=== PATIENT | female | born 1975 | race Caucasian/White ===

== ENCOUNTER 2023-05-03 21:18 | Outpatient (REF) | payer OTHER, SELFPAY ==
[2023-05-07 14:08] LABS: Age Gdln ACOG Testing Note (.); HPV Aptima Negative (Negative); IGP, Aptima HPV, rfx 16/18,45 Note (.)
== END 2023-05-03 21:19 | disposition home or self-care (01) ==
LOC: LAB 21:18
PROVIDERS: Visit Provider Obstetrics & Gynecology
DX: Z12.4 Encounter for screening for malignant neoplasm of cervix (principal)
CPT/HCPCS: 87624; G0145

== ENCOUNTER 2024-05-16 19:15 | Outpatient (REF) | payer OTHER, SELFPAY ==
--- OUTSIDE RECORDS SUMMARY | 2024-05-16 19:19 | XMS_ITS | CCD ---
Author Organization [facility] Care Team Providers Care Special Needs Bus Driver Name Role Phone VIOLA, DR RENDON Admitting Unavailable VIOLA, DR RENDON Attending Unavailable DEFRANCE, DR LARSEN Primary Care Unavailable WEST, DR SUZIE Peña Consulting Unavailable VIOLA, DR RENDON Consulting Unavailable VIOLA, DR RENDON Admitting Unavailable VIOLA, DR RENDON Attending Unavailable DEFRANCE, DR LARSEN Primary Care Unavailable VIOLA, DR RENDON Consulting Unavailable VIOLA, DR RENDON Admitting Unavailable VIOLA, DR RENDON Attending Unavailable DEFRANCE, DR LARSEN Primary Care Unavailable VIOLA, DR RENDON Consulting Unavailable VIOLA, DR RENDON Admitting Unavailable VIOLA, DR RENDON Attending Unavailable DEFRANCE, DR LARSEN Primary Care Unavailable VIOLA, DR RENDON Admitting Unavailable VIOLA, DR RENDON Attending Unavailable DEFRANCE, DR LARSEN Primary Care Unavailable VIOLA, DR RENDON Consulting Unavailable VIOLA, DR RENDON Admitting Unavailable VIOLA, DR RENDON Attending Unavailable DEFRANCE, DR LARSEN Primary Care Unavailable VIOLA, DR RENDON Consulting Unavailable LONGEDINSON Consulting Unavailable VIOLA, JUSTICE Attending Unavailable TREMRUBY CORRALES Referring Unavailable DEFRANCE, SUZIE Flores Primary Care Unavailable RUBY BARCLAY Referring Unavailable DEFRANCE, SUZIE Flores Primary Care Unavailable Defrance Suzie VASQUEZ Primary Care Provider [phone] Problems Active Problems Problem Classification Problem Date Documented Date Episodic/Chronic Endometriosis (1 source) Endometriosis, unspecified; Translations: [ENDOMETRIOSIS UNSPECIFIED] Onset: 07-29-2021 Chronic Immunizations and screening for infectious disease (5 sources) Encounter for screening for human papillomavirus (HPV); Translations: [Encounter for screening for infections with a predominantly sexual mode of transmission] Onset: 02-16-2022 Episodic Malaise and fatigue (1 source) Weakness; Translations: [Weakness] Onset: 07-08-2023 Episodic Other connective tissue disease (1 source) Lateral epicondylitis, left elbow; Translations: [Lateral epicondylitis, left elbow] Onset: 07-08-2023 Episodic Other female genital disorders (4 sources) Abnormal uterine and vaginal bleeding, unspecified; Translations: [ABNORMAL UTERINE VAGINAL BLEED UNS] Onset: 07-17-2021 Chronic Other female genital disorders (1 source) Other specified noninflammatory disorders of vagina; Translations: [OTH SPEC NONINFLAMMATORY D/O VAGINA] Onset: 02-17-2022 Episodic Other non-traumatic joint disorders (1 source) Pain in left elbow; Translations: [Pain in left elbow] Onset: 07-08-2023 Episodic Other screening for suspected conditions (not mental disorders or infectious disease) (8 sources) Encounter for screening for malignant neoplasm of cervix; Translations: [Encounter for screening mammogram for malignant neoplasm of breast] Onset: 05-08-2021 Episodic Unclassified (1 source) CONTACT W/AND (SUSP) EXPOS COVID-19; Translations: [CONTACT W/AND (SUSP) EXPOS COVID-19] Onset: 07-16-2021 Past or Other Problems Problem Classification Problem Date Documented Da te Episodic/Chronic Abdominal pain (1 source) Pelvic and perineal pain; Translations: [PELVIC AND PERINEAL PAIN] Onset: 07-29-2021 Episodic Benign neoplasm of uterus (1 source) Leiomyoma of uterus, unspecified; Translations: [LEIOMYOMA OF UTERUS UNSPECIFIED] Onset: 07-29-2021 Episodic Results Test Name Value Interpretation Reference Range Facil ity PAP ACOG PANEL 2: 30 to 65on 05-01-2022 . . Normal [facility] Comment on above: Result Comment: Perf ormed at: BA Performed By: #### [id number] #### [facility] [address] [address] [address] Mane Mueller Age Gdln ACOG Testing 30-[address] [facility] Comment on above: Performed By: #### [id number] #### [facility] [address] [address] [address] Mane Mueller DIAGNOSIS: Comment [facility] Comment on above: Result Comment: NEGA TIVE FOR INTRAEPITHELIAL LESION OR MALIGNANCY. Performed at: BA Performed By: #### [id number] #### [facility] [address] [place] [address] Dr. Mane Mueller HPV Aptima Negative Normal Negative [facility] Comment on above: Result Comment: This nucleic acid amplification test detects fourteen high-risk HPV types (16,18,31,33,35,39,45,51,52,56,58,59,66,68) without differentiation. Performed at: =G Performed By: #### [id number] #### [facility] [address] [address] [address] Mane Mueller HPV Genotype Reflex Comment Normal [facility] Comment on above: Result Comment: Crit eria not met, HPV Genotype not performed. Performed at: BA Performed By: #### [id number] #### [facility] [address] [place] [address] Dr. Mane Mueller Methodology: Comment Normal [facility] Comment on above: Result Comment: This liquid based ThinPrep(R) pap test was screened with the use of an image guided system. Performed at: WB Performed By: #### [id number] #### [facility] [address] [place] [address] Dr. Mane Mueller Note: Comment Normal [facility] Comment on above: Result Comment: The Pap smear is a screening test designed to aid in the detection of premalignant and malignant conditions of the uterine cervix. It is not a diagnostic procedure and should not be used as the sole means of detecting cervical cancer. Both false-positive and false-negative reports do occur. . Performed at: WB Performed By: #### [id number] #### [facility] [address] [place] [address] Dr. Mane Mueller Performed by: Comment Normal [facility] Comment on above: Result Comment: Beau Jeffries, Hardware Technician (ASCP) Performed at: BA Performed By: #### [id number] #### [facility] [address] [place] [address] Dr. Mane Mueller Specimen adequacy: Comment Normal [facility] Comment on above: Result Comment: Sati sfactory for evaluation. Endocervical and/or squamous metaplastic cells (endocervical component) are present. Performed at: BA Performed By: #### [id number] #### [facility] [address] [place] [address] Dr. Mane Mueller CHLAMYDIA/GONOCOCCUS MARYELLEN ( AB/URINE/PAPon 02-19-2022 Chlamydia trachomatis, MARYELLEN Negative Normal Negative [facility] Comment on above: Performed By: #### C T/NGNA #### [facility] [address] [place] [address] Dr. Mane Muleler Neisseria gonorrhoeae, MARYELLEN Negative Normal Negative [facility] Comment on above: Performed By: #### C T/NGNA #### [facility] [address] [place] [address] Dr. Mane Mueller VAGINITIS/VAGINOSIS DNA PROB Rigo 02-19-2022 Sanrda species Negative Normal Negative [facility] Comment on above: Performed By: #### V AGINT #### [facility] [address] [place] [address] Dr. Mane Mueller Gardnerella vaginalis Negative Normal Negative [facility] Comment on above: Performed By: #### V AGINT #### [facility] [address] [place] [address] Dr. Mane Mueller Trichomonas vaginalis Positive Abnormal Negative [facility] Comment on above: Performed By: #### V AGINT #### [facility] [address] [place] [address] Dr. Mane Mueller CBC AUTO DIFFon 07-17-2021 BASO # 0.0 103/ul Normal 0.0-0.[address] [facility] Comment on above: Performed By: #### C BC #### [facility] [address] [place] [address] Dr. Mane Mueller Basophils/100 WBC (Bld) 0.3 % Normal 0.2-2.[address] [facility] Comment on above: Performed By: #### C BC #### [facility] [address] [place] [address] Dr. Mane Mueller EO # 0.3 103/ul Normal 0.0-0.[address] [facility] Comment on above: Performed By: #### C BC #### [facility] [address] [place] [address] Dr. Mane Mueller Eosinophils/100 WBC (Bld) 2.9 % Normal 0.9-7.[address] [facility] Comment on above: Performed By: #### C BC #### [facility] [address] [place] [address] Dr. Mane Mueller Erythrocyte distribution width (RBC) [Ratio] 14.2 % Normal 11.0-15.[address] [facility] Comment on above: Performed By: #### C BC #### [facility] [address] [place] [address] Dr. Mane Mueller Hematocrit (Bld) [Volume fraction] 40.3 % Normal 36.0-48.[address] [facility] Comment on above: Performed By: #### C BC #### [facility] [address] [place] [address] Dr. Mane Mueller Hemoglobin (Bld) [Mass/Vol] 13.1 g/dL Normal 12.0-16.[address] [facility] Comment on above: Performed By: #### C BC #### [facility] [address] [place] [address] Dr. Mane Mueller IG # 0.02 10e3/ul Normal 0.00-0.[address] [facility] Comment on above: Performed By: #### C BC #### [facility] [address] [place] [address] Dr. Mane Mueller IG % 0.2 % Normal 0.0-0.5 [facility] Comment on above: Performed By: #### C BC #### [facility] [address] [place] [address] Dr. Mane Mueller LYMPH # 2.9 103/ul Normal 1.2-3.8 [facility] Comment on above: Performed By: #### C BC #### [facility] [address] [place] [address] Dr. Mane Mueller Lymphocytes/100 WBC (Bld) 30.7 % Normal 20.5-60.[address] [facility] Comment on above: Performed By: #### C BC #### [facility] [address] [place] [address] Dr. Mane Mueller MANUAL DIFF REQ NO Normal [facility] Comment on above: Performed By: #### C BC #### [facility] [address] [place] [address] Dr. Mane Mueller MCH (RBC) [Entitic mass] 27.9 pg Normal 26.7-34.[address] [facility] Comment on above: Performed By: #### C BC #### [facility] [address] [place] [address] Dr. Mane Mueller MCHC (RBC) [Mass/Vol] 32.5 g/dL Normal 29.9-35.[address] [facility] Comment on above: Performed By: #### C BC #### [facility] [address] [place] [address] Dr. Mane Mueller MCV (RBC) [Entitic vol] 85.7 fL Normal 81.0-99.[address] [facility] Comment on above: Performed By: #### C BC #### [facility] [address] [place] [address] Dr. Mane Mueller MONO # 0.7 103/ul Normal 0.3-0.[address] [facility] Comment on above: Performed By: #### C BC #### [facility] [address] [place] [address] Dr. Mane Mueller Monocytes/100 WBC (Bld) 7.7 % Normal 1.7-12.[address] [facility] Comment on above: Performed By: #### C BC #### [facility] [address] [place] [address] Dr. Mane Mueller NEUT # 5.5 103/ul Normal 1.4-6.5 [facility] Comment on above: Performed By: #### C BC #### [facility] [address] [place] [address] Dr. Mane Mueller Neutrophils/100 WBC (Bld) 58.2 % Normal 43.0-75.0 [facility] Comment on above: Performed By: #### C BC #### [facility] [address] [place] [address] Dr. Mane Mueller Platelet mean volume (Bld) [Entitic vol] 9.6 fL Normal 9.5-13.[address] [facility] Comment on above: Performed By: #### C BC #### [facility] [address] [place] [address] Dr. Mane Mueller PLT 349 103/ul Normal 150-450 [facility] Comment on above: Performed By: #### C BC #### [facility] [address] [place] [address] Dr. Mane Mueller RBC 4.70 106/ul Normal 4.20-5.[address] [facility] Comment on above: Performed By: #### C BC #### [facility] [address] [place] [address] Dr. Mane Mueller WBC 9.4 103/ul Normal 4.0-11.[address] [facility] Comment on above: Performed By: #### C BC #### [facility] [address] [place] [address] Dr. Mane Mueller PREG QUANT HCGon 07-17-2021 HCG QUANT 1 mIU/mL Normal [facility] Comment on above: Performed By: #### P REGQNT #### [facility] [address] [place] [address] Dr. Mane Mueller HCG RANGE SEE BELOW Normal [facility] Comment on above: Result Comment: 5-50 0-1 WEEK 40-300 1-2 WEEKS 100-1,000 2-3 WEEKS 500-6,000 3-4 WEEKS 5,000-200,000 1-2 MONTHS 10,000-100,000 2-3 MONTHS 3,000-50,000 2ND TRIMESTER 1,000-50,000 3RD TRIMESTER Performed By: #### P REGQNT #### [facility] [address] [place] [address] Dr. Mane Mueller Covid-19 PCR (CVDTB)on 06-21 SARS-CoV-2 (COVID-19) RNA MARYELLEN+probe Ql (Unsp spec) Not detected Normal NOT DETECTED [facility] Comment on above: Result Comment: This test is not yet approved or cleared by the [place] FDA. When there are no FDA-approved or cleared tests available, and other criteria are met, FDA can make tests available under an emergency access mechanism called an Emergency Use Authorization (EUA). The EUA for this test is supported by the [place] of Health and Human Service's (HHS's) declaration that circumstances exist to justify the emergency use of in vitro diagnostics for the detection and/or diagnosis of the virus that causes COVID-19. This EUA will remain in effect (meaning this test can be used) for the duration of the COVID-19 declaration justifying emergency of IVDs, unless it is terminated or revoked by FDA (after which the test may no longer be used). When diagnostic testing is negative, the possibility of a false negative should be considered in the context of a patient's recent exposures and the presence of clinical signs and symptoms consistent with SARS-CoV-2. Performed By: #### C [facility] #### [facility] [address] [place] [address] Dr. Mane Mueller MG MAMM SCREEN 3D YUDI CADon 05-08-2021 MG MAMM SCREEN 3D YUDI CAD Patient: AZALIA CASTRO Exam Date: 05/08/2021 : 1975 Gender:F Ordering : DR JUSTICE ROD . Admission #: [id number] Family : Order #: [id number] CLICK HERE TO VIEW EXAM RADIOLOGY REPORT PROCEDURE: MAMMOGRAM SCREENING 3D BILATERAL CAD COMPARISON: MG MAMM YUDI DIAG W CAD, 05/18/2012. MG MAMM SCREEN YUDI W CAD, 05/23/2013. INDICATIONS: Screening mammography Calculator Name NCI Breast Cancer Risk Assessment Tool 5 Year Breast Cancer Risk Not Reported. Lifetime Breast Cancer Risk Not Reported. Personal Breast Cancer No Personal Ovarian Cancer No Treatments None Family Cancers None LOCATION: [facility] BREAST COMPOSITION: Extremely dense, which lowers the sensitivity of mammography. FINDINGS: DIAGNOSTIC CATEGORY 2--BENIGN FINDING NO CHANGE FROM COMPARISON ASSESSMENT. Scattered benign-appearing calcifications are present. RIGHT BREAST: No significant suspicious finding. LEFT BREAST: No significant suspicious finding. RECOMMENDATIONS: ROUTINE MAMMOGRAM AND CLINICAL EVALUATION IN 12 MONTHS. PLEASE NOTE: A NORMAL MAMMOGRAM DOES NOT EXCLUDE THE POSSIBILITY OF BREAST CANCER. A CLINICALLY SUSPICIOUS PALPABLE LUMP SHOULD BE BIOPSIED. Dictated by: Suzie Marcano MD on 05/08/2021 at 11:52 Approved by: Suzie Marcano MD on 05/08/2021 at 11:[address] [facility] Encounters Encounter Date Encounter Type Care Provider Facility Start: 05-16-2024 End: 05-16-2024 Bamboo flowsheet Justice Singletaryo DO Work Phone: [facility] Start: 05-16-2024 End: 05-16-2024 Bamboo flowsheet Justice Rod DO Work Phone: [facility] Start: 07-21-2023 End: 08-19-2023 ambulatory [facility] Start: 07-08-2023 End: 07-21-2023 ambulatory [facility] Start: 05-03-2023 End: 05-03-2023 ambulatory JUSTICE ROD Not Available Start: 04-26-2022 End: 04-26-[address] JUSTICE ROD Facility:[facility] Start: 02-16-2022 End: 02-16-[address] JUSTICE ROD Facility:[facility] Start: 07-17-2021 End: 07-17-[address] JUSTICE ROD Facility:[facility] Start: 07-16-2021 Encounter for preprocedural laboratory examination DR JUSTICE ROD [facility] Start: 07-15-2021 Encounter for other preprocedural examination DR JUSTICE ROD [facility] Start: 07-14-2021 End: 07-15-[address] JUSTICE ROD Facility:[facility] Start: 07-14-2021 End: 07-15-2021 Encounter for preprocedural laboratory examination DR JUSTICE ROD Facility:[facility] Start: 07-10-2021 End: 07-11-[address] JUSTICE ROD Facility:[facility] Start: 07-10-2021 End: 07-11-2021 Encounter for other preprocedural examination DR JUSTICE ROD Facility:[facility] Start: 05-08-2021 End: 05-09-[address] JUSTICE ROD Facility:[facility] Plan of Treatment Date Care Activity Detail Author Start: 05-16-2024 End: 05-16-2024 Patient encounter procedure 05/16/2024 3:40 PM EST Office Visit [facility] [address] [address] Justice Rod DO [address] [place] [address] Arrived [facility] Comment on above: Arrived Payers Date Payer Category Payer Private Health Insurance [facility] [id number] 2022 Unknown [id number] 1975 Unknown [id number]. 2. 1975 Unknown [id number] [id number]. 2.59 1975 Unknown [id number] [id number]. 2.59 1975 Unknown [id number] [id number]. 2.593 1975 Unknown [id number] [id number]. 2.59 1975 Unknown [id number] [id number]. 2.593 1975 Unknown [id number] [id number]. 2.1259 1975 Unknown [id number] [id number]. 2.1286 1975 Unknown [id number] [id number] 1957 Unknown [id number] Social History Date Type Detail Facility Start: 04-21-2023 Tobacco smoking stat [facility] Never smoked tobacco [facility] Start: 05-03-2023 Alcoholic beverage intake Life time non-drinker (finding) [facility] Start: 05-03-2023 History of Social function [facility] Start: 05-03-2023 Tobacco use panel [facility] Start: 04-21-2023 Alcohol Comment caffeine: none [facility] Start: 1975 Sex assigned at Not on file [facility] Clinical Note 07-17-2021 Note Date & Type Note Facility 07-17-2021 Note [facility] [place], [place] NAME: AZALIA CASTRO DATE OF : MEDICAL REC#: [id number] RETURNED ITEM CLERK: [id number] [facility], TRANSADMIT DATE: 07/17/2021 07:02:00 STERILE TECHNICIAN DATE: 07/17/2021 22:00 DICTATING PHYSICIAN: JUSTICE ROD DICTATION DATE: 07/17/2021 10:00 OPERATIVE NOTE PROCEDURE: Doris endometrial ablation with hysteroscopy, bilateral laparoscopic salpingectomy, removal of right endometrioma. PREOPERATIVE DIAGNOSIS: Abnormal uterine bleeding, uterine fibroids, dysmenorrhea. POSTOPERATIVE DIAGNOSIS: Abnormal uterine bleeding, dysmenorrhea including a right endometrioma, as well as evidence of endometriosis pelvic side wall and multiple large uterine fibroids. SURGEON: Justice Rod D.O. PATROL SUPERVISOR: FRANK Lees URINE OUTPUT: Yellow and clear. BLOOD LOSS: 5 mL. SPECIMEN: Bilateral tubes. PROCEDURE: The patient was taken back to the OR where she was prepped and draped in the normal sterile fashion after being placed in the dorsal lithotomy position, after being placed under general anesthesia without difficulty. The anterior lip was grasped with a single tooth tenaculum. The patient was then gently sounds. The patient was gently sounded using Hegar dilators and the hysteroscope was passed through the cervix into the uterus where both ostia were seen. No gross evidence of polyps, fibroids or malignancy. A weighted speculum was placed in the patient's vagina, the anterior tip of the cervix was identified and grasped with a single tooth tenaculum. The patient was gently sounded to roughly 10 cm. The cervical length was noted to be 5 cm. The Doris ablation apparatus was set to approximately 5 in length. This was placed in through the cervix and into the uterus. After the seal was tested, at that time the total ablation of 120 seconds was performed with the Doris without difficulty. All instruments were removed from the vagina. A wet sponge stick was placed into the patient's vagina. Attention was then turned to the patient's abdomen, where a scalpel was used to make a small infraumbilical incision. The S retractors were then used to dissect the underlying layers until the fascia could be seen. The fascia was then grasped with Carolyn clamps and tented up. A knife was then used to make a small incision to the fascia. The muscle was identified, at that time two sutures of #0 Vicryl on a GI needle was then used and placed through the fascia. The peritoneum was then identified and entered bluntly. The 10-4 Makenzie was then placed into the patient's abdomen. This was confirmed with direct visualization of the bowel, using the laparoscope. The patient's abdomen was then insufflated using approximately 4 liters of CO2 gas. Survey of the patient's abdomen demonstrated rt endometrioma, normal appearing lt ovary, normal appearng tubes, multiple large fundal uterine fibroid were noted. tubes. A second and third left lateral port, which was 7-8 and 5mm in size, was then placed rt and ltlaterally after incision was made in the skin under direct visualization. The patient's tube on the patient's right side was identified. Instead of using Filshie clips the LigaSure apparatus was used to come across the mesosalpingx and this was done on the contralateral side. The tubes were removed in their entirety. Please note that removal of rt endometrioma was performed using LigaSure. The left lateral port was then moved under direct visualization with excellent hemostasis. All instruments were removed from the patient's abdomen. The fascia was closed using the #0 Vicryl on GI needle. The skin was closed using 4-0 Vicryl subcuticularly. All instruments were removed from the patient's vagina as well. The patient was taken out of the dorsal lithotomy position and placed in the supine position and taken to recovery in stable condition. Sponge, lap and needle counts were correct x2. Electronically Authenticated and Edited by: Justice oRd DO on 07/24/2021 05:36 PM [facility] Signed and Approved by: DR JUSTICE ROD . 07/24/2021 17:36:00 [facility] Summary Purpose Family History No Family History Records FoundNo Family History Records FoundNo Family History Records Found Advance Directives No Advanced Directives Records FoundNo Advanced Directives Records FoundNo Advanced Directives Records Found Additional Source Comments INFORMATION SOURCE (unrecogn ized section and content) DATE CREATED AUTHOR 05/01/2022 [facility] DATE CREATED AUTHOR AUTHOR'S ORGANIZ ATION 05/04/2023 [facility] EPIC DATE CREATED AUTHOR AUTHOR'S ORGANIZ ATION 08/21/2023 [facility] Care Teams (unrecognized sec tion and content) Special Needs Bus Driver Relationship Specialty Start Date End Date Suzie Shoemaker MD [address] [address] PCP - General Family Medicine 05/03/23 FOR RECORDS PERTAINING TO PATIENTS WHO ARE OR HAVE BEEN ENROLLED IN A CHEMICAL DEPENDENCY/SUBSTANCEABUSE PROGRAM, SOME INFORMATION MAY BE OMITTED. This clinical summary was aggregated from multiple sources. Caution should be exercised in using it in the provision of clinical care. This summary normalizes information from multiple sources, and as a consequence, information in this document may materially change the coding, format and clinical context of patient data. In addition, data may be omitted in some cases. CLINICAL DECISIONS SHOULD BE BASED ON THE PRIMARY CLINICAL RECORDS. [employer] provides no warranty or guarantee of the accuracy or completeness of information in this document.
== END 2024-05-16 19:16 | disposition home or self-care (01) ==
LOC: LAB 19:15
PROVIDERS: Visit Provider Obstetrics & Gynecology
DX: Z01.419 Encounter for gynecological examination (general) (routine) without abnormal findings (principal)
CPT/HCPCS: 87624; 88175

== ENCOUNTER 2024-08-28 16:19 | Outpatient (OUT) | payer OTHER, SELFPAY ==
--- NOTE | 2024-08-28 16:29 | MM_ITS ---
Patient Name: SHAW CASTRO MR#: [id number] : 1975 Exam Date: 08/28/2024 Ordering Doctor: DR Brannon Rod . RADIOLOGY REPORT PROCEDURE: MM TOMOSYNTHESIS SCREENING BI COMPARISON: MG MAMM SCREEN 3D YUDI CAD, 05/08/2021. MG MAMM SCREEN YUDI W CAD, 05/23/2013. MG MAMM YUDI DIAG W CAD, 05/18/2012. INDICATIONS: Screening for malignant neoplasm Calculator Name NCI Breast Cancer Risk Assessment Tool 5 Year Breast Cancer Risk Not Reported. Lifetime Breast Cancer Risk Not Reported. Personal Breast Cancer No Personal Ovarian Cancer No Treatments None Family Cancers None LOCATION: [facility] BREAST COMPOSITION: The breasts are extremely dense, which lowers the sensitivity of mammography. FINDINGS: DIAGNOSTIC CATEGORY 1--NEGATIVE. RIGHT BREAST: No significant suspicious finding. LEFT BREAST: No significant suspicious finding. RECOMMENDATIONS: ROUTINE MAMMOGRAM AND CLINICAL EVALUATION IN 12 MONTHS. PLEASE NOTE: A NORMAL MAMMOGRAM DOES NOT EXCLUDE THE POSSIBILITY OF BREAST CANCER. A CLINICALLY SUSPICIOUS PALPABLE LUMP SHOULD BE BIOPSIED. Dictated by: Johan Stevens DO on 08/30/2024 at 09:44 Approved by: Johan Stevens DO on 08/30/2024 at 09:45
--- OUTSIDE RECORDS SUMMARY | 2024-08-28 16:40 | XMS_ITS | CCD ---
Author Organization [facility] Care Team Providers Care Education Technician Name Role Phone VIOLA, DR RENDON Admitting Unavailable VIOLA, DR RENDON Attending Unavailable DEFRANCE, DR LARSEN Primary Care Unavailable WEST, DR SUZIE Peña Consulting Unavailable VIOLA, DR RENODN Consulting Unavailable VIOLA, DR RENDON Admitting Unavailable [...] Care Unavailable VIOLA, DR RENDON Consulting Unavailable LONG, EDINSON Consulting Unavailable RUBY BARCLAY Referring Unavailable DEFHAN, SUZIE Flores Primary Care Unavailable RUBY BARCLAY Referring Unavailable DEFRANCE, SUZIE Flores Primary Care Unavailable Defrance Suzie VASQUEZ Primary Care Provider [phone] JUSTICE ROD Attending Unavailable Problems Active Problems Problem Classification Problem Date [...] conditions (not mental disorders or infectious disease) (10 sources) Encounter for screening for malignant neoplasm [...] Name Value Interpretation Reference Range Facil ity IGP,APTIMA HPV,AGE GDLNon AGE GDLN ACOG TESTING Note . [facility] Comment on above: TESTS RESULT FLAG UN ITS REF RANGE LAB Clinician Provided Cytology Information Source.............Cervix;Endocervix No. of containers..01 ThinPrep Vial Age Algo ACOG Keli... 30-65 01 FLAG LEGEND: L-Low Normal,H-High Normal,LL-Alert Low,HH-Alert High <-Panic Low,>-Panic High,A-Abnormal,AA-Critical Abnormal Performed at: 01 =[address] [address] Hattie Mccabe MD, HPV APTIMA Negative Negative [facility] Comment on above: This nucleic acid am plification test detects fourteen high- risk HPV types (16,18,31,33,35,39,45,51,52,56,58,59,66,68) without differentiation. Performed at: =[facility] [employer] [id number] Architect In Training: Hattie Mccabe MD, Phone: [phone] Performed at: [address] [id number] Architect In Training: Hattie Mccabe MD, Phone: [phone] IGP, APTIMA HPV, RFX 16/18,45 Note . [facility] Comment on above: TESTS RESULT FLAG UN ITS REF RANGE LAB DIAGNOSIS: 02 NEGATIVE FOR INTRAEPITHELIAL LESION OR MALIGNANCY. CELLULAR CHANGES ASSOCIATED WITH INFLAMMATION ARE PRESENT. Specimen adequacy: 02 Satisfactory for evaluation. Endocervical and/or squamous metaplastic cells (endocervical component) are present. Performed by: 02 Jose M Montenegro, Polisher Numeral ([facility]) . 02 Note: Note 02 The Pap smear is a screening test designed to aid in the detection of premalignant and malignant conditions of the uterine cervix. It is not a diagnostic procedure and should not be used as the sole means of detecting cervical cancer. Both false-positive and false-negative reports do occur. Test Methodology: Note 02 This liquid based ThinPrep(R) pap test was screened with the use of an image guided system. HPV Genotype Reflex Note 02 Criteria not met, HPV Genotype not performed. FLAG LEGEND: L-Low Normal,H-High Normal,LL-Alert Low,HH-Alert High <-Panic Low,>-Panic High,A-Abnormal,AA-Critical Abnormal Performed at: 02 WB [facility] [address] [address] Hattie Mccabe MD, BRUSH-SPATULA CERVIX ENDOCERVIX [facility] PAP ACOG PANEL 2: 30 to 65on 05-01-2022 . . Normal [facility] Comment on above: Result Comment: Perf ormed at: BA Performed By: #### [id number] #### [facility] [address] [place] [address] Dr. Mane Mueller Age Gdln ACOG Testing 30-[address] [facility] Comment on above: Performed By: #### [id number] #### [facility] [address] [address] [address] Mane Mueller DIAGNOSIS: Comment Normal [facility] Comment on above: Result Comment: NEGA TIVE FOR INTRAEPITHELIAL LESION OR MALIGNANCY. Performed at: BA Performed By: #### 4 [id number] #### [facility] [address] [address] [address] Mane Mueller HPV Aptima Negative Normal Negative [facility] Comment on above: Result Comment: This nucleic acid amplification test detects fourteen high-risk HPV types (16,18,31,33,35,39,45,51,52,56,58,59,66,68) without differentiation. Performed at: =G Performed By: #### 4 [id number] #### [facility] [address] [place] [address] Dr. Mane Mueller HPV Genotype Reflex Comment Normal [facility] Comment on above: Result Comment: Crit eria not met, HPV Genotype not performed. Performed at: BA Performed By: #### 4 [id number] #### [facility] [address] [place] [address] Dr. Mane Mueller Methodology: Comment Normal [facility] Comment on above: Result Comment: This liquid based ThinPrep(R) pap test was screened with the use of an image guided system. Performed at: WB Performed By: #### 4 [id number] #### [facility] [address] [place] [address] Dr. Mane Mueller Note: Comment Normal [facility] Comment on above: Result Comment: The Pap smear is a screening test designed to aid in the detection of premalignant and malignant conditions of the uterine cervix. It is not a diagnostic procedure and should not be used as the sole means of detecting cervical cancer. Both false-positive and false-negative reports do occur. . Performed at: WB Performed By: #### 4 [id number] #### [facility] [address] [place] [address] Dr. Mane Mueller Performed by: Comment Normal [facility] Comment on above: Result Comment: Beau Jeffries, Polisher Numeral (ASCP) Performed at: BA Performed By: #### 4 [id number] #### [facility] [address] [place] [address] Dr. Mane Mueller Specimen adequacy: Comment Normal [facility] Comment on above: Result Comment: Sati sfactory for evaluation. Endocervical and/or squamous metaplastic cells (endocervical component) are present. Performed at: BA Performed By: #### 4 [id number] #### [facility] [address] [place] [address] Dr. Mane Mueller CHLAMYDIA/GONOCOCCUS MARYELLEN ( AB/URINE/PAPon 02-19-2022 Chlamydia trachomatis, MARYELLEN Negative Normal Negative [facility] Comment on above: Performed By: #### C T/NGNA #### [facility] [address] [place] [address] Dr. Mane Mueller Neisseria gonorrhoeae, MARYELLEN Negative Normal Negative [facility] Comment on above: Performed By: #### C T/NGNA #### [facility] [address] [place] [address] Dr. Mane Mueller VAGINITIS/VAGINOSIS DNA PROB Rigo 02-19-2022 Sandra species Negative Normal Negative The [facility] Comment on above: Performed By: #### V AGINT #### [facility] [address] [place] [address] Dr. Mane Mueller Gardnerella vaginalis Negative Normal Negative [facility] Comment on above: Performed By: #### V AGINT #### [facility] [address] [place] [address] Dr. Mane Mueller Trichomonas vaginalis Positive Abnormal Negative [facility] Comment on above: Performed By: #### V AGINT #### [facility] [address] [place] [address] Dr. Mane Mueller CBC AUTO DIFFon 07-17-2021 BASO # 0.0 103/ul Normal 0.0-0.[address] [facility] Comment on above: Performed By: #### C BC #### [facility] [address] [place] [address] Dr. Mane Mueller Basophils/100 WBC (Bld) 0.3 % Normal 0.2-2.0 [facility] Comment on above: Performed By: #### C BC #### [facility] [address] [place] [address] Dr. Mane Mueller EO # 0.3 103/ul Normal 0.0-0.[address] [facility] Comment on above: Performed By: #### C BC #### [facility] [address] [place] [address] Dr. Mane Mueller Eosinophils/100 WBC (Bld) 2.9 % Normal 0.9-7.[address] [facility] Comment on above: Performed By: #### C BC #### [facility] [address] [place] [address] Dr. Mane Mueller Erythrocyte distribution width (RBC) [Ratio] 14.2 % Normal 11.0-15.[address] [facility] Comment on above: Performed By: #### C BC #### [facility] [address] [place] [address] Dr. Mane Mueller Hematocrit (Bld) [Volume fraction] 40.3 % Normal 36.0-48.[address] [facility] Comment on above: Performed By: #### C BC #### [facility] [address] [place] [address] Dr. Mane Mueller Hemoglobin (Bld) [Mass/Vol] 13.1 g/dL Normal 12.0-16.[address] [facility] Comment on above: Performed By: #### C BC #### [facility] [address] [place] [address] Dr. Mane Mueller IG # 0.02 10e3/ul Normal 0.00-0.[address] [facility] Comment on above: Performed By: #### C BC #### [facility] [address] [place] [address] Dr. Mane Mueller IG % 0.2 % Normal 0.0-0.[address] [facility] Comment on above: Performed By: #### C BC #### [facility] [address] [place] [address] Dr. Mane Mueller LYMPH # 2.9 103/ul Normal 1.2-3.8 [facility] Comment on above: Performed By: #### C BC #### [facility] [address] [place] [address] Dr. Mane Mueller Lymphocytes/100 WBC (Bld) 30.7 % Normal 20.5-60.[address] [facility] Comment on above: Performed By: #### C BC #### [facility] [address] [place] [address] Dr. Mane Mueller MANUAL DIFF REQ NO Normal [facility] Comment on above: Performed By: #### C BC #### [facility] [address] [place] [address] Dr. Mane Mueller MCH (RBC) [Entitic mass] 27.9 pg Normal 26.7-34.[address] [facility] Comment on above: Performed By: #### C BC #### [facility] [address] [place] [address] Dr. Mane Mueller MCHC (RBC) [Mass/Vol] 32.5 g/dL Normal 29.9-35.[address] [facility] Comment on above: Performed By: #### C BC #### [facility] [address] [place] [address] Dr. Mane Mueller MCV (RBC) [Entitic vol] 85.7 fL Normal 81.0-99.[address] [facility] Comment on above: Performed By: #### C BC #### [facility] [address] [place] [address] Dr. Mane Mueller MONO # 0.7 103/ul Normal 0.3-0.[address] [facility] Comment on above: Performed By: #### C BC #### [facility] [address] [place] [address] Dr. Mane Mueller Monocytes/100 WBC (Bld) 7.7 % Normal 1.7-12.[address] [facility] Comment on above: Performed By: #### C BC #### [facility] [address] [place] [address] Dr. Mane Mueller NEUT # 5.5 103/ul Normal 1.4-6.5 [facility] Comment on above: Performed By: #### C BC #### [facility] [address] [place] [address] Dr. Mane Mueller Neutrophils/100 WBC (Bld) 58.2 % Normal 43.0-75.[address] [facility] Comment on above: Performed By: #### C BC #### [facility] [address] [place] [address] Dr. Mane Mueller Platelet mean volume (Bld) [Entitic vol] 9.6 fL Normal 9.5-13.[address] [facility] Comment on above: Performed By: #### C BC #### [facility] [address] [place] [address] Dr. Mane Mueller PLT 349 103/ul Normal 150-[address] [facility] Comment on above: Performed By: #### C BC #### [facility] [address] [address] [address] Mane Mueller RBC 4.70 106/ul Normal 4.20-5.[address] [facility] Comment on above: Performed By: #### C BC #### [facility] [address] [address] [address] Mane Mueller WBC 9.4 103/ul Normal 4.0-11.[address] [facility] Comment on above: Performed By: #### C BC #### [facility] [address] [place] [address] Dr. Mane Mueller PREG QUANT HCGon 07-17-2021 HCG QUANT 1 mIU/mL Normal [facility] Comment on above: Performed By: #### P REGQNT #### [facility] [address] [place] [address] Dr. Mane Mueller HCG RANGE SEE BELOW Normal [facility] Comment on above: Result Comment: 5-50 0-1 WEEK 40-300 1-2 WEEKS 100-1,000 2-3 WEEKS 500-6,000 3-4 WEEKS 5,000-200,000 1-2 MONTHS 10,000-100,000 2-3 MONTHS 3,000-50,000 2ND TRIMESTER 1,000-50,000 3RD TRIMESTER Performed By: #### P REGQNT #### [facility] [address] [place] [address] Dr. Mane Mueller Covid-19 PCR ([facility])on 06-21 SARS-CoV-2 (COVID-19) RNA MARYELLEN+probe Ql (Unsp spec) Not detected Normal NOT DETECTED [facility] Comment on above: Result Comment: This test is not yet approved or cleared by the [place] FDA. When there are no FDA-approved or cleared tests available, and other criteria are met, FDA can make tests available under an emergency access mechanism called an Emergency Use Authorization (EUA). The EUA for this test is supported by the [place] of Health and Human Service's (HHS's) declaration [...] consistent with SARS-CoV-2. Performed By: #### C [facility] #### [facility] [address] [place] [address] Dr. Mane Mueller MG MAMM SCREEN 3D YUDI CADon 05-08-2021 MG MAMM SCREEN 3D YUDI CAD Patient: AZALIA CASTRO Exam Date: 05/08/2021 : 1975 Gender:F Ordering : DR JUSTICE ROD . Admission #: [id number] Family : Order #: [id number] CLICK HERE TO VIEW EXAM RADIOLOGY REPORT [...] Treatments None Family Cancers None LOCATION: The [facility] BREAST COMPOSITION: Extremely dense, which lowers the [...] 05/08/2021 at 11:[address] [facility] Vital Signs Date Time Vital Sign Value Performing Clinician Leslie patino 05-16-2024 16:14-0500 Body mass index (BMI) [Ratio] 28.43 kg/m2 Justice Viola DO Work Phone: [facility] 05-16-2024 16:14-0500 Body weight 79.89 kg Justice Viola DO Work Phone: [facility] 05-16-2024 16:14-0500 Diastolic blood pressure 64 mm[Hg] Justice Viola DO Work Phone: [facility] 05-16-2024 16:14-0500 Systolic blood pressure 118 mm[Hg] Justice Viola DO Work Phone: [facility] Encounters Encounter Date Encounter Type Care Provider Facility Start: 05-16-2024 End: 05-16-2024 Patient encounter procedure Justice Viola DO Work Phone: [facility] Work Phone: Start: 05-16-2024 End: 05-16-2024 Periodic preventive med est patient 40-64yrs Justice Viola DO Work Phone: [facility] Comment on above: Well woman exam with routine gynecological exam; Breast cancer screening by mammogram Start: 05-16-2024 End: 05-16-2024 ambulatory JUSTICE VIOLA Not Available Start: 05-16-2024 End: 05-16-2024 Bamboo flowsheet Justice Viola DO Work Phone: [facility] Start: 05-16-2024 End: 05-25-2024 Bamboo flowsheet Justice Viola DO Work Phone: [facility] Start: 05-16-2024 End: 05-25-2024 [facility] Result Encounter Justice Viola DO Work Phone: [facility] External Department Unsolicited Start: 07-21-2023 End: 08-19-2023 ambulatory RUBY BARCLAY [facility] Start: 07-08-2023 End: 07-21-2023 ambulatory RUBY BARCLAY [facility] Start: 04-26-2022 End: 04-26-[address] JUSTICE ROD Facility:[facility] Start: 02-16-2022 End: 02-16-[address] JUSTICE ROD Facility:[facility] Start: 07-17-2021 End: 07-17-[address] JUSTICE ROD Facility:[facility] Start: 07-16-2021 Encounter for preprocedural laboratory examination DR JUSTICE ROD [facility] Start: 07-15-2021 Encounter for other preprocedural examination DR JUSTICE ROD [facility] Start: 07-14-2021 End: 07-15-[address] JUSTICE ROD Facility:[facility] Start: 07-14-2021 End: 07-15-2021 Encounter for preprocedural laboratory examination DR JUSTICE ROD Facility:[facility] Start: 07-10-2021 End: 07-11-[address] JUSTICE ROD Facility:[facility] Start: 07-10-2021 End: 07-11-2021 Encounter for other preprocedural examination DR JUSTICE ROD Facility:[facility] Start: 05-08-2021 End: 05-09-[address] JUSTICE ROD Facility:[facility] Procedures Date Procedure Procedure Detail Performing Clinician Start: 05-16-2024 IGP,APTIMA HPV,AGE GDLN Justice Rod DO Work Phone: Plan of Treatment Date Care Activity Detail Author Start: 05-29-2025 End: 05-29-2025 Patient encounter procedure 05/29/2025 3:00 PM EST Office Visit [facility] [address] [place] [id number] Justice Rod DO [address] [place] [address] [facility] Start: 05-16-2024 End: 05-16-2024 Patient encounter procedure 05/16/2024 3:40 PM EST Office Visit [facility] [address] [place] [id number] Justice Rod, DO [address] [place] [address] [place] [address] Arrived [facility] Comment on above: Arrived Start: 05-16-2024 End: 07-16-2025 MG Breast - bilateral Screening Bilateral screening mammogram Imaging Routine Breast cancer screening by mammogram Expected: 05/16/2024 (Approximate), Expires: 07/16/2025 [facility] Work Phone: Comment on above: Expected: 05/16/2024 (Approximate), Expires: 07/16/2025 THIN PREP TIS PAP AN D HR HPV DNA THIN PREP TIS PAP AND HR HPV DNA Pathology and Cytology Routine Well woman exam with routine gynecological exam Ordered: 05/16/2024 [facility] Comment on above: Ordered: 05/16/2024 Payers Date Payer Category Payer Private Health Insurance [id number] 2022 Private Health Insurance [id number] 1975 Unknown [id number] 2.16.84 [id number] 1975 Unknown [id number] 2.16.84 [id number] 1975 Unknown [id number] 2.16.84 [id number] 1975 Unknown [id number] 2.16.84 [id number] 1975 Unknown [id number] 2.16.84 [id number] 1975 Unknown [id number] 2.16.84 [id number] 1975 Unknown [id number] 2.16.8 [id number] 1975 Unknown [id number] 2.16.8 [id number] 1975 Unknown [id number] 2.16.84 [id number] 1959 Unknown [id number] Social History Date Type Detail Facility Start: 04-21-2023 Tobacco smoking stat [facility] Never smoked tobacco [facility] Start: 05-03-2023 End: 05-16-2024 Alcoholic beverage intake Lifetime non-drinker (finding) [facility] Start: 05-03-2023 End: 05-16-2024 History of Social function [facility] Start: 05-03-2023 End: 05-16-2024 Tobacco use panel [facility] Start: 04-21-2023 Alcohol Comment caffeine: none [facility] Start: 1975 Sex assigned at Not on file [facility] History of Present illness Narrative 05-16-2024 Kathy Jain LPN - 05/16/2024 3:40 PM EST Note Date & Type Note Facility 05-16-2024 History of Presen t illness Narrative Reason for Appointment: Patient ID: Azalia Castro is a 48 y.o. female who presents for Well Women Visit Patient presents today for Annual Exam. MEDICATIONS No current outpatient medications ALLERGIES No Known Allergies PROBLEMS Active Ambulatory Problems Diagnosis Date Noted No Active Ambulatory Problems Resolved Ambulatory Problems Diagnosis Date Noted No Resolved Ambulatory Problems Past Medical History: Diagnosis Date Endometriosis HISTORY PAST MEDICAL HISTORY SOCIAL HISTORY Past Medical History: Diagnosis Date Endometriosis Social History Tobacco Use Smoking status: Never Smokeless tobacco: Not on file Substance Use Topics Alcohol use: Never Comment: caffeine: none Drug use: Not on file FAMILY HISTORY Family History Problem Relation Name Age of Onset Breast cancer Mother Hypertension Mother SURGICAL HISTORY Past Surgical History: Procedure Laterality Date APPENDECTOMY SECTION, LOW TRANSVERSE [place] OTHER SURGICAL HISTORY ablation SALPINGECTOMY Bilateral 07/17/2021 REVIEW OF SYSTEMS Review of Systems: Review of Systems Constitutional: Negative. HENT: Negative. Eyes: Negative. Respiratory: Negative. Cardiovascular: Negative. Gastrointestinal: Negative. Genitourinary: Negative. Musculoskeletal: Negative. Skin: Negative. Neurological: Negative. All other systems reviewed and are negative. Hematological: Negative. Endocrine: Negative. Allergic/Immunologic: Negative. OBJECTIVE Objective: Physical Exam Constitutional: Appearance: Normal appearance. She is well-developed. Genitourinary: Vulva normal. Breasts: Breasts are soft. Right: Normal. Left: Normal. Cardiovascular: Rate and Rhythm: Normal rate and regular rhythm. Pulmonary: Effort: Pulmonary effort is normal. Breath sounds: Normal breath sounds. Abdominal: General: Bowel sounds are normal. There is no distension. Palpations: Abdomen is soft. Tenderness: There is no abdominal tenderness. There is no guarding or rebound. Musculoskeletal: General: No swelling. Normal range of motion. Right lower leg: No edema. Left lower leg: No edema. Neurological: Mental Status: She is alert and oriented to person, place, and time. Skin: General: Skin is warm and dry. Psychiatric: Mood and Affect: Mood normal. Behavior: Behavior normal. Vitals and nursing note reviewed. Exam conducted with a software applications engineer present. Vitals: Estimated body mass index is 28.43 kg/m as calculated from the following: Height as of 23: 5' 6 . Weight as of this encounter: 176 lb 1.9 oz. BP: 118/64 No LMP recorded (within months). ASSESSMENT & PLAN ICD-10-CM 1. Well woman exam with routine gynecological exam Z01.419 THIN PREP TIS PAP AND HR HPV DNA 2. Breast cancer screening by mammogram Z12.31 Bilateral screening mammogram Bilateral screening mammogram Annual: Patient presents today for an annual exam. Patient states she is doing well and has no complaints. Pap was obtained without difficulty and patient given mammogram order to have scheduled/obtained. Orders Placed This Encounter Procedures Bilateral screening mammogram Follow Up: Patient is to return in one year for annual unless needed otherwise. Documented by Kathy Jain LPN on behalf of: Justice Rod DO documented in this encounter [facility] Clinical Note 07-17-2021 Note Date & Type Note Facility 07-17-2021 Note [facility] [place] [place] NAME: AZALIA CASTRO DATE OF : MEDICAL REC#: [id number] DIRECTOR WEIGHTS AND MEASURES: Gerhard DWYER, TRANSADMIT DATE: 07/17/2021 07:02:00 ENGINEERING AND SCIENTIFIC PROGRAMMER DATE: 07/17/2021 22:00 DICTATING PHYSICIAN: JUSTICE ROD DICTATION DATE: 07/17/2021 10:00 OPERATIVE NOTE PROCEDURE: Doris endometrial ablation with hysteroscopy, bilateral laparoscopic salpingectomy, removal of right endometrioma. PREOPERATIVE DIAGNOSIS: Abnormal uterine bleeding, uterine fibroids, dysmenorrhea. POSTOPERATIVE DIAGNOSIS: Abnormal uterine bleeding, dysmenorrhea including a right endometrioma, as well as evidence of endometriosis pelvic side wall and multiple large uterine fibroids. SURGEON: Justice Rod D.O. CENTRIFUGAL SPINNER: FRANK Lees URINE OUTPUT: Yellow and clear. [...] x2. Electronically Authenticated and Edited by: Justice Rod DO on 07/24/2021 05:36 PM [facility] Signed and Approved by: DR JUSTICE ROD . 07/24/2021 17:36:[address] [facility] Evaluation note Note Date & Type Note Facility Evaluation note Diagnosis Well woman exam with routine gynecological exam Routine gynecological examination Breast cancer screening by mammogram documented in this encounter [facility] Summary Purpose Family History No Family History Records FoundNo Family History Records FoundNo Family History Records Found Advance Directives No Advanced Directives Records FoundNo Advanced Directives Records FoundNo Advanced Directives Records Found Additional Source Comments INFORMATION SOURCE (unrecogn ized section and content) DATE CREATED AUTHOR 05/01/2022 [facility] DATE CREATED AUTHOR AUTHOR'S ORGANIZ ATION 08/21/2023 [facility] DATE CREATED AUTHOR AUTHOR'S ORGANIZ ATION 05/19/2024 [facility] EPIC Care Teams (unrecognized sec tion and content) Education Technician Relationship Specialty Start Date End Date Suzie Shoemaker MD [address] [place] [address] PCP - General Family Medicine 05/03/23 Education Technician Relationship Specialty Start Date End Date Suzie Shoemaker MD [address] [place] [address] PCP - General Family Medicine 05/03/23 Reason for Visit (unrecogniz ed section and content) Reason Comments Well Women Visit FOR RECORDS PERTAINING TO PATIENTS WHO ARE [...] BE BASED ON THE PRIMARY CLINICAL RECORDS. [facility] [facility]. provides no warranty or guarantee of the accuracy or completeness of information in this document.
== END 2024-08-28 16:20 | disposition home or self-care (01) ==
PROVIDERS: Visit Provider Obstetrics & Gynecology
DX: Z12.31 Encounter for screening mammogram for malignant neoplasm of breast (principal)
CPT/HCPCS: 77063; 77067

== ENCOUNTER 2024-11-29 13:45 | Outpatient (OUT) | payer OTHER, SELFPAY ==
--- OUTSIDE RECORDS SUMMARY | 2024-11-28 13:00 | XMS_ITS | Encounter Summary ---
Author Organization [facility] tem Address [id number] [address] [place] [address] Care Team Providers Care Bell Spinner Sousaphones Name Role Phone Jan Mireles MD Primary Care Provider Reason for Referral * Cardiology (Routine) - Authorized Specialty Diagnoses / Procedures Referred By Contac t Referred To Contact Diagnoses Chest pain, unspecified type Procedures Echo complete W/O contrast Annelise Mcgovern APRN-CNP [address] [place] [address] Phone: tel: fax: Referral ID Status Reason Start Date Expiration Date V isits Requested Visits Authorized [id number] Authorized 11/28/2024 11/28/2025 1 1 Reason for Visit * Reason Comments Anxiety Encounter Details Date Type Department Care Team ([facility] Contact Info) Description 11/28/2024 1:00 PM EDT [facility] [address] [place] [phone] Annelise Mcgovern APRN-CNP [address] [place] [address] Anxiety (Primary Dx); Chest pain, unspecified type; Hypothyroidism, unspecified type Social History Tobacco Use Types Packs/Day Years Used Date Smoking Tobacco: Never Smokeless Tobacco: Never Alcohol Use Standard Drinks/Week Comments Not Currently 0 (1 standard drink = 0.6 oz pur e alcohol) AUDIT-C Answer Date Recorded Frequency of Alcohol Consumption Never 07/04/2018 Average Number of Drinks Not on file 019 Frequency of Binge Drinking Not on file 06/20 Overall Financial Resource Strain (CARDIA) Answe r Date Recorded How hard is it for you to pa y for the very basics like food, housing, medical care, and heating? Somewhat hard 11/26/2024 PHQ-2 Answer Date Recorded Total Score 0 07/27/2022 PRAPARE - Transportation Answer Date Re corded In the past 12 months, has l ack of transportation kept you from medical appointments or from getting medications? No 02/2025 In the past 12 months, has l ack of transportation kept you from meetings, work, or from getting things needed for daily living? No 11/26/2024 Housing Instability Answer Date Recorde d Are you worried or concerned that in the next two months you may not have stable housing that you own, rent or stay in as a part of a household? No 11/26/2024 Childcare Answer Date Recorded Childcare Unknown 11/29/2018 Employment Answer Date Recorded Employment Unknown 11/29/2018 Hunger Screening Answer Date Recorded Within the past 12 months we worried whether our food would run out before we got money to buy more. Never True 11/28/2024 Within the past 12 months th e food we bought just didn't last and we didn't have money to get more. Never True 11/28/2024 Purpose - Life Answer Date Recorded Purpose and direction in life Unknown Comments No Sex and Gender Information Value Date Recorded Sex Assigned at Not on file Legal Sex Female 12:01 PM EDT Gender Identity Not on file Sexual Orientation Not on file documented as of this encounter Last Filed Vital Signs Vital Sign Reading Time Taken Comments Blood Pressure 128/76 11/28/2024 12:58 PM EDT Pulse 88 11/28/2024 12:58 PM EDT Temperature - - Respiratory Rate 18 11/28/2024 12:58 PM EDT Oxygen Saturation 96% 11/28/2024 12:58 PM EDT Inhaled Oxygen Concentration - - Weight 85.7 kg (189 lb) 11/28/2024 12:58 PM EDT Height - - Body Mass Index 30.51 07/27/2022 2:54 PM EST documented in this encounter Patient Instructions * Attachments The following attachments cannot be sent through Care Everywhere. * Anxiety in adults ??? ED discharge instructions (Spanish) documented in this encounter Progress Notes * Annelise Mcgovern, CAMRYN-POPPY - 11/28/2024 1:00 PM EDT Images from the original note were not included. [address] [place] [address] SUBJECTIVE: Patient ID: Karen Morton is a 49 y.o. female. Patient presents to the office with complaints of anxiety. She had elbow surgery and after the surgery she was at PT and they were undressing her dressing on her arm and she passed out and went to the ER. Work up was negative and diagnosed with vasovagal syncope. She has been off work since then and has been having panic attacks with chest pain. She is worried she is going to and she is a single mother. She did have some panic like symptoms last year. Unsure of mother's health history but believes she has some form of heart disease. Will order echo. Talked about starting medication and optional counseling. Anxiety Symptoms include chest pain and nervous/anxious behavior. Patient reports no dizziness, nausea, palpitations or shortness of breath. The following portions of the patient's history were reviewed and updated as appropriate: allergies, current medications, past family history, past medical history, past social history, past surgicalhistory and problem list. REVIEW OF SYSTEMS: Review of Systems Constitutional: Negative for fatigue, fever and unexpected weight change. HENT: Negative for congestion, ear pain, sinus pressure, sinus pain and sore throat. Eyes: Negative for photophobia, pain, discharge and visual disturbance. Respiratory: Negative for cough and shortness of breath. Cardiovascular: Positive for chest pain. Negative for palpitations and leg swelling. Gastrointestinal: Negative for abdominal pain, diarrhea, nausea and vomiting. Endocrine: Negative for polydipsia, polyphagia and polyuria. Genitourinary: Negative for difficulty urinating, frequency, hematuria and urgency. Musculoskeletal: Negative for arthralgias, gait problem, joint swelling and neck pain. Skin: Negative for pallor and rash. Neurological: Negative for dizziness, weakness, light-headedness and numbness. Psychiatric/Behavioral: Negative for sleep disturbance. The patient is nervous/anxious. PHYSICAL EXAMINATION: Vitals: 11/28/24 1258 BP: 128/76 Pulse: 88 Resp: 18 SpO2: 96% Weight: 85.7 kg (189 lb) Physical Exam Constitutional: Appearance: She is well-developed. HENT: Head: Normocephalic and atraumatic. Right Ear: External ear normal. Left Ear: External ear normal. Eyes: Conjunctiva/sclera: Conjunctivae normal. Pupils: Pupils are equal, round, and reactive to light. Cardiovascular: Rate and Rhythm: Normal rate and regular rhythm. Heart sounds: Normal heart sounds. Pulmonary: Effort: Pulmonary effort is normal. Breath sounds: Normal breath sounds. Musculoskeletal: Cervical back: Normal range of motion. Skin: General: Skin is warm and dry. Neurological: Mental Status: She is alert and oriented to person, place, and time. Psychiatric: Mood and Affect: Mood normal. ASSESSMENT/PLAN: Azalia was seen today for anxiety. Diagnoses and all orders for this visit: Anxiety Chest pain, unspecified type - Echo complete W/O contrast; Future Hypothyroidism, unspecified type - Thyroid profile includes TSH FT4; Future Other orders - FLUoxetine (PROzac) 20 mg capsule; Take 1 capsule (20 mg total) by mouth in the morning. Follow-up: Echo Thyroid- slightly off in ER Will call with results Prozac 20mg daily Follow up in 28 days KATYA Atwood 11/28/24 1330 documented in this encounter Plan of Treatment Upcoming Encounters Date Type Department Care Team (Late st Contact Info) Description 12/10/2024 8:30 AM EDT Appointment [facility] - Cardiovascular [address] [place] [phone] 12/24/2024 3:30 PM EDT Office Visit [facility] [address] [place] [phone] Annelise Mcgovern APRN-CNP [address] [place], [place] [phone] Scheduled Orders Name Type Priority Associated Diagnoses Orde r Schedule Echo complete W/O contrast Echocardiography Routine Chest pain, unspecified type Expected: 11/28/2024, Expires: 11/28/2025 Thyroid profile includes TSH FT4 Lab Routine Hypothyroidism, unspecified type Expected: 11/28/2024, Expires: 11/28/2025 documented as of this encounter Visit Diagnoses Diagnosis Anxiety- Primary Anxiety state, unspecified Chest pain, unspecified type Hypothyroidism, unspecified type documented in this encounter Additional Health Concerns Assessment Noted Time PHQ-9 Depression Total Score: 0 07/27/19 23 7:00 AM EST documented as of this encounter Care Teams Bell Spinner Sousaphones Relationship Specialty Start Date End Date Jan Mireles MD [address] [place] [address] PCP - General Internal Medicine 10/17/24 documented as of this encounter
--- OUTSIDE RECORDS SUMMARY | 2024-11-29 09:00 | XMS_ITS | Encounter Summary ---
Author Organization [facility] Address [address] [place] [address] Care Team Providers Care Nursery Helper Name Role Phone Gavino Shoemaker MD Primary Care Provider Reason for Visit * Reason Comments Menorrhagia Pt present today to discuss heavy cycles twice a week. Encounter Details Date Type Department Care Team (Late Contact Info) Description 11/29/2024 9:00 AM EDT Office Visit [facility] [address] [place] [phone] Brannon Rod, DO [address] [facility] [address] [place] [address] Menorrhagia with irregular cycle; History of endometrial ablation; H/O tubal ligation; Fatigue, unspecified type Social History Tobacco Use Types Packs/Day Years Used Date Smoking Tobacco: Never Alcohol Use Standard Drinks/Week Comments Never 0 (1 standard drink = 0.6 oz pur e alcohol) caffeine: none Comments No Sex and Gender Information Value Date Recorded Sex Assigned at Not on file Legal Sex Female 7:01 PM EDT Gender Identity Not on file Sexual Orientation Not on file documented as of this encounter Last Filed Vital Signs Vital Sign Reading Time Taken Comments Blood Pressure 110/76 11/29/2024 9:15 AM EDT Pulse - - Temperature - - Respiratory Rate - - Oxygen Saturation - - Inhaled Oxygen Concentration - - Weight 84.4 kg (186 lb) 11/29/2024 9:15 AM EDT Height 170.2 cm (5' 7 ) 11/29/2024 9:15 AM EDT Body Mass Index 29.13 11/29/2024 9:15 AM EDT documented in this encounter Plan of Treatment Upcoming Encounters Date Type Department Care Team (Late Contact Info) Description 12/13/2024 8:00 AM EDT Ancillary Procedure [facility] [address] [place] [address] [place] [phone] 01/01/2025 2:40 PM EDT Office Visit [facility] [address] [place] [address] [place] [phone] Brannon Rdo, DO [address] [place] [address] [address] [place] [place], [place] [id number] 05/29/2025 3:00 PM EST Office Visit [facility] [address] [place] [address] [place] [address] Brannon Rod, [address] [place], [place] [phone] Scheduled Orders Name Type Priority Associated Diagnoses Orde r Schedule Ferritin Lab Routine Menorrhagia with irregular cycle History of endometrial ablation H/O tubal ligation Ordered: 11/29/2024 Transferrin Lab Routine Menorrhagia with irregular cycle History of endometrial ablation H/O tubal ligation Expected: 11/29/2024 (Approximate), Expires: 11/29/2025 CBC and differential Lab Routine Menorrhagia with irregular cycle History of endometrial ablation H/O tubal ligation Ordered: 11/29/2024 TSH Lab Routine Menorrhagia with irregular cycle History of endometrial ablation H/O tubal ligation Ordered: 11/29/2024 hCG, quantitative, Lab Routine Menorrhagia with irregular cycle History of endometrial ablation H/O tubal ligation Ordered: 11/29/2024 Protime-INR Lab Routine Menorrhagia with irregular cycle History of endometrial ablation H/O tubal ligation Ordered: 11/29/2024 T4, free Lab Routine Menorrhagia with irregular cycle History of endometrial ablation H/O tubal ligation Ordered: 11/29/2024 APTT Lab Routine Menorrhagia with irregular cycle History of endometrial ablation H/O tubal ligation Expected: 11/29/2024 (Approximate), Expires: 11/29/2025 Hemoglobin A1c Lab Routine Menorrhagia with irregular cycle History of endometrial ablation H/O tubal ligation Ordered: 11/29/2024 US Pelvis w/ TV Imaging Routine Menorrhagia with irregular cycle History of endometrial ablation H/O tubal ligation Expected: 11/29/2024, Expires: 11/29/2025 Vitamin D 1,25 dihydroxy Lab Routine Menorrhagia with irregular cycle History of endometrial ablation H/O tubal ligation Ordered: 11/29/2024 documented as of this encounter Visit Diagnoses Diagnosis Menorrhagia with irregular cycle History of endometrial ablation H/O tubal ligation Fatigue, unspecified type documented in this encounter Care Teams Nursery Helper Relationship Specialty Start Date End Date Gavino Shoemaker MD PCP - General Family Medicine 05/03/23 documented as of this encounter
--- OUTSIDE RECORDS SUMMARY | 2024-11-29 13:52 | XMS_ITS | Clinical Summary ---
Author Organization [facility] Address [address] [place] [address] Care Team Providers Care Termite Control Technician Name Role Phone Gavino Shoemaker MD Primary Care Provider Allergies No known active allergies Medications FLUoxetine (PROzac) 20 MG capsule Take 20 mg by mouth in the morning. 11/28/2024 Active megestrol (Megace) 20 MG tabletIndication s:Menorrhagia with irregular cycle,History of endometrial ablation,H/O tubal ligation Take 1 tablet (20 mg total) by mouth Daily. Take 1 tablet 2 times daily for 3 days then take 1 tablet daily for 1 month (36 tablets total) 36 tablet 11/29/2024 12/30/19 25 Active Active Problems Problem Noted Date Diagnosed Date Fatigue 11/29/2024 History of endometrial ablation 11/29/2024 H/O tubal ligation 11/29/2024 Menorrhagia with irregular cycle 11/29/2024 Encounters Date Type Department Care Team Description 11/29/2024 9:00 AM EDT Office Visit [facility] [address] [place] [address] Brannon Rod DO Menorrhagia with irregular cycle; History of endometrial ablation; H/O tubal ligation; Fatigue, unspecified type 11/29/2024 Bamboo flowsheet [facility] [address] [place] [address] Brannon Rod DO 11/23/2024 Telephone [facility] [address] [place] [address] Petty López MA 08/30/2024 Clinisync Result Encounter [facility] External Department Unsolicited Viola, Brannon, DO from Last 3 Months Family History Medical History Relation Name Comments Breast cancer Mother Hypertension Mother Relation Name Status Comments Mother Alive Social History Tobacco Use Types Packs/Day Years Used Date Smoking Tobacco: Never Tobacco Cessation:Counseling Given: Not Answered Alcohol Use Standard Drinks/Week Comments Never 0 (1 standard drink = 0.6 oz pur e alcohol) caffeine: none Comments No Sex and Gender Information Value Date Recorded Sex Assigned at Not on file Legal Sex Female 7:01 PM EDT Gender Identity Not on file Sexual Orientation Not on file Last Filed Vital Signs Vital Sign Reading Time Taken Comments Blood Pressure 110/76 11/29/2024 9:15 AM EDT Pulse - - Temperature - - Respiratory Rate - - Oxygen Saturation - - Inhaled Oxygen Concentration - - Weight 84.4 kg (186 lb) 11/29/2024 9:15 AM EDT Height 170.2 cm (5' 7 ) 11/29/2024 9:15 AM EDT Body Mass Index 29.13 11/29/2024 9:15 AM EDT Plan of Treatment Upcoming Encounters Date Type Department Care Team (Late st Contact Info) Description 12/13/2024 8:00 AM EDT Ancillary Procedure [facility] [address] [place] [phone] 01/01/2025 2:40 PM EDT Office Visit [facility] [address] [place] [address] Brannon Rod DO [facility] [place] [address] 05/29/2025 3:00 PM EST Office Visit [facility] [address] [place] [address] Brannon Rod DO [address] [place] [address] [place] [address] Procedures Procedure Name Priority Date/Time Associated Diagnosis Comments MM TOMOSYNTHESIS SCREENING BI 08/30/2024 9:46 AM EDT from Last 3 Months Results * MM TOMOSYNTHESIS SCREENING BI (08/30/2024 9:46 AM EDT) Anatomical Region Laterality Modality Other 08/30/2024 9:46 AM EDT Narrative 08/30/2024 9:47 [place] [address] Mammography Report Signed Patient: SHAW CASTRO MR#: [id number] : 1975 Acct:[id number] Age/Sex: 48 / F ADM Date: 08/28/24 Loc: MAMMO Attending Dr: Brannon Rod D.O. Ordering Physician: Brannon Rod D.O. Results: Date of Service: 08/28/24 Follow Up: Procedure(s): MM tomosynthesis screening BI Accession Number(s): [id number] cc: Brannon Rod D.O.; Physician,Non-Staff Briana Patient Name: SHAW CASTRO MR#: [id number] : 1975 Exam Date: 08/28/2024 Ordering Doctor: DR Brannon Rod . RADIOLOGY REPORT PROCEDURE: MM TOMOSYNTHESIS SCREENING BI COMPARISON: MG MAMM SCREEN 3D YUDI CAD, 05/08/2021. MG MAMM SCREEN YUDI W CAD, 05/23/2013. MG MAMM YUDI DIAG W CAD, 05/18/2012. INDICATIONS: Screening for malignant neoplasm Calculator Name NCI Breast Cancer Risk Assessment Tool 5 Year Breast Cancer Risk Not Reported. Lifetime Breast Cancer Risk Not Reported. Personal Breast Cancer No Personal Ovarian Cancer No Treatments None Family Cancers None LOCATION: [facility] BREAST COMPOSITION: The breasts are extremely dense, which lowers the sensitivity of mammography. FINDINGS: DIAGNOSTIC CATEGORY 1--NEGATIVE. RIGHT BREAST: No significant suspicious finding. LEFT BREAST: No significant suspicious finding. RECOMMENDATIONS: ROUTINE MAMMOGRAM AND CLINICAL EVALUATION IN 12 MONTHS. PLEASE NOTE: A NORMAL MAMMOGRAM DOES NOT EXCLUDE THE POSSIBILITY OF BREAST CANCER. A CLINICALLY SUSPICIOUS PALPABLE LUMP SHOULD BE BIOPSIED. Dictated by: Johan Stevens DO on 08/30/2024 at 09:44 Approved by: Johan Stevens DO on 08/30/2024 at 09:45 Dictated By: Johan Stevens M.D. Signed By: 08/30/2447 DD/ TD/TT: Footwear Production Machine Operator: Procedure Note Radiology, Radiologist, MD - 08/30/2024 [place] [address] Mammography Report Signed Patient: SHAW CASTRO MMR#: [id number] : 1975Acct:[id number] Age/Sex: 48 / FADM Date: 08/28/24 Loc: MAMMO Attending Dr: Brannon Rod D.O. Ordering Physician: Brannon Rod D.O.Results: Date of Service: 08/28/24Follow Up: Procedure(s): MM tomosynthesis screening BI Accession Number(s): [id number] cc: Brannon Rod D.O.; Physician,Non-Staff Briana Patient Name: SHAW CASTRO MR#: [id number] : 1975 Exam Date: 08/28/2024 Ordering Doctor: DR Brannon Rod . RADIOLOGY REPORT PROCEDURE: MM TOMOSYNTHESIS SCREENING BI COMPARISON: MG MAMM SCREEN 3D YUDI CAD, 05/08/2021. MG MAMM SCREEN BILW CAD, 05/23/2013. MG MAMM YUDI DIAG W CAD, 05/18/2012. INDICATIONS: Screening for malignant neoplasm Calculator Name NCI Breast Cancer Risk Assessment Tool 5 Year Breast Cancer Risk Not Reported. Lifetime Breast Cancer Risk Not Reported. Personal Breast Cancer No Personal Ovarian Cancer No Treatments None Family Cancers None LOCATION: [facility] BREAST COMPOSITION: The breasts are extremely dense, which lowers the sensitivity of mammography. FINDINGS: DIAGNOSTIC CATEGORY 1--NEGATIVE. RIGHT BREAST: No significant suspicious finding. LEFT BREAST: No significant suspicious finding. RECOMMENDATIONS: ROUTINE MAMMOGRAM AND CLINICAL EVALUATION IN 12 MONTHS. PLEASE NOTE: A NORMAL MAMMOGRAM DOES NOT EXCLUDE THE POSSIBILITY OFBREAST CANCER. A CLINICALLY SUSPICIOUS PALPABLE LUMP SHOULD BE BIOPSIED. Dictated by: Johan Stevens DO on 08/30/2024 at 09:44 Approved by: Johan Stevens DO on 08/30/2024 at 09:45 Dictated By: Johan Stevens M.D. Signed By:08/30/2447 DD/ TD/TT: Footwear Production Machine Operator: us Brannon Viola DO [facility] Final Result from Last 3 Months Insurance [employer] Care Teams Termite Control Technician Relationship Specialty Start Date End Date Gavino Shoemaker MD PCP - General Family Medicine 05/03/23
--- OUTSIDE RECORDS SUMMARY | 2024-11-29 13:52 | XMS_ITS | Clinical Summary ---
Author Organization [employer] tem Address [id number] [address] [place] [address] Care Team Providers Care Infection Control Nurse Name Role Phone Jan Mireles MD Primary Care Provider [phone] Allergies No known active allergies Medications FLUoxetine (PROzac) 20 mg capsule Take 1 capsule (20 mg total) by mouth in the morning. 30 capsule 5 Active naproxen (NAPROSYN) 500 mg tablet Take 1 tablet (500 mg total) by mouth in the morning and 1 tablet (500 mg total) in the evening. Take with meals. 60 tablet 2 3 11/29/19 25 Discontinued HYDROcodone-ac etaminophen (NORCO) 5-325 mg per tablet Take by mouth every 4 (four) hours as needed. 5 11/29/19 25 Discontinued Active Problems No known active problems Encounters Date Type Department Care Team Description 11/28/2024 1:00 PM EDT Office Visit [facility] [address] [place] [phone] Annelise Mcgovern APRN-POPPY Anxiety (Primary Dx); Chest pain, unspecified type; Hypothyroidism, unspecified type 11/26/2024 Travel 11/19/2024 Travel 10/17/2024 10:29 AM EDT - 10/17/2024 1:55 PM EDT Emergency [facility] - Emergency [address] [place] [phone] June Woodward MD Vasovagal syncope (Primary Dx) Discharge Disposition: Home 10/17/2024 Travel 09/21/2024 2:29 PM EDT - 09/21/2024 11:59 PM EDT Hospital Encounter [facility] - Lab [address] [place] [address] Lateral epicondylitis, left elbow (Primary Dx) Discharge Disposition: Home 09/21/2024 2:20 PM EDT - 09/21/2024 2:28 PM EDT Hospital Encounter [facility] - Cardiovascular [address] [place] [address] Lateral epicondylitis, left elbow Discharge Disposition: Home 09/21/2024 Travel 09/12/2024 Travel from Last 3 Months Immunizations No known immunizations Family History Medical History Relation Name Comments No Known Problems Father No Known Problems Mother Relation Name Status Comments Father Alive Mother Alive Social History Tobacco Use Types Packs/Day Years Used Date Smoking Tobacco: Never Smokeless Tobacco: Never Tobacco Cessation:Counseling Given: Not Answered Alcohol Use Standard Drinks/Week Comments Not Currently [...] Pulse 88 11/28/2024 12:58 PM EDT Temperature 36.3 C (97.4 F) 10/17/2024 10:39 AM EDT Respiratory Rate 18 11/28/2024 12:58 PM EDT Oxygen Saturation 96% 11/28/2024 12:58 PM EDT Inhaled Oxygen Concentration - - Weight 85.7 kg (189 lb) 11/28/2024 12:58 PM EDT Height 167.6 cm (5' 6 ) 07/27/2022 2:54 PM EST Body Mass Index 30.51 07/27/2022 2:54 PM EST Plan of Treatment Upcoming Encounters Date Type Department Care Team (Late st Contact Info) Description 12/10/2024 8:30 AM EDT Appointment [facility] - Cardiovascular [address] [place] [address] 12/24/2024 3:30 PM EDT Office Visit [facility] [address] [place] [address] Annelise Mcgovern, NDT INSPECTOR-MAGNETIC TESTING TECHNICIAN [address] [place] [address] Health Maintenance Due Date Last Done Comments DTaP,Tdap and Td Vaccines (1 - Tdap) 1996 Pap Smear 1998 Depression Screening 07/27/2023 07/27/2022 COVID-19 Vaccine ( season) 2024, 09/18/2020 Influenza Vaccine 02/18/2025 Adult BMI Screening 11/28/2025 11/28/2024 Tobacco Screening 11/28/2025 11/28/2024 Medical Devices Not on file Procedures Procedure Name Priority Date/Time Associated Diagnosis Comments ECG 12-LEAD STAT 10/17/2024 12:29 PM EDT TROP I, HIGH SENSITIVITY 1 HOUR STAT 10/17/2024 12:28 PM EDT THYROID PROFILE INCLUDES TSH FT4 STAT 10/17/2024 11:16 AM EDT ETHANOL STAT 10/17/2024 11:16 AM EDT TROPONIN I, HIGH SENSITIVITY 0 HOUR STAT 10/17/2024 11:16 AM EDT MAGNESIUM STAT 10/17/2024 11:16 AM EDT TROPONIN I, HIGH SENSITIVITY 0 HOUR STAT 10/17/2024 11:16 AM EDT COMPREHENSIVE METABOLIC PANEL STAT 10/17/2024 11:16 AM EDT CBC WITH AUTO DIFFERENTIAL STAT 10/17/2024 11:16 AM EDT ECG 12-LEAD STAT 10/17/2024 10:34 AM EDT BASIC METABOLIC PANEL Routine 09/21/2024 2:31 PM EDT Lateral epicondylitis, left elbow CBC WITH AUTO DIFFERENTIAL Routine 09/21/2024 2:31 PM EDT Lateral epicondylitis, left elbow ECG 12-LEAD Routine 09/21/2024 2:26 PM EDT Lateral epicondylitis, left elbow from Last 3 Months Results * Repeat ECG 12 lead (10/17/2024 12:29 PM EDT) Only the most recent of3 resultswithin the time period is included. 10/17/2024 12:2 9 PM EDT Narrative [facility] - 10/20/2024 1:56 PM EDT Liana Ward NDT INSPECTOR-MAGNETIC TESTING TECHNICIAN ECG ORDERABLES Final Result [facility] * Troponin I, High Sensitivity 1 Hour (10/17/2024 12:28 PM EDT) TROPONIN I, HIGH SENSITIVITY 3 <16 ng/L 10/17/2024 1:16 PM EDT [facility] Blood Venous blood / Unknown 10/17/2024 12:28 PM EDT 10/17/2024 12:37 PM EDT Liana Ward NDT INSPECTOR-MAGNETIC TESTING TECHNICIAN LAB BLOOD ORDERABLES Final Result Performing Organization Address [facility] Co de Phone Number [address] [place] [address], [place] * Troponin I, High Sensitivity 0 Hour (10/17/2024 11:16 AM EDT) Pathologist [facility] TROPONIN I, HIGH SENSITIVITY <2 <16 ng/L 10/17/2024 11:49 AM EDT [facility] Blood Venous blood / Unknown 10/17/2024 11:16 AM EDT 10/17/2024 11:20 AM EDT Liana D Salvatoretiffany NDT INSPECTOR-MAGNETIC TESTING TECHNICIAN LAB BLOOD ORDERABLES Final Result Performing Organization Address City/[facility] Co de Phone Number [address] [place] [address], [place] * (ABNORMAL) Thyroid profile includes TSH FT4 (10/17/2024 11:16 AM EDT) FREE T4 1.02 0.61 - 1.60 ng/dL 10/17/2024 12:00 PM EDT [facility] TSH 5.77(H) 0.49 - 4.67 uIU/mL 10/17/2024 12:00 PM EDT [facility] Blood Venous blood / Unknown 10/17/2024 11:16 AM EDT 10/17/2024 11:20 AM EDT us Liana Ward NDT INSPECTOR-MAGNETIC TESTING TECHNICIAN LAB BLOOD ORDERABLES Final Result [facility] [address] [place] [address], * CBC auto differential (10/17/2024 11:16 AM EDT) Only the most recent of2 resultswithin the time period is included. WBC 9.1 4 - 11 x10E9/L 10/17/2024 11:26 AM EDT [facility] RBC Count 4.05 3.8 - 5.2 X10E12/L 10/17/2024 11:26 AM EDT [facility] Hemoglobin 12.7 11.7 - 15.5 g/dL 10/17/2024 11:26 AM EDT [facility] Hematocrit 36.0 35 - 47 % 10/17/2024 11:26 AM EDT [facility] MCV 89 80 - 100 fL 10/17/2024 11:26 AM EDT [facility] MCH 31.3 27 - 34 pg 10/17/2024 11:26 AM EDT [facility] MCHC 35.3 32 - 36 g/dL 10/17/2024 11:26 AM EDT [facility] RDW 13.2 11.5 - 15 % 10/17/2024 11:26 AM EDT [facility] Platelet Count 286 150 - 450 X10E9/L 10/17/2024 11:26 AM EDT [facility] MPV 8.7 7 - 12 fL 10/17/2024 11:26 AM EDT [facility] Neutrophils Relative 53.5 % 10/17/2024 11:26 AM EDT [facility] Lymphocytes Relative 38.1 % 10/17/2024 11:26 AM EDT [facility] Monocytes Relative 6.0 % 10/17/2024 11:26 AM EDT [facility] Eosinophils Relative 1.9 % 10/17/2024 11:26 AM EDT [facility] Basophils Relative 0.5 % 10/17/2024 11:26 AM EDT [facility] Neutrophils Absolute (A) 4.9 10*3/uL 10/17/2024 11:26 AM EDT [facility] Lymphocytes Absolute 3.4 10*3/uL 10/17/2024 11:26 AM EDT [facility] Monocytes Absolute 0.5 10*3/uL 10/17/2024 11:26 AM EDT [facility] Eosinophils Absolute 0.2 10*3/uL 10/17/2024 11:26 AM EDT [facility] Basophils Absolute 0.0 10*3/uL 10/17/2024 11:26 AM EDT [facility] Differential Type AUTOMATED DIFFERENTIAL 10/17/2024 11:26 AM EDT [facility] Blood Venous blood / Unknown 10/17/2024 11:16 AM EDT 10/17/2024 11:20 AM EDT us Liana Ward NDT INSPECTOR-MAGNETIC TESTING TECHNICIAN LAB BLOOD ORDERABLES Final Result [facility] [address] [facility] [place] [address], * Magnesium (10/17/2024 11:16 AM EDT) MAGNESIUM 1.9 1.8 - 2.6 mg/dL 10/17/2024 11:39 AM EDT [facility] Blood Venous blood / Unknown 10/17/2024 11:16 AM EDT 10/17/2024 11:20 AM EDT Liana Ward NDT INSPECTOR-[facility] LAB BLOOD ORDERABLES Final Result Performing Organization Address City/[facility]/ZIP Co de Phone Number [address] [place] [address], [place] * Ethanol (10/17/2024 11:16 AM EDT) ETHANOL <0.010 <=0.080 g/dL 10/17/2024 11:39 AM EDT [facility] Comment: This report is intended for use in clinical monitoring or management of patients. Blood Venous blood / Unknown 10/17/2024 11:16 AM EDT 10/17/2024 11:20 AM EDT Liana Ward NDT INSPECTOR-[facility] LAB BLOOD ORDERABLES Final Result Performing Organization Address [facility]/ZIP Co de Phone Number [address] [place] [address], [place] * (ABNORMAL) Comprehensive metabolic panel (10/17/2024 11:16 AM EDT) SODIUM 137 134 - 146 mmol/L 10/17/2024 11:39 AM EDT [facility] POTASSIUM 3.3(L) 3.5 - 5.0 mmol/L 10/17/2024 11:39 AM EDT [facility] CHLORIDE 107 98 - 109 mmol/L 10/17/2024 11:39 AM EDT [facility] CARBON DIOXIDE 22 22 - 32 mmol/L 10/17/2024 11:39 AM EDT [facility] ANION GAP 8 5 - 15 mmol/L 10/17/2024 11:39 AM EDT [facility] BLOOD UREA NITROGEN 11 5 - 23 mg/dL 10/17/2024 11:39 AM EDT [facility] CREATININE 0.59 0.40 - 1.00 mg/dL 10/17/2024 11:39 AM EDT [facility] Comment:METHOD TRACEABLE TO IDAL STANDARD GLUCOSE 132(H) 65 - 99 mg/dL 10/17/2024 11:39 AM EDT [facility] CALCIUM 7.9(L) 8.5 - 10.5 mg/dL 10/17/2024 11:39 AM EDT [facility] TOTAL PROTEIN 6.0 6.0 - 8.0 g/dL 10/17/2024 11:39 AM EDT [facility] ALBUMIN 3.4 3.2 - 5.3 g/dL 10/17/2024 11:39 AM EDT [facility] ALKALINE PHOSPHATASE 52 39 - 130 U/L 10/17/2024 11:39 AM EDT [facility] AST 24 <=41 U/L 10/17/2024 11:39 AM EDT [facility] ALT 37(H) <=31 U/L 10/17/2024 11:39 AM EDT [facility] BILIRUBIN,TOTAL 0.2(L) 0.3 - 1.2 mg/dL 10/17/2024 11:39 AM EDT [facility] EGFR Non-Race Dependent >90 >=60 ml/min/1.7 3sq.m 10/17/2024 11:39 AM EDT [facility] Comment: eGFR not reported due to non-numeric value for Creatinine. Reported eGFR is based on the CKD-EPI 2020 equation that does not use a race coefficient. Blood Venous blood / Unknown 10/17/2024 11:16 AM EDT 10/17/2024 11:20 AM EDT us Liana Ward NDT INSPECTOR-MAGNETIC TESTING TECHNICIAN LAB BLOOD ORDERABLES Final Result [facility] [address] [place] [address], * (ABNORMAL) Basic Metabolic Panel (09/21/2024 2:31 PM EDT) Sodium 137 134 - 146 mmol/L 09/21/2024 5:30 PM EDT [facility] Potassium, Bld 4.1 3.5 - 5.0 mmol/L 09/21/2024 5:30 PM EDT [facility] Chloride 101 98 - 109 mmol/L 09/21/2024 5:30 PM EDT [facility] CO2 27 22 - 32 mmol/L 09/21/2024 5:30 PM EDT [facility] Anion gap 9 5 - 15 mmol/L 09/21/2024 5:30 PM EDT [facility] BUN 11 5 - 23 mg/dL 09/21/2024 5:30 PM EDT [facility] Creatinine 0.79 0.40 - 1.00 mg/dL 09/21/2024 5:30 PM EDT [facility] Comment:METHOD TRACEABLE TO IDMS STANDARD Glucose 133(H) 65 - 99 mg/dL 09/21/2024 5:30 PM EDT [facility] Calcium 9.8 8.5 - 10.5 mg/dL 09/21/2024 5:30 PM EDT [facility] eGFR (CKD-EPI)non-ra ce dependent >90 >59 ml/min/1.7 3sq.m 09/21/2024 5:30 PM EDT [facility] Comment: Reported eGFR is based on the CKD-EPI 2020 equation that does not use a race coefficient. PLASMA 09/21/2024 2:31 PM EDT 09/21/2024 2:32 PM EDT us Jayden Null MD LAB BLOOD ORDERABLES Final Result [facility] [address] [place] [address] from Last [address] [place] [address] Care Teams Infection Control Nurse Relationship Specialty Start Date End Date Jan Mireles MD [address] [place] [address] PCP - General Internal Medicine 10/17/24
--- OUTSIDE RECORDS SUMMARY | 2024-11-29 13:52 | XMS_ITS | Encounter Summary ---
Author Organization [facility] tem Address [id number] [address] [place] [address] Care Team Providers Care Leather Grader Name Role Phone Jan Mireles MD Primary Care Provider [phone] Encounter Details Date Type Department Care Team (Latest Contact Info) Description 11/19/2024 Travel Social History Tobacco Use Types Packs/Day Years Used Date Smoking Tobacco: Never Smokeless Tobacco: Never Alcohol Use Standard Drinks/Week Comments Yes 0 (1 standard drink = 0.6 oz pur e alcohol) AUDIT-C Answer Date Recorded Frequency of Alcohol Consumption Never 07/04/2018 Average Number of Drinks Not on file 019 Frequency of Binge Drinking Not on file 06/20 PHQ-2 Answer Date Recorded Total Score 0 07/27/2022 Childcare Answer Date Recorded Childcare Unknown 11/29/2018 Employment Answer Date Recorded Employment Unknown 11/29/2018 Hunger Screening Answer Date Recorded Within the past 12 months we worried whether our food would run out before we got money to buy more. Never True 10/17/2024 Within the past 12 months th e food we bought just didn't last and we didn't have money to get more. Never True 10/17/2024 Purpose - Life Answer Date Recorded Purpose and direction in life Unknown Comments No Sex and Gender Information Value Date Recorded Sex Assigned at Not on file Legal Sex Female 12:01 PM EDT Gender Identity Not on file Sexual Orientation Not on file documented as of this encounter Plan of Treatment Upcoming Encounters Date Type Department Care Team (Late st Contact Info) Description 12/10/2024 8:30 AM EDT Appointment [facility] - Cardiovascular [address] [place] [address] 12/24/2024 3:30 PM EDT Office Visit [facility] [address] [place] [address] Annelise Mcgovern, PICTURE PAINTER-EMPLOYEE DEVELOPMENT MANAGER [address] [place] [address] documented as of this encounter Visit Diagnoses Not on filedocumented in this encounter Additional Health Concerns Assessment Noted Time PHQ-9 Depression Total Score: 0 07/27/19 23 7:00 AM EST documented as of this encounter Care Teams Leather Grader Relationship Specialty Start Date End Date Jan Mireles MD [address] [facility] [place] [address] PCP - General Internal Medicine 10/17/24 documented as of this encounter
--- OUTSIDE RECORDS SUMMARY | 2024-11-29 13:52 | XMS_ITS | Encounter Summary ---
Author Organization [employer] tem Address [id number] [address] [place] [address] Care Team Providers Care Explosive Ordnance Disposal Technician Name Role Phone Jan Mireles MD Primary Care Provider [phone] Encounter Details Date Type Department Care Team (Latest Contact Info) Description 11/26/2024 Travel Social History Tobacco Use Types Packs/Day [...] before we got money to buy more. Sometimes True 025 Within the past 12 months th e food we bought just didn't last and we didn't have money to get more. Never True 11/26/2024 Purpose - Life Answer Date Recorded Purpose [...] Info) Description 12/10/2024 8:30 AM EDT Appointment [facility] - Cardiovascular [address] [place] [address] 12/24/2024 3:30 PM EDT Office Visit [facility] [address] [place] [address] Annelise Mcgovern, LIQUOR STORE MANAGER-CABLE REPAIRER [address] [place] [address] documented as of this encounter Visit Diagnoses Not on filedocumented in this encounter Additional Health Concerns Assessment Noted Time PHQ-9 Depression Total Score: 0 07/27/19 23 7:00 AM EST documented as of this encounter Care Teams Explosive Ordnance Disposal Technician Relationship Specialty Start Date End Date Jan Mireles MD [address] [place] [address] PCP - General Internal Medicine 10/17/24 documented as of this encounter
--- OUTSIDE RECORDS SUMMARY | 2024-11-29 13:52 | XMS_ITS | Encounter Summary ---
Author Organization [facility] Address [address] [facility] [place] [address] Care Team Providers Care Ham Clerk Name Role Phone Gavino Shoemaker MD Primary Care Provider Encounter Details Date Type Department Care Team (Late Contact Info) Description 11/29/2024 Bamboo flowsheet [facility] [address] [place] [address] Brannon Rod [place] [address] Social History Tobacco Use Types Packs/Day Years [...] 12/13/2024 8:00 AM EDT Ancillary Procedure [facility] [place] [address] 01/01/2025 2:40 PM EDT [place] [address] Brannon Rod DO [facility] [address] [place], [place] [id number] 05/29/2025 3:00 PM EST Office [place] [address] Brannon Rod, DO [address] [place] [address] [place] [address] documented as of this encounter Visit Diagnoses Not on filedocumented in this encounter Care Teams Ham Clerk Relationship Specialty Start Date End Date Gavino Shoemaker MD PCP - General Family Medicine 05/03/23 documented as of this encounter
--- OUTSIDE RECORDS SUMMARY | 2024-11-29 13:52 | XMS_ITS | Encounter Summary ---
Author Organization [facility] Address [address] [place] [address] Care Team Providers Care Light Industrial Supervisor Name Role Phone Gavino Shoemaker MD Primary Care Provider Encounter Details Date Type Department Care Team (Late Contact Info) Description 06/05/2024 Orders Only [facility] [address] [place] [address] Arcelia Rey [facility] [address] Social History Tobacco Use Types Packs/Day Years Used Date Smoking Tobacco: Never Alcohol Use Standard Drinks/Week Comments Never 0 (1 standard drink = 0.6 oz pur e alcohol) caffeine: none Comments Unknown Sex and Gender Information Value Date Recorded Sex Assigned at Not on file Legal Sex Female 7:01 PM EDT Gender Identity Not on file Sexual Orientation Not on file documented as of this encounter Plan of Treatment Upcoming Encounters Date Type Department Care Team (Late Contact Info) Description 12/13/2024 8:00 AM EDT Ancillary Procedure [facility] OB [facility] [place] [address] 01/01/2025 2:40 PM EDT Office Visit [facility] OB [facility] [place] [address] Brannon Rod DO [facility] [address] [place], [facility] 05/29/2025 3:00 PM EST Office Visit [facility] [place] [address] Brannon Rod DO [facility] [place] [address] documented as of this encounter Procedures Procedure Name Priority Date/Time Associated Diagnosis Comments PAP SMEAR Routine 05/16/2024 12:00 AM EST documented in this encounter Results * Pap Smear (05/16/2024 12:00 AM EST) Swab Cervical swab / Unknown us Brannon Viola DO LAB CYTOLOGY ORDERABLES Final Re sult EXTERNAL LAB documented in this encounter Visit Diagnoses Not on filedocumented in this encounter Care Teams Light Industrial Supervisor Relationship Specialty Start Date End Date Gavino Shoemaker MD PCP - General Family Medicine 05/03/23 documented as of this encounter
--- OUTSIDE RECORDS SUMMARY | 2024-11-29 13:53 | XMS_ITS | Encounter Summary ---
Author Organization [facility] Address [address] [place] [address] Care Team Providers Care Mold Washer Name Role Phone Gavino Shoemaker MD Primary Care Provider Encounter Details Date Type Department Care Team (Late st Contact Info) Description 11/23/2024 Telephone [facility] [address] [facility] [place] [address] Petty López MA Social History Tobacco Use Types Packs/Day Years [...] on file documented as of this encounter Miscellaneous Notes * Telephone Encounter - Petty López MA - 11/23/2024 10:22 AM EDT Hi, my name is Azalia Morton. I was calling because I was concerned. I have had a pretty heavy period now for 2 weeks. I did not know if it was something I should be concerned about or be seen. If you can give me a call back my numbers [phone]. Thank you. Pt call returned pt states approximate LMP 11/17/24. States heavy clots and bleeding that have now slowed down a bit. Advised pt that she can come in to talk with physician if she would like. Pt declines and would like to continue to monitor bleeding and will call back if bleeding persists or gets heavier. Bleeding precautions given. Pt voiced understanding. documented in this encounter Plan of Treatment Upcoming Encounters Date Type Department Care Team (Late st Contact Info) Description 12/13/2024 8:00 AM EDT Ancillary Procedure [facility] OB [address] [place] [address] [place] [phone] 01/01/2025 2:40 PM EDT Office Visit [facility] [address] [facility] [facility] [place] [address] Brannon Rod, [address] [place] [address] 05/29/2025 3:00 PM EST Office Visit [facility] OB [address] [place] [address] [place] [address] Brannon Rod, [address] [place] [address] documented as of this encounter Visit Diagnoses Not on filedocumented in this encounter Care Teams Mold Washer Relationship Specialty Start Date End Date Gavino Shoemaker MD PCP - General Family Medicine 05/03/23 documented as of this encounter
--- OUTSIDE RECORDS SUMMARY | 2024-11-29 13:53 | XMS_ITS | Encounter Summary ---
Author Organization [employer] tem Address [id number] [place] [address] Care Team Providers Care Value Stream Coach Name Role Phone Jan Mireles MD Primary Care Provider Encounter Details Date Type Department Care Team (Late st Contact Info) Description 10/20/2022 Orders Only [facility] [address] [place] [address] Chhaya Calero, PURCHASING EXPEDITOR Left lateral epicondylitis Social History Tobacco Use Types Packs/Day Years [...] got money to buy more. Never True 07/27/2022 Within the past 12 months th e food we bought just didn't last and we didn't have money to get more. Never True 07/27/2022 Purpose - Life Answer Date Recorded Purpose [...] Info) Description 12/10/2024 8:30 AM EDT Appointment [facility] - Cardiovascular [address] [place] [address] 12/24/2024 3:30 PM EDT Office Visit [facility] [address] [place] [phone] Annelise Mcgovern APRN-PRINT LINE FEEDER [address] [place] [address] documented as of this encounter Procedures Procedure Name Priority Date/Time Associated Diagnosis Comments AMB REFERRAL TO ORTHOPEDIC SURGERY Routine 10/20/2022 Left lateral epicondylitis documented in this encounter Results * Ambulatory referral to Orthopedic Surgery (10/20/2022) us Gavino Shoemaker MD OUTPATIENT REFERRAL ORDERABL ES Final Result MANUALLY TRANSCRIBED RESULTS documented in this encounter Visit Diagnoses Diagnosis Left lateral epicondylitis documented in this encounter Additional Health Concerns Assessment Noted Time PHQ-9 Depression Total Score: 0 07/27/19 23 7:00 AM EST documented as of this encounter Care Teams Value Stream Coach Relationship Specialty Start Date End Date Jan Mireles MD [address] [place], [place] [id number] PCP - General Internal Medicine 10/17/24 documented as of this encounter
[2024-11-29 14:13] LABS: Basophils Percent Auto 0.5 % (0.2-2.0); Eosinophils Absolute Auto 0.1 10^3/uL (0.0-0.7); Eosinophils Percent Auto 1.9 % (0.9-7.0); Hematocrit 38.4 % (36.0-48.0); Hemoglobin 13.1 g/dL (12.0-16.0); Immature Granulocytes Abs Auto 0.02 10^3/uL (0.00-0.03); Immature Granulocytes Pct Auto 0.3 % (0.0-0.5); Lymphocytes Absolute Auto 2.3 10^3/uL (1.2-3.8); Lymphocytes Percent Auto 30.5 % (20.5-60.0); Mean Corpuscular HGB Conc 34.1 g/dL (29.9-35.2); Mean Corpuscular Hemoglobin 30.6 pg (26.7-34.0); Mean Corpuscular Volume 89.7 fL (81.0-99.0); Mean Platelet Volume 10.1 fL (9.5-13.5); Monocytes Absolute Auto 0.5 10^3/uL (0.3-0.8); Monocytes Percent Auto 6.5 % (1.7-12.0); Neutrophils Absolute Auto 4.5 10^3/uL (1.4-6.5); Neutrophils Percent Auto 60.3 % (43.0-75.0); Platelet Count 354 10^3/uL (150-450); Red Blood Count 4.28 10^6/uL (4.20-5.40); Red Cell Distribution Width 12.8 % (11.0-15.0); White Blood Count 7.4 10^3/uL (4.0-11.0)
[2024-11-29 14:33] LABS: INR 1.09; Prothrombin Time 11.5 sec (9.0-11.6)
[2024-11-29 14:53] LABS: HCG Quantitative <1 mIU/mL; Thyroid Stimulating Hormone 1.983 uIU/mL (0.358-3.740)
[2024-11-29 15:00] LABS: Free T4 1.06 ng/dL (0.76-1.46)
[2024-11-29 15:29] LABS: Estimated Average Glucose 123 mg/dL; Glycohemoglobin A1C 5.9 % (4.5-6.2)
[2024-11-30 06:08] LABS: Transferrin 337 mg/dL (192-364)
[2024-12-03 12:08] LABS: Calcitriol(1,25 di-OH Vit D) 60.4 pg/mL (24.8-81.5)
== END 2024-11-29 13:46 | disposition home or self-care (01) ==
LOC: LAB 13:48
PROVIDERS: PCP Nurse Practitioner Family; Visit Provider Obstetrics & Gynecology
DX: N92.1 Excessive and frequent menstruation with irregular cycle (principal); Z98.890 Other specified postprocedural states; Z98.51 Tubal ligation status
CPT/HCPCS: 36415; 82652; 82728; 83036; 84439; 84443; 84466; 84702; 85025; 85610; 85730

== ENCOUNTER 2025-01-16 13:28 | Outpatient (OUT) | payer OTHER, SELFPAY ==
--- OUTSIDE RECORDS SUMMARY | 2025-01-07 10:20 | XMS_ITS | Encounter Summary ---
Author Organization [facility] Address [address] [place] [address] Care Team Providers Care Air And Hydronic Balancing Technician Name Role Phone Gavino Shoemaker MD Primary Care Provider [phone] Annelise Mcgovern NP Unavailable Reason for Visit * Reason Comments Pre-op Visit Encounter Details Date Type Department Care Team ([facility] Contact Info) Description 01/07/2025 10:20 AM EDT Consult [facility] [place] [facility] [address] [place] [address] Brannon Rod DO [address] [facility] [address] [place], [facility]11 Pre-op examination; Menorrhagia with irregular cycle; Thickened endometrium Social History Tobacco Use Types Packs/Day Years [...] Sign Reading Time Taken Comments Blood Pressure 122/84 01/07/2025 10:34 AM EDT Pulse - - Temperature - - Respiratory Rate - - Oxygen Saturation - - Inhaled Oxygen Concentration - - Weight 84.1 kg (185 lb 8 oz) 01/07/2025 10:34 AM EDT Height - - Body Mass Index 29.05 11/29/2024 9:15 AM EDT documented in this encounter Progress Notes * Rosmery Blackwood - 01/07/2025 10:20 AM EDT Reason for Appointment: Patient ID: Azalia Morton is a 49 y.o. female who presents for Pre-op Visit Patient presents today for Pre Op appointment. Patient is scheduled to undergo D&C Hysteroscopy, possible Myosure on 01-30-[address] Rod at [facility]. MEDICATIONS Current Outpatient Medications Medication Instructions FLUoxetine (PROZAC) 20 mg, Daily RT megestrol (MEGACE) 20 mg, Oral, Daily, Take 1 tablet 2 times daily for 3 days then take 1 tablet daily for 1 month (36 tablets total) ALLERGIES No Known Allergies PROBLEMS Active Ambulatory Problems Diagnosis Date Noted Fatigue 11/29/2024 History of endometrial ablation 11/29/2024 H/O tubal ligation 11/29/2024 Menorrhagia with irregular cycle 11/29/2024 Thickened endometrium 01/07/2025 Pre-op examination 01/07/2025 Resolved Ambulatory Problems Diagnosis Date Noted No [...] Respiratory: Negative. Cardiovascular: Negative. Gastrointestinal: Negative. Genitourinary: Positive for menstrual problem and vaginal bleeding. Musculoskeletal: Negative. Skin: Negative. Neurological: Negative. All other systems reviewed and are negative. Hematological: Negative. Endocrine: Negative. Allergic/Immunologic: Negative. OBJECTIVE Objective: Physical Exam Constitutional: Appearance: Normal appearance. She is well-developed. Cardiovascular: Rate and Rhythm: Normal rate and [...] nursing note reviewed. Exam conducted with a mobile equipment servicer present. Vitals: Estimated body mass index is 29.05 kg/m?? as calculated from the following: Height as of 11/29/24: 5' 7 . Weight as of this encounter: 185 lb 8 oz. BP: 122/84 Patient's last menstrual period was 12/18/2024 (approximate). ASSESSMENT & PLAN ICD-10-CM 1. Pre-op examination Z01.818 2. Menorrhagia with irregular cycle N92.1 3. Thickened endometrium R93.89 Pre Op: Patient is doing well but has complaints of menorrhagia and thickened endometrium. I have discussedconservative management vs. surgical management with the patient in detail and patient desires surgical management at this time. Patient will undergo D&C Hysteroscopy, possible Myosure on 01/30/25. Surgical consents were signed, mmc was reviewed, and patient is to proceed to [facility] OR. Follow Up: Patient is to follow up between 1-2 weeks post operative to assess proper healing and recovery fromprocedure. Documented by June Herman LPN. on behalf of: Brannon Rod DO documented in this encounter Plan of Treatment Upcoming Encounters Date Type Department Care Team (Late st Contact Info) Description 02/11/2025 8:50 AM EDT Office Visit [facility]IN CARPIO [address] [place] [phone] Brannon Rod DO [address] [place] [address] 05/29/2025 3:00 PM EST Office Visit MARTIN CARPIO [address] [place] [phone] Brannon Rod DO [address] [place] [address] documented as of this encounter Visit Diagnoses Diagnosis Pre-op examination Menorrhagia with irregular cycle Thickened endometrium Nonspecific (abnormal) findings on radiological and other examination of genitourinary organs documented in this encounter Care Teams Air And Hydronic Balancing Technician Relationship Specialty Start Date End Date Gavino Shoemaker MD PCP - General Family Medicine 05/03/23 Annelise Mcgovern NP [address] [place] [address] Referring Physician Family Medicine 12/03/24 documented as of this encounter
--- OUTSIDE RECORDS SUMMARY | 2025-01-16 13:30 | XMS_ITS | Encounter Summary ---
Author Organization [facility] Address [address] [place] [address] Care Team Providers Care Area Development Consultant Name Role Phone Gavino Shoemaker MD Primary Care Provider [phone] Annelise Mcgovern WANIGAN CLERK Unavailable [phone] Encounter Details Date Type Department Care Team (Late Contact Info) Description 12/03/2024 Results Follow-Up MARTIN [facility] [place] [address] Arelis Angeles LPN [address] [place] [id number] Social History Tobacco Use Types Packs/Day Years [...] as of this encounter Miscellaneous Notes * Result Encounter Note - Arelis Angeles LPN - 12/03/2024 1:04 PM EDT Pt notified and results sent to PCP documented in this encounter Plan of Treatment Upcoming Encounters Date Type Department Care Team (Late Contact Info) Description 02/11/2025 8:50 AM EDT Office Visit AMRTIN CARPIO [facility] [place] [address] Brannon Rod DO [address] [place] [address] 05/29/2025 3:00 PM EST Office Visit [facility] CARPIO [address] [facility] [place] [phone] Brannon Rod DO [address] [facility] [place] [address] documented as of this encounter Visit Diagnoses Not on filedocumented in this encounter Care Teams Area Development Consultant Relationship Specialty Start Date End Date Gavino Shoemaker MD PCP - General Family Medicine 05/03/23 Annelise Mcgovern NP [address] [place] [address] Referring Physician Family Medicine 12/03/24 documented as of this encounter
--- OUTSIDE RECORDS SUMMARY | 2025-01-16 13:30 | XMS_ITS | Encounter Summary ---
Author Organization [facility] Address [address] [place] [address] Care Team Providers Care Pile Driver Engineer Name Role Phone Gavino Shoemaker MD Primary Care Provider [phone] Annelise Mcgovern STORE STANDARDS ASSOCIATE Unavailable [phone] Encounter Details Date Type Department Care Team (Late Contact Info) Description 06/05/2024 Orders Only MARTIN CARPIO [address] [place] [address] [place] [address] Arcelia Rey MA [address] [place] [address] [place] [address] Social History Tobacco Use Types Packs/Day Years [...] 8:50 AM EDT Office Visit MARTIN CARPIO [address] [place] [address] [place] [phone] Brannon Rod, DO [address] [place] [address] 05/29/2025 3:00 PM EST Office Visit MARTIN CARPIO [address] [place] [address] [place] [phone] Brannon Rod, DO [address] [place], [place] [id number] documented as of this encounter Procedures Procedure Name Priority Date/Time Associated Diagnosis Comments PAP SMEAR Routine 05/16/2024 12:00 AM EST documented in this encounter Results * Pap Smear (05/16/2024 12:00 AM EST) Swab Cervical swab / Unknown us Brannon Viola DO LAB CYTOLOGY ORDERABLES Final Re sult EXTERNAL LAB documented in this encounter Visit Diagnoses Not on filedocumented in this encounter Care Teams Pile Driver Engineer Relationship Specialty Start Date End Date Gavino Shoemaker MD PCP - General Family Medicine 05/03/23 Annelise Mcgovern NP [address] [place] [address] Referring Physician Family Medicine 12/03/24 documented as of this encounter
--- OUTSIDE RECORDS SUMMARY | 2025-01-16 13:30 | XMS_ITS | Clinical Summary ---
Author Organization H2020 s tem Address [id number] [address] [place] [address] Care Team Providers Care Client Service And Consulting Manager Name Role Phone Annelise Mcgovern Primary Care Provide r Allergies No known active allergies Medications FLUoxetine (PROzac) 20 mg capsule Take 1 capsule (20 mg total) by mouth in the morning. 90 capsule 1 5 Active FLUoxetine (PROzac) 20 mg capsule Take 1 capsule (20 mg total) by mouth in the morning. 30 capsule 5 12/25/19 25 Discontinu ed(Reorder ) Active Problems No known active problems Encounters Date Type Department Care Team Description 12/24/2024 3:30 PM EDT [facility] [address] [place] [phone] Annelise Mcgovern APRN-CNP Anxiety (Primary Dx) 12/24/2024 Travel 12/04/2024 Orders Only [facility] [address] [place], [place] [address] [phone] External, Scanning Provider 11/30/2024 Orders [facility] [address] [place], [place] [address] [address] Juliana Randhawa LPN Hypothyroidism, unspecified type 11/28/2024 1:00 PM EDT Office Visit [facility] [address] [place], [place] [address] [address] Schlachter, Annelise, HAND MOLDER-TOWER TECHNICIAN Anxiety (Primary Dx); Chest pain, unspecified type; Hypothyroidism, unspecified type 11/26/2024 Travel 11/19/2024 Travel 10/17/2024 10:29 AM EDT - 10/17/2024 1:55 PM EDT Emergency [facility] - Emergency [address] [place] [phone] June Woodward MD Vasovagal syncope (Primary Dx) Discharge Disposition: Home 10/17/2024 Travel from Last 3 Months Immunizations No [...] got money to buy more. Never True 12/24/2024 Within the past 12 months th e food we bought just didn't last and we didn't have money to get more. Never True 12/24/2024 Purpose - Life Answer Date Recorded Purpose and direction in life Unknown Comments No Sex and Gender Information Value Date Recorded Sex Assigned at Not on file Legal Sex Female 12:01 PM EDT Gender Identity Not on file Sexual Orientation Not on file Last Filed Vital Signs Vital Sign Reading Time Taken Comments Blood Pressure 128/76 12/24/2024 3:31 PM EDT Pulse 76 12/24/2024 3:31 PM EDT Temperature 36.3 C (97.4 F) 10/17/2024 10:39 AM EDT Respiratory Rate 16 12/24/2024 3:31 PM EDT Oxygen Saturation 99% 12/24/2024 3:31 PM EDT Inhaled Oxygen Concentration - - Weight 85.7 kg (189 lb) 12/24/2024 3:31 PM EDT Height 167.6 cm (5' 6 ) 07/27/2022 2:54 PM EST Body Mass Index 30.51 07/27/2022 2:54 PM EST Plan of Treatment Upcoming Encounters Date Type Department Care Team (Late st Contact Info) Description 06/24/2025 3:45 PM EST Office Visit [facility] [address] [place] [address] Annelise Mcgovern, HAND MOLDER-[facility] [address] [place], [place] [phone] Health Maintenance Due Date Last Done Comments DTaP,Tdap and Td Vaccines (1 - Tdap) 1996 Pap Smear 1998 Depression Screening 07/27/2023 07/27/2022 COVID-19 Vaccine ( season) 2024, 09/18/2020 Influenza Vaccine 02/18/2025 Adult BMI Screening 12/24/2025 12/24/2024 Tobacco Screening 12/24/2025 12/24/2024 Medical Devices Not on file Procedures Procedure Name Priority Date/Time Associated Diagnosis Comments HEMOGLOBIN A1C Routine 11/29/2024 THYROID PROFILE INCLUDES TSH FT4 Routine 11/29/2024 Hypothyroidism, unspecified type ECG 12-LEAD STAT 10/17/2024 12:29 PM EDT [...] ECG 12-LEAD STAT 10/17/2024 10:34 AM EDT from Last 3 Months Results * Thyroid profile includes TSH FT4 (11/29/2024) Only the most recent of2 resultswithin the time period is included. Blood Venous blood / Unknown 11/29/2024 Annelise Mcgovern HAND MOLDER-TOWER TECHNICIAN LAB BLOOD ORDERABLES Final Result MANUALLY TRANSCRIBED RESULTS * Hemoglobin A1c (11/29/2024) External Hemoglobin A1C 5.9 4.0 - 6.0 % MANUALLY TRANSCRIBED RESULTS Blood Venous blood / Unknown 11/29/2024 us Scanning Provider External LAB BLOOD ORDERABLES Final Result MANUALLY TRANSCRIBED RESULTS * Repeat ECG 12 lead (10/17/2024 12:29 PM EDT) Only the most recent of2 resultswithin the time period is included. 10/17/2024 12:2 9 PM EDT Narrative [facility] - 10/20/2024 1:56 PM EDT Liana Ward HAND MOLDER-TOWER TECHNICIAN ECG ORDERABLES Final Result [facility] * Troponin I, High Sensitivity 1 Hour (10/17/2024 12:28 PM EDT) TROPONIN I, HIGH SENSITIVITY 3 <16 ng/L 10/17/2024 1:16 PM EDT [facility] Blood Venous blood / Unknown 10/17/2024 12:28 PM EDT 10/17/2024 12:37 PM EDT Liana Ward HAND MOLDER-TOWER TECHNICIAN LAB BLOOD ORDERABLES Final Result Performing Organization Address [facility] de Phone Number [address] [place] [address], * Troponin I, High Sensitivity 0 Hour (10/17/2024 11:16 AM EDT) TROPONIN I, HIGH SENSITIVITY <2 <16 ng/L 10/17/2024 11:49 AM EDT [facility] Blood Venous blood / Unknown 10/17/2024 11:16 AM EDT 10/17/2024 11:20 AM EDT Liana Ward HAND MOLDER-TOWER TECHNICIAN LAB BLOOD ORDERABLES Final Result Performing Organization Address City/[facility]/ZIP Co de Phone Number [address] [place] [address], [place] * CBC auto differential (10/17/2024 11:16 AM EDT) WBC 9.1 4 - 11 x10E9/L 10/17/2024 11:26 AM EDT [facility] RBC Count 4.05 3.8 - 5.2 X10E12/L 10/17/2024 11:26 AM EDT [facility] Hemoglobin 12.7 11.7 - 15.5 g/dL 10/17/2024 11:26 AM EDT [facility] Hematocrit 36.0 35 - 47 % 10/17/2024 11:26 AM EDT [facility] MCV 89 80 - 100 fL 10/17/2024 11:26 AM EDT [facility] MCH 31.3 27 - 34 pg 10/17/2024 11:26 AM EDT [facility] MCHC 35.3 32 - 36 g/dL 10/17/2024 11:26 AM EDT [facility] RDW 13.2 11.5 - 15 % 10/17/2024 11:26 AM EDT [facility] Platelet Count 286 150 - 450 X10E9/L 10/17/2024 11:26 AM EDT [facility] MPV 8.7 7 - 12 fL 10/17/2024 11:26 AM EDT [facility] Neutrophils % 53.5 % 10/17/2024 11:26 AM EDT [facility] Lymphocytes % 38.1 % 10/17/2024 11:26 AM EDT [facility] Monocytes % 6.0 % 10/17/2024 11:26 AM EDT [facility] Eosinophils % 1.9 % 10/17/2024 11:26 AM EDT [facility] Basophils % 0.5 % 10/17/2024 11:26 AM EDT [facility] Neutrophils Absolute (A) 4.9 10*3/uL 10/17/2024 11:26 AM EDT [facility] Lymphocytes Absolute 3.4 10*3/uL 10/17/2024 11:26 AM EDT [facility] Monocytes Absolute 0.5 10*3/uL 10/17/2024 11:26 AM EDT [facility] Eosinophils Absolute 0.2 10*3/uL 10/17/2024 11:26 AM EDT [facility] Basophils Absolute 0.0 10*3/uL 10/17/2024 11:26 AM EDT [facility] Differential Type AUTOMATED DIFFERENTIAL 10/17/2024 11:26 AM EDT [facility] Blood Venous blood / Unknown 10/17/2024 11:16 AM EDT 10/17/2024 11:20 AM EDT Liana Ward HAND MOLDER-TOWER TECHNICIAN LAB BLOOD ORDERABLES Final Result [address] [place] [address], [place] * Magnesium (10/17/2024 11:16 AM EDT) MAGNESIUM 1.9 1.8 - 2.6 mg/dL 10/17/2024 11:39 AM EDT [facility] Blood Venous blood / Unknown 10/17/2024 11:16 AM EDT 10/17/2024 11:20 AM EDT Liana Ward HAND MOLDER-TOWER TECHNICIAN LAB BLOOD ORDERABLES Final Result [address] [address], [place] * Ethanol (10/17/2024 11:16 AM EDT) ETHANOL <0.010 <=0.080 g/dL 10/17/2024 11:39 AM EDT [facility] Comment: This report is intended for use in clinical monitoring or management of patients. Blood Venous blood / Unknown 10/17/2024 11:16 AM EDT 10/17/2024 11:20 AM EDT us Liana Owen Liliamakila HAND MOLDER-TOWER TECHNICIAN LAB BLOOD ORDERABLES Final Result [facility] [address] [place] [address], * (ABNORMAL) Comprehensive metabolic panel (10/17/2024 11:16 AM EDT) SODIUM 137 134 - 146 mmol/L 10/17/2024 11:39 AM EDT [facility] POTASSIUM 3.3(L) 3.5 - 5.0 mmol/L 10/17/2024 11:39 AM EDT [facility] CHLORIDE 107 98 - 109 mmol/L 10/17/2024 11:39 AM EDT [facility] CARBON DIOXIDE 22 22 - 32 mmol/L 10/17/2024 11:39 AM EDT [facility] ANION GAP 8 5 - 15 mmol/L 10/17/2024 11:39 AM EDT [facility] BLOOD UREA NITROGEN 11 5 - 23 mg/dL 10/17/2024 11:39 AM EDT [facility] CREATININE 0.59 0.40 - 1.00 mg/dL 10/17/2024 11:39 AM EDT [facility] Comment:METHOD TRACEABLE TO IDMS STANDARD GLUCOSE 132(H) 65 - 99 mg/dL 10/17/2024 11:39 AM EDT [facility] CALCIUM 7.9(L) 8.5 - 10.5 mg/dL 10/17/2024 11:39 AM EDT [facility] TOTAL PROTEIN 6.0 6.0 - 8.0 g/dL 10/17/2024 11:39 AM EDT [facility] ALBUMIN 3.4 3.2 - 5.3 g/dL 10/17/2024 11:39 AM EDT [facility] ALKALINE PHOSPHATASE 52 39 - 130 U/L 10/17/2024 11:39 AM EDT [facility] AST 24 <=41 U/L 10/17/2024 11:39 AM EDT [facility] ALT 37(H) <=31 U/L 10/17/2024 11:39 AM EDT [facility] BILIRUBIN,TOTAL 0.2(L) 0.3 - 1.2 mg/dL 10/17/2024 11:39 AM EDT [facility] EGFR Non-Race Dependent >90 >=60 ml/min/1.7 3sq.m 10/17/2024 11:39 AM EDT [facility] Comment: eGFR not reported due to non-numeric value for Creatinine. Reported eGFR is based on the CKD-EPI 2020 equation that does not use a race coefficient. Blood Venous blood / Unknown 10/17/2024 11:16 AM EDT 10/17/2024 11:20 AM EDT us Liana Ward HAND MOLDER-TOWER TECHNICIAN LAB BLOOD ORDERABLES Final Result Performing Organization Address City/State/[facility] Co de Phone Number [facility] [address] [place] [address], from Last [place] [address] Care Teams Client Service And Consulting Manager Relationship Specialty Start Date End Date Annelise Mcgovern APRN-TOWER TECHNICIAN [address] [place] [address] PCP - General Family Medicine 12/24/24
--- OUTSIDE RECORDS SUMMARY | 2025-01-16 13:30 | XMS_ITS | Encounter Summary ---
Author Organization [facility] Address [address] [place] [address] Care Team Providers Care Sales Exhibitor Name Role Phone Gavino Shoemaker MD Primary Care Provider [phone] Annelise Mcgovern APARTMENT MAINTENANCE TECHNICIAN Unavailable [phone] Encounter Details Date Type Department Care Team ([facility] Contact Info) Description 01/02/2025 Telephone NOM[facility]ol CARPIO [address] [employer] [place] [address] Brannon Rod DO [address] [place], [facility] Social History Tobacco Use Types Packs/Day Years [...] Upcoming Encounters Date Type Department Care Team ([facility] Contact Info) Description 02/11/2025 8:50 AM EDT Office Visit MARTIN CARPIO [address] [place] [address] Brannon Rod DO [address] [place] [address] 05/29/2025 3:00 PM EST Office Visit [facility]OM[facility] CARPIO [address] [place] [address] Brannon Rod DO [address] [place] [address] documented as of this encounter Visit Diagnoses Not on filedocumented in this encounter Care Teams Sales Exhibitor Relationship Specialty Start Date End Date Gavino Shoemaker MD PCP - General Family Medicine 05/03/23 Annelise Mcgovern NP [address] [facility] [place] [address] Referring Physician Family Medicine 12/03/24 documented as of this encounter
--- OUTSIDE RECORDS SUMMARY | 2025-01-16 13:30 | XMS_ITS | Encounter Summary ---
Author Organization [id number] [address] [place] [address] Care Team Providers Care Land Surveying Survey Worker Name Role Phone Annelise Mcgovern CAFE ATTENDANT-BUSINESS EDUCATION TEACHER Primary Care Provide r Encounter Details Date Type Department Care Team (Late st Contact Info) Description 10/20/2022 Orders Only [facility] [address] [place] [address] Chhaya Calero, CHOIRMASTER Left lateral epicondylitis Social History Tobacco Use [...] EST Office Visit [facility] [address] [place] [phone] Annelise Mcgovern APRN-CNP [address] [place] [address] documented as of this encounter Procedures Procedure [...] documented as of this encounter Care Teams Land Surveying Survey Worker Relationship Specialty Start Date End Date Annelise Mcgovern, KATYA [address] [place] [address] PCP - General Family Medicine 12/24/24 documented as of this encounter
--- OUTSIDE RECORDS SUMMARY | 2025-01-16 13:30 | XMS_ITS | Clinical Summary ---
Author Organization [facility] Address [address] [place] [address] Care Team Providers Care Ultrasonic Tester Name Role Phone Gavino Shoemaker MD Primary Care Provider [phone] Annelise Mcgovern NP Unavailable [phone] Allergies No known active allergies Medications FLUoxetine (PROzac) 20 MG capsule Take 20 mg by mouth in the morning. 5 Active megestrol (Megace) 20 MG tabletIndication s:Menorrhagia with irregular cycle Take 1 tablet (20 mg total) by mouth Daily. Take 1 tablet 2 times daily for 3 days then take 1 tablet daily for 1 month (36 tablets total) 36 tablet 5 02/01/20 25 Active megestrol (Megace) 20 MG tabletIndication s:Menorrhagia with irregular cycle Take 1 tablet (20 mg total) by mouth 2 (two) times a day. 60 tablet 5 02/07/20 25 Active megestrol (Megace) 20 MG tabletIndication s:Menorrhagia with irregular cycle,History of endometrial ablation,H/O tubal ligation Take 1 tablet (20 mg total) by mouth Daily. Take 1 tablet 2 times daily for 3 days then take 1 tablet daily for 1 month (36 tablets total) 36 tablet 5 12/30/19 25 Active Problems Problem Noted Date Diagnosed Date Thickened endometrium 01/07/2025 Pre-op examination 01/07/2025 Fatigue 11/29/2024 History of endometrial ablation 11/29/2024 H/O tubal ligation 11/29/2024 Menorrhagia with irregular cycle 11/29/2024 Encounters Date Type Department Care Team Description 01/07/2025 10:20 AM EDT Consult MARTIN CARPIO [address] [place] [place] [address] Brannon Rod, Pre-op examination; Menorrhagia with irregular cycle; Thickened endometrium 01/02/2025 [facility]phone [facility] [place] [address] Brannon Rod, 01/01/2025 2:40 PM EDT Office Visit [facility] [place] [address] Brannon Rod, Encounter to discuss test results; Menorrhagia with irregular cycle; Thickened endometrium 01/01/2025 Bamboo flowsheet [facility] [place] [address] Brannon Rod, 01/01/2025 Travel 12/13/2024 8:00 AM EDT Ancillary Procedure [facility] [place] [address] Menorrhagia with irregular cycle; History of endometrial ablation; H/O tubal ligation 12/12/2024 Travel 12/03/2024 Results Follow-Up [facility] [place] [address] Arelis Angeles LPN 11/29/2024 9:00 AM EDT Office [facility] [place] [address] Brannon Rod, Menorrhagia with irregular cycle; History of endometrial ablation; H/O tubal ligation; Fatigue, unspecified type 11/29/2024 Clinisync Result Encounter [facility] External Department Unsolicited Brannon Rod, 11/29/2024 Bamboo flowsheet [facility] [place] [address] Brannon Rod, 11/23/2024 Telephone [facility] CARPIO [address] [place] [phone] Petty López MA from Last 3 Months Family History Medical [...] 8 oz) 01/07/2025 10:34 AM EDT Height 170.2 cm (5' 7 ) 11/29/2024 9:15 AM EDT Body Mass Index 29.05 11/29/2024 9:15 AM EDT Plan of Treatment Upcoming Encounters Date Type Department Care Team (Late st Contact Info) Description 02/11/2025 8:50 AM EDT Office Visit MARTIN CARPIO [facility] [place] [phone] Brannon Rod, [facility] [place] [address] 05/29/2025 3:00 PM EST Office Visit [facility] CARP[facility] [address] [place] [phone] Brannon Rod DO [address] [place] [address] Procedures Procedure Name Priority Date/Time Associated Diagnosis Comments US PELVIC COMPLETE W/ TV Routine 12/13/2024 8:50 AM EDT Menorrhagia with irregular cycle History of endometrial ablation H/O tubal ligation CALCITRIOL(1,25 DI-OH VIT D) Routine 11/29/2024 2:06 PM EDT TRANSFERRIN Routine 11/29/2024 2:06 PM EDT MLR HEMOGLOBIN A1C Routine 11/29/2024 2: 06 PM EDT [facility] FERRITIN Routine 11/29/2024 2:06 PM EDT ALL THYROXINE (T4) FREE Routine 11/29/2024 2:06 PM EDT ALL THYROID STIM HORMONE Routine 11/29/2024 2:06 PM EDT TBH PREG QUANT HCG Routine 11/29/2024 2: 06 PM EDT [facility] APTT Routine 11/29/2024 2:06 PM EDT [facility] PROTHROMBIN TIME INR W/O COUM Routine 11/29/2024 2:06 PM EDT ALL CBC WITH AUTO DIFF Routine 11/29/2024 2:06 PM EDT from Last 3 Months Results * US Pelvis w/ TV (12/13/2024 8:50 AM EDT) Anatomical Region Laterality Modality Pelvis Ultrasound 12/16/2024 10:0 4 PM EDT Narrative 12/16/2024 10:04 PM EDT EXAM: US PELVIC COMPLETE W/ TV HISTORY: Menorrhagia, 3 weeks of heavy bleeding with clots and pain. COMPARISON: None available. TECHNIQUE: Two-dimensional transabdominal grayscale ultrasound imaging of the pelvis was performed. Color flow Doppler imaging of the ovaries were also performed. Transvaginal was performed. FINDINGS: UTERUS 9.4 x 5.4 x 7.3 cm The uterus is anteverted in position and demonstrates a normal, homogeneous echotexture. There are two fibroids visualized, measuring 4.4 cm within the left aspect of the uterus and 4.1 cm within the uterine body. Multiple nabothian cysts are visualized within the cervix. ENDOMETRIUM 1.6 cm The endometrium demonstrates a normal, homogeneous echotexture. RIGHT OVARY 2.0 x 1.0 x 1.8 cm The right ovary demonstrates a normal echotexture. There is normal color Doppler flow. LEFT OVARY 3.6 x 2.2 x 2.6 cm The left ovary demonstrates a normal echotexture. There is normal color Doppler flow. There is a 2.2 cm dominant follicle. Trace fluid is present within the cul-de-sac. IMPRESSION: 1. Uterine fibroids. 2. Thickened endometrium. This is most likely related to patient's menstrual cycle. 3. Normal color Doppler flow within the bilateral ovaries. Interpreted by: Electronically signed by FAUSTO AVINA II, MD, PHD at 16-Dec-2024 10:02:58 PM [facility] Procedure Note Fausto Avina MD - 12/16/2024 EXAM: US PELVIC COMPLETE W/ TV HISTORY: Menorrhagia, 3 weeks of heavy bleeding with clots and pain. COMPARISON: None available. TECHNIQUE: Two-dimensional transabdominal grayscale ultrasound imaging ofthe pelvis was performed. Color flow Doppler imaging of the ovaries werealso performed. Transvaginal was performed. FINDINGS: UTERUS 9.4 x 5.4 x 7.3 cm The uterus is anteverted in position and demonstrates a normal,homogeneous echotexture. There are two fibroids visualized, measuring 4.4cm within the left aspect of the uterus and 4.1 cm within the uterinebody. Multiple nabothian cysts are visualized within the cervix. ENDOMETRIUM 1.6 cm The endometrium demonstrates a normal, homogeneous echotexture. RIGHT OVARY 2.0 x 1.0 x 1.8 cm The right ovary demonstrates a normal echotexture. There is normal colorDoppler flow. LEFT OVARY 3.6 x 2.2 x 2.6 cm The left ovary demonstrates a normal echotexture. There is normal colorDoppler flow. There is a 2.2 cm dominant follicle. Trace fluid is present within the cul-de-sac. IMPRESSION: 1. Uterine fibroids. 2. Thickened endometrium. This is most likely related to patient'smenstrual cycle. 3. Normal color Doppler flow within the bilateral ovaries. Interpreted by: Electronically signed by FAUSTO AVINA II, MD, PHD 10:02:58 PM [facility] Brannon Viola DO [facility] US PROCEDURES Final Result * TRANSFERRIN (11/29/2024 2:06 PM EDT) [facility] TRANSFERRIN 337 192 - 364 mg/dL TBH Comment: Performed at: [address] [id number] Big Data Developer: Yared Avila PhD, Phone: [phone] 11/29/2024 2:06 PM EDT 11/29/2024 2:10 PM EDT Narrative CLINISYNC - 12/03/2024 12:08 PM EDT Brannon Viola DO LAB BLOOD ORDERABLES Final Resul t Performing Organization Address [facility] Co de Phone Number * TBH PREG QUANT HCG (11/29/2024 2:06 PM EDT) [facility] HCG QUANTITATIVE <1 mIU/mL TB Comment: 5-50 0.2-1 WEEK 50-500 1-2 WEEKS 100-5,000 2-3 WEEKS 500-10,000 3-4 WEEKS 1,000-50,000 4-5 WEEKS 10,000-100,000 5-6 WEEKS 15,000-200,000 6-8 WEEKS 10,000-100,000 2-3 MONTHS 11/29/2024 2:06 PM EDT 11/29/2024 2:10 PM EDT Narrative CLINISYNC - 11/29/2024 2:53 PM EDT Brannon Viola DO CLINISYNC Final Result Performing Organization Address City/[facility] Co de Phone Number * CALCITRIOL(1,25 DI-OH VIT D) (11/29/2024 2:06 PM EDT) [facility] CALCITRIOL(1,25 DI-OH VIT D) 60.4 24.8 - 81.5 pg/mL TB Comment: Performed at: [facility] [id number] Big Data Developer: Janey Funk MD, Phone: [phone] 11/29/2024 2:06 PM EDT 11/29/2024 2:10 PM EDT Narrative CLINISYNC - 12/03/2024 12:08 PM EDT Brannon Viola DO LAB BLOOD ORDERABLES Final Resul t * [facility]/O COUM (11/29/2024 2:06 PM EDT) PROTHROMBIN TIME 11.5 9.0 - 11.6 sec TB TB INR 1.09 TB Comment: DESIRED INR: 2.0-3.0 CONDITIONS NOT LISTED BELOW 2.5-3.5 FOR PROSTHETIC HEART VALVE REPLACEMENT 2.5-3.5 RECURRENT THROMBOSIS 11/29/2024 2:06 PM EDT 11/29/2024 2:10 PM EDT Narrative CLINISYNC - 11/29/2024 2:34 PM EDT Brannon Viola DO CLINISYNC Final Result * MLR HEMOGLOBIN A1C (11/29/2024 2:06 PM EDT) GLYCOHEMOGLOBIN A1C 5.9 4.5 - 6.2 % TB Comment: ADA RECOMMENDED LIMIT 4.0 - 6.0 ADA THERAPEUTIC TARGET < 7.0 ACTION SUGGESTED > 7.0 ESTIMATED AVERAGE GLUCOSE 123 mg/dL TB 11/29/2024 2:06 PM EDT 11/29/2024 2:10 PM EDT Narrative CLINISYNC - 11/29/2024 3:33 PM EDT Brannon Viola DO CLINISYNC Final Result CLINCRNC TB * [facility] FERRITIN (11/29/2024 2:06 PM EDT) FERRITIN 25.0 8.0 - 252.0 ng/mL TBH 11/29/2024 2:06 PM EDT 11/29/2024 2:10 PM EDT Narrative CLINISYNC - 11/29/2024 3:14 PM EDT us Brannon Viola DO CLINISYNC Final Result Performing Organization Address [facility] Co de Phone Number CLINCRNC TB * [facility] APTT (11/29/2024 2:06 PM EDT) PARTIAL THROMBOPLASTIN TIME 28.0 22.3 - 36.2 sec TBH 11/29/2024 2:06 PM EDT 11/29/2024 2:10 PM EDT Narrative CLINISYNC - 11/29/2024 2:34 PM EDT Brannon Singletaryo DO CLINISYNC Final Result Performing Organization Address [facility] Co de Phone Number TOÑO TB * ALL THYROXINE (T4) FREE (11/29/2024 2:06 PM EDT) FREE T4 1.06 0.76 - 1.46 ng/dL TBH 11/29/2024 2:06 PM EDT 11/29/2024 2:10 PM EDT Narrative CLINISYNC - 11/29/2024 3:14 PM EDT Brannon Singletaryo DO CLINISYNC Final Result Performing Organization Address [facility] Co de Phone Number CLINVIJAY TB * ALL THYROID STIM HORMONE (11/29/2024 2:06 PM EDT) THYROID STIMULATING HORMONE 1.983 0.358 - 3.740 uIU/mL TBH 11/29/2024 2:06 PM EDT 11/29/2024 2:10 PM EDT Narrative CLINISYNC - 11/29/2024 2:59 PM EDT Brannon Singletaryo DO CLINISYNC Final Result [facility] * ALL CBC WITH AUTO DIFF (11/29/2024 2:06 PM EDT) Pathologist [facility] TB WBC 7.4 4.0 - 11.0 10 3/uL TBH TBH RBC 4.28 4.20 - 5.40 10 6/uL TBH TBH HGB 13.1 12.0 - 16.0 g/dL TBH TBH HCT 38.4 36.0 - 48.0 % TBH TBH MCV 89.7 81.0 - 99.0 fL TBH TBH MCH 30.6 26.7 - 34.0 pg TBH TBH MCHC 34.1 29.9 - 35.2 g/dL TBH TBH RDW 12.8 11.0 - 15.0 % TBH TBH PLT 354 150 - 450 10 3/uL TBH TBH MPV 10.1 9.5 - 13.5 fL TBH NEUTROPHILS PERCENT AUTO 60.3 43.0 - 75.0 % TBH LYMPHOCYTES PERCENT AUTO 30.5 20.5 - 60.0 % TBH MONOCYTES PERCENT AUTO 6.5 1.7 - 12.0 % TBH TBH EO % 1.9 0.9 - 7.0 % TBH BASOPHILS PERCENT AUTO 0.5 0.2 - 2.0 % TBH IMMATURE GRANULOCYTES PCT AUTO 0.3 0.0 - 0.5 % TBH NEUTROPHILS ABSOLUTE AUTO 4.5 1.4 - 6.5 10 3/uL TBH LYMPHOCYTES ABSOLUTE AUTO 2.3 1.2 - 3.8 10 3/uL TBH MONOCYTES ABSOLUTE AUTO 0.5 0.3 - 0.8 10 3/uL TBH TBH EO # 0.1 0.0 - 0.7 10 3/uL TBH BASOPHILS ABSOLUTE AUTO 0.0 0.0 - 0.1 10 3/uL TBH IMMATURE GRANULOCYTES ABS AUTO 0.02 0.00 - 0.03 10 3/uL TBH 11/29/2024 2:06 PM EDT 11/29/2024 2:10 PM EDT Narrative CLINISYNC - 11/29/2024 2:16 PM EDT us Brannon Viola DO CLINISYNC Final Result [facility] TB from Last 3 Months [place] [address] Care Teams Ultrasonic Tester Relationship Specialty Start Date End Date Gavino Shoemaker MD PCP - General Family Medicine 05/03/23 Annelise Mcgovern NP [address] [place] [address] Referring Physician Family Medicine 12/03/24
--- OUTSIDE RECORDS SUMMARY | 2025-01-16 13:30 | XMS_ITS | Encounter Summary ---
Author Organization [facility] Address [id number] [address] [place] [address] Care Team Providers Care Intake Nurse Name Role Phone Annelise Mcgovern APRN-SHOPFITTER Primary Care Provide r Encounter Details Date Type Department Care Team (Late st Contact Info) Description 12/04/2024 Orders Only [facility] [address] [place] [address] External, Scanning Provider Social History Tobacco Use Types Packs/Day Years [...] EST Office Visit [facility] [address] [place] [phone] Annelise [place] [address] documented as of this encounter Procedures Procedure Name Priority Date/Time Associated Diagnosis Comments HEMOGLOBIN A1C Routine 11/29/2024 documented in this encounter Results * Hemoglobin A1c (11/29/2024) External Hemoglobin A1C 5.9 4.0 - 6.0 % MANUALLY TRANSCRIBED RESULTS Blood Venous blood / Unknown 11/29/2024 us Scanning Provider External LAB BLOOD ORDERABLES Final Result MANUALLY TRANSCRIBED RESULTS documented in this encounter Visit Diagnoses Not on filedocumented in this encounter Additional Health Concerns Assessment Noted Time PHQ-9 Depression Total Score: 0 07/27/19 23 7:00 AM EST documented as of this encounter Care Teams Intake Nurse Relationship Specialty Start Date End Date Annelise Mcgovern APRN-CNP [address] [place] [address] PCP - General Family Medicine 12/24/24 documented as of this encounter
--- NOTE | 2025-01-16 13:44 | ECG_ITS ---
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 Measurements Intervals Winston Rate: 65 P: 11 NE: 140 QRS: 65 QRSD: 85 T: 51 QT: 371 QTc: 388 Interpretive Statements SINUS RHYTHM Normal ECG No previous ECG available for comparison Electronically Signed On 01-16-2025 19:49:55 EDT by STEPHANIE BERNABE M.D.
--- NOTE | 2025-01-16 14:22 | XR_ITS ---
[address] [address] Patient Name: SHAW CASTRO MRN: [id number] date: 1975 Sex: F Assigned Patient Location: [facility] Current Patient Location: [facility] Accession/Order Number: [id number] Exam Date: 01/16/2025 14:35 Report Date: 01/16/2025 14:39 At the request of: JUSTICE PRUETT DO Procedure: XR chest 2V Chest 2 views CLINICAL HISTORY: Preop exam COMPARISON: None FINDINGS: Heart normal in size. Lungs are clear. No free air. XR/XR chest 2V IMPRESSION: NO ACUTE CARDIOPULMONARY ABNORMALITY. Impression dictated by: Kiki Singh Jr.OShobha 01/16/2025 2:39 PM Dictation Location: [place] [address] Electronically authenticated by: [id number] Y Date: 01/16/2025 14:39
== END 2025-01-16 13:29 | disposition home or self-care (01) ==
LOC: PST 13:28
PROVIDERS: PCP Nurse Practitioner Family; Visit Provider Obstetrics & Gynecology
DX: Z01.810 Encounter for preprocedural cardiovascular examination (principal); Z01.812 Encounter for preprocedural laboratory examination; N92.1 Excessive and frequent menstruation with irregular cycle; R93.89 Abnormal findings on diagnostic imaging of other specified body structures
CPT/HCPCS: 71046; 93005

== ENCOUNTER 2025-01-17 13:40 | Outpatient (OUT) | payer OTHER, SELFPAY ==
--- NOTE | 2025-01-17 13:45 | CA_ITS ---
Patient Name: SHAW CASTRO MR#: [id number] : 1975 Exam Date: 01/17/2025 Ordering Doctor: NON-STAFF PHYSICIAN ECHOCARDIOGRAM REPORT PROCEDURE: CA ECHO DOPPLER COMPLETE INDICATIONS: Chest pain COMPARISON: None. DESCRIPTION: COMPLETE ECHOCARDIOGRAM Real-time transthoracic echocardiography with 2D, M-mode, spectral and color flow Doppler performed. QUALITY: Technical quality was good. LEFT VENTRICLE: Normal chamber size. Normal left ventricular wall thickness. Global left ventricular systolic function is normal. LV EF: Estimated left ventricular ejection fraction is 65%. DIASTOLIC: Normal diastolic function. ATRIAL SEPTUM: LEFT ATRIUM: Normal chamber size. RIGHT ATRIUM: Normal chamber size. RIGHT VENTRICLE: Normal chamber size. Normal right ventricular systolic function. TRICUSPID VALVE: Normal mobility and thickness. No stenosis with trivial regurgitation. No evidence of pulmonary hypertension. RVSP 19 mmHg. MITRAL VALVE: Normal mobility and thickness. No evidence of mitral valve stenosis. There is no mitral annular calcification. Trivial mitral regurgitation. AORTIC VALVE: Normal trileaflet appearance. No visible sclerosis. Normal leaflet mobility. No evidence of aortic valve stenosis. No aortic regurgitation. AORTIC ROOT: Normal diameter and appearance, measuring 2.8 cm. The ascending aorta is normal in size measuring 2.5 cm.. PULMONIC VALVE: Normal thickness and mobility. No stenosis. Trivial regurgitation. PERICARDIUM: No evidence of pericardial effusion. IVC: Collapses with inspiration. Normal size. PLEURA: CONCLUSION: 1. Normal ventricular size and systolic function. Estimated LVEF is 65%. 2. Normal diastolic function. 3. No significant valvular dysfunction. 4. Normal right-sided pressures. Adult Echocardiography Procedure Report Left Ventricle LVEDD (3.7 - 5.6 cm): 4.83 cm LVESD (2.2 - 4.0 cm): 3.00 cm LVIVS thickness (0.6 - 1.2 cm): 0.80 cm LVPW thickness (0.5 - 1.0 cm): 0.91 cm e': 0.11 m/s E - e': 5.36 LVOT Max Gradient: 5.31 mm[Hg] LVOT Area (cm2): 1.15 m/s Peak Velocity (LVOT): 1.15 m/s Mean Velocity (LVOT): 0.65 m/s LVOT Diameter 1.78 cm Left Ventricular Ejection Fraction: 65 % Left Atrium LA Volume Index (2D A2C): 15.41 ml/m2 Left Atrium Systolic Dimension: 3.63 cm Mitral Valve MV E to A Ratio: 0.83 Mitral Valve A-Wave Peak Velocity: 0.70 m/s Mitral Valve E-Wave Peak Velocity: 0.58 m/s Right Ventricle RV Internal Diastolic Dimension: 2.65 cm Aorta AO Root Diam: 2.83 cm Ascending Ao Diam: 2.46 cm Aortic Valve AoV Area (Peak Sriram): 2.15 cm2, 2.15 cm2 AoV Area (VTI): 1.92 cm2, 1.92 cm2 Peak Velocity(Antegrade Flow): 1.33 m/s Peak Gradient(Antegrade Flow): 7.04 mm[Hg] Mean Velocity(Antegrade Flow): 0.88 m/s Mean Gradient(Antegrade Flow): 3.63 mm[Hg] Velocity Time Integral: 24.85 cm Tricuspid Valve Peak Velocity (Regurgitant Flow): 2.02 m/s Pulmonic Valve Mean Gradient: 2.16 mm[Hg], 1.45 mm[Hg] Mean Velocity: 0.68 m/s, 0.58 m/s Peak Velocity: 0.91 m/s Peak Gradient: 4.38 mm[Hg], 2.42 mm[Hg] Right Atrium Right Atrium Systolic Pressure: 33.32 ml, 33.32 ml Dictated by: Familia Aranda M.D. on 01/17/2025 at 20:46 Approved by: Familia Aranda M.D. on 01/17/2025 at 20:48
== END 2025-01-17 13:41 | disposition home or self-care (01) ==
PROVIDERS: PCP Nurse Practitioner Family; Visit Provider Nurse Practitioner Family
DX: R07.9 Chest pain, unspecified (principal)
CPT/HCPCS: 93306

== ENCOUNTER 2025-01-30 06:08 | Day surgery (SDC) | payer OTHER, SELFPAY ==
[2025-01-16 14:35] VITALS: BP 125/83; PULSE 72; TEMP 36.3; O2SAT 98; BMI 28.8
[2025-01-30] VITALS (7 sets, daily range): BP systolic 106–146; BP diastolic 73–95; PULSE 58–79; TEMP 36.1–36.6; O2SAT 95–100; BMI 28.8
--- OUTSIDE RECORDS SUMMARY | 2025-01-30 06:11 | XMS_ITS | CCD ---
Author Organization [facility] Care Team Providers Care Inlayer Name Role Phone VIOLA, DR RENDON Admitting Unavailable VIOLA, DR RENDON Attending Unavailable DEFRANCE, DR LARSEN Primary Care Unavailable DES MOINES, DR SUZIE Peña Consulting Unavailable VIOLA, DR [...] DR RENDON Consulting Unavailable LONGEDINSON Consulting Unavailable Defrance Suzie VASQUEZ Primary Care Provider Suzie Shoemaker MD Primary Care Provider Becca Gonzales MD Primary Care Provider RUBY BARCLAY Referring Unavailable BECCA GONZALES Primary Care Unavailable RUBY BARCLAY Referring Unavailable DEFRANCESUZIE Primary Care Unavailable RUBY BARCLAY Referring Unavailable DEFSUZIE SHORT Primary Care Unavailable BECCA GONZALES Primary Care Unavailable JUNE NAIR Attending Unavailable RUBY BARCLAY Referring Unavailable BECCA GONZALES Primary Care Unavailable TREMRUBY CORRALES Referring Unavailable BECCA GONZALES Primary Care Unavailable Froilan ALDANA, Paul Primary Care Provide r PAUL MCGOVERN Attending Unavailable BECCA GONZALES Referring Unavailable BECCA GONZALES Primary Care Unavailable PAUL MCGOVERN Attending Unavailable BECCA GONZALES Referring Unavailable PAUL MCGOVERN Primary Care Unavailable Paul Mcgovern NP Unavailable JUSTICE ROD Attending Unavailable VIOLA, JUSTICE Referring Unavailable VIOLA, JUSTICE Attending Unavailable VIOLA, JUSTICE Attending Unavailable VIOLA, JUSTICE Attending Unavailable Medications Current Medications Medication Drug Class(es) Dates Sig (Normalized) Sig (Original) FLUoxetine 20 mg oral capsule (13 sources) Serotonin Reuptake Inhibitor Start: 11-28-2024 End: 12-24-2024 take 1 capsule by mouth in the morning FLUoxetine (PROzac) 20 mg capsule Take 1 capsule (20 mg total) by mouth in the morning. 90 capsule 1 12/24/2024 Active megestrol acetate 20 mg oral tablet (11 sources) Progestin Start: 01-07-2025 End: 02-06-2025 take 1 tablet by mouth twice daily megestrol (Megace) 20 MG tablet Indications: Menorrhagia with irregular cycle Take 1 tablet (20 mg total) by mouth 2 (two) times a day. 60 tablet 01/07/2025 02/06/2025 Active Start: 01-01-2025 End: 01-31-2025 take 1 tablet by mouth once daily, then take 1 tablet by mouth twice daily, then take 1 tablet by mouth once daily megestrol (Megace) 20 MG tablet Indications: Menorrhagia with irregular cycle Take 1 tablet (20 mg total) by mouth Daily. Take 1 tablet 2 times daily for 3 days then take 1 tablet daily for 1 month (36 tablets total) 36 tablet 01/01/2025 01/31/2025 Active Start: 11-29-2024 End: 12-29-2024 take 1 tablet by mouth once daily, then take 1 tablet by mouth twice daily, then take 1 tablet by mouth once daily megestrol (Megace) 20 MG tablet Indications: Menorrhagia with irregular cycle , History of endometrial ablation , H/O tubal ligation Take 1 tablet (20 mg total) by mouth Daily. Take 1 tablet 2 times daily for 3 days then take 1 tablet daily for 1 month (36 tablets total) 36 tablet 11/29/2024 12/29/2024 Active omeprazole 20 mg delayed release oral capsule (1 source) Proton Pump Inhibitor Start: 01-22-2025 take 1 capsule by mouth in the morning omeprazole (PriLOSEC) 20 mg capsule Take 1 capsule (20 mg total) by mouth in the morning. 30 capsule 1 01/22/2025 Active Completed/Discontinued Medications Medication Drug Class(es) Dates Sig (Normalized) Sig (Original) acetaminophen 325 mg / HYDROcodone bitartrate 5 mg oral tablet (1 source) Opioid Agonist Start: 10-14-2024 End: 11-28-2024 HYDROcodone-acetam inophen (NORCO) 5-325 mg per tablet Take by mouth every 4 (four) hours as needed. 10/14/2024 11/28/2024 Discontinued naproxen 500 mg oral tablet (1 source) Nonsteroidal Anti-inflammatory Drug Start: 07-27-2022 End: 11-28-2024 take 1 tablet by mouth in the morning, then take 1 tablet by mouth at mealtime naproxen (NAPROSYN) 500 mg tablet Take 1 tablet (500 mg total) by mouth in the morning and 1 tablet (500 mg total) in the evening. Take with meals. 60 tablet 2 07/27/2022 11/28/2024 Discontinued Problems Active Problems Problem Classification Problem Date Documented Da te Episodic/Chronic Administrative/social admission (2 sources) Patient encounter status; Translations: [Person consulting for explanation of examination or test findings] 01-01-2025 Episodic Anxiety disorders (5 sources) Anxiety; Translations: [Anxiety disorder, unspecified] Onset: 5 11-28-2024 Chronic Endometriosis (1 source) Endometriosis, unspecified; Translations: [ENDOMETRIOSIS UNSPECIFIED] Onset: 2 Chronic Esophageal disorders (1 source) Gastroesophageal reflux disease; Translations: [Gastro-esophageal reflux disease without esophagitis] 01-22-2025 Chronic Immunizations and screening for infectious disease (5 sources) Encounter for screening for human papillomavirus (HPV); Translations: [Encounter for screening for infections with a predominantly sexual mode of transmission] Onset: 2 Episodic Malaise and fatigue (11 sources) Fatigue; Translations: [Other fatigue] Onset: 5 11-29-2024 Episodic Menstrual disorders (14 sources) Menometrorrhagia; Translations: [Excessive and frequent menstruation with irregular cycle] Onset: 5 11-29-2024 Chronic Nonspecific chest pain (3 sources) Chest pain; Translations: [Chest pain, unspecified] Onset: 5 11-28-2024 Episodic Other connective tissue disease (1 source) Lateral epicondylitis, left elbow; Translations: [Lateral epicondylitis, left elbow] Onset: 5 Episodic Other female genital disorders (4 sources) Abnormal uterine and vaginal bleeding, unspecified; Translations: [ABNORMAL UTERINE VAGINAL BLEED UNS] Onset: 2 Chronic Other female genital disorders (1 source) Other specified noninflammatory disorders of vagina; Translations: [OTH SPEC NONINFLAMMATORY D/O VAGINA] Onset: 2 Episodic Other gastrointestinal disorders (1 source) Heartburn; Translations: [Heartburn] Onset: 5 Episodic Other screening for suspected conditions (not mental disorders or infectious disease) (6 sources) Endometrium thickened; Translations: [Abnormal findings on diagnostic imaging of other specified body structures] Onset: 5 01-01-2025 Chronic Other screening for suspected conditions (not mental disorders or infectious disease) (10 sources) Encounter for screening for malignant neoplasm of cervix; Translations: [Encounter for screening mammogram for malignant neoplasm of breast] Onset: 1 Episodic Residual codes; unclassified (11 sources) History of endometrial ablation; Translations: [Other specified postprocedural states] Onset: 5 11-29-2024 Episodic Syncope (2 sources) Syncope and collapse; Translations: [Syncope] Onset: 5 Episodic Thyroid disorders (2 sources) Hypothyroidism; Translations: [Hypothyroidism, unspecified] Onset: 5 11-28-2024 Chronic Unclassified (1 source) CONTACT W/AND (SUSP) EXPOS COVID-19; Translations: [CONTACT W/AND (SUSP) EXPOS COVID-19] Onset: 2 Unclassified (1 source) EMS Onset: 5 Past or Other Problems Problem Classification Problem Date Documented Da te Episodic/Chronic Abdominal pain (1 source) Pelvic and perineal pain; Translations: [PELVIC AND PERINEAL PAIN] Onset: 07-29-2021 Episodic Benign neoplasm of uterus (1 source) Leiomyoma of uterus, unspecified; Translations: [LEIOMYOMA OF UTERUS UNSPECIFIED] Onset: 07-29-2021 Episodic Mood disorders (3 sources) Mood disorders Onset: 07-27-2022 Resolved: 01-22-2025 07-27-2022 Unclassified (2 sources) Onset: 12-25-2024 12-25-2024 Results Test Name Value Interpretation Reference Range Facility POCT urinalysis dipstick onl yon 01-22-2025 External Poct Urine Bilirubin Negative [facility] External Poct Urine Blood Negative [facility] External Poct Urine Glucose Negative [facility] External Poct Urine Ketones Negative [facility] External Poct Urine Leukocyte Esterase Negative [facility] External Poct Urine Nitrite Negative [facility] External Poct Urine Ph 7.5 [facility] External Poct Urine Protein Trace [facility] External Poct Urine Specific [place] 1.01 [facility] External Poct Urine Urobilinogen 0.2 [facility] Interpretation and review of laboratory results Normal [facility] ECG 12-LEADon 01-16-2025 [place] [address] Electrocardiograph Report Signed Patient: AZALIA CASTRO MR#: [id number] : 1975 Acct:[id number] Age/Sex: 49 / F ADM Date: 01/16/25 Loc: [facility] Attending Dr: Justice Rod D.O. Ordering Physician: Justice Rod D.O. 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 Measurements Intervals [place] Rate: 65 P: 11 OR: 140 QRS: 65 QRSD: 85 T: 51 QT: 371 QTc: 388 Interpretive Statements SINUS RHYTHM Normal ECG No previous ECG available for comparison Electronically Signed On 01-16-2025 19:49:55 EDT by STEPHANIE BERNABE M.D. Dictated By: STEPHANIE BERNABE Signed By: 01/16/251949 DD/ 15 TD/TT: Sheet Folder: [facility] Radiology, Radiologist, MD - 01/16/2025 [place] [address] Electrocardiograph Report Signed Patient: AZALIA CASTRO MR#: [id number] : 1975 Acct:[id number] Age/Sex: 49 / F ADM Date: 01/16/25 Loc: [facility] Attending Dr: Justice Rod D.O. Ordering Physician: Justice Rod D.O. 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 Measurements Intervals [place] Rate: 65 P: 11 OR: 140 QRS: 65 QRSD: 85 T: 51 QT: 371 QTc: 388 Interpretive Statements SINUS RHYTHM Normal ECG No previous ECG available for comparison Electronically Signed On 01-16-2025 19:49:55 EDT by STEPHANIE BERNABE M.D. Dictated By: STEPHANIE BERNABE Signed By: 01/16/251949 DD/ 15 TD/TT: Sheet [facility] Rad[facility] Study observation (narrative) [facility] ECG 12-LEADOrdered By: Radio logist Radiology on 01-16-2025 [facility] Work Phone: XR CHEST 2Von 01-16-2025 [place] [address] XRay Report Signed Patient: AZALIA CASTRO MR#: [id number] : 1975 Acct:[id number] Age/Sex: 49 / F ADM Date: 01/16/25 Loc: PST Attending Dr: Justice Rod D.O. Ordering Physician: Justice Rod D.O. Date of Service: 01/16/25 Procedure(s): XR chest 2V Accession Number(s): [id number] cc: Justice Rod D.O.; Paul Mcgovern NP [facility] [place] [address] Patient Name: AZALIA CASTRO MRN: [facility]:[id number] date: 1975 Sex: F Assigned Patient Location: [facility] Current Patient Location: [facility] Accession/Order Number: [id number] Exam Date: 01/16/2025 14:35 Report Date: 01/16/2025 14:39 At the request of: JUSTICE ROD DO Procedure: XR chest 2V Chest 2 views CLINICAL HISTORY: Preop exam COMPARISON: None FINDINGS: Heart normal in size. Lungs are clear. No free air. XR/XR chest 2V IMPRESSION: NO ACUTE CARDIOPULMONARY ABNORMALITY. Impression dictated by: Johan Stevens Jr., D.O. 01/16/2025 2:39 PM Dictation Location: [place] [address] Electronically authenticated by: [id number] Y Date: 01/16/2025 14:39 Dictated By: Johan Stevens M.D. Signed By: 01/16/25 1441 DD/ 1439 TD/TT: Sheet Folder: [facility] Radiology, Radiologist, MD - 01/16/2025 [facility] [place] [id number] XRay Report Signed Patient: AZALIA CASTRO MR#: [id number] : 1975 Acct:[id number] Age/Sex: 49 / F ADM Date: 01/16/25 Loc: PST Attending Dr: Justice Rod D.O. Ordering Physician: Justice Rod D.O. Date of Service: 01/16/25 Procedure(s): XR chest 2V Accession Number(s): [id number] cc: Justice Rod D.O.; Paul Mcgovern NP [place] [id number] Patient Name: AZALIA CASTRO MRN: [id number] date: 1975 Sex: F Assigned Patient Location: [facility] Accession/Order Number: [id number] Exam Date: 01/16/2025 14:35 Report Date: 01/16/2025 14:39 At the request of: JUSTICE ROD DO Procedure: XR chest 2V Chest 2 views CLINICAL HISTORY: Preop exam COMPARISON: None FINDINGS: Heart normal in size. Lungs are clear. No free air. XR/XR chest 2V IMPRESSION: NO ACUTE CARDIOPULMONARY ABNORMALITY. Impression dictated by: Johan Stevens Jr., D.O. 01/16/2025 2:39 PM Dictation Location: [place] [address] Electronically authenticated by: [id number] Y Date: 01/16/2025 14:39 Dictated By: Johan Stevens M.D. Signed By: 01/16/25 1441 DD/ 1439 TD/TT: Sheet Folder: [facility] Radiology Study observation (narrative) [facility] XR CHEST [facility]Or[facility]: [facility]-16-2025 [facility] [employer] Work Phone: US PELVIC COMPLETE W/ TVon 0 12-13-2024 US PELVIC COMPLETE W/ TV EXAM: US PELVIC COMPLETE W/ TV HISTORY: [...] II, MD, PHD at 16-Dec-2024 10:02:58 PM [facility] Normal Not Available Comment on above: Order Comment: US PE LVIS-TRANSVAG IF INDICATED Patient's last menstrual period was 11/11/2024. ALL CBC WITH AUTO DIFFon BASOPHILS ABSOLUTE AUTO 0 [facility] Basophils/100 WBC (Bld) 0.5 % 0.2 - 2.0 % [facility] Eosinophils/100 WBC (Bld) 1.9 % 0.9 - 7.0 % [facility] Erythrocyte distribution width (RBC) [Ratio] 12.8 % 11.0 - 15.0 % [facility] Hematocrit (Bld) [Volume fraction] 38.4 % 36.0 - 48.0 % [facility] Hem[facility] (Bld) [Mass/Vol] 13.1 g/dL 12.0 - 16.0 g/dL [facility] IMMATURE GRANULOCYTES ABS AUTO 0.02 [facility] Immature granulocytes/100 WBC (Bld) 0.3 % 0.0 - 0.5 % [facility] LYMPHOCYTES ABSOLUTE AUTO 2.3 [facility] Lymphocytes/100 WBC (Bld) 30.5 % 20.5 - 60.0 % [facility] MCH (RBC) [Entitic mass] 30.6 pg 26.7 - 34.0 pg [facility] MCHC (RBC) [Mass/Vol] 34.1 g/dL 29.9 - 35.2 g/dL [facility] MCV (RBC) [Entitic vol] 89.7 fL 81.0 - 99.0 fL [facility] MONOCYTES ABSOLUTE AUTO 0.5 [facility] Monocytes/100 WBC (Bld) 6.5 % 1.7 - 12.0 % [facility] NEUTROPHILS ABSOLUTE AUTO 4.5 [facility] Neutrophils/100 WBC (Bld) 60.3 % 43.0 - 75.0 % [facility] Platelet mean volume (Bld) [Entitic vol] 10.1 fL 9.5 - 13.[address] [facility] Healthc are [facility] EO # 0.1 [facility] PLT [address] [facility]H RBC 4.28 [facility] WBC 7.4 [facility] WITH AUTO DIFFERENTIALon 10-17-2024 BASOPHILS ABSOLUTE COUNT (10*3/UL) BY AUTOMATED COUNT 0.0 10*3/uL Normal [facility] Comment on above: Performed By: #### C BCA #### [facility] ([address] [address] VIR BASOPHILS RELATIVE PERCENT BY AUTOMATED COUNT 0.5 % Normal [facility] Comment on above: Performed By: #### C BCA #### [address] [address] VIR CELLAVISION DIFFERENTIAL TYPE AUTOMATED DIFFERENTIAL Normal [facility] Comment on above: Performed By: #### C BCA #### [facility] ([address] [address] VIR Eosinophils (Bld) [#/Vol] 0.2 10*3/uL Normal [facility] Comment on above: Performed By: #### C BCA #### [facility] ([address] [address] VIR EOSINOPHILS RELATIVE PERCENT BY AUTOMATED COUNT 1.9 % Normal [facility] Comment on above: Performed By: #### C BCA #### [facility] ([address] [place] [address] VIR Erythrocyte distribution width (RBC) [Ratio] 13.2 % Normal 11.5-15 [facility] Comment on above: Performed By: #### C BCA #### [facility] ([address] [address] VIR Hematocrit (Bld) [Volume fraction] 36.0 % Normal 35-47 [facility] Comment on above: Performed By: #### C BCA #### [facility] ([address] [address] VIR Hemoglobin (Bld) [Mass/Vol] 12.7 g/dL Normal 11.7-15.5 [facility] Comment on above: Performed By: #### C BCA #### [facility] ([address] [address] VIR LYMPHOCYTES ABSOLUTE COUNT (10*3/UL) BY AUTOMATED COUNT 3.4 10*3/uL Normal [facility] Comment on above: Performed By: #### C BCA #### [facility] ([address] [address] VIR LYMPHOCYTES RELATIVE PERCENT BY AUTOMATED COUNT 38.1 % Normal [facility] Comment on above: Performed By: #### C BCA #### [facility] ([address] [address] VIR MCH (RBC) [Entitic mass] 31.3 pg Normal 27-34 [facility] Comment on above: Performed By: #### C BCA #### [facility] ([address] [address] VIR MCHC (RBC) [Mass/Vol] 35.3 g/dL Normal 32-36 [facility] Comment on above: Performed By: #### C BCA #### [facility] ([address] [address] VIR MCV (RBC) [Entitic vol] 89 fL Normal 80-100 [facility] Comment on above: Performed By: #### C BCA #### [facility] ([address] [address] VIR MONOCYTES ABSOLUTE COUNT (10*3/UL) BY AUTOMATED COUNT 0.5 10*3/uL Normal [facility] Comment on above: Performed By: #### C BCA #### [facility] ([address] [address] VIR MONOCYTES RELATIVE PERCENT BY AUTOMATED COUNT 6.0 % Normal [facility] Comment on above: Performed By: #### C BCA #### [facility] ([address] [address] VIR NEUTROPHILS ABSOLUTE COUNT BY AUTOMATED COUNT 4.9 10*3/uL Normal [facility] Comment on above: Performed By: #### C BCA #### [facility] ([address] [address] VIR NEUTROPHILS RELATIVE PERCENT BY AUTOMATED COUNT 53.5 % Normal [facility] Comment on above: Performed By: #### C BCA #### [facility] ([address] [address] VIR Platelet mean volume (Bld) [Entitic vol] 8.7 fL Normal 7-12 [facility] Comment on above: Performed By: #### C BCA #### [facility] ([address] [address] VIR Platelets (Bld) [#/Vol] 286 10*3/uL Normal 150-450 [facility] Comment on above: Performed By: #### C BCA #### [facility] ([address] [address] VIR RBC COUNT 4.05 X10E12/L Normal 3.8-5.2 [facility] Comment on above: Performed By: #### C BCA #### [facility] ([facility]) [address] [place] [address] VIR WBC (Bld) [#/Vol] 9.1 10*3/uL Normal 4-11 [facility] Comment on above: Performed By: #### C BCA #### [facility] ([address] [place] [address] VIR COMPREHENSIVE METABOLIC PANE Edu 10-17-2024 Albumin [Mass/Vol] 3.4 g/dL Normal 3.2-5.3 [facility] Comment on above: Performed By: #### C MP #### [facility] ([address] [place] [address] VIR ALP [Catalytic activity/Vol] 52 U/L Normal 39-130 [facility] Comment on above: Performed By: #### C MP #### [facility] ([address] [place] [address] VIR ALT [Catalytic activity/Vol] 37 U/L High <=31 [facility] Comment on above: Performed By: #### C MP #### [facility] ([address] [place] [address] VIR Anion gap [Moles/Vol] 8 mmol/L Normal 5-15 [facility] Comment on above: Performed By: #### C MP #### [facility] ([address] [place] [address] VIR AST [Catalytic activity/Vol] 24 U/L Normal <=41 [facility] Comment on above: Performed By: #### C MP #### [facility] ([address] [place] [address] VIR Bilirubin [Mass/Vol] 0.2 mg/dL Low 0.3-1.2 [facility] Comment on above: Performed By: #### C MP #### [facility] ([facility]) [address] [address] VIR Calcium [Mass/Vol] 7.9 mg/dL Low 8.5-10.5 [facility] Comment on above: Performed By: #### C MP #### [facility] ([address] [place] [address] VIR Chloride [Moles/Vol] 107 mmol/L Normal 98-109 [facility] Comment on above: Performed By: #### C MP #### [facility] ([address] [place] [address] VIR CO2 [Moles/Vol] 22 mmol/L Normal 22-32 [facility] Comment on above: Performed By: #### C MP #### [facility] ([address] [place] [address] VIR Creatinine [Mass/Vol] 0.59 mg/dL Normal 0.40-1.00 [facility] Comment on above: Result Comment: METH OD TRACEABLE TO IDMS STANDARD Performed By: #### C MP #### [facility] ([address] [place] [address] VIR EGFR (CKD-EPI) NON-RACE DEPENDENT >^90 Normal >=60 [facility] Comment on above: Result Comment: eGFR not reported due to non-numeric value for Creatinine. Reported eGFR is based on the CKD-EPI 2021 equation that does not use a race coefficient. Performed By: #### C MP #### [facility] ([address] [place] [address] VIR Glucose [Mass/Vol] 132 mg/dL High 65-99 [facility] Comment on above: Performed By: #### C MP #### [facility] ([address] [place] [address] VIR Potassium [Moles/Vol] 3.3 mmol/L Low 3.5-5.0 [facility] Comment on above: Performed By: #### C MP #### [facility] ([address] [place] [address] VIR Protein [Mass/Vol] 6.0 g/dL Normal 6.0-8.0 [facility] Comment on above: Performed By: #### C MP #### [facility] ([address] [place] [address] VIR Sodium [Moles/Vol] 137 mmol/L Normal 134-146 [facility] Comment on above: Performed By: #### C MP #### [facility] ([address] [place] [address] VIR Urea nitrogen [Mass/Vol] 11 mg/dL Normal 5-23 [facility] Comment on above: Performed By: #### C MP #### [facility] ([address] [address] VIR ETHANOLon 10-17-2024 Ethanol [Mass/Vol] mg/dL Normal <=0.080 [facility] Comment on above: Result Comment: This report is intended for use in clinical monitoring or management of patients. Performed By: #### A LCO #### [facility] ([address] [place] [address] VIR MAGNESIUMon 10-17-2024 Magnesium [Mass/Vol] 1.9 mg/dL Normal 1.8-2.6 [facility] Comment on above: Performed By: #### M G #### [facility] ([address] [place] [address] VIR THYROID PROFILE INCLUDES TSH FT4on 10-17-2024 Free T4 [Mass/Vol] 1.02 ng/dL Normal 0.61-1.60 [facility] Comment on above: Performed By: #### T HYR #### [facility] ([address] [place] [address] VIR TSH 5.77 uIU/mL High 0.49-4.67 [facility] Comment on above: Performed By: #### T HYR #### [facility] ([facility]) [address] [place] [address] [place] [address] VIR TROP I, HIGH SENSITIVITY 1 H OURon 10-17-2024 TROPONIN I, HIGH SENSITIVITY 3 ng/L Normal <16 [facility] Comment on above: Performed By: #### T NIHS1 #### [facility] ([facility]) [address] [place] [address] [place] [address] VIR TROPONIN I, HIGH SENSITIVITY 0 HOURon 10-17-2024 TROPONIN I, HIGH SENSITIVITY <^2 Normal <16 [facility] Comment on above: Performed By: #### T NIHS0 #### [facility] ([address] [place] [address] VIR BASIC METABOLIC PANLon 09-21 Anion gap [Moles/Vol] 9 mmol/L Normal 5-15 [facility] Comment on above: Performed By: #### C BCA, BMP #### [facility] ([id number]) [address], [address] [place] [address] Calcium [Mass/Vol] 9.8 mg/dL Normal 8.5-10.5 [facility] [place] Comment on above: Performed By: #### C BCA, BMP #### [facility] ([id number]) [address] [place] [address] Chloride [Moles/Vol] 101 mmol/L Normal 98-109 [facility] Comment on above: Performed By: #### C BCA, BMP #### [facility] ([id number]) [address] [place] [address] CO2 [Moles/Vol] 27 mmol/L Normal 22-32 [facility] Comment on above: Performed By: #### C BCA, BMP #### [facility] ([id number]) [address], [address] [place] [address] Creatinine [Mass/Vol] 0.79 mg/dL Normal 0.40-1.00 [facility] Comment on above: Result Comment: METH OD TRACEABLE TO IDMS STANDARD Performed By: #### C BCA, BMP #### [facility] ([id number]) [address], [address] [place] [address] eGFR (CKD-EPI) NON-RACE DEPENDENT >90 Normal >59 [facility] Comment on above: Result Comment: Reported eGFR is based on the CKD-EPI 2020 equation that does not use a race coefficient. Performed By: #### C BCA, BMP #### [facility] ([id number]) [address] [place] [address] Glucose [Mass/Vol] 133 mg/dL High 65-99 [facility] [place] Comment on above: Performed By: #### C BCA, BMP #### [facility] ([id number]) [address] [address] [place] [address] Potassium [Moles/Vol] 4.1 mmol/L Normal 3.5-5.0 [facility] Comment on above: Performed By: #### C BCA, BMP #### [facility] ([id number]) [address] [place] [address] Sodium [Moles/Vol] 137 mmol/L Normal 134-146 [facility] [place] Comment on above: Performed By: #### C BCA, BMP #### [facility] ([id number]) [address] [address] [place] [address] Urea nitrogen [Mass/Vol] 11 mg/dL Normal 5-23 [facility] Comment on above: Performed By: #### C BCA, BMP #### [facility] ([id number]) [address] [address] [place] [address] CBC AND AUTO DIFFon 09-22-19 25 ABSOLUTE BASOPHIL 0.0 X10E9/L Normal 0.0-0.2 [facility] [place] Comment on above: Performed By: #### Doron MATUTE, BMP #### [facility] ([id number]) [address] [place] [address] ABSOLUTE NEUTROPHIL 5.5 X10E9/L Normal 1.5-6.6 [facility] Comment on above: Performed By: #### C JUJU, BMP #### [facility] ([id number]) [address] [place] [address] Basophils/100 WBC (Bld) 0.4 % Normal [facility] Comment on above: Performed By: #### Doron MATUTE, BMP #### [facility] ([id number]) [address], [address] [place] [address] Eosinophils (Bld) [#/Vol] 0.2 10*3/uL Normal 0.0-0.4 [facility] Comment on above: Performed By: #### Doron MATUTE, BMP #### [facility] ([id number]) [address] [place] [address] Eosinophils/100 WBC (Bld) 2.2 % Normal [facility] Comment on above: Performed By: #### Doron MATUTE, BMP #### [facility] ([id number]) [address] [place] [address] Erythrocyte distribution width (RBC) [Ratio] 13.2 % Normal 11.5-15.0 [facility] Comment on above: Performed By: #### C JUJU, BMP #### [facility] ([id number]) [address] [place] [address] Hematocrit (Bld) [Volume fraction] 40.8 % Normal 35-47 [facility] Comment on above: Performed By: #### C BCA, BMP #### [facility] ([id number]) [address] [place] [address] Hemoglobin (Bld) [Mass/Vol] 13.8 g/dL Normal 11.7-15.5 [facility] Comment on above: Performed By: #### C BCA, BMP #### [facility] ([id number]) [address], [address] [place] [address] Lymphocytes (Bld) [#/Vol] 1.7 10*3/uL Normal 1.0-3.5 [facility] Comment on above: Performed By: #### C JUJU, BMP #### [facility] ([id number]) [address] [place] [address] Lymphocytes/100 WBC (Bld) 21.6 % Normal [facility] Comment on above: Performed By: #### C JUJU, BMP #### [facility] ([id number]) [address], [address] [place] [address] MCH (RBC) [Entitic mass] 30.3 pg Normal 27-34 [facility] Comment on above: Performed By: #### C BCA, BMP #### [facility] ([id number]) [address], [address] [place] [address] MCHC (RBC) [Mass/Vol] 33.8 g/dL Normal 32-36 [facility] Comment on above: Performed By: #### C BCA, BMP #### [facility] ([id number]) [address], [address] [place] [address] MCV (RBC) [Entitic vol] 90 fL Normal 80-100 [facility] Comment on above: Performed By: #### C BCA, BMP #### [facility] ([id number]) [address] [place] [address] Monocytes (Bld) [#/Vol] 0.5 10*3/uL Normal 0-0.9 [facility] Comment on above: Performed By: #### C JUJU, BMP #### [facility] ([id number]) [address] [place] [address] Monocytes/100 WBC (Bld) 6.6 % Normal [facility] Comment on above: Performed By: #### C JUJU, BMP #### [facility] ([id number]) [address] [place] [address] Neutrophils/100 WBC (Bld) 69.2 % Normal [facility] Comment on above: Performed By: #### C JUJU, BMP #### [facility] ([id number]) [address] [place] [address] Platelet mean volume (Bld) [Entitic vol] 9.5 fL Normal 7-12 [facility] Comment on above: Performed By: #### C JUJU, BMP #### [facility] ([id number]) [address] [place] [address] Platelets (Bld) [#/Vol] 248 10*3/uL Normal 150-450 [facility] Comment on above: Performed By: #### Doron MATUTE, BMP #### [facility] ([id number]) [address], [address] [place] [address] RBC COUNT 4.54 X10E12/L Normal 3.80-5.20 [facility] Comment on above: Performed By: #### C JUJU, BMP #### [facility] ([id number]) [address] [place] [address] WBC (Bld) [#/Vol] 7.9 10*3/uL Normal 4.0-11.0 [facility] [place] Comment on above: Performed By: #### C JUJU, BMP #### [facility] ([id number]) [address] [facility] [place] [address] MM TOMOSYNTHESIS SCREENING B Ion 08-30-2024 [facility] [address] [place] [address] Mammography Report Signed Patient: AZALIA CASTRO MR#: [id number] : 1975 Acct:[id number] Age/Sex: 48 / F ADM Date: 08/28/24 Loc: MAMMO Attending Dr: Justice Rod D.O. Ordering Physician: Justice Rod D.O. Results: Date of Service: 08/28/24 Follow Up: Procedure(s): MM tomosynthesis screening BI Accession Number(s): [id number] cc: Justice Rod D.O.; Physician,Non-Staff Briana Patient Name: AZALIA CASTRO MR#: [id number] : 1975 Exam Date: 08/28/2024 Ordering Doctor: DR Justice Rod . RADIOLOGY REPORT PROCEDURE: MM TOMOSYNTHESIS [...] Treatments None Family Cancers None LOCATION: [facility] BREAST COMPOSITION: The breasts are extremely dense, [...] Dictated By: Johan Stevens M.D. Signed By: 08/30/24 0947 DD/ TD/TT: Sheet Folder: [facility] Radiology, Radiologist, MD - 08/30/2024 [place] [address] Mammography Report Signed Patient: AZALIA CASTRO MR#: [id number] : 1975 Acct:[id number] Age/Sex: 48 / F ADM Date: 08/28/24 Loc: MAMMO Attending Dr: Justice Rod D.O. Ordering Physician: Justice Rod D.O. Results: Date of Service: 08/28/24 Follow Up: Procedure(s): MM tomosynthesis screening BI Accession Number(s): [id number] cc: Justice Rod D.O.; Physician,Non-Staff Briana Patient Name: AZALIA CASTRO MR#: [id number] : 1975 Exam Date: 08/28/2024 Ordering Doctor: DR Justice Rod . RADIOLOGY REPORT PROCEDURE: MM TOMOSYNTHESIS [...] Treatments None Family Cancers None LOCATION: [facility] BREAST COMPOSITION: The breasts are extremely dense, [...] Johan Stevens M.D. Signed By: 08/30/2447 DD/ 0946 TD/TT: Sheet Folder: [facility] [employer] Radiology Study observation (narrative) [facility] MM TOMOSYNTHESIS SCREENING B IOrdered By: Radiologist Radiology on 08-30-2024 [facility] Work Phone: IGP,APTIMA HPV,AGE GDLNon AGE GDLN ACOG TESTING Note . [facility] [employer] Comment on above: TESTS RESULT FLAG UN ITS REF RANGE LAB Clinician Provided Cytology Information Source.............Cervix;Endocervix No. of containers..01 ThinPrep Vial Age Algo ACOG Keli... 30-65 01 FLAG LEGEND: L-Low Normal,H-High Normal,LL-Alert Low,HH-Alert High <-Panic Low,>-Panic High,A-Abnormal,AA-Critical Abnormal Performed at: 01 =G [facility] [address] Hattie Mccabe MD, HPV APTIMA Negative Negative [facility] Comment on above: This nucleic acid am plification test detects fourteen high- risk HPV types (16,18,31,33,35,39,45,51,52,56,58,59,66,68) without differentiation. Performed at: =G - [facility] [id number] Photographic Specialist: Hattie Mccabe MD, Phone: [phone] Performed at: - [facility] [address], [place] [id number] Photographic Specialist: Hattie Mccabe MD, Phone: [phone] IGP, APTIMA HPV, RFX 16/18,45 Note . [facility] Comment on above: TESTS RESULT FLAG UN ITS REF RANGE LAB DIAGNOSIS: 02 NEGATIVE FOR INTRAEPITHELIAL LESION OR MALIGNANCY. CELLULAR CHANGES ASSOCIATED WITH INFLAMMATION ARE PRESENT. Specimen adequacy: 02 Satisfactory for evaluation. Endocervical and/or squamous metaplastic cells (endocervical component) are present. Performed by: Grzegorz Montenegro, Digital Media Planner ([facility]) . 02 Note: Note 02 The Pap [...] High <-Panic Low,>-Panic High,A-Abnormal,AA-Critical Abnormal Performed at: [facility] [address], [place] [address] Hattie Mccabe MD, BRUSH-SPATULA CERVIX ENDOCERVIX [facility] PAP ACOG PANEL 2: 30 to 65on 05-01-2022 . . Normal [facility] Comment on above: Result Comment: Perf ormed at: BA Performed By: #### [id number] #### [facility] [address] [address] [address] Mane Mueller Age Gdln ACOG Testing 30-65 Normal [facility] Comment on above: Performed By: #### 4 [id number] #### [facility] [address] [address] [address] Mane Mueller DIAGNOSIS: Comment Normal [facility] Comment on above: Result Comment: NEGA TIVE FOR INTRAEPITHELIAL LESION OR MALIGNANCY. Performed at: BA Performed By: #### 4 [id number] #### [facility] [address] [place] [address] Dr. Mane Mueller HPV Aptima Negative Normal Negative [facility] Comment on above: Result Comment: This nucleic acid amplification test detects fourteen high-risk HPV types (16,18,31,33,35,39,45,51,52,56,58,59,66,68) without differentiation. Performed at: =G Performed By: #### 4 [id number] #### [facility] [address] [address] [address] Mane Mueller HPV Genotype Reflex Comment Normal [facility] Comment on above: Result Comment: Crit eria not met, HPV Genotype not performed. Performed at: BA Performed By: #### 4 [id number] #### [facility] [address] [place] [address] Dr. Mane Mueller Methodology: Comment [facility] Comment on above: Result Comment: This liquid based ThinPrep(R) pap test was screened with the use of an image guided system. Performed at: WB Performed By: #### 4 [id number] #### [facility] [address] [place] [address] Dr. Mane Mueller Note: Comment Normal [facility] Comment on above: Result Comment: The Pap smear is a screening test designed to aid in the detection of premalignant and malignant conditions of the uterine cervix. It is not a diagnostic procedure and should not be used as the sole means of detecting cervical cancer. Both false-positive and false-negative reports do occur. . Performed at: WB Performed By: #### 4 [id number] #### [facility] [address] [place] [address] Dr. Mane Mueller Performed by: Comment Normal [facility] Comment on above: Result Comment: Beau Jeffries, Digital Media Planner (AS[employer]) Performed at: BA Performed By: #### 4 [id number] #### [facility] [address] [place] [address] Dr. Mane Mueller Specimen adequacy: Comment Normal [facility] Comment on above: Result Comment: Sati sfactory for evaluation. Endocervical and/or squamous metaplastic cells (endocervical component) are present. Performed at: BA Performed By: #### 4 [id number] #### [facility] [address] [place] [address] Dr. Mane Mueller CHLAMYDIA/GONOCOCCUS MARYELLEN ( AB/URINE/PAPon 02-19-2022 Chlamydia trachomatis, MARYELLEN Negative Normal Negative [facility] Comment on above: Performed By: #### C T/NGNA #### [facility] [address] [place] [address] Dr. Mane Mueller Neisseria gonorrhoeae, MARYELLEN Negative Normal Negative [facility] Comment on above: Performed By: #### C T/NGNA #### [facility] [address] [place] [address] Dr. Mane Mueller VAGINITIS/VAGINOSIS DNA PROB Rigo 02-19-2022 Sandra species Negative Normal Negative [facility] Comment on above: Performed By: #### V AGINT #### [facility] [address] [place] [address] Dr. Mane Mueller Gardnerella vaginalis Negative Normal Negative [facility] Comment on above: Performed By: #### V AGINT #### [facility] [address] [place] [address] Dr. Mane Mueller Trichomonas vaginalis Positive Abnormal Negative [facility] Comment on above: Performed By: #### V AGINT #### [facility] [address] [address] [address] Mane Mueller CBC AUTO DIFFon 07-17-2021 BASO # 0.0 103/ul Normal 0.0-0.1 [facility] Comment on above: Performed By: #### C BC #### [facility] [address] [place] [address] Dr. Mane Mueller Basophils/100 WBC (Bld) 0.3 % Normal 0.2-2.0 [facility] Comment on above: Performed By: #### C BC #### [facility] [address] [place] [address] Dr. Mane Mueller EO # 0.3 103/ul Normal 0.0-0.7 [facility] Comment on above: Performed By: #### C BC #### [facility] [address] [place] [address] Dr. Mane Mueller Eosinophils/100 WBC (Bld) 2.9 % Normal 0.9-7.0 [facility] Comment on above: Performed By: #### C BC #### [facility] [address] [place] [address] Dr. Mane Mueller Erythrocyte distribution width (RBC) [Ratio] 14.2 % Normal 11.0-15.0 [facility] Comment on above: Performed By: #### C BC #### [facility] [address] [place] [address] Dr. Mane Mueller Hematocrit (Bld) [Volume fraction] 40.3 % Normal 36.0-48.0 [facility] Comment on above: Performed By: #### C BC #### [facility] [address] [place] [address] Dr. Mane Mueller Hemoglobin (Bld) [Mass/Vol] 13.1 g/dL Normal 12.0-16.0 [facility] Comment on above: Performed By: #### C BC #### [facility] [address] [place] [address] Dr. Mane Mueller IG # 0.02 10e3/ul Normal 0.00-0.03 [facility] Comment on above: Performed By: #### C BC #### [facility] [address] [place] [address] Dr. Mane Mueller IG % 0.2 % Normal 0.0-0.5 [facility] Comment on above: Performed By: #### C BC #### [facility] [address] [place] [address] Dr. Mane Mueller LYMPH # 2.9 103/ul Normal 1.2-3.8 [facility] Comment on above: Performed By: #### C BC #### [facility] [address] [place] [address] Dr. Mane Mueller Lymphocytes/100 WBC (Bld) 30.7 % Normal 20.5-60.0 [facility] Comment on above: Performed By: #### C BC #### [facility] [address] [place] [address] Dr. Mane Mueller MANUAL DIFF REQ NO Normal [facility] Comment on above: Performed By: #### C BC #### [facility] [address] [place] [address] Dr. Mane Mueller MCH (RBC) [Entitic mass] 27.9 pg Normal 26.7-34.0 [facility] Comment on above: Performed By: #### C BC #### [facility] [address] [place] [address] Dr. Mane Mueller MCHC (RBC) [Mass/Vol] 32.5 g/dL Normal 29.9-35.2 [facility] Comment on above: Performed By: #### C BC #### [facility] [address] [place] [address] Dr. Mane Mueller MCV (RBC) [Entitic vol] 85.7 fL Normal 81.0-99.0 [facility] Comment on above: Performed By: #### C BC #### [facility] [address] [place] [address] Dr. Mane Mueller MONO # 0.7 103/ul Normal 0.3-0.8 [facility] Comment on above: Performed By: #### C BC #### [facility] [address] [place] [address] Dr. Mane Mueller Monocytes/100 WBC (Bld) 7.7 % Normal 1.7-12.0 [facility] Comment on above: Performed By: #### C BC #### [facility] [address] [place] [address] Dr. Maen Mueller NEUT # 5.5 103/ul Normal 1.4-6.5 [facility] Comment on above: Performed By: #### C BC #### [facility] [address] [place] [address] Dr. Mane Mueller Neutrophils/100 WBC (Bld) 58.2 % Normal 43.0-75.0 [facility] Comment on above: Performed By: #### C BC #### [facility] [address] [place] [address] Dr. Mane Mueller Platelet mean volume (Bld) [Entitic vol] 9.6 fL Normal 9.5-13.5 [facility] Comment on above: Performed By: #### C BC #### [facility] [address] [place] [address] Dr. Mane Mueller PLT 349 103/ul Normal 150-450 [facility] Comment on above: Performed By: #### C BC #### [facility] [address] [place] [address] Dr. Mane Mueller RBC 4.70 106/ul Normal 4.20-5.40 [facility] Comment on above: Performed By: #### C BC #### [facility] [address] [place] [address] Dr. Mane Mueller WBC 9.4 103/ul Normal 4.0-11.0 [facility] Comment on above: Performed By: #### C BC #### [facility] [address] [place] [address] Dr. Mane Mueller PREG QUANT HCGon 07-17-2021 HCG QUANT 1 mIU/mL Normal [facility] Comment on above: Performed By: #### P REGQNT #### [facility] [address] [place] [address] Dr. Mane Mueller HCG RANGE SEE BELOW Normal [facility] Comment on above: Result Comment: 5-50 0-1 WEEK 40-300 1-2 WEEKS 100-1,000 2-3 WEEKS 500-6,000 3-4 WEEKS 5,000-200,000 1-2 MONTHS 10,000-100,000 2-3 MONTHS 3,000-50,000 2ND TRIMESTER 1,000-50,000 3RD TRIMESTER Performed By: #### P REGQNT #### [facility] [address] [address] [address] Mane Mueller Covid-19 PCR (CVDTB)on 06-21 SARS-CoV-2 (COVID-19) RNA MARYELLEN+probe Ql (Unsp spec) Not detected Normal NOT DETECTED [facility] Comment on above: Result Comment: This test is not yet approved or cleared by the [place] FDA. When there are no FDA-approved or cleared tests available, and other criteria are met, FDA can make tests available under an emergency access mechanism called an Emergency Use Authorization (EUA). The EUA for this test is supported by the Cra of Health and Human Service's (HHS's) declaration [...] consistent with SARS-CoV-2. Performed By: #### C VDTBH #### [facility] [address] [address] [address] Mane Mueller MG MAMM SCREEN 3D YUDI CADon 05-08-2021 MG MAMM SCREEN 3D YUDI CAD Patient: AZALIA CASTRO Exam Date: 05/08/2021 : 1975 Gender:F Ordering : DR JUSTICE ROD . Admission #: [id number] Family : Order #: [id number] CLICK HERE TO VIEW EXAM RADIOLOGY REPORT [...] No Treatments None Family Cancers None LOCATION: [facility] BREAST COMPOSITION: Extremely dense, which lowers [...] on 05/08/2021 at 11:56 Normal [facility] Vital Signs Date Time Vital Sign Value Performing Clinician Facility 01-22-2025 14:56-0400 Body mass index (BMI) [Ratio] 29.7 kg/m2 Paul Mcgovern [employer] Work Phone: [facility] 01-22-2025 14:56-0400 Body weight 83.46 kg Paul Mcgovern [employer] Work Phone: [facility] 01-22-2025 14:56-0400 Diastolic blood pressure 72 mm[Hg] Paul Mcgovern [employer] [facility] 01-22-2025 14:56-0400 Heart rate 79 /min Paul Mcgovern [employer] [facility] 01-22-2025 14:56-0400 Respiratory rate 16 /min Paul Mcgovern [employer] [facility] 01-22-2025 14:56-0400 SaO2% (BldA) [Mass fraction] 98 % Paul Schlachter MEAT TEAM MEMBER[employer]ROLL OUT MANAGER Work Phone: [facility] 01-22-2025 14:56-0400 Systolic blood pressure 124 mm[Hg] Paul Froilan MEAT TEAM MEMBER-ROLL OUT MANAGER Work Phone: [facility] 01-07-2025 10:34-0400 Body mass index (BMI) [Ratio] 29.05 kg/m2 Justice Viola DO Work Phone: [facility] 01-07-2025 10:34-0400 Body weight 84.14 kg Justice Viola DO Work Phone: [facility] 01-07-2025 10:34-0400 Diastolic blood pressure 84 mm[Hg] Justice Viola DO Work Phone: [facility] 01-07-2025 10:34-0400 Systolic blood pressure 122 mm[Hg] Justice Viola DO Work Phone: [facility] 01-01-2025 14:53-0400 Body mass index (BMI) [Ratio] 28.51 kg/m2 Justice Viola DO Work Phone: [facility] 01-01-2025 14:53-0400 Body weight 82.56 kg Justice Viola DO Work Phone: [facility] 01-01-2025 14:53-0400 Diastolic blood pressure 76 mm[Hg] Justice Viola DO Work Phone: [facility] 01-01-2025 14:53-0400 Systolic blood pressure 124 mm[Hg] Justice Viola DO Work Phone: [facility] 12-24-2024 15:31-0400 Body mass index (BMI) [Ratio] 30.51 kg/m2 Paul Froilan MEAT TEAM MEMBER-ROLL OUT MANAGER Work Phone: [facility] 12-24-2024 15:31-0400 Body weight 85.73 kg Paul Froilan MEAT TEAM MEMBER-ROLL OUT MANAGER Work Phone: [facility] 12-24-2024 15:31-0400 Diastolic blood pressure 76 mm[Hg] Paul Mcgovern MEAT TEAM MEMBER-ROLL OUT MANAGER Work Phone: [facility] 12-24-2024 15:31-0400 Heart rate 76 /min Paul Leacher MEAT TEAM MEMBER-ROLL OUT MANAGER Work Phone: [facility] [facility] 12-24-2024 15:31-0400 Respiratory rate 16 /min Paul Leacher MEAT TEAM MEMBER-ROLL OUT MANAGER Work Phone: [facility] 12-24-2024 15:31-0400 SaO2% (BldA) [Mass fraction] 99 % Paul Leacher MEAT TEAM MEMBER-ROLL OUT MANAGER Work Phone: [facility] 12-24-2024 15:31-0400 Systolic blood pressure 128 mm[Hg] Paul Leacher MEAT TEAM MEMBER-ROLL OUT MANAGER Work Phone: [facility] 11-29-2024 09:15-0400 Body height 170.2 cm Justice Viola DO Work Phone: [facility] 11-29-2024 09:15-0400 Body mass index (BMI) [Ratio] 29.13 kg/m2 Justice Viola DO Work Phone: [facility] 11-29-2024 09:15-0400 Body weight 84.37 kg Justice Viola DO Work Phone: [facility] 11-29-2024 09:15-0400 Diastolic blood pressure 76 mm[Hg] Justice Viola DO Work Phone: [facility] 11-29-2024 09:15-0400 Systolic blood pressure 110 mm[Hg] Justice Viola DO Work Phone: [facility] 11-28-2024 12:58-0400 Body mass index (BMI) [Ratio] 30.51 kg/m2 Paul Mcgovern MEAT TEAM MEMBER-ROLL OUT MANAGER Work Phone: [facility] 11-28-2024 12:58-0400 Body weight 85.73 kg Paul Mcgovern APRN-ROLL OUT MANAGER Work Phone: [facility] 11-28-2024 12:58-0400 Diastolic blood pressure 76 mm[Hg] Paul Mcgovern APRN-ROLL OUT MANAGER Work Phone: [facility] 11-28-2024 12:58-0400 Heart rate 88 /min Paul Mcgovern MEAT TEAM MEMBER-ROLL OUT MANAGER Work Phone: [facility] 11-28-2024 12:58-0400 Respiratory rate 18 /min Paul Mcgovern MEAT TEAM MEMBER-ROLL OUT MANAGER Work Phone: [facility] 11-28-2024 12:58-0400 SaO2% (BldA) [Mass fraction] 96 % Paul Mcgovern APRN-ROLL OUT MANAGER Work Phone: [facility] 11-28-2024 12:58-0400 Systolic blood pressure 128 mm[Hg] Paul Mcgovern APRN-ROLL OUT MANAGER Work Phone: [facility] 05-16-2024 16:14-0500 Body mass index (BMI) [Ratio] 28.43 kg/m2 Justice Viola DO Work Phone: [facility] 05-16-2024 16:14-0500 Body weight 79.89 kg Justice Viola DO Work Phone: [facility] 05-16-2024 16:14-0500 Diastolic blood pressure 64 mm[Hg] Justice Viola DO Work Phone: [facility] 05-16-2024 16:14-0500 Systolic blood pressure 118 mm[Hg] Justice Viola DO Work Phone: [facility] Healthcare Encounters Encounter Date Encounter Type Care Provider Facility Start: 01-22-2025 End: 01-22-2025 Office outpatient visit 25 minutes Paul Mcgovern APRN-ROLL OUT MANAGER Work Phone: [facility] Comment on above: Pre-operative cleara nce (Primary Dx); Anxiety; Gastroesophageal reflux disease, unspecified whether esophagitis present Start: 01-22-2025 End: 01-22-2025 Preoperative state Paul Froilan MEAT TEAM MEMBER-ROLL OUT MANAGER Work Phone: [facility] Work Phone: Start: 01-16-2025 End: 01-16-2025 Clinisync Result Encounter Justice Viola DO Work Phone: [facility] External Department Unsolicited Start: 01-16-2025 End: 01-16-2025 Clinisync Result Encounter Justice Viola DO Work Phone: [facility] External Department Unsolicited Start: 01-07-2025 End: 01-07-2025 Office outpatient visit 15 minutes Justice Viola DO Work Phone: [facility] Comment on above: Pre-op examination; Menorrhagia with irregular cycle; Thickened endometrium Start: 01-07-2025 End: 01-07-2025 Preprocedural examination done Justice Viola DO Work Phone: [facility] Start: 01-07-2025 End: 01-07-2025 ambulatory JUSTICE VIOLA Not Available Start: 01-01-2025 End: 01-01-2025 Office outpatient visit 15 minutes Justice Viola DO Work Phone: [facility] Comment on above: Encounter to discuss test results; Menorrhagia with irregular cycle; Thickened endometrium Start: 01-01-2025 End: 01-01-2025 ambulatory JUSTICE VIOLA Not Available Start: 01-01-2025 End: 01-01-2025 Bamboo flowsheet Justice Viola DO Work Phone: [facility] Start: 01-01-2025 End: 01-01-2025 Bamboo flowsheet Justice Viola DO Work Phone: [facility] Start: 12-24-2024 End: 12-24-2024 Office outpatient visit 15 minutes Paul Mcgovern MEAT TEAM MEMBER-ROLL OUT MANAGER Work Phone: [facility] Comment on above: Anxiety (Primary Dx) Start: 12-24-2024 End: 12-24-[address] [facility] Start: 12-13-2024 End: 12-13-2024 ambulatory JUSTICE VIOLA Not Available Start: 11-29-2024 End: 11-29-2024 Bamboo flowsheet Justice Viola DO Work Phone: [facility] Start: 11-29-2024 End: 11-29-2024 Bamboo flowsheet Justice Viola DO Work Phone: [facility] Start: 11-29-2024 End: 11-29-2024 Clinisync Result Encounter Justice Viola DO Work Phone: [facility] Department Unsolicited Start: 11-29-2024 End: 11-29-2024 Office outpatient visit 15 minutes Justice Viola DO Work Phone: [facility] Comment on above: Menorrhagia with irr egular cycle; History of endometrial ablation; H/O tubal ligation; Fatigue, unspecified type Start: 11-29-2024 End: 11-29-2024 ambulatory JUSTICE VIOLA Not Available Start: 11-28-2024 End: 11-28-2024 [facility] MEAT TEAM MEMBER-ROLL OUT MANAGER Work Phone: [facility] Comment on above: Anxiety (Primary Dx) ; Chest pain, unspecified type; Hypothyroidism, unspecified type Start: 11-28-2024 End: 11-28-[address] [facility] Start: 11-20-2024 ambulatory RUBY R NING [facility] Start: 11-19-2024 ambulatory RUBY R TREMAINS [facility] Start: 10-17-2024 End: 10-17-2024 Emergency department patient visit BECCA GONZALES [facility] Start: 09-21-2024 End: 09-21-[address] [facility] Start: 09-12-2024 ambulatory RUBY R TREMAINS [facility] Start: 08-30-2024 End: 08-30-2024 Clinisync Result Encounter Justice Viola DO Work Phone: [facility] External Department Unsolicited Start: 08-30-2024 End: 08-30-2024 Clinisync Result Encounter Justice Viola DO Work Phone: [facility] Unsolicited Start: 05-16-2024 End: 05-16-2024 Patient encounter procedure Justice Viola DO Work Phone: [facility] Work Phone: Start: 05-16-2024 End: 05-16-2024 Periodic preventive med est patient 40-64yrs Justice Viola DO Work Phone: [facility] Comment on above: Well woman exam with routine gynecological exam; Breast cancer screening by mammogram Start: 05-16-2024 End: 05-16-2024 ambulatory JUSTICE ROD Not Available Start: 05-16-2024 End: 05-16-2024 Bamboo flowsheet Justice Viola DO Work Phone: [facility] Start: 05-16-2024 End: 05-25-2024 Bamboo flowsheet Justice Viola DO Work Phone: [facility] Start: 05-16-2024 End: 05-25-2024 Clinisync Result Encounter Justice Viola DO Work Phone: [facility] External Department Unsolicited Start: 04-26-2022 End: 04-26-[address] JUSTICE ROD Facility:[facility] Start: 02-16-2022 End: 02-16-[address] JUSTICE ROD Facility:[facility] Start: 07-17-2021 End: 07-17-[address] JUSTICE ROD Facility:[facility] Start: 07-16-2021 Encounter for preprocedural laboratory examination DR JUSTICE ROD [facility] Start: 07-15-2021 Encounter for other preprocedural examination DR JUSTICE ROD [facility] Start: 07-14-2021 End: 07-15-[address] JUSTICE ROD Facility:[facility] Start: 07-14-2021 End: 07-15-2021 Encounter for preprocedural laboratory examination DR JUSTICE ROD Facility:[facility] Start: 07-10-2021 End: 07-11-[address] JUSTICE ROD Facility:[facility] Start: 07-10-2021 End: 07-11-2021 Encounter for other preprocedural examination DR JUSTICE ROD Facility:[facility] Start: 05-08-2021 End: 05-09-[address] JUSTICE ROD Facility:[facility] Procedures Date Procedure Procedure Detail Performing Clinician Start: 01-22-2025 Urnls dip stick/tabl et rgnt non-auto w/o micrscp Paul Mcgovern MEAT TEAM MEMBER-ROLL OUT MANAGER Work Phone: Start: 01-22-2025 Adult depression scr eening assessment Paul Mcgovern MEAT TEAM MEMBER-ROLL OUT MANAGER Work Phone: Start: 01-16-2025 XR CHEST 2V Justice Fazi o DO Work Phone: Start: 01-16-2025 ECG 12-LEAD Justice Fazi o DO Work Phone: Start: 12-24-2024 Follow-up visit Follow-up PAUL MCGOVERN Start: 11-29-2024 ALL CBC WITH AUTO DIFF Justice Viola DO Work Phone: Start: 11-29-2024 H/O: tubal ligation H/O tubal ligati on Justice Viola DO Work Phone: Start: 08-30-2024 MM TOMOSYNTHESIS SCR EENING BI Justice Viola DO Work Phone: Start: 05-16-2024 IGP,APTIMA HPV,AGE GDLN Justice Viola DO Work Phone: Start: 07-27-2022 Adult depression scr eening assessment Paul Mcgovern MEAT TEAM MEMBER-ROLL OUT MANAGER Work Phone: Plan of Treatment Date Care Activity Detail Author Start: 01-22-2026 Adult BMI Screening Adult BMI Screening [facility] Start: 01-22-2026 Depression Screening Depression Screening [facility] Start: 01-22-2026 Tobacco Screening [facility] Start: 12-24-2025 Adult BMI Screening [facility] Start: 12-24-2025 Tobacco Screening Tobacco Screening [facility] Start: 11-28-2025 Adult BMI Screening Adult BMI Screening [facility] Start: 11-28-2025 Tobacco Screening [facility] Start: 06-24-2025 End: 06-24-2025 Patient encounter procedure 06/24/2025 3:45 PM EST Office Visit [facility] [address] [place] [id number] Paul Mcgovern, MEAT TEAM MEMBER-ROLL OUT MANAGER [address] [place] [address] [facility] Start: 05-29-2025 End: 05-29-2025 Patient encounter procedure [facility] Start: 02-18-2025 Influenza vaccination Influenza Vaccine [facility] Start: 02-11-2025 End: 02-11-2025 Patient encounter procedure [facility] Start: 01-01-2025 End: 01-01-2025 Patient encounter procedure [facility] Comment on above: Arrived Start: 12-24-2024 End: 12-24-2024 Patient encounter procedure 12/24/2024 3:30 PM EDT Office Visit [facility] [address] [place] [address] Paul Mcgovern, MEAT TEAM MEMBER-ROLL OUT MANAGER [address] [place] [address] [facility] Start: 12-13-2024 End: 12-13-2024 Professional / ancillary services management 12/13/2024 8:00 AM EDT Ancillary Procedure [facility] [address] [place] [id number] [facility] Start: 12-10-2024 End: 12-10-2024 Patient encounter procedure 12/10/2024 8:30 AM EDT Appointment [facility] [address] [place] [address] [facility] Start: 11-29-2024 End: 11-29-2025 aPTT in Blood by Coagulation assay APTT Lab Routine Menorrhagia with irregular cycle History of endometrial ablation H/O tubal ligation Expected: 11/29/2024 (Approximate), Expires: 11/29/2025 [facility] Comment on above: Expected: 11/29/2024 (Approximate), Expi res: 11/29/2025 Start: 11-29-2024 End: 11-29-2025 Transferrin [Mass/volume] in Serum or Plasma Transferrin Lab Routine Menorrhagia with irregular cycle History of endometrial ablation H/O tubal ligation Expected: 11/29/2024 (Approximate), Expires: 11/29/2025 [facility] Comment on above: Expected: 11/29/2024 (Approximate), Expi res: 11/29/2025 Start: 11-29-2024 End: 11-29-2025 US Pelvis US Pelvis w/ TV Imaging Routine Menorrhagia with irregular cycle History of endometrial ablation H/O tubal ligation Expected: 11/29/2024, Expires: 11/29/2025 [facility] Comment on above: Expected: 11/29/2024, Expires: Start: 11-29-2024 End: 11-29-2024 Patient encounter procedure 11/29/2024 9:00 AM EDT Office Visit [facility] [address] [place] [address] Justice Rod DO [address] [place] [address] Arrived [facility] Comment on above: Arrived Start: 11-28-2024 End: 11-28-2025 Echo complete W/O contrast Echo complete W/O contrast Echocardiography Routine Chest pain, unspecified type Expected: 11/28/2024, Expires: 11/28/2025 [facility] Work Phone: Comment on above: Expected: 11/28/2024, Expires: Start: 11-28-2024 End: 11-28-2025 Thyroid profile includes TSH FT4 Thyroid profile includes TSH FT4 Lab Routine Hypothyroidism, unspecified type Expected: 11/28/2024, Expires: 11/28/2025 [facility] Comment on above: Expected: 11/28/2024, Expires: Start: 05-16-2024 End: 05-16-2024 Patient encounter procedure 05/16/2024 3:40 PM EST Office Visit [facility] [address] [place] [id number] Justice Rod DO [address] [place], [place] [id number] Arrived [facility] Comment on above: Arrived Start: 05-16-2024 End: 07-16-2025 MG Breast - bilateral Screening Bilateral screening mammogram Imaging Routine Breast cancer screening by mammogram Expected: 05/16/2024 (Approximate), Expires: 07/16/2025 [facility] Work Phone: Comment on above: Expected: 05/16/2024 (Approximate), Expi res: 07/16/2025 Start: 02-19-2024 COVID-19 Vaccine ( season) COVID-19 Vaccine ( season) [facility] Start: 07-27-2023 Depression Screening [facility] Start: 1998 Screening for malignant neoplasm of cervix Pap Smear [facility] Start: 1996 DTaP,Tdap and Td Vaccines (1 - Tdap) DTaP,Tdap and Td Vaccines (1 - Tdap) [facility] CBC W Auto Differential panel - Blood CBC and differential Lab Routine Menorrhagia with irregular cycle History of endometrial ablation H/O tubal ligation Ordered: 11/29/2024 [facility] Comment on above: Ordered: 11/29/2024 Ferritin [Mass/volume] in Serum or Plasma Ferritin Lab Routine Menorrhagia with irregular cycle History of endometrial ablation H/O tubal ligation Ordered: 11/29/2024 [facility] Work Phone: Comment on above: Ordered: 11/29/2024 hCG, quantitative, hCG, quantitative, Lab Routine Menorrhagia with irregular cycle History of endometrial ablation H/O tubal ligation Ordered: 11/29/2024 [facility] Comment on above: Ordered: 11/29/2024 Hemoglobin A1c/Hemoglobin.total in Blood Hemoglobin A1c Lab Routine Menorrhagia with irregular cycle History of endometrial ablation H/O tubal ligation Ordered: 11/29/2024 [facility] Comment on above: Ordered: 11/29/2024 Prothrombin time (PT ) in Blood by Coagulation assay Protime-INR Lab Routine Menorrhagia with irregular cycle History of endometrial ablation H/O tubal ligation Ordered: 11/29/2024 [facility] Comment on above: Ordered: 11/29/2024 THIN PREP TIS PAP AN D HR HPV DNA THIN PREP TIS PAP AND HR HPV DNA Pathology and Cytology Routine Well woman exam with routine gynecological exam Ordered: 05/16/2024 [facility] Comment on above: Ordered: 05/16/2024 Thyrotropin [Units/volume] in Serum or Plasma TSH Lab Routine Menorrhagia with irregular cycle History of endometrial ablation H/O tubal ligation Ordered: 11/29/2024 [facility] Comment on above: Ordered: 11/29/2024 Thyroxine (T4) free [Mass/volume] in Serum or Plasma T4, free Lab Routine Menorrhagia with irregular cycle History of endometrial ablation H/O tubal ligation Ordered: 11/29/2024 [facility] Comment on above: Ordered: 11/29/2024 Vitamin D 1,25 dihydroxy Vitamin D 1,25 dihydroxy Lab Routine Menorrhagia with irregular cycle History of endometrial ablation H/O tubal ligation Ordered: 11/29/2024 [facility] Comment on above: Ordered: 11/29/2024 Payers Date Payer Category Payer Managed Care Other (unspecified) [facility] [id number] 2022 Private Health Insurance [id number] 2022 Private Health Insurance [id number] 1977 Unknown [id number] 2.16.840.1.715656.3.579. 2.593 1977 Unknown [id number] 2.16.840.1.785824.3.579. 2.593 1977 Unknown [id number] 2.16.840.1.115898.3.579. 2.593 1977 Unknown [id number] 2.16.840.1.757042.3.579. 2.593 1977 Unknown [id number] 2.16.840.1.650131.3.579. 2.593 1977 Unknown [id number] 2.16.840.1.604820.3.579. 2.593 1977 Unknown [id number] 2.16.840.1.435261.3.579. 2.128 1977 Unknown [id number] 2.16.840.1.527021.3.579. 2.1285 1977 Unknown [id number] 2.16.840.1.942034.3.579. 2.1285 1977 Unknown [id number] 2.16.840.1.117943.3.579. 2.128 1977 Unknown [id number] 2.16.840.1.026186.3.579. 2.6 1977 Unknown [id number] 2.16.840.1.718880.3.579. 2.1285 1977 Unknown [id number] 2.16.840.1.592508.3.579. 2.1285 1977 Unknown [id number] 2.16.840.1.718218.3.579. 2.1285 1977 Unknown [id number] 2.16.840.1.088024.3.579. 2.9 1977 Unknown [id number] 2.16.840.1.571009.3.579. 2.1258 1977 Unknown [id number] 2.16.840.1.243863.3.579. 2.9 1977 Unknown [id number] 2.16.840.1.222788.3.579. 2.1258 1977 Unknown [id number] 2.16.840.1.681247.3.579. 2.1259 1959 Unknown [id number] Social History Date Type Detail Facility Start: 07-27-2022 End: 04-21-2023 Tobacco smoking status NHIS Never smoked tobacco [facility] Start: 05-03-2023 End: 11-29-2024 Alcoholic beverage intake Lifetime non-drinker (finding) [facility] Start: 07-31-2020 End: 05-03-2023 History of Social function [facility] Start: 07-31-2020 End: 05-03-2023 Tobacco use panel [facility] Start: 04-21-2023 Alcohol Comment caffeine: none [facility] Start: 1975 Sex assigned at Not on file [facility] Start: 07-27-2022 Tobacco use and exposure Smoke less tobacco non-user [facility] Start: 11-28-2024 End: 01-22-2025 Alcoholic beverage intake Ex-drinker (finding) [facility] Frequency of Alcohol Consumption Never [facility] How hard is it for y ou to pay for the very basics like food, housing, medical care, and heating Somewhat hard [facility] Start: 01-23-2015 Sex Female (finding) [facility] Clinical Notes 07-17-2021 to 01-22-2025 Paul Mcgovern, CAMRYN-ROLL OUT MANAGER - 01/22/2025 3:00 PM [facility] [place] - 01/07/2025 10:20 AM Guera Jain LPN - 01/01/2025 2:40 PM Lorena Mcgovern APRN-POPPY - 12/24/2024 3:30 PM EDT Note Date & Type Note Facility 01-22-2025 History of Presen t illness Narrative Images from the original note were not included. [address] [place] [address] SUBJECTIVE: Patient ID: Karen Castro is a 49 y.o. female. Patient presents to the office for pre operative clearance for d&c hysteroscopy with possible myosure. Patient was having palpitations and had syncopal event at PT when they were unwrapping her elbow that she had surgery on. ER work up was negative and called it vasogal syncope. EKG, chest x-ray and echo were WNL. We did start patient on prozac which helped with palpitations, does have anxiety. Did have surgery on elbow and had anesthesia and did well. Pre-op Exam Pertinent negatives include no abdominal pain, arthralgias, chest pain, congestion, coughing, fatigue, fever, joint swelling, nausea, neck pain, numbness, rash, sore throat, vomiting or weakness. The following portions of the patient's history were reviewed and updated as appropriate: allergies, current medications, past family history, past medical history, past social history, past surgical history and problem list. REVIEW OF SYSTEMS: Review of Systems Constitutional: Negative for fatigue, fever and unexpected weight change. HENT: Negative for congestion, ear pain, sinus pressure, sinus pain and sore throat. Eyes: Negative for photophobia, pain, discharge and visual disturbance. Respiratory: Negative for cough and shortness of breath. Cardiovascular: Negative for chest pain, palpitations and leg swelling. Gastrointestinal: Negative for abdominal pain, diarrhea, nausea and vomiting. Endocrine: Negative for polydipsia, polyphagia and polyuria. Genitourinary: Negative for difficulty urinating, frequency, hematuria and urgency. Musculoskeletal: Negative for arthralgias, gait problem, joint swelling and neck pain. Skin: Negative for pallor and rash. Neurological: Negative for dizziness, weakness, light-headedness and numbness. Psychiatric/Behavioral: Negative for sleep disturbance. The patient is not nervous/anxious. PHYSICAL EXAMINATION: Vitals: 01/22/25 1456 BP: 124/72 Pulse: 79 Resp: 16 SpO2: 98% Weight: 83.5 kg (184 lb) Physical Exam Constitutional: Appearance: She is [...] sounds. Abdominal: General: Bowel sounds are normal. Palpations: Abdomen is soft. Musculoskeletal: General: Normal range of motion. Cervical back: Normal range of motion. Skin: General: Skin is warm and dry. Neurological: Mental Status: She is alert and oriented to person, place, and time. ASSESSMENT/PLAN: Azalia was seen today for pre-op exam. Diagnoses and all orders for this visit: Pre-operative clearance Anxiety Follow-up: Patient is cleared for surgery Follow up as scheduled KATYA Atwood 01/22/25 1522 documented in this encounter [email or web address] 01-07-2025 History of Presen t illness Narrative Reason for Appointment: Patient ID: Azalia Castro is a 49 y.o. female who presents for Pre-op Visit Patient presents today for Pre Op appointment. Patient is scheduled to undergo D&C Hysteroscopy, possible Myosure on 01-30-[address] Rod at [facility]. MEDICATIONS Current Outpatient Medications Medication Instructions FLUoxetine [...] nursing note reviewed. Exam conducted with a beater room helper present. Vitals: Estimated body mass index is 29.05 kg/m as calculated from the following: Height [...] of menorrhagia and thickened endometrium. I have discussed conservative management vs. surgical management with the patient in detail and patient desires surgical management at this time. Patient will undergo D&C Hysteroscopy, possible Myosure on 01/30/25. Surgical consents were signed, mmc was reviewed, and patient is to proceed to [facility] OR. Follow Up: Patient is to follow up between 1-2 weeks post operative to assess proper healing and recovery from procedure. Documented by June Herman LPN. on behalf of: Justice Rod DO documented in this encounter [facility] 01-01-2025 History of Presen t illness Narrative Reason for Appointment: Patient ID: Azalia Castro is a 49 y.o. female who presents for Follow-up (Pt present today for a f/up visit to review lab results. Pt was seen on 11/29/2024 for menorrhagia w/irregular cycles.) Patient presents today for Follow up appointment to discuss results. MEDICATIONS Current Outpatient Medications Medication Instructions FLUoxetine (PROZAC) 20 mg, Daily RT ALLERGIES No Known Allergies PROBLEMS Active Ambulatory Problems Diagnosis Date Noted Fatigue 11/29/2024 History of endometrial ablation 11/29/2024 H/O tubal ligation 11/29/2024 Menorrhagia with irregular cycle 11/29/2024 Resolved Ambulatory Problems Diagnosis Date Noted No [...] Negative. Gastrointestinal: Negative. Genitourinary: Positive for menstrual problem. Musculoskeletal: Negative. Skin: Negative. Neurological: Negative. All [...] nursing note reviewed. Exam conducted with a beater room helper present. Vitals: Estimated body mass index is 28.51 kg/m as calculated from the following: Height as of 25: 5' 7 . Weight as of this encounter: 182 lb. BP: 124/76 No LMP recorded. ASSESSMENT & PLAN ICD-10-CM 1. Encounter to discuss test results Z71.2 2. Menorrhagia with irregular cycle N92.1 3. Thickened endometrium R93.89 Pt presents to discuss labs that were drawn in November, pt still bleeding heavy even after megace and endometrial ablation. Reviewed labs and ultrasound with pt in detail. Discussed management at this point, Pt desires hysterectomy will be scheduled and return for preop exam/embx. Pt started megace in November and started bleeding December 18. Discussed switching from prozac to effexor. Documented by Kathy Jain LPN on behalf of: florin mcclain documented in this encounter [facility] 12-24-2024 History of Presen t illness Narrative Images from the original note were not included. [address] [place] [address] SUBJECTIVE: Patient ID: Karen Castro is a 49 y.o. female. Patient presents to the office for follow up for anxiety and is doing well on prozac. She does feel it is helping. She is getting ready to go back to work and feels that will help as well to get back into a routine. She does have an appointment with [employer] to go over her blood work and testing. Follow-up Pertinent negatives include no abdominal pain, arthralgias, chest pain, congestion, coughing, fatigue, fever, joint swelling, nausea, neck pain, numbness, rash, sore throat, vomiting or weakness. The following portions of the patient's history were reviewed and updated as appropriate: allergies, current medications, past family history, past medical history, past social history, past surgical history and problem list. REVIEW OF SYSTEMS: Review of Systems Constitutional: Negative for fatigue, fever and unexpected weight change. HENT: Negative for congestion, ear pain, sinus pressure, sinus pain and sore throat. Eyes: Negative for photophobia, pain, discharge and visual disturbance. Respiratory: Negative for cough and shortness of breath. Cardiovascular: Negative for chest pain, palpitations and leg swelling. Gastrointestinal: Negative for abdominal pain, diarrhea, nausea and vomiting. Endocrine: Negative for polydipsia, polyphagia and polyuria. Genitourinary: Negative for difficulty urinating, frequency, hematuria and urgency. Musculoskeletal: Negative for arthralgias, gait problem, joint swelling and neck pain. Skin: Negative for pallor and rash. Neurological: Negative for dizziness, weakness, light-headedness and numbness. Psychiatric/Behavioral: Negative for sleep disturbance. The patient is not nervous/anxious. PHYSICAL EXAMINATION: Vitals: 12/24/24 1531 BP: 128/76 Pulse: 76 Resp: 16 SpO2: 99% Weight: 85.7 kg (189 lb) Physical Exam [...] normal. ASSESSMENT/PLAN: Azalia was seen today for follow-up. Diagnoses and all orders for this visit: Anxiety Other orders - FLUoxetine (PROzac) 20 mg capsule; Take 1 capsule (20 mg total) by mouth in the morning. Follow-up: Prozac 20mg daily Follow up in six months or as needed Patient noted to have elevated BMI and the following intervention(s) were applied: encouragement to exercise. KATYA Atwood 12/25/24 0728 documented in this encounter [facility] 11-29-2024 History of Presen t illness Narrative Reason for Appointment: Patient ID: Azalia Castro is a 49 y.o. female who presents for Menorrhagia (Pt present today to discuss heavy cycles twice a week.) Patient presents today for Consult appointment. MEDICATIONS Current Outpatient Medications Medication Instructions FLUoxetine [...] ligation 11/29/2024 Menorrhagia with irregular cycle 11/29/2024 Resolved Ambulatory Problems Diagnosis Date Noted No [...] Cardiovascular: Negative. Gastrointestinal: Negative. Genitourinary: Positive for vaginal bleeding. Musculoskeletal: Negative. Skin: Negative. Neurological: [...] nursing note reviewed. Exam conducted with a beater room helper present. Vitals: Estimated body mass index is 29.13 kg/m as calculated from the following: Height as of this encounter: 5' 7 . Weight as of this encounter: 186 lb. BP: 110/76 Patient's last menstrual period was 11/11/2024. ASSESSMENT & PLAN ICD-10-CM 1. Menorrhagia with irregular cycle N92.1 Ferritin Transferrin CBC and differential TSH hCG, quantitative, Protime-INR T4, free APTT Hemoglobin A1c US Pelvis w/ TV megestrol (Megace) 20 MG tablet Transferrin APTT Vitamin D 1,25 dihydroxy 2. History of endometrial ablation Z98.890 Ferritin Transferrin CBC and differential TSH hCG, quantitative, Protime-INR T4, free APTT Hemoglobin A1c US Pelvis w/ TV megestrol (Megace) 20 MG tablet Transferrin APTT Vitamin D 1,25 dihydroxy 3. H/O tubal ligation Z98.51 Ferritin Transferrin CBC and differential TSH hCG, quantitative, Protime-INR T4, free APTT Hemoglobin A1c US Pelvis w/ TV megestrol (Megace) 20 MG tablet Transferrin APTT Vitamin D 1,25 dihydroxy 4. Fatigue, unspecified type R53.83 Patient present to office today to discuss irregular/heavy cycles. Patient has been off work for the past 6 weeks due to having elbow surgery. Informed patient that this could have been induced by the anesthesia, since these symptoms did not happen prior to surgery. Patients other provider is going to start her on Prozac & discussed with patient that Effexor would work well also. Patient given orders for labs to be drawn and US to have obtained. Discussed conservative verses surgical management and if patient desires to have hysterectomy she will reach out to office in February if she decides to have procedure done towards the end of the year. Patient stated that she is having clots and increased fatigue. Patient to setup TeleHealth or in office visit in 4 weeks to follow up that patients moods have improved and bleeding is controlled. Also, discussed HRT possibly in the future. Documented by June Herman LPN on behalf of: Justice Rod DO documented in this encounter [facility] 11-28-2024 History of Presen t illness Narrative Images from the original note were not included. [address] [place] [address] SUBJECTIVE: Patient ID: Karen Castro is a 49 y.o. female. Patient presents [...] past medical history, past social history, past surgical history and problem list. REVIEW OF SYSTEMS: Review [...] up in 28 days KATYA Atwood 11/28/24 1335 documented in this encounter [email or web address] 05-16-2024 History of Presen t illness Narrative [...] nursing note reviewed. Exam conducted with a beater room helper present. Vitals: Estimated body mass index is 28.43 kg/m as calculated from the following: Height as of 05/03/23: 5' 6 . Weight as of this [...] Justice Rod DO documented in this encounter [facility] 07-17-2021 Note [facility] [place], [place] NAME: AZALIA CASTRO DATE OF : MEDICAL REC#: [id number] INSTRUCTOR PROGRAMMABLE CONTROLLERS: [address] [facility], TRANSADMIT DATE: 07/17/2021 07:02:00 PARLIAMENTARY COUNSEL DATE: 07/17/2021 22:00 DICTATING PHYSICIAN: JUSTICE ROD DICTATION DATE: 07/17/2021 10:00 OPERATIVE NOTE PROCEDURE: Doris endometrial ablation with hysteroscopy, bilateral laparoscopic salpingectomy, removal of right endometrioma. PREOPERATIVE DIAGNOSIS: Abnormal uterine bleeding, uterine fibroids, dysmenorrhea. POSTOPERATIVE DIAGNOSIS: Abnormal uterine bleeding, dysmenorrhea including a right endometrioma, as well as evidence of endometriosis pelvic side wall and multiple large uterine fibroids. SURGEON: Justice Rod D.O. SOCIAL SERVICES TECHNICIAN: FRANK Lees URINE OUTPUT: Yellow and clear. [...] Justice Rod DO on 07/24/2021 05:36 PM [facility] Signed and Approved by: DR JUSTICE ROD . 07/24/2021 17:36:00 [facility] Evaluation note Diagnosis Well woman exam with routine gynecological exam Routine gynecological examination Breast cancer screening by mammogram [facility] Diagnosis Anxiety- Primary Anxiety state, unspecified Chest pain, unspecified type Hypothyroidism, unspecified type [facility] Diagnosis Menorrhagia with irregular cycle History of endometrial ablation H/O tubal ligation Fatigue, unspecified type documented in this encounter [facility]* Diagnosis Anxiety- Primary Anxiety state, unspecified [facility] Diagnosis Encounter to discuss test results Other specified counseling Menorrhagia with irregular cycle Thickened endometrium Nonspecific (abnormal) findings on radiological and other examination of genitourinary organs documented in this encounter [facility]* Diagnosis Pre-op examination Menorrhagia with irregular cycle Thickened endometrium Nonspecific (abnormal) findings on radiological and other examination of genitourinary organs documented in this encounter [facility]* Diagnosis Pre-operative clearance- Primary Unspecified pre-operative examination Anxiety Anxiety state, unspecified Gastroesophageal reflux disease, unspecified whether esophagitis present [facility] Attachments The following attachments cannot be sent through Care Everywhere. * Anxiety in adults ED discharge instructions (Fijian) [facility] Attachments The following attachments cannot be sent through Care Everywhere. * Anxiety? Adult ED (Fijian[facility] Attachments The following attachments cannot be sent through Care Everywhere. * Acid reflux and GERD in adults (Fijian) [facility] Purpose Family History No Family History Records FoundNo Family History Records FoundNo Family History Records FoundNo Family History Records Found Advance Directives No Advanced Directives Records FoundNo Advanced Directives Records FoundNo Advanced Directives Records FoundNo Advanced Directives Records Found Additional Source Comments INFORMATION SOURCE (unrecogn ized section and content) DATE CREATED AUTHOR 05/01/2022 [facility] DATE CREATED AUTHOR AUTHOR'S ORGANIZ ATION 12/06/2024 [facility] DATE CREATED AUTHOR AUTHOR'S ORGANIZ ATION 12/28/2024 [facility] DATE CREATED AUTHOR AUTHOR'S ORGANIZ ATION 01/08/2025 [facility] Care Teams (unrecognized sec tion and content) Inlayer Relationship Specialty Start Date End Date Suzie Shoemaker MD [address] [place] [address] PCP - General Family Medicine 05/03/23 Inlayer Relationship Specialty [place] [address] [place] [address] PCP - General Family Medicine 05/03/23 Inlayer Relationship Specialty Start Date End Date Suzie Shoemaker MD PCP - General Family Medicine 05/03/23 Inlayer Relationship Specialty Start Date End Date Becca Gonzales MD [address] [place] [address] PCP - General Internal Medicine 10/17/24 Inlayer Relationship Specialty Start Date End Date Suzie Shoemaker MD PCP - General Family Medicine 05/03/23 Inlayer Relationship Specialty Start Date End Date Suzie Shoemaker MD PCP - General Family Medicine 05/03/23 Inlayer Relationship Specialty Start Date End Date Suzie Shoemaker MD PCP - General Family Medicine 05/03/23 Inlayer Relationship Specialty Start Date End Date Paul Mcgovern MEAT TEAM [employer]BER[employer] OUT MANAGER [address] [place] [address] PCP - General Family Medicine 12/24/24 Inlayer Relationship Specialty Start Date End Date Suzie Shoemaker MD PCP - General Family Medicine 05/03/23 Paul Mcgovern NP [address] [place] [address] Referring Physician Family Medicine 12/03/24 Inlayer Relationship Specialty Start Date End Date Suzie Shoemaker MD PCP - General Family Medicine 05/03/23 Paul Mcgovern NP [address] [place] [address] Referring Physician Family Medicine 12/03/24 Inlayer Relationship Specialty Start Date End Date Suzie Shoemaker MD PCP - General Family Medicine 05/03/23 Paul Mcgovern NP [address] [place] [address] Referring Physician Family Medicine 12/03/24 Inlayer Relationship Specialty Start Date End Date Suzie Shoemaker MD PCP - General Family Medicine 05/03/23 Paul Mcgovern NP [address] [place] [address] Referring Physician Family Medicine 12/03/24 Inlayer Relationship Specialty Start Date End Date Froilan CAMRYN Castelan-POPPY [address] [place] [address] PCP - General Family Medicine 12/24/24 Reason for Visit (unrecogniz ed section and content) Reason Comments Well Women Visit Reason Comments Anxiety Reason Comments Menorrhagia Pt present today to discuss heavy cycles twice a week. Reason Comments Follow-up Reason Comments Follow-up Pt present today for a f/up visit to review lab results. Pt was seen on 11/29/2024 for menorrhagia w/irregular cycles. Reason Comments Pre-op Visit Reason Comments Pre-op Exam FOR RECORDS PERTAINING TO PATIENTS WHO ARE [...] BE BASED ON THE PRIMARY CLINICAL RECORDS. [employer] provides no warranty or guarantee of the accuracy or completeness of information in this document.
[2025-01-30 06:17] LABS: Hematocrit 39.0 % (36.0-48.0); Hemoglobin 13.3 g/dL (12.0-16.0); Immature Granulocytes Abs Auto 0.02 10^3/uL (0.00-0.03); Immature Granulocytes Pct Auto 0.2 % (0.0-0.5); Lymphocytes Absolute Auto 2.4 10^3/uL (1.2-3.8); Mean Corpuscular HGB Conc 34.1 g/dL (29.9-35.2); Mean Corpuscular Hemoglobin 29.0 pg (26.7-34.0); Mean Corpuscular Volume 85.2 fL (81.0-99.0); Platelet Count 289 10^3/uL (150-450); Red Blood Count 4.58 10^6/uL (4.20-5.40); White Blood Count 8.0 10^3/uL (4.0-11.0)
--- NOTE | 2025-01-30 08:46 | PM.ONB ---
Brief Operative Note Date of procedure: 01/30/25 Pre-op diagnosis general: thickend endometrium, menorrhagia Post-op diagnosis: same as pre-op Procedure: NAME OF PROCEDURE: [ D&c hysteroscopy with myosure] PROCEDURE: The patient was taken back to the Operating Room where she was prepped and draped in normal sterile fashion after being placed under general anesthesia without difficulty. She was also placed in the dorsal lithotomy position. A weighted speculum was placed in the patient?s vagina. The anterior lip of the cervix was identified and grasped with a single tooth tenaculum. The patient?s uterus was then sounded roughly to [? 8] cm. The patient was then gently dilated using Hegar dilators. The hysteroscope was passed through the patient?s cervix into the uterus. Both ostia were identified. fluffy appearing endometrium. No gross evidence of malignancy, no gross evidence of polyps or fibroids. The myosure apparatus was placed through the scope, The myosure was engaged and endometrial curretting were removed along with endometrial polyp, The hysteroscope was then removed from the uterus. The endometrial curettings were sent out to pathology. The single tooth tenaculum was then removed from the patient's anterior lip of the cervix where excellent hemostasis was noted. All instruments were removed from the patient?s vagina. The patient tolerated the procedure well. Sponge, lap and needle counts were correct times two. The patient was taken to the Recovery Room in stable condition.Room in stable condition. Anesthesia: MAC Surgeon: Brannon Rod Estimated blood loss (mL): 5 Pathology: other (endometrial currettings) Condition: stable Disposition: PACU Urinary Catheter Management Urinary Catheter Management Urethral: Cath placed during this visit: no
== END 2025-01-30 10:10 | disposition home or self-care (01) ==
PROVIDERS: PCP Nurse Practitioner Family; Visit Provider Obstetrics & Gynecology
PROC: (CPT 952; principal; 2025-01-30 07:30)
DX: N92.1 Excessive and frequent menstruation with irregular cycle (principal); R93.89 Abnormal findings on diagnostic imaging of other specified body structures; N84.0 Polyp of corpus uteri; N80.03 Adenomyosis of the uterus; Z98.51 Tubal ligation status; F17.290 Nicotine dependence, other tobacco product, uncomplicated; K21.9 Gastro-esophageal reflux disease without esophagitis; F41.9 Anxiety disorder, unspecified
CPT/HCPCS: 58558; 36415; 84702; 85025; 88305; J1100; J1885; J2250; J2704; J3010

== ENCOUNTER 2025-02-26 09:03 | Outpatient (OUT) | payer OTHER, SELFPAY ==
--- OUTSIDE RECORDS SUMMARY | 2025-02-26 09:13 | XMS_ITS | CCD ---
Author Organization [facility] Care Team Providers Care Manager Convention Name Role Phone VIOLA, DR RENDON Admitting Unavailable VIOLA, DR RENDON Attending Unavailable DEFRANCE, DR LARSEN Primary Care Unavailable CREST HILL, DR SUZIE Peña Consulting Unavailable VIOLA, DR [...] Care Unavailable VIOLA, DR RENDON Consulting Unavailable EDINSON FOX Consulting Unavailable Defrance Suzie VASQUEZ Primary Care Provider Suzie Shoemaker MD Primary Care Provider Jan Gonzales MD Primary Care Provider RUBY BARCLAY Referring Unavailable JAN GONZALES Primary Care Unavailable TREMRUBY CORRALES Referring Unavailable DEFRANCESUZIE Primary Care Unavailable RUBY BARCLAY Referring Unavailable DEFSUZIE SHORT Primary Care Unavailable JAN GONZALES Primary Care Unavailable JUNE NAIR Attending Unavailable RUBY BARCLAY Referring Unavailable CHRISTIAN, JAN Primary Care Unavailable TREMRUBY CORRALES Referring Unavailable JAN GONZALES Primary Care Unavailable Froilan KELLYN-Paul MCWILLIAMS Primary Care Provide r PAUL MCGOVERN Attending Unavailable JAN GONZALES Referring Unavailable JAN GONZALES Primary Care Unavailable PAUL MCGOVERN Attending Unavailable JAN GONZALES Referring Unavailable PAUL MCGOVERN Primary Care Unavailable Froilan GONZALEZZahidara Unavailable [phone] VIOLA, JUSTICE Attending Unavailable VIOLA, JUSTICE Referring Unavailable VIOLA, JUSTICE Attending Unavailable VIOLA, JUSTICE Attending Unavailable VIOLA, JUSTICE Attending Unavailable VIOLA, JUSTICE Attending Unavailable Medications Current Medications Medication Drug Class(es) Dates Sig (Normalized) Sig (Original) FLUoxetine 20 mg oral capsule (16 sources) Serotonin Reuptake Inhibitor Start: 11-28-2024 End: 12-24-2024 take 1 capsule by mouth in the morning FLUoxetine (PROzac) 20 MG capsule Take 20 mg by mouth in the morning. 11/28/2024 Active megestrol acetate 20 mg oral tablet (13 sources) Progestin Start: 01-07-2025 End: 02-06-2025 take [...] Date Documented Da te Episodic/Chronic Abdominal pain (3 sources) Pelvic and perineal pain; Translations: [Pain in pelvis] Onset: 2 02-11-2025 Episodic Administrative/social admission (2 sources) Patient encounter status; [...] transmission] Onset: 2 Episodic Malaise and fatigue (14 sources) Fatigue; Translations: [Other fatigue] Onset: 5 11-29-2024 Episodic Menstrual disorders (20 sources) Menometrorrhagia; Translations: [Excessive and frequent menstruation [...] Onset: 2 Chronic Other female genital disorders (2 sources) Pain in female genitalia on intercourse; Translations: [Unspecified dyspareunia] 02-11-2025 Chronic Other female genital disorders (1 source) Other specified noninflammatory disorders of vagina; Translations: [OTH SPEC NONINFLAMMATORY D/O VAGINA] Onset: 2 Episodic Other gastrointestinal disorders (1 source) Heartburn; Translations: [Heartburn] Onset: 5 Episodic Other screening for suspected conditions (not mental disorders or infectious disease) (9 sources) Endometrium thickened; Translations: [Abnormal findings on diagnostic imaging of other specified body structures] Onset: 5 01-01-2025 Chronic Other screening for suspected conditions (not mental disorders or infectious disease) (10 sources) Encounter for screening for malignant neoplasm of cervix; Translations: [Encounter for screening mammogram for malignant neoplasm of breast] Onset: 1 Episodic Residual codes; unclassified (14 sources) History of endometrial ablation; Translations: [Other [...] Classification Problem Date Documented Da te Episodic/Chronic Benign neoplasm of uterus (1 source) Leiomyoma of uterus, unspecified; Translations: [LEIOMYOMA OF UTERUS UNSPECIFIED] Onset: 07-29-2021 Episodic Mood disorders (3 sources) Mood disorders Onset: 07-27-2022 Resolved: 01-22-2025 07-27-2022 Unclassified (2 sources) Onset: 12-25-2024 12-25-2024 Results Test Name Value Interpretation Reference Range Facility ALL CBC WITH AUTO DIFFon BASOPHILS ABSOLUTE AUTO 0 [facility] Basophils/100 WBC (Bld) 0.5 % 0.2 - 2.0 % [facility] Eosinophils/100 WBC (Bld) 3 % 0.9 - 7.0 % [facility] Erythrocyte distribution width (RBC) [Ratio] 13 % 11.0 - 15.0 % [facility] Hematocrit (Bld) [Volume fraction] 39 % 36.0 - 48.0 % [facility] ([facility]ld[facility] [Mass/Vol] 13.3 g/dL 12.0 - 16.0 g/dL [facility] IMMATURE GRANULOCYTES ABS AUTO 0.02 [facility] Immature granulocytes/100 WBC (Bld) 0.2 % 0.0 - 0.5 % [facility] LYMPHOCYTES ABSOLUTE AUTO 2.4 [facility] Lymphocytes/100 WBC (Bld) 30.3 % 20.5 - 60.0 % [facility] MCH (RBC) [Entitic mass] 29 pg 26.7 - 34.0 pg [facility] MCHC (RBC) [Mass/Vol] 34.1 g/dL 29.9 - 35.2 g/dL [facility] MCV (RBC) [Entitic vol] 85.2 fL 81.0 - 99.0 fL [facility] MONOCYTES ABSOLUTE AUTO 0.6 [facility] Monocytes/100 WBC (Bld) 7.5 % 1.7 - 12.0 % [facility] NEUTROPHILS ABSOLUTE AUTO 4.7 [facility] Neutrophils/100 WBC (Bld) 58.5 % 43.0 - 75.0 % [facility] Platelet mean volume (Bld) [Entitic vol] 10.7 fL 9.5 - 13.5 fL [facility] E[facility] # [facility] PLT 289 [facility] RBC 4.58 [facility] WBC 8 [facility] POCT urinalysis dipstick onl yon 01-22-2025 External Poct Urine Bilirubin Negative [facility] External Poct Urine Blood Negative [facility] External Poct Urine Glucose Negative [facility] External Poct Urine Ketones Negative [facility] External Poct Urine Leukocyte Esterase Negative [facility] External Poct Urine Nitrite Negative [facility] External Poct Urine Ph 7.5 [facility] External Poct Urine Protein Trace [facility] External Poct Urine Specific Nelson 1.01 [facility] External Poct Urine Urobilinogen 0.2 [facility] Interpretation and review of laboratory results Normal [facility] ECG 12-LEADon 01-16-2025 [place] [address] Electrocardiograph Report Signed Patient: AZALIA CASTRO MR#: [id number] : 1975 Acct:[id number] Age/Sex: 49 / F ADM Date: 01/16/25 Loc: [facility] Attending Dr: Justice Rod D.O. Ordering Physician: Justice Rod D.O. Date of Service: 01/16/25 Procedure(s): ECG 12 lead Accession Number(s): [id number] cc: 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 Measurements Intervals [place] Rate: 65 P: 11 OR: 140 QRS: 65 QRSD: 85 T: 51 QT: 371 QTc: 388 Interpretive Statements SINUS RHYTHM Normal ECG No previous ECG available for comparison Electronically Signed On 01-16-2025 19:49:55 EDT by STEPHANIE BERNABE M.D. Dictated By: STEPHANIE BERNABE Signed By: 01/16/251949 DD/ 15 TD/TT: Entry Level Marketing Assistant: [facility] Radiology, Radiologist, - 01/16/2025 [place] [address] Electrocardiograph Report Signed Patient: AZALIA CASTRO MR#: [id number] : 1975 Acct:[id number] Age/Sex: 49 / F ADM Date: 01/16/25 Loc: [facility] Attending Dr: Justice Rod D.O. Ordering Physician: Justice Rod D.O. Date of Service: 01/16/25 Procedure(s): ECG 12 lead Accession Number(s): [id number] cc: [facility] Test Date: 2025-01-16 Pat Name: AZALIA CASTRO Department: Room: - Gender: Female Presales Engineer: : 1975 Requested By: JUSTICE ROD Order Number: [id number] Reading MD: STEPHANIE BERNABE M.D. Measurements Intervals [place] Rate: 65 P: 11 OR: 140 QRS: 65 QRSD: 85 T: 51 QT: 371 QTc: 388 Interpretive Statements SINUS RHYTHM Normal ECG No previous ECG available for comparison Electronically Signed On 01-16-2025 19:49:55 EDT by STEPHANIE BERNABE M.D. Dictated By: STEPHANIE BERNABE Signed By: 01/16/251949 DD/ 15 TD/TT: Entry Level Marketing Assistant: [facility] Rad[facility] Study observation (narrative) [facility] ECG 12-LEADOrdered By: Radio logist Radiology on 01-16-2025 [facility] Work Phone: XR CHEST 2Von 01-16-[address] [address] XRay Report Signed Patient: AZALIA CASTRO MR#: [id number] : 1975 Acct:[id number] Age/Sex: 49 / F ADM Date: 01/16/25 Loc: PST Attending Dr: Justice Rod D.O. Ordering Physician: Justice Rod D.O. Date of Service: 01/16/25 Procedure(s): XR chest 2V Accession Number(s): [id number] cc: Justice Rod D.O.; Paul Mcgovern NP The [place] [id number] Patient Name: AZALIA CASTRO MRN: [facility]:[id number] date: 1975 Sex: F Assigned Patient Location: [facility] Current Patient Location: [facility] Accession/Order Number: [id number] Exam Date: 01/16/2025 14:35 Report Date: 01/16/2025 14:39 At the request of: JUSTICE ROD DO Procedure: XR chest 2V Chest 2 views CLINICAL HISTORY: Preop exam COMPARISON: None FINDINGS: Heart normal in size. Lungs are clear. No free air. XR/XR chest 2V IMPRESSION: NO ACUTE CARDIOPULMONARY ABNORMALITY. Impression dictated by: Johan Stevens Jr., D.O. 01/16/2025 2:39 PM Dictation Location: [place] [address] Electronically authenticated by: [id number] Y Date: 01/16/2025 14:39 Dictated By: Johan Stevens M.D. Signed By: 01/16/25 1441 DD/ 1439 TD/TT: Entry Level Marketing Assistant: [facility] Radiology, Radiologist, MD - 01/16/[address] [address] XRay Report Signed Patient: AZALIA CASTRO MR#: [id number] : 1975 Acct:[id number] Age/Sex: 49 / F ADM Date: 01/16/25 Loc: PST Attending Dr: Justice Rod D.O. Ordering Physician: Justice Rod D.O. Date of Service: 01/16/25 Procedure(s): XR chest 2V Accession Number(s): [id number] cc: Justice Rod D.O.; Paul Mcgovern NP [place] [id number] Patient Name: AZALIA CASTRO MRN: [facility]:[id number] date: 1975 Sex: F Assigned Patient Location: [facility] Current Patient Location: [facility] Accession/Order Number: [id number] Exam Date: 01/16/2025 14:35 Report Date: 01/16/2025 14:39 At the request of: JUSTICE ROD DO Procedure: XR chest 2V Chest 2 views CLINICAL HISTORY: Preop exam COMPARISON: None FINDINGS: Heart normal in size. Lungs are clear. No free air. XR/XR chest 2V IMPRESSION: NO ACUTE CARDIOPULMONARY ABNORMALITY. Impression dictated by: Johan Stevens Jr., D.O. 01/16/2025 2:39 PM Dictation Location: [place] [address] Electronically authenticated by: [id number] Y Date: 01/16/2025 14:39 Dictated By: Johan Stevens M.D. Signed By: 01/16/25 1441 DD/ 1439 TD/TT: Entry Level Marketing Assistant: [facility] Rad[facility] Study observation (narrative) [facility] XR CHEST 2VOrdered By: [employer] Radiology on 01-16-2025 [facility] [employer] Work Phone: US PELVIC COMPLETE W/ [...] II, MD, PHD at 16-Dec-2024 10:02:58 PM [facility] Normal Not Available Comment on above: Order Comment: US PE LVIS-TRANSVAG IF INDICATED Patient's last menstrual period was 11/11/2024. ALL CBC WITH AUTO DIFFon BASOPHILS ABSOLUTE AUTO 0 [facility] Basophils/100 WBC (Bld) 0.5 % 0.2 - 2.0 % [facility] Eosinophils/100 WBC (Bld) 1.9 % 0.9 - 7.0 % [facility] Erythrocyte distribution width (RBC) [Ratio] 12.8 % 11.0 - 15.0 % [facility] Hematocrit (Bld) [Volume fraction] 38.4 % 36.0 - 48.0 % [facility] Hem[facility] (Bld) [Mass/Vol] 13.1 g/dL 12.0 - 16.0 g/dL [facility] IMMATURE GRANULOCYTES ABS AUTO 0.02 [facility] Immature granulocytes/100 WBC (Bld) 0.3 % 0.0 - 0.5 % [facility] LYMPHOCYTES ABSOLUTE AUTO 2.3 [facility] Lymphocytes/100 WBC (Bld) 30.5 % 20.5 - 60.0 % [facility] MCH (RBC) [Entitic mass] 30.6 pg 26.7 - 34.0 pg [facility] MCHC (RBC) [Mass/Vol] 34.1 g/dL 29.9 - 35.2 g/dL [facility] MCV (RBC) [Entitic vol] 89.7 fL 81.0 - 99.0 fL [facility] MONOCYTES ABSOLUTE AUTO 0.5 [facility] Monocytes/100 WBC (Bld) 6.5 % 1.7 - 12.0 % [facility] NEUTROPHILS ABSOLUTE AUTO 4.5 [facility] Neutrophils/100 WBC (Bld) 60.3 % 43.0 - 75.0 % [facility] Platelet mean volume (Bld) [Entitic vol] 10.1 fL 9.5 - 13.5 fL [facility] EO # 0.1 [facility] PLT 354 [facility] RBC 4.28 [facility] WBC 7.4 [facility] CBC WITH AUTO DIFFERENTIALon 10-17-2024 BASOPHILS ABSOLUTE COUNT (10*3/UL) BY AUTOMATED COUNT 0.0 10*3/uL Normal [facility] Comment on above: Performed By: #### C BCA #### [facility] ([address] [place] [address] VIR BASOPHILS RELATIVE PERCENT BY AUTOMATED COUNT 0.5 % Normal [facility] Comment on above: Performed By: #### C BCA #### [facility] ([address] [address] VIR CELLAVISION DIFFERENTIAL TYPE AUTOMATED DIFFERENTIAL Normal [facility] Comment on above: Performed By: #### C BCA #### [facility] ([address] [place] [address] VIR Eosinophils (Bld) [#/Vol] 0.2 10*3/uL Normal [facility] Comment on above: Performed By: #### C BCA #### [facility] ([address] [address] VIR EOSINOPHILS RELATIVE PERCENT BY AUTOMATED COUNT 1.9 % Normal [facility] Comment on above: Performed By: #### C BCA #### [facility] ([address] [place] [address] VIR Erythrocyte distribution width (RBC) [Ratio] 13.2 % Normal 11.5-15 [facility] Comment on above: Performed By: #### C BCA #### [facility] ([address] [address] VIR Hematocrit (Bld) [Volume fraction] 36.0 % Normal 35-47 [facility] Comment on above: Performed By: #### C BCA #### [facility] ([address] [address] VIR Hemoglobin (Bld) [Mass/Vol] 12.7 g/dL Normal 11.7-15.5 [facility] Comment on above: Performed By: #### C BCA #### [facility] ([address] [address] VIR LYMPHOCYTES ABSOLUTE COUNT (10*3/UL) BY AUTOMATED COUNT 3.4 10*3/uL Normal [facility] Comment on above: Performed By: #### C BCA #### [facility] ([address] [address] VIR LYMPHOCYTES RELATIVE PERCENT BY AUTOMATED COUNT 38.1 % Normal [facility] Comment on above: Performed By: #### C BCA #### [facility] ([address] [address] VIR MCH (RBC) [Entitic mass] 31.3 pg Normal 27-34 [facility] Comment on above: Performed By: #### C BCA #### [facility] ([address] [address] VIR MCHC (RBC) [Mass/Vol] 35.3 g/dL Normal 32-36 [facility] Comment on above: Performed By: #### C BCA #### [facility] ([address] [address] VIR MCV (RBC) [Entitic vol] 89 fL Normal 80-100 [facility] Comment on above: Performed By: #### C BCA #### [facility] ([address] [place] [address] VIR MONOCYTES ABSOLUTE COUNT (10*3/UL) BY AUTOMATED COUNT 0.5 10*3/uL Normal [facility] Comment on above: Performed By: #### C BCA #### [facility] ([address] [place] [address] VIR MONOCYTES RELATIVE PERCENT BY AUTOMATED COUNT 6.0 % Normal [facility] Comment on above: Performed By: #### C BCA #### [facility] ([address] [place] [address] VIR NEUTROPHILS ABSOLUTE COUNT BY AUTOMATED COUNT 4.9 10*3/uL Normal [facility] Comment on above: Performed By: #### C BCA #### [facility] ([address] [address] VIR NEUTROPHILS RELATIVE PERCENT BY AUTOMATED COUNT 53.5 % Normal [facility] Comment on above: Performed By: #### C BCA #### [facility] ([address] [address] VIR Platelet mean volume (Bld) [Entitic vol] 8.7 fL Normal 7-12 [facility] Comment on above: Performed By: #### C BCA #### [facility] ([address] [place] [address] VIR Platelets (Bld) [#/Vol] 286 10*3/uL Normal 150-450 [facility] Comment on above: Performed By: #### C BCA #### [facility] ([address] [address] VIR RBC COUNT 4.05 X10E12/L Normal 3.8-5.2 [facility] Comment on above: Performed By: #### C BCA #### [facility] ([address] [place] [address] VIR WBC (Bld) [#/Vol] 9.1 10*3/uL Normal 4-11 [facility] Comment on above: Performed By: #### C BCA #### [facility] ([place] [address] [place] [address] VIR COMPREHENSIVE METABOLIC PANE Edu 10-17-2024 Albumin [Mass/Vol] 3.4 g/dL Normal 3.2-5.3 [facility] Comment on above: Performed By: #### C MP #### [facility] ([address] [place] [address] VIR ALP [Catalytic activity/Vol] 52 U/L Normal 39-130 [facility] Comment on above: Performed By: #### C MP #### [facility] ([address] [place] [address] VIR ALT [Catalytic activity/Vol] 37 U/L High <=31 [facility] Comment on above: Performed By: #### C MP #### [facility] ([place] [address] [place] [address] VIR Anion gap [Moles/Vol] 8 mmol/L Normal 5-15 [facility] Comment on above: Performed By: #### C MP #### [facility] ([address] [place] [address] VIR AST [Catalytic activity/Vol] 24 U/L Normal <=41 [facility] Comment on above: Performed By: #### C MP #### [facility] ([place] [address] [place] [address] VIR Bilirubin [Mass/Vol] 0.2 mg/dL Low 0.3-1.2 [facility] Comment on above: Performed By: #### C MP #### [facility] ([place] [address] [place] [address] VIR Calcium [Mass/Vol] 7.9 mg/dL Low 8.5-10.5 [facility] Comment on above: Performed By: #### C MP #### [facility] ([address] [place] [address] VIR Chloride [Moles/Vol] 107 mmol/L Normal 98-109 [facility] Comment on above: Performed By: #### C MP #### [facility] ([address] [place] [address] VIR CO2 [Moles/Vol] 22 mmol/L Normal 22-32 [facility] Comment on above: Performed By: #### C MP #### [facility] ([address] [address] VIR Creatinine [Mass/Vol] 0.59 mg/dL Normal 0.40-1.00 [facility] Comment on above: Result Comment: METH OD TRACEABLE TO IDMS STANDARD Performed By: #### C MP #### [facility] ([address] [place] [address] VIR EGFR (CKD-EPI) NON-RACE DEPENDENT >^90 Normal >=60 [facility] Comment on above: Result Comment: eGFR not reported due to non-numeric value for Creatinine. Reported eGFR is based on the CKD-EPI 2021 equation that does not use a race coefficient. Performed By: #### C MP #### [facility] ([address] [place] [address] VIR Glucose [Mass/Vol] 132 mg/dL High 65-99 [facility] Comment on above: Performed By: #### C MP #### [facility] ([address] [place] [address] VIR Potassium [Moles/Vol] 3.3 mmol/L Low 3.5-5.0 [facility] Comment on above: Performed By: #### C MP #### [facility] ([place] [address] [place] [address] VIR Protein [Mass/Vol] 6.0 g/dL Normal 6.0-8.0 [facility] Comment on above: Performed By: #### C MP #### [facility] ([address] [place] [address] VIR Sodium [Moles/Vol] 137 mmol/L Normal 134-146 [facility] Comment on above: Performed By: #### C MP #### [facility] ([address] [place] [address] VIR Urea nitrogen [Mass/Vol] 11 mg/dL Normal 5-23 [facility] Comment on above: Performed By: #### C MP #### [facility] ([address] [place] [address] VIR ETHANOLon 10-17-2024 Ethanol [Mass/Vol] mg/dL Normal <=0.080 [facility] Comment on above: Result Comment: This report is intended for use in clinical monitoring or management of patients. Performed By: #### A LCO #### [facility] ([address] [place] [address] VIR MAGNESIUMon 10-17-2024 Magnesium [Mass/Vol] 1.9 mg/dL Normal 1.8-2.6 [facility] Comment on above: Performed By: #### M G #### [facility] ([address] [place] [address] VIR THYROID PROFILE INCLUDES TSH FT4on 10-17-2024 Free T4 [Mass/Vol] 1.02 ng/dL Normal 0.61-1.60 [facility] Comment on above: Performed By: #### T HYR #### [facility] ([address] [place] [address] VIR TSH 5.77 uIU/mL High 0.49-4.67 [facility] Comment on above: Performed By: #### T HYR #### [facility] ([facility] [place]) [address] [place] [address]. [place] [address] VIR TROP I, HIGH SENSITIVITY 1 H OURon 10-17-2024 TROPONIN I, HIGH SENSITIVITY 3 ng/L Normal <16 [facility] Comment on above: Performed By: #### T NIHS1 #### [facility] ([facility] [place]) [address] [place] [address]. [place] [address] VIR TROPONIN I, HIGH SENSITIVITY 0 HOURon 10-17-2024 TROPONIN I, HIGH SENSITIVITY <^2 Normal <16 [facility] Comment on above: Performed By: #### T NIHS0 #### [facility] ([address] [place] [address] VIR BASIC METABOLIC PANLon 09-21 Anion gap [Moles/Vol] 9 mmol/L Normal 5-15 [facility] Comment on above: Performed By: #### C BCA, BMP #### [facility] ([id number]) [address], [address] [place] [address] Calcium [Mass/Vol] 9.8 mg/dL Normal 8.5-10.5 [facility] Comment on above: Performed By: #### C BCA, BMP #### [facility] ([id number]) [address], [address] [place] [address] Chloride [Moles/Vol] 101 mmol/L Normal 98-109 [facility] Comment on above: Performed By: #### C BCA, BMP #### [facility] ([id number]) [address], [address] [place] [address] CO2 [Moles/Vol] 27 mmol/L Normal 22-32 [facility] Comment on above: Performed By: #### C BCA, BMP #### [facility] ([id number]) [address] [place] [address] Creatinine [Mass/Vol] 0.79 mg/dL Normal 0.40-1.00 [facility] Comment on above: Result Comment: METH OD TRACEABLE TO IDMS STANDARD Performed By: #### C JUJU, BMP #### [facility] ([id number]) [address] [address] [place] [address] eGFR (CKD-EPI) NON-RACE DEPENDENT >90 Normal >59 [facility] Comment on above: Result Comment: Reported eGFR is based on the CKD-EPI 2020 equation that does not use a race coefficient. Performed By: #### C JUJU, BMP #### [facility] ([id number]) [address] [place] [address] Glucose [Mass/Vol] 133 mg/dL High 65-99 [facility] Comment on above: Performed By: #### Doron MATUTE, BMP #### [facility] ([id number]) [address] [place] [address] Potassium [Moles/Vol] 4.1 mmol/L Normal 3.5-5.0 [facility] Comment on above: Performed By: #### C JUJU, BMP #### [facility] ([id number]) [address] [facility] [address] [place] [address] Sodium [Moles/Vol] 137 mmol/L Normal 134-146 [facility] Comment on above: Performed By: #### C JUJU, BMP #### [facility] ([id number]) [address] [place] [address] Urea nitrogen [Mass/Vol] 11 mg/dL Normal 5-23 [facility] Comment on above: Performed By: #### Doron MATUTE, BMP #### [facility] ([id number]) [address] [facility] [place] [address] CBC AND AUTO DIFFon 09-22-19 25 ABSOLUTE BASOPHIL 0.0 X10E9/L Normal 0.0-0.2 [facility] Comment on above: Performed By: #### C JUJU, BMP #### [facility] ([id number]) [address] [place] [address] ABSOLUTE NEUTROPHIL 5.5 X10E9/L Normal 1.5-6.6 [facility] Comment on above: Performed By: #### C JUJU, BMP #### [facility] ([id number]) [address] [place] [address] Basophils/100 WBC (Bld) 0.4 % Normal [facility] Comment on above: Performed By: #### C JUJU, BMP #### [facility] ([id number]) [address] [place] [address] Eosinophils (Bld) [#/Vol] 0.2 10*3/uL Normal 0.0-0.4 [facility] Comment on above: Performed By: #### C JUJU, BMP #### [facility] ([id number]) [address] [facility] [address] [place] [address] Eosinophils/100 WBC (Bld) 2.2 % Normal [facility] Comment on above: Performed By: #### C JUJU, BMP #### [facility] ([id number]) [address] [place] [address] Erythrocyte distribution width (RBC) [Ratio] 13.2 % Normal 11.5-15.0 [facility] Comment on above: Performed By: #### C BCA, BMP #### [facility] ([id number]) [address] [place] [address] Hematocrit (Bld) [Volume fraction] 40.8 % Normal 35-47 [facility] Comment on above: Performed By: #### C BCA, BMP #### [facility] ([id number]) [address] [place] [address] Hemoglobin (Bld) [Mass/Vol] 13.8 g/dL Normal 11.7-15.5 [facility] Comment on above: Performed By: #### C JUJU, BMP #### [facility] ([id number]) [address] [place] [address] Lymphocytes (Bld) [#/Vol] 1.7 10*3/uL Normal 1.0-3.5 [facility] Comment on above: Performed By: #### C JUJU, BMP #### [facility] ([id number]) [address] [place] [address] Lymphocytes/100 WBC (Bld) 21.6 % Normal [facility] Comment on above: Performed By: #### C JUJU, BMP #### [facility] ([id number]) [address], [address] [place] [address] MCH (RBC) [Entitic mass] 30.3 pg Normal 27-34 [facility] Comment on above: Performed By: #### C JUJU, BMP #### [facility] ([id number]) [address] [place] [address] MCHC (RBC) [Mass/Vol] 33.8 g/dL Normal 32-36 [facility] Comment on above: Performed By: #### C JUJU, BMP #### [facility] ([id number]) [address] [place] [address] MCV (RBC) [Entitic vol] 90 fL Normal 80-100 [facility] Comment on above: Performed By: #### C JUJU, BMP #### [facility] ([id number]) [address] [place] [address] Monocytes (Bld) [#/Vol] 0.5 10*3/uL Normal 0-0.9 [facility] Comment on above: Performed By: #### C JUJU, BMP #### [facility] ([id number]) [address] [place] [address] Monocytes/100 WBC (Bld) 6.6 % Normal [facility] Comment on above: Performed By: #### C JUJU, BMP #### [facility] ([id number]) [address] [place] [address] Neutrophils/100 WBC (Bld) 69.2 % Normal [facility] Comment on above: Performed By: #### C JUJU, BMP #### [facility] ([id number]) [address] [place] [address] Platelet mean volume (Bld) [Entitic vol] 9.5 fL Normal 7-12 [facility] Comment on above: Performed By: #### C JUJU, BMP #### [facility] ([id number]) [address] [place] [address] Platelets (Bld) [#/Vol] 248 10*3/uL Normal 150-450 [facility] Comment on above: Performed By: #### C UJJU, BMP #### [facility] ([id number]) [address] [place] [address] RBC COUNT 4.54 X10E12/L Normal 3.80-5.20 [facility] Comment on above: Performed By: #### C JUJU, BMP #### [facility] ([id number]) [address] [place] [address] WBC (Bld) [#/Vol] 7.9 10*3/uL Normal 4.0-11.0 [facility] Comment on above: Performed By: #### C JUJU, BMP #### [facility] ([id number]) [address] [place] [address] MM TOMOSYNTHESIS SCREENING B Ion 08-30-2024 [place] [id number] Mammography Report Signed Patient: AZALIA CASTRO MR#: [id number] : 1975 Acct:[id number] Age/Sex: 48 / F ADM Date: 08/28/24 Loc: MAMMO Attending Dr: Justice Rod D.O. Ordering Physician: Justice Rod D.O. Results: Date of Service: 08/28/24 Follow Up: Procedure(s): MM tomosynthesis screening BI Accession Number(s): [id number] cc: Justice Rod D.O.; Physician,Non-Staff Briana Patient Name: AZALIA CASTRO MR#: [id number] : 1975 Exam Date: 08/28/2024 Ordering Doctor: [...] Treatments None Family Cancers None LOCATION: [facility] BREAST COMPOSITION: The breasts are extremely dense, [...] M.D. Signed By: 08/30/24 0947 DD/ TD/TT: Entry Level Marketing Assistant: [facility] Radiology, Radiologist, MD - 08/30/2024 [place] [address] Mammography Report Signed Patient: AZALIA CASTRO MR#: [id number] : 1975 Acct:[id number] Age/Sex: 48 / F ADM Date: 08/28/24 Loc: MAMMO Attending Dr: Justice Rod D.O. Ordering Physician: Justice Rod D.O. Results: Date of Service: 08/28/24 Follow Up: Procedure(s): MM tomosynthesis screening BI Accession Number(s): [id number] cc: Justice Rod D.O.; Physician,Non-Staff Briana Patient Name: AZALIA CASTRO MR#: [id number] : 1975 Exam Date: 08/28/2024 Ordering Doctor: [...] Treatments None Family Cancers None LOCATION: [facility] BREAST COMPOSITION: The breasts are extremely dense, [...] M.D. Signed By: 08/30/24 0947 DD/ TD/TT: Entry Level Marketing Assistant: [facility] Radiology Study observation (narrative) [facility] MM TOMOSYNTHESIS SCREENING B IOrdered By: Radiologist Radiology on 08-30-2024 [facility] Work Phone: IGP,APTIMA HPV,AGE GDLNon AGE GDLN ACOG TESTING Note . [facility] Trelligence Comment on above: TESTS RESULT FLAG UN ITS REF RANGE LAB Clinician Provided Cytology Information Source.............Cervix;Endocervix No. of containers..01 ThinPrep Vial Age Algo ACOG Keli... FLAG LEGEND: L-Low Normal,H-High Normal,LL-Alert Low,HH-Alert High <-Panic Low,>-Panic High,A-Abnormal,AA-Critical Abnormal Performed at: 01 =[address] [address] Hattie Mccabe MD, HPV APTIMA Negative Negative [facility] Comment on above: This nucleic acid am plification test detects fourteen high- risk HPV types (16,18,31,33,35,39,45,51,52,56,58,59,66,68) without differentiation. Performed at: =[address] [id number] [employer] Application Engineer: Hattie Mccabe MD, Phone: [phone] Performed at: [address] [id number] [employer] Application Engineer: Hattie Mccabe MD, Phone: [phone] IGP, APTIMA HPV, RFX 16/18,45 Note . [facility] Comment on above: TESTS RESULT FLAG UN ITS REF RANGE LAB DIAGNOSIS: 02 NEGATIVE FOR INTRAEPITHELIAL LESION OR MALIGNANCY. CELLULAR CHANGES ASSOCIATED WITH INFLAMMATION ARE PRESENT. Specimen adequacy: 02 Satisfactory for evaluation. Endocervical and/or squamous metaplastic cells (endocervical component) are present. Performed by: 02 Fausto Montenegro, Fagot Maker ([facility]) . 02 Note: Note 02 The [...] High,A-Abnormal,AA-Critical Abnormal Performed at: 02 WB [facility] [address] [address] Hattie Mccabe MD, BRUSH-SPATULA CERVIX ENDOCERVIX [facility] PAP ACOG PANEL 2: 30 to 65on 05-01-[address] [facility] Comment on above: Result Comment: Perf ormed at: BA Performed By: #### 4 [id number] #### [facility] [address] [place] [address] Dr. Mane Mueller Age Gdln ACOG Testing 30-65 [facility] Comment on above: Performed By: #### 4 [id number] #### [facility] [address] [place] [address] Dr. Mane Mueller DIAGNOSIS: Comment Normal [facility] Comment on above: Result Comment: NEGA TIVE FOR INTRAEPITHELIAL LESION OR MALIGNANCY. Performed at: BA Performed By: #### 4 [id number] #### [facility] [address] [place] [address] Dr. Mane Mueller HPV Aptima Negative Normal Negative [facility] Comment on above: Result Comment: This nucleic acid amplification test detects fourteen high-risk HPV types (16,18,31,33,35,39,45,51,52,56,58,59,66,68) without differentiation. Performed at: =G Performed By: #### 4 [id number] #### [facility] [address] [place] [address] Dr. Mane Mueller HPV Genotype Reflex Comment Normal [facility] Comment on above: Result Comment: Crit eria not met, HPV Genotype not performed. Performed at: BA Performed By: #### 4 [id number] #### [facility] [address] [place] [address] Dr. Mane Mueller Methodology: Comment Normal [facility] Comment on above: Result Comment: This liquid based ThinPrep(R) pap test was screened with the use of an image guided system. Performed at: WB Performed By: #### 4 [id number] #### [facility] [address] [place] [address] Dr. Mane Mueller Note: Comment Normal [facility] Comment on above: Result Comment: The Pap smear is a screening test designed to aid in the detection of premalignant and malignant conditions of the uterine cervix. It is not a diagnostic procedure and should not be used as the sole means of detecting cervical cancer. Both false-positive and false-negative reports do occur. . Performed at: WB Performed By: #### 4 [id number] #### [facility] [address] [place] [address] Dr. Mane Mueller Performed by: Comment Normal [facility] Comment on above: Result Comment: Beau Jeffries, Fagot Maker ([facility]) Performed at: BA Performed By: #### 4 [id number] #### [facility] [address] [place] [address] Dr. Mane Mueller Specimen adequacy: Comment Normal [facility] Comment on above: Result Comment: Sati sfactory for evaluation. Endocervical and/or squamous metaplastic cells (endocervical component) are present. Performed at: BA Performed By: #### 4 [id number] #### [facility] [address] [place] [address] Dr. Mane Mueller CHLAMYDIA/GONOCOCCUS MARYELLEN (SW AB/URINE/PAPon 02-19-2022 Chlamydia trachomatis, MARYELLEN Negative Normal Negative [facility] Comment on above: Performed By: #### C T/NGNA #### [facility] [address] [place] [address] Dr. Mane Mueller Neisseria gonorrhoeae, MARYELLEN Negative Normal Negative [facility] Comment on above: Performed By: #### C T/NGNA #### [facility] [address] [place] [address] Dr. Mane Mueller VAGINITIS/VAGINOSIS DNA PROB Rigo 02-19-2022 Sandra species Negative Normal Negative [facility] Comment on above: Performed By: #### V AGINT #### [facility] [address] [place] [address] Dr. Mane Mueller Gardnerella vaginalis Negative Normal Negative [facility] Comment on above: Performed By: #### V AGINT #### [facility] [address] [place] [address] Dr. Mane Mueller Trichomonas vaginalis Positive Abnormal Negative [facility] Comment on above: Performed By: #### V AGINT #### [facility] [address] [place] [address] Dr. Mane Mueller CBC AUTO DIFFon 07-17-2021 BASO # 0.0 103/ul Normal 0.0-0.1 [facility] Comment on above: Performed By: #### C BC #### [facility] [address] [place] [address] Dr. Mane Mueller Basophils/100 WBC (Bld) 0.3 % Normal 0.2-2.0 [facility] Comment on above: Performed By: #### C BC #### [facility] [address] [place] [address] Dr. Mane Mueller EO # 0.3 103/ul Normal 0.0-0.7 [facility] Comment on above: Performed By: #### C BC #### [facility] [address] [place] [address] Dr. Mane Mueller Eosinophils/100 WBC (Bld) 2.9 % Normal 0.9-7.0 [facility] Comment on above: Performed By: #### C BC #### [facility] [address] [place] [address] Dr. Mane Mueller Erythrocyte distribution width (RBC) [Ratio] 14.2 % Normal 11.0-15.0 [facility] Comment on above: Performed By: #### C BC #### [facility] [address] [place] [address] Dr. Mane Mueller Hematocrit (Bld) [Volume fraction] 40.3 % Normal 36.0-48.0 [facility] Comment on above: Performed By: #### C BC #### [facility] [address] [place] [address] Dr. Mane Mueller Hemoglobin (Bld) [Mass/Vol] 13.1 g/dL Normal 12.0-16.[address] [facility] Comment on above: Performed By: #### C BC #### [facility] [address] [place] [address] Dr. Mane Mueller IG # 0.02 10e3/ul Normal 0.00-0.03 [facility] Comment on above: Performed By: #### C BC #### [facility] [address] [place] [address] Dr. Mane Mueller IG % 0.2 % Normal 0.0-0.5 [facility] Comment on above: Performed By: #### C BC #### [facility] [address] [place] [address] Dr. Mane Mueller LYMPH # 2.9 103/ul Normal 1.2-3.8 [facility] Comment on above: Performed By: #### C BC #### [facility] [address] [place] [address] Dr. Mane Mueller Lymphocytes/100 WBC (Bld) 30.7 % Normal 20.5-60.0 [facility] Comment on above: Performed By: #### C BC #### [facility] [address] [place] [address] Dr. Mane Mueller MANUAL DIFF REQ NO Normal [facility] Comment on above: Performed By: #### C BC #### [facility] [address] [place] [address] Dr. Mane Mueller MCH (RBC) [Entitic mass] 27.9 pg Normal 26.7-34.0 [facility] Comment on above: Performed By: #### C BC #### [facility] [address] [place] [address] Dr. Mane Mueller MCHC (RBC) [Mass/Vol] 32.5 g/dL Normal 29.9-35.[address] [facility] Comment on above: Performed By: #### C BC #### [facility] [address] [place] [address] Dr. Mane Mueller MCV (RBC) [Entitic vol] 85.7 fL Normal 81.0-99.0 [facility] Comment on above: Performed By: #### C BC #### [facility] [address] [place] [address] Dr. Mane Mueller MONO # 0.7 103/ul Normal 0.3-0.8 [facility] Comment on above: Performed By: #### C BC #### [facility] [address] [place] [address] Dr. Mane Mueller Monocytes/100 WBC (Bld) 7.7 % Normal 1.7-12.0 [facility] Comment on above: Performed By: #### C BC #### [facility] [address] [place] [address] Dr. Mane Mueller NEUT # 5.5 103/ul Normal 1.4-6.5 [facility] Comment on above: Performed By: #### C BC #### [facility] [address] [place] [address] Dr. Mane Mueller Neutrophils/100 WBC (Bld) 58.2 % Normal 43.0-75.0 [facility] Comment on above: Performed By: #### C BC #### [facility] [address] [place] [address] Dr. Mane Mueller Platelet mean volume (Bld) [Entitic vol] 9.6 fL Normal 9.5-13.5 [facility] Comment on above: Performed By: #### C BC #### [facility] [address] [place] [address] Dr. Mane Mueller PLT 349 103/ul Normal 150-450 [facility] Comment on above: Performed By: #### C BC #### [facility] [address] [place] [address] Dr. Mane Mueller RBC 4.70 106/ul Normal 4.20-5.40 [facility] Comment on above: Performed By: #### C BC #### [facility] [address] [place] [address] Dr. Mane Mueller WBC 9.4 103/ul Normal 4.0-11.[address] [facility] Comment on above: Performed By: #### C BC #### [facility] [address] [place] [address] Dr. Mane Mueller PREG QUANT HCGon 07-17-2021 HCG QUANT 1 mIU/mL Normal [facility] Comment on above: Performed By: #### P REGQNT #### [facility] [address] [place] [address] Dr. Mane Mueller HCG RANGE SEE BELOW Normal [facility] Comment on above: Result Comment: 5-50 0-1 WEEK 40-300 1-2 WEEKS 100-1,000 2-3 WEEKS 500-6,000 3-4 WEEKS 5,000-200,000 1-2 MONTHS 10,000-100,000 2-3 MONTHS 3,000-50,000 2ND TRIMESTER 1,000-50,000 3RD TRIMESTER Performed By: #### P REGQNT #### [facility] [address] [address] [address] Mane Mueller Covid-19 PCR ([facility])on 06-21 SARS-CoV-2 (COVID-19) RNA MARYELLEN+probe Ql (Unsp spec) Not detected Normal NOT DETECTED [facility] Comment on above: Result Comment: This test is not yet approved or cleared by the [place] FDA. When there are no FDA-approved or cleared tests available, and other criteria are met, FDA can make tests available under an emergency access mechanism called an Emergency Use Authorization (EUA). The EUA for this test is supported by the [place] of Health and Human Service's (HHS's) declaration [...] consistent with SARS-CoV-2. Performed By: #### C VDTB #### [facility] [address] [place], [place] [address] Dr. Mane Mueller MG MAMM SCREEN 3D YUDI CADon 05-08-2021 MG MAMM SCREEN 3D YUDI CAD Patient: AZALIA CASTRO Exam Date: 05/08/2021 : 1975 Gender:F Ordering : DR JUSTICE ROD . Admission #: [id number] Family : Order #: [id number] CLICK HERE TO VIEW EXAM RADIOLOGY REPORT [...] No Treatments None Family Cancers None LOCATION: [facility] BREAST COMPOSITION: Extremely dense, which lowers [...] Marcano MD on 05/08/2021 at 11:[address] [facility] Vital Signs Date Time Vital Sign Value Performing Clinician Facility 02-11-2025 08:47-0400 Body mass index (BMI) [Ratio] 29.62 kg/m2 [employer] DO Work Phone: [facility] 02-11-2025 08:47-0400 Body weight 85.78 kg [employer] Work Phone: [facility] 02-11-2025 08:47-0400 Diastolic blood pressure 76 mm[Hg] [facility] Work Phone: [facility] 02-11-2025 08:47-0400 Systolic blood pressure 120 mm[Hg] [employer] Work Phone: [facility] 01-22-2025 14:56-0400 Body mass index (BMI) [Ratio] 29.7 kg/m2 Paul Mcgovern HEAVY CLEANER-TUFT MACHINE OPERATOR Work Phone: [facility] 01-22-2025 14:56-0400 Body weight 83.46 kg Paul Mcgovern HEAVY CLEANER-TUFT MACHINE OPERATOR Work Phone: [facility] 01-22-2025 14:56-0400 Diastolic blood pressure 72 mm[Hg] Paul Mcgovern HEAVY CLEANER-TUFT MACHINE OPERATOR Work Phone: [facility] [employer] [facility] 01-22-2025 14:56-0400 Heart rate 79 /min Paul Mcgovern APRN-TUFT MACHINE OPERATOR Work Phone: [facility] 01-22-2025 14:56-0400 Respiratory rate 16 /min Paul Mcgovern APRN-TUFT MACHINE OPERATOR Work Phone: [facility] 01-22-2025 14:56-0400 SaO2% (BldA) [Mass fraction] 98 % Paul Mcgovern APRN-TUFT MACHINE OPERATOR Work Phone: [facility] 01-22-2025 14:56-0400 Systolic blood pressure 124 mm[Hg] Paul Mcgovern APRN-TUFT MACHINE OPERATOR Work Phone: [facility] 01-07-2025 10:34-0400 Body mass index (BMI) [Ratio] 29.05 kg/m2 Justice Viola DO Work Phone: [facility] 01-07-2025 10:34-0400 Body weight 84.14 kg Justice Viola DO Work Phone: [facility] 01-07-2025 10:34-0400 Diastolic blood pressure 84 mm[Hg] Justice Viola DO Work Phone: [facility] 01-07-2025 10:34-0400 Systolic blood pressure 122 mm[Hg] Justice Viola DO Work Phone: [facility] 01-01-2025 14:53-0400 Body mass index (BMI) [Ratio] 28.51 kg/m2 Justice Viola DO Work Phone: [facility] 01-01-2025 14:53-0400 Body weight 82.56 kg Justice Viola DO Work Phone: [facility] 01-01-2025 14:53-0400 Diastolic blood pressure 76 mm[Hg] Justice Viola DO Work Phone: [facility] 01-01-2025 14:53-0400 Systolic blood pressure 124 mm[Hg] Justice Viola DO Work Phone: [facility] 12-24-2024 15:31-0400 Body mass index (BMI) [Ratio] 30.51 kg/m2 Paul Leacher HEAVY CLEANER-TUFT MACHINE OPERATOR Work Phone: [facility] 12-24-2024 15:31-0400 Body weight 85.73 kg Paul Ruizchter HEAVY CLEANER-TUFT MACHINE OPERATOR Work Phone: [facility] 12-24-2024 15:31-0400 Diastolic blood pressure 76 mm[Hg] Paul Ruizchter HEAVY CLEANER-TUFT MACHINE OPERATOR Work Phone: [facility] 12-24-2024 15:31-0400 Heart rate 76 /min Paul Josephchter HEAVY CLEANER-TUFT MACHINE OPERATOR Work Phone: [facility] 12-24-2024 15:31-0400 Respiratory rate 16 /min Paul Hayleeer HEAVY CLEANER-TUFT MACHINE OPERATOR Work Phone: [facility] 12-24-2024 15:31-0400 SaO2% (BldA) [Mass fraction] 99 % Paul Ruizchter HEAVY CLEANER-TUFT MACHINE OPERATOR Work Phone: [facility] 12-24-2024 15:31-0400 Systolic blood pressure 128 mm[Hg] Paul Mcgovern HEAVY CLEANER-TUFT MACHINE OPERATOR Work Phone: [facility] 11-29-2024 09:15-0400 Body height 170.2 cm Justice Viola DO Work Phone: [facility] 11-29-2024 09:15-0400 Body mass index (BMI) [Ratio] 29.13 kg/m2 Justice Viola DO Work Phone: [facility] 11-29-2024 09:15-0400 Body weight 84.37 kg Justice Viola DO Work Phone: [facility] 11-29-2024 09:15-0400 Diastolic blood pressure 76 mm[Hg] Justice Viola DO Work Phone: [facility] [facility] 11-29-2024 09:15-0400 Systolic blood pressure 110 mm[Hg] Justice Viola DO Work Phone: [facility] 11-28-2024 12:58-0400 Body mass index (BMI) [Ratio] 30.51 kg/m2 Paul Ruizchter HEAVY CLEANER-TUFT MACHINE OPERATOR Work Phone: [facility] 11-28-2024 12:58-0400 Body weight 85.73 kg Paul Ruizchter HEAVY CLEANER-TUFT MACHINE OPERATOR Work Phone: [facility] 11-28-2024 12:58-0400 Diastolic blood pressure 76 mm[Hg] Paul Josephchter HEAVY CLEANER-TUFT MACHINE OPERATOR Work Phone: [facility] 11-28-2024 12:58-0400 Heart rate 88 /min Paul Josephchter HEAVY CLEANER-TUFT MACHINE OPERATOR Work Phone: [facility] 11-28-2024 12:58-0400 Respiratory rate 18 /min Paul Mariannelachter HEAVY CLEANER-TUFT MACHINE OPERATOR Work Phone: [facility] 11-28-2024 12:58-0400 SaO2% (BldA) [Mass fraction] 96 % Paul Ruizchter HEAVY CLEANER-TUFT MACHINE OPERATOR Work Phone: [facility] 11-28-2024 12:58-0400 Systolic blood pressure 128 mm[Hg] Paul Ruizchter HEAVY CLEANER-TUFT MACHINE OPERATOR Work Phone: [facility] 05-16-2024 16:14-0500 Body mass index (BMI) [Ratio] 28.43 kg/m2 Justice Viola DO Work Phone: [facility] 05-16-2024 16:14-0500 Body weight 79.89 kg Justice Viola DO Work Phone: [facility] 05-16-2024 16:14-0500 Diastolic blood pressure 64 mm[Hg] Justice Viola DO Work Phone: [facility] 05-16-2024 16:14-0500 Systolic blood pressure 118 mm[Hg] Justice Viola DO Work Phone: [facility] Encounters Encounter Date Encounter Type Care Provider Facility Start: 02-11-2025 End: 02-11-2025 Office outpatient visit 15 minutes Justice Viola DO Work Phone: [facility] Carol CARPIO Comment on above: Pre-op examination; Menorrhagia with regular cycle; Dyspareunia in female; Pelvic pain; Dysmenorrhea Start: 02-11-2025 End: 02-11-2025 Preprocedural examination done Justice Viola DO Work Phone: [facility] Start: 02-11-2025 End: 02-11-2025 ambulatory JUSTICE VIOLA Not Available Start: 01-30-2025 End: 01-30-2025 Clinisync Result Encounter Justice Viola DO Work Phone: [facility] External Department Unsolicited Start: 01-30-2025 End: 01-30-2025 Clinisync Result Encounter Justice Viola DO Work Phone: [facility] External Department Unsolicited Start: 01-22-2025 End: 01-22-2025 Office outpatient visit 25 minutes Paul Mcgovern HEAVY CLEANER-TUFT MACHINE OPERATOR Work Phone: [facility] Comment on above: Pre-operative cleara nce (Primary Dx); Anxiety; Gastroesophageal reflux disease, unspecified whether esophagitis present Start: 01-22-2025 End: 01-22-2025 Preoperative state Paul [employer] HEAVY CLEANER-TUFT MACHINE OPERATOR Work Phone: [facility] Work Phone: Start: 01-16-2025 End: 01-16-2025 Clinisync Result Encounter Justice Viola DO Work Phone: [facility] External Department Unsolicited Start: 01-16-2025 End: 01-16-2025 Clinisync Result Encounter Justice Viola DO Work Phone: [facility] External Department Unsolicited Start: 01-07-2025 End: 01-07-2025 Office outpatient visit 15 minutes Justice Viola DO Work Phone: [facility] Comment on above: Pre-op examination; Menorrhagia with irregular cycle; Thickened endometrium Start: 01-07-2025 End: 01-07-2025 Preprocedural examination done Justice Viola DO Work Phone: [facility] Healthcare Start: 01-07-2025 End: 01-07-2025 ambulatory JUSTICE VIOLA Not Available Start: 01-01-2025 End: 01-01-2025 Office outpatient visit 15 minutes Justice Viola DO Work Phone: [facility] Comment on above: Encounter to discuss test results; Menorrhagia with irregular cycle; Thickened endometrium Start: 01-01-2025 End: 01-01-2025 ambulatory JUSTICE VIOLA Not Available Start: 01-01-2025 End: 01-01-2025 Bamboo flowsheet Justice Viola DO Work Phone: [facility] Start: 01-01-2025 End: 01-01-2025 Bamboo flowsheet Justice Viola DO Work Phone: [facility] Start: 12-24-2024 End: 12-24-2024 [facility] Work Phone: [facility] Comment on above: Anxiety (Primary Dx) Start: 12-24-2024 End: 12-24-2024 ambulatory [facility] Start: 12-13-2024 End: 12-13-2024 ambulatory JUSTICE VIOLA Not Available Start: 11-29-2024 End: 11-29-2024 Bamboo flowsheet Justice Viola DO Work Phone: [facility] Start: 11-29-2024 End: 11-29-2024 Bamboo flowsheet Justice Viola DO Work Phone: [facility] Start: 11-29-2024 End: 11-29-2024 Clinisync Result Encounter Justice Viola DO Work Phone: [facility] External Department Unsolicited Start: 11-29-2024 End: 11-29-2024 Office outpatient visit 15 minutes Justice Viola DO Work Phone: [facility] Comment on above: Menorrhagia with irr egular cycle; History of endometrial ablation; H/O tubal ligation; Fatigue, unspecified type Start: 11-29-2024 End: 11-29-2024 ambulatory JUSTICE VIOLA Not Available Start: 11-28-2024 End: 11-28-2024 Office outpatient visit 25 minutes [facility] Work Phone: [facility] Comment on above: Anxiety (Primary Dx) ; Chest pain, unspecified type; Hypothyroidism, unspecified type Start: 11-28-2024 End: 11-28-2024 ambulatory [facility] Start: 11-20-2024 ambulatory [facility] Start: 11-19-2024 ambulatory [facility] Start: 10-17-2024 End: 10-17-2024 Emergency department patient visit [facility] Start: 09-21-2024 End: 09-21-[address] [facility] Start: 09-12-2024 ambulatory [place] [facility] Start: 08-30-2024 End: 08-30-2024 Clinisync Result [...] for preprocedural laboratory examination DR JUSTICE ROD [facility] Start: 07-15-2021 Encounter for other preprocedural examination DR JUSTICE ROD [facility] Start: 07-14-2021 End: 07-15-[address] JUSTICE ROD Facility:[facility]1 Start: 07-14-2021 End: 07-15-2021 Encounter for preprocedural laboratory examination DR JUSTICE ROD Facility:[facility] Start: 07-10-2021 End: 07-11-[address] JUSTICE ROD Facility:[facility] Start: 07-10-2021 End: 07-11-2021 Encounter for other preprocedural examination DR JUSTICE ROD Facility:[facility] Start: 05-08-2021 End: 05-09-[address] JUSTICE ROD Facility:[facility] Procedures Date Procedure Procedure Detail Performing Clinician Start: 01-30-2025 ALL CBC WITH AUTO DIFF Justice Viola DO Work Phone: Start: 01-22-2025 Urnls dip stick/tabl et rgnt non-auto w/o micrscp Paul Mcgovern HEAVY CLEANER-[facility] Work Phone: Start: 01-22-2025 Adult depression scr eening assessment Paul Mcgovern HEAVY CLEANER-[facility] Work Phone: Start: 01-16-2025 XR CHEST 2V [...] Work Phone: Start: 05-16-2024 IGP,APTIMA HPV,AGE GDLN Jsutice Viola DO Work Phone: Start: 07-27-2022 Adult depression scr eening assessment Paul Mcgovern [facility]AVY [facility] Work Phone: Plan of Treatment Date Care Activity Detail Author Start: 01-22-2026 Adult BMI Screening Adult BMI Screening [facility] Start: 01-22-2026 Depression Screening [facility] Start: 01-22-2026 Tobacco Screening Tobacco Screening [facility] Start: 12-24-2025 Adult BMI Screening Adult BMI Screening [facility] Start: 12-24-2025 Tobacco Screening Tobacco Screening [facility] Start: 11-28-2025 Adult BMI Screening Adult BMI Screening [facility] Start: 11-28-2025 Tobacco Screening Tobacco Screening [facility] Start: 06-24-2025 End: 06-24-2025 Patient encounter procedure 06/24/2025 3:45 PM EST Office Visit [facility] [address] [place] [id number] Paul Mcgovern, HEAVY CLEANER-TUFT MACHINE OPERATOR [address] [place], [place] [id number] [facility] Start: 05-29-2025 End: 05-29-2025 Patient encounter procedure [facility] Start: 04-18-2025 End: 04-18-2025 Patient encounter procedure 04/18/2025 10:30 AM EDT [facility] [address] [place] [address] Loli Henriquez, PA [address] [place] [address] [facility] Start: 03-14-2025 End: 03-14-2025 Patient encounter procedure 03/14/2025 10:00 AM EDT Office Visit [facility] [address] [place] [address] Beryl Matson, LISA [address] [place] [address] [facility] Start: 02-18-2025 Influenza vaccination Influenza Vaccine [facility] Start: 02-11-2025 End: 02-11-2025 Patient encounter procedure [facility] Start: 01-01-2025 End: 01-01-2025 Patient encounter procedure [facility] Comment on above: Arrived Start: 12-24-2024 End: 12-24-2024 Patient encounter procedure 12/24/2024 3:30 PM EDT Office Visit [facility] [address] [facility] [address] Paul Mcgovern, HEAVY CLEANER-TUFT MACHINE OPERATOR [address] [place] [address] [facility] Start: 12-13-2024 End: 12-13-2024 Professional / ancillary services management 12/13/2024 8:00 AM EDT Ancillary Procedure [facility] [address] [place] [address] [facility] Start: 12-10-2024 End: 12-10-2024 Patient encounter procedure 12/10/2024 8:30 AM EDT Appointment [facility] [address] [place] [id number] [facility] Start: 11-29-2024 End: 11-29-2025 aPTT in Blood by Coagulation assay APTT Lab Routine Menorrhagia with irregular cycle History of endometrial ablation H/O tubal ligation Expected: 11/29/2024 (Approximate), Expires: 11/29/2025 [facility] Comment on above: Expected: 11/29/2024 (Approximate), Expi res: 11/29/2025 Start: 11-29-2024 End: 11-29-2025 Transferrin [Mass/volume] in Serum or Plasma Transferrin Lab Routine Menorrhagia with irregular cycle History of endometrial ablation H/O tubal ligation Expected: 11/29/2024 (Approximate), Expires: 11/29/2025 [facility] Comment on above: Expected: 11/29/2024 (Approximate), Expi res: 11/29/2025 Start: 11-29-2024 End: 11-29-2025 US Pelvis US Pelvis w/ TV Imaging Routine Menorrhagia with irregular cycle History of endometrial ablation H/O tubal ligation Expected: 11/29/2024, Expires: 11/29/2025 [facility] Comment on above: Expected: 11/29/2024, Expires: Start: 11-29-2024 End: 11-29-2024 Patient encounter procedure 11/29/2024 9:00 AM EDT Office Visit [facility] [address] [place] [address] Justice Rod, [address] [place] [address] Arrived [facility] Comment on above: Arrived Start: 11-28-2024 End: 11-28-2025 Echo complete W/O contrast Echo complete W/O contrast Echocardiography Routine Chest pain, unspecified type Expected: 11/28/2024, Expires: 11/28/2025 [facility] Work Phone: Comment on above: Expected: 11/28/2024, Expires: Start: 11-28-2024 End: 11-28-2025 Thyroid profile includes TSH FT4 Thyroid profile includes TSH FT4 Lab Routine Hypothyroidism, unspecified type Expected: 11/28/2024, Expires: 11/28/2025 [facility] Comment on above: Expected: 11/28/2024, Expires: Start: 05-16-2024 End: 05-16-2024 Patient encounter procedure 05/16/2024 3:40 PM EST Office Visit [facility] [address] [place] [address] Justice Rod, [address] [place] [address] Arrived [facility] Comment on above: Arrived Start: 05-16-2024 End: 07-16-2025 MG Breast - bilateral Screening Bilateral screening mammogram Imaging Routine Breast cancer screening by mammogram Expected: 05/16/2024 (Approximate), Expires: 07/16/2025 [facility] Work Phone: Comment on above: Expected: 05/16/2024 (Approximate), Expi res: 07/16/2025 Start: 02-19-2024 COVID-19 Vaccine () COVID-19 Vaccine () [facility] Start: 07-27-2023 Depression Screening Depression Screening [facility] Start: 1998 Screening for malignant neoplasm of cervix Pap Smear [facility] Start: 1996 DTaP,Tdap and Td Vaccines (1 - Tdap) DTaP,Tdap and Td Vaccines (1 - Tdap) [facility] CBC W Auto Differential panel - Blood CBC and differential Lab Routine Menorrhagia with irregular cycle History of endometrial ablation H/O tubal ligation Ordered: 11/29/2024 [facility] Comment on above: Ordered: 11/29/2024 Ferritin [Mass/volume] in Serum or Plasma Ferritin Lab Routine Menorrhagia with irregular cycle History of endometrial ablation H/O tubal ligation Ordered: 11/29/2024 [facility] Work Phone: Comment on above: Ordered: 11/29/2024 hCG, quantitative, hCG, quantitative, Lab Routine Menorrhagia with irregular cycle History of endometrial ablation H/O tubal ligation Ordered: 11/29/2024 [facility] Comment on above: Ordered: 11/29/2024 Hemoglobin A1c/Hemoglobin.total in Blood Hemoglobin A1c Lab Routine Menorrhagia with irregular cycle History of endometrial ablation H/O tubal ligation Ordered: 11/29/2024 [facility] Comment on above: Ordered: 11/29/2024 Prothrombin time (PT ) in Blood by Coagulation assay Protime-INR Lab Routine Menorrhagia with irregular cycle History of endometrial ablation H/O tubal ligation Ordered: 11/29/2024 [facility] Comment on above: Ordered: 11/29/2024 THIN PREP TIS PAP AN D HR HPV DNA THIN PREP TIS PAP AND HR HPV DNA Pathology and Cytology Routine Well woman exam with routine gynecological exam Ordered: 05/16/2024 [facility] Comment on above: Ordered: 05/16/2024 Thyrotropin [Units/volume] in Serum or Plasma TSH Lab Routine Menorrhagia with irregular cycle History of endometrial ablation H/O tubal ligation Ordered: 11/29/2024 [facility] Comment on above: Ordered: 11/29/2024 Thyroxine (T4) free [Mass/volume] in Serum or Plasma T4, free Lab Routine Menorrhagia with irregular cycle History of endometrial ablation H/O tubal ligation Ordered: 11/29/2024 [facility] Comment on above: Ordered: 11/29/2024 Vitamin D 1,25 dihydroxy Vitamin D 1,25 dihydroxy Lab Routine Menorrhagia with irregular cycle History of endometrial ablation H/O tubal ligation Ordered: 11/29/2024 [facility] Comment on above: Ordered: 11/29/2024 Payers Date Payer Category Payer Managed Care Other (unspecified) [facility] [id number] 2022 Private Health Insurance [id number] 2022 Private Health Insurance [id number] 1977 Unknown [id number] 2.16.840.1.916734.3.579. 2.593 1977 Unknown [id number] 2.16.840.1.592912.3.579. 2.59 1977 Unknown [id number] 2.16.840.1.118309.3.579. 2.59 1977 Unknown [id number] 2.16.840.1.243147.3.579. 2.59 1977 Unknown [id number] 2.16.840.1.642157.3.579. 2.59 1977 Unknown [id number] 2.16.840.1.989491.3.579. 2.593 1977 Unknown [id number] 2.16.840.1.342016.3.579. 2.1285 1977 Unknown [id number] 2.16.840.1.489660.3.579. 2.1285 1977 Unknown [id number] 2.16.840.1.141256.3.579. 2.1285 1977 Unknown [id number] 2.16.840.1.490036.3.579. 2.1285 1977 Unknown [id number] 2.16.840.1.244061.3.579. 2.1285 1977 Unknown [id number] 2.16.840.1.226842.3.579. 2.1285 1977 Unknown [id number] 2.16.840.1.759844.3.579. 2.1285 1977 Unknown [id number] 2.16840.1.570755.3.579. 2.1285 1977 Unknown [id number] 2.16840.1.223316.3.579. 2.1258 1977 Unknown [id number] 2.16.840.1.199396.3.579. 2.1258 1977 Unknown [id number] 2.16840.1.591295.3.579. 2.1258 1977 Unknown [id number] 2.16840.1.597626.3.579. 2.1258 1977 Unknown [id number] 2.16840.1.544721.3.579. 2.1258 1977 Unknown [id number] 2.16840.1.369427.3.579. 2.1258 1959 Unknown [id number] Social History Date Type Detail Facility Start: 07-27-2022 End: 04-21-2023 Tobacco smoking status RIIS Never smoked tobacco [facility] Start: 05-03-2023 End: 11-29-2024 Alcoholic beverage intake Lifetime non-drinker (finding) [facility] Start: 05-03-2023 End: 05-16-2024 History of Social function [facility] Start: 05-03-2023 End: 05-16-2024 Tobacco use panel [facility] Start: 04-21-2023 Alcohol Comment caffeine: none [facility] Start: 1975 Sex assigned at Not on file [facility] Start: 07-27-2022 Tobacco use and exposure Smoke less tobacco non-user [facility] Start: 11-28-2024 End: 01-22-2025 Alcoholic beverage intake Ex-drinker (finding) [facility] Frequency of Alcohol Consumption Never [facility] How hard is it for y ou to pay for the very basics like food, housing, medical care, and heating Somewhat hard [facility] Start: 01-23-2015 Sex Female (finding) [facility] Clinical Notes 07-17-2021 to 02-11-2025 Rosmery Merced - 02/11/2025 8:50 AM KATYA Hamilton - 01/22/2025 3:00 PM Nitish Blackwood - 01/07/2025 10:20 AM Guera Jain LPN - 01/01/2025 2:40 PM EDT Note Date & Type Note Facility 02-11-2025 History of Presen t illness Narrative Reason for Appointment: Patient ID: Azalia Castro is a 49 y.o. female who presents for Pre-op Visit and Post-op Visit Patient presents today for 2 Week Post Op Follow Up appointment. and Pre Op appointment. Patient is scheduled to undergo Da Manju assisted Laparoscopic Hysterectomy, possible exploratory laparotomy, possible BSO, possible cystoscopy on 03-07-[address] Rod at [facility]. MEDICATIONS Current Outpatient Medications Medication Instructions [...] Negative. Endocrine: Negative. Allergic/Immunologic: Negative. OBJECTIVE Objective: OBGyn Exam Vitals: Estimated body mass index is 29.05 kg/m as calculated from the following: Height as of 11/29/24: 5' 7 . Weight as of 01/07/25: 185 lb 8 oz. BP: No LMP recorded. ASSESSMENT & PLAN ICD-10-CM 1. Pre-op examination Z01.818 2. Menorrhagia with regular cycle N92.0 3. Dyspareunia in female N94.10 4. Pelvic pain R10.2 5. Dysmenorrhea N94.6 Post Op Follow Up: Patient presents today for a postop follow up after having a D&C Hysteroscopy performed at [facility] with Dr. Rod. Pathology results was reviewed with the patient in great detail and all restrictions have been lifted. Pre Op: Patient is doing well but has complaints of menorrhagia, dyspareunia, dysmenorrhea and pelvic pain. I have discussed conservative management vs. surgical management with the patient in detail and patient desires surgical management at this time. Patient will undergo Da Manju assisted Laparoscopic Hysterectomy, possible exploratory laparotomy, possible BSO, possible cystoscopy on 03-07-25. Surgical consents were signed, mmc was reviewed, and patient is to proceed to [facility] OR. Follow Up: Patient is to follow up at 1 & 6 weeks post operative to assess proper healing and recovery from procedure. Documented by June Herman LPN on behalf of: Justice Rod DO documented in this encounter [facility] 01-22-2025 History of Presen t illness Narrative Images from the original note were not included. [address] [place] [address] SUBJECTIVE: Patient ID: Karen Castro is a [...] [place] 01/22/25 1522 documented in this encounter [employer] 01-07-2025 History of Presen t illness Narrative Reason for Appointment: Patient ID: Azalia Castro is a 49 y.o. female who presents for Pre-op Visit Patient presents today for Pre Op appointment. Patient is scheduled to undergo D&C Hysteroscopy, possible Myosure on 01-30-[address] Rod at [facility]. MEDICATIONS Current Outpatient Medications Medication Instructions [...] nursing note reviewed. Exam conducted with a pulper tender present. Vitals: Estimated body mass index is [...] reviewed, and patient is to proceed to [facility] OR. Follow Up: Patient is to follow up between 1-2 weeks post operative to assess proper healing and recovery from procedure. Documented by June Herman LPN. on behalf of: Justice Rod DO documented in this encounter [facility] 01-01-2025 History of Presen t illness Narrative [...] nursing note reviewed. Exam conducted with a pulper tender present. Vitals: Estimated body mass index is [...] of: florin mcclain documented in this encounter [facility] 12-24-2024 History of Presen t illness Narrative Images from the original note were not included. [address] [facility] [address] SUBJECTIVE: Patient ID: Karen Castro is a 49 y.o. female. Patient presents to the office for follow up for anxiety and is doing well on prozac. She does feel it is helping. She is getting ready to go back to work and feels that will help as well to get back into a routine. She does have an appointment with [facility] to go over her blood work and [...] [place] 12/25/24 0728 documented in this encounter [facility] 11-29-2024 History of Presen t illness Narrative [...] nursing note reviewed. Exam conducted with a pulper tender present. Vitals: Estimated body mass index is [...] Justice Rod DO documented in this encounter [facility] 11-28-2024 History of Presen t illness Narrative Images from the original note were not included. [address] [place] [address] SUBJECTIVE: Patient ID: Karen Castro is a [...] up in 28 days KATYA [place] 11/28/24 5572 documented in this encounter [employer] 05-16-2024 History of Presen t illness Narrative Reason for Appointment: Patient ID: Azalia Castro is a 48 y.o. female who presents for [facility] Visit Patient presents today for Annual [...] nursing note reviewed. Exam conducted with a pulper tender present. Vitals: Estimated body mass index is [...] Justice Rod DO documented in this encounter [facility] 07-17-2021 Note [facility] [place], [place] NAME: AZALIA CASTRO DATE OF : MEDICAL REC#: [id number] PREPARATION SUPERVISOR: [address] [facility], TRANSADMIT DATE: 07/17/2021 07:02:00 [employer] DATE: 07/17/2021 22:00 DICTATING PHYSICIAN: JUSTICE ROD DICTATION DATE: 07/17/2021 10:00 OPERATIVE NOTE PROCEDURE: Doris endometrial ablation with hysteroscopy, bilateral laparoscopic salpingectomy, removal of right endometrioma. PREOPERATIVE DIAGNOSIS: Abnormal uterine bleeding, uterine fibroids, dysmenorrhea. POSTOPERATIVE DIAGNOSIS: Abnormal uterine bleeding, dysmenorrhea including a right endometrioma, as well as evidence of endometriosis pelvic side wall and multiple large uterine fibroids. SURGEON: Justice Rod D.O. OPAL POLISHER: FRANK Lees URINE OUTPUT: Yellow and clear. [...] Justice Rod DO on 07/24/2021 05:36 PM [facility] Signed and Approved by: DR JUSTICE ROD . 07/24/2021 17:36:00 [facility] Evaluation note Diagnosis Well woman exam with routine gynecological exam Routine gynecological examination Breast cancer screening by mammogram documented in this encounter [facility]* Diagnosis Anxiety- Primary Anxiety state, unspecified Chest pain, unspecified type Hypothyroidism, unspecified type [facility] Menorrhagia with irregular cycle History of endometrial ablation H/O tubal ligation Fatigue, unspecified type documented in this encounter [facility]* Diagnosis Anxiety- Primary Anxiety state, unspecified documented in this encounter [facility]* Diagnosis Encounter to discuss test results Other specified counseling Menorrhagia with irregular cycle Thickened endometrium Nonspecific (abnormal) findings on radiological and other examination of genitourinary organs documented in this encounter [facility] HealthcareEvaluation note* Diagnosis Pre-op examination Menorrhagia with irregular cycle Thickened endometrium Nonspecific (abnormal) findings on radiological and other examination of genitourinary organs documented in this encounter [facility] HealthcareEvaluation note* Diagnosis Pre-operative clearance- Primary Unspecified pre-operative examination Anxiety Anxiety state, unspecified Gastroesophageal reflux disease, unspecified whether esophagitis present documented in this encounter [facility] SystemEvaluation note* Diagnosis Pre-op examination Menorrhagia with regular cycle Dyspareunia in female Pelvic pain Dysmenorrhea documented in this encounter [facility] HealthcareInstructions* Attachments The following attachments cannot be sent through Care Everywhere. * Anxiety in adults ED discharge instructions (Mauritanian) [facility] Attachments The following attachments cannot be sent through Care Everywhere. * Anxiety? Adult ED (Mauritanian) [facility] Attachments The following attachments cannot be sent through Care Everywhere. * Acid reflux and GERD in adults (Mauritanian) [facility] Family History No Family History Records FoundNo Family History Records FoundNo Family History Records FoundNo Family History Records Found Advance Directives No Advanced Directives Records FoundNo Advanced Directives Records FoundNo Advanced Directives Records FoundNo Advanced Directives Records Found Additional Source Comments INFORMATION SOURCE (unrecogn ized section and content) DATE CREATED AUTHOR 05/01/2022 [facility] DATE CREATED AUTHOR AUTHOR'S ORGANIZ ATION 12/06/2024 [facility] DATE CREATED AUTHOR AUTHOR'S ORGANIZ ATION 12/28/2024 [facility] DATE CREATED AUTHOR AUTHOR'S ORGANIZ ATION 02/12/2025 [facility] Care Teams (unrecognized sec tion and content) Manager Convention Relationship Specialty Start Date End Date Suzie Shoemaker MD [address] [place] [address] PCP - General Family Medicine 05/03/23 Manager Convention Relationship Specialty Start Date End Date Suzie Shoemaker MD [address] [place] [address] PCP - General Family Medicine 05/03/23 Manager Convention Relationship Specialty Start Date End Date Suzie Shoemaker MD PCP - General Family Medicine 05/03/23 Manager Convention Relationship Specialty Start Date End Date Jan Gonzales MD [address] [place] [address] PCP - General Internal Medicine 10/17/24 Manager Convention Relationship Specialty Start Date End Date Suzie Shoemaker MD PCP - General Family Medicine 05/03/23 Manager Convention Relationship Specialty Start Date End Date Suzie Shoemaker MD PCP - General Family Medicine 05/03/23 Manager Convention Relationship Specialty Start Date End Date Suzie Shoemaker MD PCP - General Family Medicine 05/03/23 Manager Convention Relationship Specialty Start Date End Date Paul Mcgovern, CAMRYN-TUFT MACHINE OPERATOR [address] [place] [address] PCP - General Family Medicine 12/24/24 Manager Convention Relationship Specialty Start Date End Date Suzie Shoemaker MD PCP - General Family Medicine 05/03/23 Paul Mcgovern NP [address] [place] [address] Referring Physician Family Medicine 12/03/24 Manager Convention Relationship Specialty Start Date End Date Suzie Shoemaker MD PCP - General Family Medicine 05/03/23 Paul Mcgovern NP [address] [place] [address] Referring Physician Family Medicine 12/03/24 Manager Convention Relationship Specialty Start Date End Date Suzie Shoemaker MD PCP - General Family Medicine 05/03/23 Paul Mcgovern NP [address] [place] [address] Referring Physician Family Medicine 12/03/24 Manager Convention Relationship Specialty Start Date End Date Suzie Shoemaker MD PCP - General Family Medicine 05/03/23 Paul Mcgovern NP [address] [place] [address] Referring Physician Family Medicine 12/03/24 Manager Convention Relationship Specialty Start Date End Date Paul Mcgovern, HEAVY CLEANER-TUFT MACHINE OPERATOR [address] [place] [address] PCP - General Family Medicine 12/24/24 Reason [...] Comments Pre-op Visit Reason Comments Pre-op Exam Reason Comments Pre-op Visit Post-op Visit FOR RECORDS PERTAINING TO PATIENTS WHO [...] BE BASED ON THE PRIMARY CLINICAL RECORDS. [employer] provides no warranty or guarantee of the accuracy or completeness of information in this document.
--- NOTE | 2025-02-26 09:45 | PM.PRESUREVA ---
History of Present Illness History of Present Illness Chief complaint: Menorrhagia, Dyspareunia, Dysmenorrhea, Pelvic Star Narrative: Patient presents for presurgical testing. Please see HPI from Dr. Rod dated February 11, 2025. Review of Systems ROS Narrative REVIEW OF SYSTEMS: Negative except as stated in HPI, ten or more systems reviewed. Constitutional: No fever, chills, weakness ENT: No sore throat or epistaxis Cardiovascular: No edema; admits to intermittent chest pain and dyspnea on exertion Respiratory: No cough or wheezing Musculoskeletal: No joint pain or swelling Gastrointestinal: No abdominal pain, constipation, diarrhea, or vomiting Genitourinary: No dysuria or hematuria Neurological: No numbness, tingling, weakness, or headache Psychiatric: No mood changes PFSH PFS Medical History (Updated 02/26/25 @ 09:27 by Roshni Dave NP) Pelvic pain ?R10.2 - Pelvic and perineal pain (ICD-10) Dysmenorrhea ?N94.6 - Dysmenorrhea, unspecified (ICD-10) Dyspareunia GERD (gastroesophageal reflux disease) ?K21.9 - Gastro-esophageal reflux disease without esophagitis (ICD-10) Anxiety ?F41.9 - Anxiety disorder, unspecified (ICD-10) Menorrhagia ?N92.0 - Excessive and frequent menstruation with regular cycle (ICD-10) Heartburn ?R12 - Heartburn (ICD-10) Chest pain on exertion ?R07.9 - Chest pain, unspecified (ICD-10) Palpitations ?R00.2 - Palpitations (ICD-10) Syncope ?R55 - Syncope and collapse (ICD-10) Prediabetes ?R73.03 - Prediabetes (ICD-10) Thickened endometrium ?R93.89 - Abnormal findings on diagnostic imaging of other specified body structures (ICD-10) Surgical History (Updated 02/21/25 @ 10:55 by Roshni Dave NP) H/O dilation and curettage (01/30/25) ?Z98.890 - Other specified postprocedural states (ICD-10) History of wisdom tooth extraction ?K08.409 - Partial loss of teeth, unspecified cause, unspecified class (ICD-10) History of tonsillectomy ?Z90.89 - Acquired absence of other organs (ICD-10) History of bilateral salpingectomy ?Z90.79 - Acquired absence of other genital organ(s) (ICD-10) History of endometrial ablation ?Z98.890 - Other specified postprocedural states (ICD-10) History of section ?Z98.891 - History of uterine scar from previous surgery (ICD-10) History of appendectomy ?Z90.49 - Acquired absence of other specified parts of digestive tract (ICD-10) H/O elbow surgery (~10/17/24) ?Z98.890 - Other specified postprocedural states (ICD-10) Family History (Updated 01/16/25 @ 14:05 by Roshni Dave NP) Other Family history of cancer Family history of hypertension Family history of myocardial infarction Social History (Updated 01/16/25 @ 13:57 by Roshni Dave NP) Within the past year, how often did you have a drink containing alcohol: monthly or less Smoking status: Former smoker Do you use any of these nicotine containing products: vaping products Non-prescribed substance use: denies use Previous occupational history: [employer] Highest level of school completed/degree received: high school graduate Meds Home Medications and Allergies Home Medications ?Medication ?Instructions ?Recorded ?Confirmed ?Type fluoxetine 20 mg capsule 20 mg PO DAILY 01/16/25 02/26/25 History omeprazole 20 mg capsule,delayed 20 mg PO DAILY 02/26/25 02/26/25 History release Allergies Allergy/AdvReac Type Severity Reaction Status Date / Time No Known Drug Allergies Allergy Verified 02/26/25 09:23 Exam Narrative Exam Narrative: Constitutional: Awake, alert, comfortable, well-appearing, nontoxic, interactive, vital signs as charted Head: Normocephalic, atraumatic Neck: Supple, normal appearance, normal range of motion, no meningeal signs, no lymphadenopathy Respiratory: No respiratory distress, breath sounds clear Cardiovascular: Regular rate and rhythm, strong and regular heart tones Abdomen: Nontender, normal bowel sounds, soft, no CVA tenderness Musculoskeletal: Normal gait, no swelling or edema Skin: No rashes or induration, no lesions, only visible skin inspected Neuro: No neurological deficits, normal sensation Psychiatric: Oriented ?3, flat affect Assessment and Plan Assessment and Plan (1) Menorrhagia: (2) Dyspareunia: (3) Dysmenorrhea: (4) Pelvic pain: Plan Robot-assisted laparoscopic hysterectomy, possible BSO, possible cystoscopy, possible exploratory laparotomy scheduled with Dr. Rod March 07, 2025.
[2025-02-26 09:48] LABS: Hematocrit 36.9 % (36.0-48.0); Hemoglobin 12.0 g/dL (12.0-16.0); Immature Granulocytes Abs Auto 0.02 10^3/uL (0.00-0.03); Immature Granulocytes Pct Auto 0.3 % (0.0-0.5); Lymphocytes Absolute Auto 2.2 10^3/uL (1.2-3.8); Mean Corpuscular HGB Conc 32.5 g/dL (29.9-35.2); Mean Corpuscular Hemoglobin 27.3 pg (26.7-34.0); Mean Corpuscular Volume 83.9 fL (81.0-99.0); Platelet Count 321 10^3/uL (150-450); Red Blood Count 4.40 10^6/uL (4.20-5.40); White Blood Count 7.6 10^3/uL (4.0-11.0)
[2025-02-26 10:07] LABS: INR 1.08; Partial Thromboplastin Time 28.3 sec (22.3-36.2); Prothrombin Time 11.4 sec (9.0-11.6)
--- NOTE | 2025-02-26 10:54 | ECG_ITS ---
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
[2025-02-26 11:15] LABS: Alanine Aminotransferase 32 U/L (14-59); Albumin Globulin Ratio 0.9; Albumin Level 3.5 g/dL (3.4-5.0); Alkaline Phosphatase 75 U/L (46-116); Anion Gap 13.5; Aspartate Amino Transferase 15 U/L (15-37); Blood Urea Nitrogen 17.0 mg/dL (7.0-18.0); Calcium 8.6 mg/dL (8.5-10.1); Carbon Dioxide 26.5 mmol/L (21.0-32.0); Chloride 102 mmol/L (98-107); Estimated GFR (African America >60 (>=60 mL/min/1.73m^2); Estimated GFR (Non-African Ame >60 (>=60 mL/min/1.73m^2); Globulin 4.0 g/dL; Glucose 264 mg/dL (74-106); Potassium 4.0 mmol/L (3.5-5.1); Sodium 138 mmol/L (136-145); Total Protein 7.5 g/dL (6.4-8.2)
== END 2025-02-26 09:04 | disposition home or self-care (01) ==
LOC: PST 09:04
PROVIDERS: PCP Nurse Practitioner Family; Visit Provider Obstetrics & Gynecology
DX: Z01.810 Encounter for preprocedural cardiovascular examination (principal); Z01.812 Encounter for preprocedural laboratory examination; Z01.818 Encounter for other preprocedural examination; N92.0 Excessive and frequent menstruation with regular cycle; N94.10 Unspecified dyspareunia; N94.6 Dysmenorrhea, unspecified; R10.2 Pelvic and perineal pain; R73.9 Hyperglycemia, unspecified
CPT/HCPCS: 80048; 80076; 83036; 85025; 85610; 85730; 86850; 86900; 86901; 93005; G0463

== ENCOUNTER 2025-03-07 11:02 | Day surgery (SDC) | payer OTHER, SELFPAY ==
--- OUTSIDE RECORDS SUMMARY | 2021-05-28 05:15 | XMS_ITS | Continuity of Care Document ---
Author Organization [facility] Dep[facility] Address [address] [place] [address] Phone Care Team Providers Care Well Cleaner Name Role Phone Alex VASQUEZ, Jaylin Unavailable Unavailable Allergies, Adverse Reactions, Alerts Substance Reaction Status Criticality No Known Allergies Active No Inform ation Medications Medication Instructions Dosage Effective Dates (start - stop) Status Comments gabapentin 300 mg capsule take 1 capsule by oral route 3 times every day 300 MG - Active Flexeril 5 mg tablet take 1 tablet by or al route 3 times every day - Active Problems Condition Type Effective Dates (start - stop) Clini stacey Status Comments No Known Problems Procedures Procedure Date PFIZER SARSCOV2 VACCINE .3ML [employer] COVID-19 Booster Dose De FLU VAC NO PRSV 4 WILLIAN 3 YRS+ Private May ADMIN INFLUENZA VIRUS VAC OFFICE/OUTPATIENT VISIT, NEW ROUTINE VENIPUNCTURE HIV-1 CT BY DNA AMP GC BY DNA AMP GRAM STAIN FOR GC ANAIS PREP WET PREP URINE TEST Vaginal PH WHIFF Test RPR Advance Directives Directive Yes / No Effective Date File Name No Information Encounters Encounter Description Practice Location Reason(s) For Visit Diagnoses Date Provider Providers Copied on Encounter [facility] t, [address] [place], [place], [id number] , [place] tel:[phone] [facility] Dept Immunization No Information 1 Alex Mosqueda. [address], [id number] , [place]. tel: [phone] [facility], [address], [id number] , tel: [phone] [facility] Dept Immunization No Information 1 Alex Mosqueda. [address], [id number] , [place]. tel: [phone] [facility], [address], [id number] , [place] tel: [phone] [facility] Dept Immunization No Information 1 Alex Mosqueda. [address], [id number] , [place]. tel: [phone] OFFICE/OUTPA TIENT VISIT, [facility], [address], [id number] , [place] tel: [phone] [facility] Dept [facility] vaginal discharge (chief complaint) treatment (chief complaint) NO VACCINATION-PT REFUSEDIETARY SURVEIL/COUNSELSc reening exam for sexually transmitted diseaseTrichomona l vaginitisBV (bacterial vaginosis) 5 Sara Arguelles. [address], [id number] , . tel: [phone] Referring Provider: Blane Ruiz, [address] [place], [address] . tel:[phone] Family History Family Member Type Diagnosis Age At Onset No Information Immunizations Vaccine Date Status Comments Fluzomoises Ruff administered Source: New Imm unization Record C$ cMoney administered Note: TPV40 ; Source: New Immunization Record COVID-19, mRNA, LNP-S, PF, 3 0 mcg/0.3 mL dose administered Source: Other Regist ry COVID-19, mRNA, LNP-S, PF, 3 0 mcg/0.3 mL dose administered Source: Other Regist ry influenza, injectable, quadrivalent, preservative free administered Source: Other Regist ry Tdap administered Source: Other R egistry Influenza, injectable, quadrivalent, preservative free, 3 yrs or older refused Source: New Immuniz ation Record Payers Payer name Insurance type Covered green party ID Authoriza tion(s) Medicare [id number] [employer] Advantage [id number] Medicaid [id number] Social History Type Description Quantity Date Captured Comments Sex Female Smoking Status No Information Sexual Orientation Straight or heterosexual Gender Identity Female Chief Complaint And Reason For Visit No Information Reason For Referral Reason For Referral No Information Plan Of Treatment Date Type Action Status Future Order: Lab Order Trich Cu lture (TRICH), Appointment on: Ordered Future Order: Lab Order BV Gram Stain (SPGRAM), Appointment on: Ordered Future Order: Lab Order ANAIS (ANAIS), Appoin tment on: Ordered Future Order: Lab Order Wet Prep (WETPREP), Appointment on: Ordered Future Order: Lab Order Urine Pr egnancy (URPREG), Appointment on: Ordered Future Order: Lab Order RPR W/re flex FTA (RPRREFLEX), Appointment on: Ordered Future Order: Lab Order Rapid HI V-1 (HIV1), Appointment on: Ordered Future Order: Lab Order Gonorrhe a NAAT (Amp) (GONRHEA), Appointment on: Ordered Future Order: Lab Order Chlamydi a NAAT (CHLAMP), Appointment on: Ordered Future Order: Lab Order Vaginal Ph (VAGPH), Appointment on: Ordered Future Order: Lab Order Whiff Te st (WHIFF), Appointment on: Ordered Future Order: Lab Order Venipunc ture (MISTY), Appointment on: Ordered History Of Present Illness Encounter Date Complaint History Of Prese nt Illness vaginal discharge Her symptoms b rochelle 4 Days ago. She states the problem has remained unchanged. The symptoms are reported as being mild. Presently the patient is experiencing vaginal discharge. Color is white. Character is creamy. Presently the patient is not experiencing vaginal itching, vaginal irritation and vaginal odor. The patient is premenopausal. Last menstrual period was 07/13/2014. patient denies condom use, douching, new partner, recent antibiotics or tampon use. The patient has a history of trichomoniasis. Her symptoms are not aggravated by anything. Her symptoms are not relieved by anything. She denies dyspareunia, vaginal burning, dysuria, genital lesions, genital rash or pelvic pain. Additional information: SP #[id number] present. treatment Pt was tested po sitive for Trich couple weeks ago at [facility]. Pt did not received treatment. Functional Status Date Functional Assessmen t No Information Instructions Date Instruction Additional Infor hawa No sex for 7 days, c all back in 7 days for results and promoted condom use. Related to Screening exam for sexually transmitted disease HIV neg result & pos t test counseling given. Advised HIV retest in 3m Related to Screening exam for sexually transmitted disease Pt informed of all a vailable results. Pt states understanding. Related to Screening exam for sexually transmitted disease Informed patient of no mail disclaimer on pink call back paper. Related to Screening exam for sexually transmitted disease Medication allergy r eviewed w/pt by RN/MA. Related to Screening exam for sexually transmitted disease Patient given med(s) w/verbal & written instruct on med(s) & dx/diagnoses. Related to Screening exam for sexually transmitted disease Patient instruc to n otify all SP of of last 90d of exposure to get tested/t Related to Screening exam for sexually transmitted disease Pt advised to retest for GC/CHL/TRICH in 3 months. Related to Screening exam for sexually transmitted disease Giving encouragement to exercise Related to Dietary surveillance and counseling Weight loss from baseline weight Related to Dietary surveillance and counseling Assessments Type Assessment Date No Information Patient Care Teams Name Effective Dates (start - stop) Status Members No Information
[2025-02-26 09:37] VITALS: BP 133/89; PULSE 95; TEMP 36.3; O2SAT 95; BMI 30.4
[2025-03-07] VITALS (26 sets, daily range): BP systolic 136–177; BP diastolic 77–98; PULSE 65–99; TEMP 36.1–36.8; O2SAT 91–98; BMI 30.4
--- OUTSIDE RECORDS SUMMARY | 2025-03-07 11:04 | XMS_ITS | Encounter Summary ---
Author Organization [facility] Address [address] [place] [facility] [place] [address] Care Team Providers Care Violin Mechanic Name Role Phone Gavino Shoemaker MD Primary Care Provider [phone] Annelise Mcgovern CHOIR DIRECTOR Unavailable [phone] Encounter Details Date Type Department Care Team ([facility] Contact Info) Description 02/01/2025 Abstract MARTIN CARPIO [address] [place] [address] Brannon Rod DO [address] [place], [facility] Social History Tobacco Use Types Packs/Day Years [...] Upcoming Encounters Date Type Department Care Team ([facility] Contact Info) Description 03/19/2025 11:30 AM EDT Office Visit MARTIN CARPIO [address] [place] [address] Beryl Matson NP [address] [place] [address] 04/18/2025 10:30 AM EDT Office Visit MARTIN CARPIO [address] [place] [address] Loli Henriquez PA [address] [place] [address] 05/29/2025 3:00 PM EST Office Visit [facility] CARPIO [address] [facility] [place] [address] Brannon Rod DO [address] [place] [address] documented as of this encounter Visit Diagnoses Not on filedocumented in this encounter Care Teams Violin Mechanic Relationship Specialty Start Date End Date Gavino Shoemaker MD PCP - General Family Medicine 05/03/23 Annelise Mcgovern NP [address] [place] [address] Referring Physician Family Medicine 12/03/24 documented as of this encounter
--- OUTSIDE RECORDS SUMMARY | 2025-03-07 11:04 | XMS_ITS | Encounter Summary ---
Author Organization [facility] Address [address] [place] [address] Care Team Providers Care Hotel Associate Name Role Phone Gavino Shoemaker MD Primary Care Provider [phone] Annelise Mcgovern NP Unavailable [phone] Encounter Details Date Type Department Care Team (Late Contact Info) Description 02/26/2025 Clinisync Result Encounter [facility] External Department Unsolicited Brannon Rod DO [address] [place] [address] Social History Tobacco Use Types Packs/Day [...] Department Care Team (Late Contact Info) Description 03/19/2025 11:30 AM EDT Office Visit MARTIN CARPIO [address] [place] [address] Beryl Matson NP [address] [place] [address] 04/18/2025 10:30 AM EDT Office Visit MARTIN CARPIO [address] [facility] [facility] [place] [address] Loli Henriquez PA [address] [place] [address] 05/29/2025 3:00 PM EST Office Visit [facility] Carol [facility]BGYN [address] [place] [address] Brannon Rod DO [address] [place] [address] documented as of this encounter Procedures Procedure Name Priority Date/Time Associated Diagnosis Comments SRMCOH PROTHROMBIN TIME INR W/O COUM Routine 02/26/2025 9:40 AM EDT MLR HEMOGLOBIN A1C Routine 02/26/2025 9: 40 AM EDT HMHP LIVER PANEL Routine 02/26/2025 9:40 AM EDT CCF APTT Routine 02/26/2025 9:40 AM EDT ALL TYPE AND SCREEN Routine 02/26/2025 9 :40 AM EDT ALL CBC WITH AUTO DIFF Routine 02/26/2025 9:40 AM EDT ALL BASIC METABOLIC PANEL Routine 02/26/2025 9:40 AM EDT documented in this encounter Results * (ABNORMAL) MLR HEMOGLOBIN A1C (02/26/2025 9:40 AM EDT) GLYCOHEMOGLOBIN A1C 6.5(H) 4.5 - 6.2 % TB Comment: ADA RECOMMENDED LIMIT 4.0 - 6.0 ADA THERAPEUTIC TARGET < 7.0 ACTION SUGGESTED > 7.0 ESTIMATED AVERAGE GLUCOSE 140 mg/dL TB 02/26/2025 9:40 AM EDT 02/26/2025 1:24 PM EDT Narrative CLINISYNC - 02/26/2025 2:23 PM EDT Brannon Rod DO CLINIS[facility]NC Final Result [facility] TBH * (ABNORMAL) ALL BASIC METABOLIC PANEL (02/26/2025 9:40 AM EDT) SODIUM 138 136 - 145 mmol/L TBH POTASSIUM 4.0 3.5 - 5.1 mmol/L TBH CHLORIDE 102 98 - 107 mmol/L TBH CARBON DIOXIDE 26.5 21.0 - 32.0 mmol/L TBH ANION GAP 13.5 TBH GLUCOSE 264(H) 74 - 106 mg/dL TBH BLOOD UREA NITROGEN 17.0 7.0 - 18.0 mg/dL TBH CREATININE 0.71 0.55 - 1.02 mg/dL TBH TBH EGFR-AF BENINESE >60 >=60 mL/min/1.7 3m 2 TBH TBH EGFR-NON AF BENINESE >60 >=60 mL/min/1.7 3m 2 TBH BUN CREATININE RATIO 23.9 TBH CALCIUM 8.6 8.5 - 10.1 mg/dL TBH 02/26/2025 9:40 AM EDT 02/26/2025 9:42 AM EDT Narrative CLINISYNC - 02/26/2025 11:15 AM EDT Brannon Viola DO CLINISYNC Final Result Performing Organization Address [facility] de Phone Number CLINISYNC TB * HMHP LIVER PANEL (02/26/2025 9:40 AM EDT) BILIRUBIN TOTAL 0.2 0.2 - 1.0 mg/dL TBH BILIRUBIN DIRECT <0.1 0.0 - 0.2 mg/dL TBH ASPARTATE AMINO TRANSFERASE 15 15 - 37 U/L TBH ALANINE AMINOTRANSFERASE 32 14 - 59 U/L TBH ALKALINE PHOSPHATASE 75 46 - 116 U/L TBH TOTAL PROTEIN 7.5 6.4 - 8.2 g/dL TBH ALBUMIN LEVEL 3.5 3.4 - 5.0 g/dL TBH GLOBULIN 4.0 g/dL TBH ALBUMIN GLOBULIN RATIO 0.9 TBH 02/26/2025 9:40 AM EDT 02/26/2025 9:42 AM EDT Narrative CLINISYNC - 02/26/2025 11:15 AM EDT us Brannon Viola DO CLINISYNC Final Result [facility] * ALL TYPE AND SCREEN (02/26/2025 9:40 AM EDT) BLOOD TYPE A Positive TBH ANTIBODY SCREEN NEGATIVE TBH 02/26/2025 9:40 AM EDT 02/26/2025 9:42 AM EDT Narrative CLINISYNC - 02/26/2025 10:56 AM EDT Spec expiration changed by [id number] on 02/26/25 Reason: surgical extenstion [facility] , [place] Brannon Viola DO CLINISYNC Final Result Performing Organization Address [facility]/ZIP Co de Phone Number [facility] * [facility] APTT (02/26/2025 9:40 AM EDT) PARTIAL THROMBOPLASTIN TIME 28.3 22.3 - 36.2 sec TB 02/26/2025 9:40 AM EDT 02/26/2025 9:42 AM EDT Narrative CLINISYNC - 02/26/2025 10:10 AM EDT Brannon Viola DO CLINISYNC Final Result Performing Organization Address City/[facility]/ZIP Co de Phone Number [facility] * [facility] PROTHROMBIN TIME INR W/O COUM (02/26/2025 9:40 AM EDT) PROTHROMBIN TIME 11.4 9.0 - 11.6 sec TB TB INR 1.08 TBH Comment: DESIRED INR: 2.0-3.0 CONDITIONS NOT LISTED BELOW 2.5-3.5 FOR PROSTHETIC HEART VALVE REPLACEMENT 2.5-3.5 RECURRENT THROMBOSIS 02/26/2025 9:40 AM EDT 02/26/2025 9:42 AM EDT Narrative CLINISYNC - 02/26/2025 10:10 AM EDT us Brannon Viola DO CLINISYNC Final Result [facility] * ALL CBC WITH AUTO DIFF (02/26/2025 9:40 AM EDT) Pathologist [facility] TB WBC 7.6 4.0 - 11.0 10 3/uL TBH TBH RBC 4.40 4.20 - 5.40 10 6/uL TBH TBH HGB 12.0 12.0 - 16.0 g/dL TBH TBH HCT 36.9 36.0 - 48.0 % TBH TBH MCV 83.9 81.0 - 99.0 fL TBH TBH MCH 27.3 26.7 - 34.0 pg TBH TBH MCHC 32.5 29.9 - 35.2 g/dL TBH TBH RDW 12.6 11.0 - 15.0 % TBH TBH PLT 321 150 - 450 10 3/uL TBH TBH MPV 10.2 9.5 - 13.5 fL TBH NEUTROPHILS PERCENT AUTO 58.9 43.0 - 75.0 % TBH LYMPHOCYTES PERCENT AUTO 29.3 20.5 - 60.0 % TBH MONOCYTES PERCENT AUTO 8.0 1.7 - 12.0 % TBH TBH EO % 2.8 0.9 - 7.0 % TBH BASOPHILS PERCENT AUTO 0.7 0.2 - 2.0 % TBH IMMATURE GRANULOCYTES PCT AUTO 0.3 0.0 - 0.5 % TBH NEUTROPHILS ABSOLUTE AUTO 4.5 1.4 - 6.5 10 3/uL TBH LYMPHOCYTES ABSOLUTE AUTO 2.2 1.2 - 3.8 10 3/uL TBH MONOCYTES ABSOLUTE AUTO 0.6 0.3 - 0.8 10 3/uL TBH TBH EO # 0.2 0.0 - 0.7 10 3/uL TBH BASOPHILS ABSOLUTE AUTO 0.1 0.0 - 0.1 10 3/uL TBH IMMATURE GRANULOCYTES ABS AUTO 0.02 0.00 - 0.03 10 3/uL TBH 02/26/2025 9:40 AM EDT 02/26/2025 9:42 AM EDT Narrative CLINISYNC - 02/26/2025 9:49 AM EDT us Brannon Rod DO CLINISYNC Final Result [facility] documented in this encounter Visit Diagnoses Not on filedocumented in this encounter Care Teams Hotel Associate Relationship Specialty Start Date End Date Gavino Shoemaker MD PCP - General Family Medicine 05/03/23 Annelise Mcgovern NP [address] [place] [address] Referring Physician Family Medicine 12/03/24 documented as of this encounter
--- OUTSIDE RECORDS SUMMARY | 2025-03-07 11:04 | XMS_ITS | Encounter Summary ---
Author Organization [facility] Address [id number] [address] [place] [address] Care Team Providers Care Child Care Director Name Role Phone Annelise Mcgovern APRN-TRIMMING CUTTER MACHINE Primary Care Provide r Encounter Details Date Type Department Care Team (Late st Contact Info) Description 03/01/2025 Orders Only [facility] [address] [place] [address] External, Scanning Provider Social History [...] PHQ-2 Answer Date Recorded Total Score 0 01/22/2025 PRAPARE - Transportation Answer Date Re corded [...] got money to buy more. Never True 01/22/2025 Within the past 12 months th e food we bought just didn't last and we didn't have money to get more. Never True 01/22/2025 Purpose - Life Answer Date Recorded Purpose [...] EST Office Visit [facility] [address] [place] [id number] Annelise Mcgovern APRN-CNP [address] [place] [address] documented as of this encounter Procedures Procedure Name Priority Date/Time Associated Diagnosis Comments MULTIPLE LABS Routine 02/26/2025 9:20 AM EDT documented in this encounter Results * Multiple labs (02/26/2025 9:20 AM EDT) us Scanning Provider External [facility] Final Result MANUALLY TRANSCRIBED RESULTS documented in this encounter Visit Diagnoses Not on filedocumented in this encounter Additional Health Concerns Assessment Noted Time PHQ-9 Depression Total Score: 0 01/23/20 2:52 PM EDT A Body Mass Index follow-up plan has been documented for the patient 12/25/2024 7:28 AM EDT documented as of this encounter Care Teams Child Care Director Relationship Specialty Start Date End Date Annelise Mcgovern APRN-CNP [address] [place] [address] PCP - General Family Medicine 12/24/24 documented as of this encounter
--- OUTSIDE RECORDS SUMMARY | 2025-03-07 11:04 | XMS_ITS | Encounter Summary ---
Author Organization [facility] Address [id number] [address] [place] [address] Care Team Providers Care Child Adolescent Care Name Role Phone Annelise Mcgovern APRN-NURSE AIDE Primary Care Provide r Encounter Details Date Type Department Care Team (Late st Contact Info) Description 12/04/2024 Orders Only [facility] [address] [place] [address] External, Scanning Provider Social History [...] EST Office Visit [facility] [address] [place] [phone] Annelise Mcgovern APRN-CNP [address] [place] [address] documented as of this encounter Procedures Procedure [...] as of this encounter Care Teams Child Adolescent Care Relationship Specialty Start Date End Date Annelise Mcgovern APRN-CNP [address] [place] [address] PCP - General Family Medicine 12/24/24 documented as of this encounter
--- OUTSIDE RECORDS SUMMARY | 2025-03-07 11:04 | XMS_ITS | Encounter Summary ---
Author Organization [facility] Address [address] [facility] [place] [address] Care Team Providers Care Director Of Primary Name Role Phone Gavino Shoemaker MD Primary Care Provider [phone] Annelise Mcgovern DIRECTOR OF STRATEGIC MARKETING Unavailable [phone] Encounter Details Date Type Department Care Team ([facility] Contact Info) Description 02/27/2025 Abstract MARTIN CARPIO [address] [place] [address] Brannon Rod DO [address] [facility] [address] [place], [facility]11 Social History Tobacco Use Types Packs/Day Years [...] Date Type Department Care Team ([facility] Contact Info) Description 03/19/2025 11:30 AM EDT Office Visit MARTIN CARPIO [address] [place] [address] Beryl Matson NP [address] [facility] [place] [address] 04/18/2025 10:30 AM EDT Office Visit MARTIN CARPIO [address] [place] [address] Loli Henriquez PA [address] [facility] [place] [address] 05/29/2025 3:00 PM EST Office Visit [facility] CARPIO [address] [facility] [place] [address] Brannon Rod DO [address] [facility] [place] [address] documented as of this encounter Visit Diagnoses Not on filedocumented in this encounter Care Teams Director Of Primary Relationship Specialty Start Date End Date Gavino Shoemaker MD PCP - General Family Medicine 05/03/23 Annelise Mcgovern NP [address] [place] [address] Referring Physician Family Medicine 12/03/24 documented as of this encounter
--- OUTSIDE RECORDS SUMMARY | 2025-03-07 11:04 | XMS_ITS | Encounter Summary ---
Author Organization [facility] Address [address] [facility] [place] [address] Care Team Providers Care Director Compensation Name Role Phone Gavino Shoemaker MD Primary Care Provider [phone] Annelise Mcgovern TRAWL NET MAKER Unavailable [phone] Encounter Details Date Type Department Care Team ([facility] Contact Info) Description 01/30/2025 Abstract MARTIN CARPIO [address] [place] [address] Brannon Rod DO [address] [place], [facility] Social History Tobacco Use Types Packs/Day Years [...] Upcoming Encounters Date Type Department Care Team ([facility] Contact Info) Description 03/19/2025 11:30 AM EDT Office Visit MARTIN CARPIO [address] [place] [address] Beryl Matson NP [address] [place] [address] 04/18/2025 10:30 AM EDT Office Visit MARTIN CARPIO [address] [facility] [place] [address] Loli Henriquez PA [address] [place] [address] 05/29/2025 3:00 PM EST Office Visit NOMS Carol CARPIO [address] [place] [address] Brannon Rod DO [address] [place] [address] documented as of this encounter Visit Diagnoses Not on filedocumented in this encounter Care Teams Director Compensation Relationship Specialty Start Date End Date Gavino Shoemaker MD PCP - General Family Medicine 05/03/23 Annelise Mcgovern NP [address] [place] [address] Referring Physician Family Medicine 12/03/24 documented as of this encounter
--- OUTSIDE RECORDS SUMMARY | 2025-03-07 11:04 | XMS_ITS | Encounter Summary ---
Author Organization [facility] Address [address] [facility] [place] [address] Care Team Providers Care Surgical Instrument Repair Specialist Name Role Phone Gavino Shoemaker MD Primary Care Provider [phone] Annelise Mcgovern NP Unavailable [phone] Encounter Details Date Type Department Care Team (Late Contact Info) Description 02/28/2025 Results Follow-Up MARTIN CARPIO [facility] [place] [address] [place] [address] Arelis Angeles LPN [address] [employer] [address] ALL CBC WITH AUTO DIFF, SRMCOH PROTHROMBIN TIME INR W/O COUM, [facility] APTT, Additional followed-up results: 4 Social History Tobacco Use Types Packs/Day Years [...] Encounter Note - Arelis Angeles LPN - 02/28/2025 9:27 AM EDT Results faxed to PCP documented in this encounter Plan of Treatment Upcoming Encounters Date Type Department Care Team ([facility] Contact Info) Description 03/19/2025 11:30 AM EDT Office Visit NOMAmol CARPIO [facility] [place] [address] [place] [phone] Beryl Matson NP [address] [place] [address] 04/18/2025 10:30 AM EDT Office Visit NOMAmol CARPIO [address] [facility] [place] [address] Loli Henriquez PA [address] [place] [address] 05/29/2025 3:00 PM EST Office Visit NOMAmol CARPIO [address] [facility] [place] [address] Brannon Rod DO [address] [place], [place] [id number] documented as of this encounter Visit Diagnoses Not on filedocumented in this encounter Care Teams Surgical Instrument Repair Specialist Relationship Specialty Start Date End Date Gavino Shoemaker MD PCP - General Family Medicine 05/03/23 Annelise Mcgovern NP [address] [place] [address] Referring Physician Family Medicine 12/03/24 documented as of this encounter
--- OUTSIDE RECORDS SUMMARY | 2025-03-07 11:04 | XMS_ITS | Clinical Summary ---
Author Organization [facility] Healthcare Address [address] [place] [address] Care Team Providers Care Soft Crab Shedder Name Role Phone Gavino Shoemaker MD Primary Care Provider [phone] Annelise Mcgovern NP Unavailable [phone] Allergies No known active allergies Medications FLUoxetine (PROzac) 20 MG capsule Take 20 mg by mouth in the morning. 11/28/2024 Active megestrol (Megace) 20 MG tabletIndicatio ns:Menorrhagia with irregular cycle Take 1 tablet (20 mg total) by mouth 2 (two) times a day. 60 tablet 01/07/2025 Active Problems Problem Noted Date Diagnosed Date Thickened endometrium 01/07/2025 Pre-op examination 01/07/2025 Fatigue 11/29/2024 History of endometrial ablation 11/29/2024 H/O tubal ligation 11/29/2024 Menorrhagia with irregular cycle 11/29/2024 Encounters Date Type Department Care Team Description 03/05/2025 Telephone [facility] Carol CARPIO [address] [place] [address] Justice Rod, 02/28/2025 Results Follow-Up NOMS Carol CARPIO [address] [place] [address] Arelis Angeles LPN ALL CBC WITH AUTO DIFF, SRMCOH PROTHROMBIN TIME INR W/O COUM, [facility] APTT, Additional followed-up results: 4 02/27/2025 Abstract [facility] Carol CARPIO [address] [place] [address] Justice Rod, DO 02/26/2025 Telephone [facility] [address] [facility] [place] [address] June Herman LPN 02/26/2025 Clinisync Result Encounter NOMS External Department Unsolicited Justice Rod, DO 02/21/2025 Abstract [facility] [address] [facility] [place] [address] Justice Rod, DO 02/11/2025 8:50 AM EDT Office Visit [facility]OMS Carol MIXN [address] [place] [address] Justice Rod, DO Pre-op examination; Menorrhagia with regular cycle; Dyspareunia in female; Pelvic pain; Dysmenorrhea 02/01/2025 Abstract [facility] [address] [facility] [place] [address] Justice Rod, DO 01/30/2025 Abstract [facility] [address] [facility] [place] [address] Justice Rod, DO 01/30/2025 Clinisync Result Encounter NOMS External Department Unsolicited Justice Rod, DO 01/16/2025 Clinisync Result Encounter NOMS External Department Unsolicited Justice Rod, DO 01/16/2025 Telephone [facility] [address] [place] [address] Justice Rod, DO 01/16/2025 Clinisync Result Encounter NOMS External Department Unsolicited Justice Rod, DO 01/07/2025 10:20 AM EDT Consult NOMS Carol CARPIO [address] [place] [address] Justice Rod, DO Pre-op examination; Menorrhagia with irregular cycle; Thickened endometrium 01/02/2025 Telephone NOMS [place] [address] Justice Rod DO 01/01/2025 2:40 [place] [address] Justice Rod, Encounter to discuss test results; Menorrhagia with irregular cycle; Thickened endometrium 01/01/2025 Bamboo flowsheet MARTIN Gonsalves [facility] [place] [address] Justice Rdo, 01/01/2025 Travel 12/13/2024 8:00 AM [place] [address] Menorrhagia with irregular cycle; History of endometrial ablation; H/O tubal ligation 12/12/2024 Travel from Last 3 Months Family History Medical [...] Sign Reading Time Taken Comments Blood Pressure 120/76 02/11/2025 8:47 AM EDT Pulse - - Temperature - - Respiratory Rate - - Oxygen Saturation - - Inhaled Oxygen Concentration - - Weight 85.8 kg (189 lb 1.9 oz) 02/11/2025 8:47 A M EDT Height 170.2 cm (5' 7 ) 11/29/2024 9:15 AM EDT Body Mass Index 29.62 11/29/2024 9:15 AM EDT Plan of Treatment Upcoming Encounters Date Type Department Care Team (Late st Contact Info) Description 03/19/2025 11:30 [place] [address] Beryl Matson, TELECOMMUNICATIONS LINE MECHANIC [address] [place] [address] 04/18/2025 10:30 AM EDT Office Visit MARTIN CARPIO [address] [facility] [place] [address] Loli Henriquez PA [address] [place], [place] [phone] 05/29/2025 3:00 PM EST Office Visit NOMAmol CARPIO [address] [place] [address] Justice Rod DO [address] [place], [place] [phone] Procedures Procedure Name Priority Date/Time Associated Diagnosis Comments MLR HEMOGLOBIN A1C Routine 02/26/2025 9: 40 AM EDT ALL BASIC METABOLIC PANEL Routine 02/26/2025 9:40 AM EDT HMHP LIVER PANEL Routine 02/26/2025 9:40 AM EDT ALL TYPE AND SCREEN Routine 02/26/2025 9 :40 AM EDT [facility]CF APTT Routine 02/26/2025 9:40 AM EDT [facility] PROTHROMBIN TIME INR W/O COUM Routine 02/26/2025 9:40 AM EDT ALL CBC WITH AUTO DIFF Routine 02/26/2025 9:40 AM EDT TBH PREG QUANT HCG Routine 01/30/2025 6: 13 AM EDT ALL CBC WITH AUTO DIFF Routine 01/30/2025 6:13 AM EDT XR CHEST 2V 01/16/2025 2:39 PM EDT ECG 12-LEAD 01/16/2025 12:16 PM EDT US PELVIC COMPLETE W/ TV Routine 12/13/2024 8:50 AM EDT Menorrhagia with irregular cycle History of endometrial ablation H/O tubal ligation from Last 3 Months Results * [facility] PROTHROMBIN TIME INR W/O COUM (02/26/2025 9:40 AM EDT) PROTHROMBIN TIME 11.4 9.0 - 11.6 sec TBH TBH INR 1.08 TBH Comment: DESIRED INR: 2.0-3.0 CONDITIONS NOT LISTED BELOW 2.5-3.5 FOR PROSTHETIC HEART VALVE REPLACEMENT 2.5-3.5 RECURRENT THROMBOSIS 02/26/2025 9:40 AM EDT 02/26/2025 9:42 AM EDT Narrative CLINISYNC - 02/26/2025 10:10 AM EDT [facility] DO CLINISYNC Final Result Performing Organization Address [facility] Co de Phone Number [facility] * (ABNORMAL) MLR HEMOGLOBIN A1C (02/26/2025 9:40 AM EDT) GLYCOHEMOGLOBIN A1C 6.5(H) 4.5 - 6.2 % TBH Comment: ADA RECOMMENDED LIMIT 4.0 - 6.0 ADA THERAPEUTIC TARGET < 7.0 ACTION SUGGESTED > 7.0 ESTIMATED AVERAGE GLUCOSE 140 mg/dL TB 02/26/2025 9:40 AM EDT 02/26/2025 1:24 PM EDT Narrative CLINISYNC - 02/26/2025 2:23 PM EDT Justice Viola DO [facility] Final Result [facility] * HMHP LIVER PANEL (02/26/2025 9:40 AM EDT) BILIRUBIN TOTAL 0.2 0.2 - 1.0 mg/dL TB BILIRUBIN DIRECT <0.1 0.0 - 0.2 mg/dL [...] AM EDT 02/26/2025 9:42 AM EDT Narrative CLINISYNH - 02/26/2025 11:15 AM EDT [employer] DO CLINISYNH Final Result Performing Organization Address [facility] Co de Phone Number [facility] * [facility]CF APTT (02/26/2025 9:40 AM EDT) PARTIAL THROMBOPLASTIN TIME 28.3 22.3 - 36.2 sec TB 02/26/2025 9:40 AM EDT 02/26/2025 9:42 AM EDT Narrative CLINISYNH - 02/26/2025 10:10 AM EDT [facility] DO [facility] Final Result Performing Organization Address City/[facility]/ZIP Co de Phone Number [facility] * ALL TYPE AND SCREEN (02/26/2025 9:40 AM EDT) BLOOD TYPE A Positive TBH ANTIBODY SCREEN NEGATIVE TB 02/26/2025 9:40 AM EDT 02/26/2025 9:42 AM EDT Narrative CLINISYNC - 02/26/2025 10:56 AM EDT Spec expiration changed by [id number] on 02/26/25 Reason: surgical extenstion [facility] , [place] Justice Viola DO CLINISYNC Final Result [facility] * ALL CBC WITH AUTO DIFF (02/26/2025 9:40 AM EDT) Only the most recent of2 resultswithin the time period is included. [facility] TB WBC 7.6 4.0 - 11.0 10 [...] Narrative CLINISYNC - 02/26/2025 9:49 AM EDT [facility] DO CLINISYNC Final Result Performing Organization Address City/State/[facility] Co de Phone Number [facility] * (ABNORMAL) ALL BASIC METABOLIC PANEL (02/26/2025 [...] 0.55 - 1.02 mg/dL TBH TBH EGFR-AF MAURITIAN >60 >=60 mL/min/1.7 3m 2 TBH TBH EGFR-NON AF MAURITIAN >60 >=60 mL/min/1.7 3m 2 TBH BUN CREATININE RATIO 23.9 TBH CALCIUM 8.6 8.5 - 10.1 mg/dL TBH 02/26/2025 9:40 AM EDT 02/26/2025 9:42 AM EDT Narrative CLINISYNC - 02/26/2025 11:15 AM EDT [facility] Final Result Performing Organization Address City/[facility] Co de Phone Number [facility] * TBH PREG QUANT HCG (01/30/2025 6:13 AM EDT) HCG QUANTITATIVE <1 mIU/mL TBH Comment: 5-50 0.2-1 WEEK 50-500 1-2 WEEKS 100-5,000 2-3 WEEKS 500-10,000 3-4 WEEKS 1,000-50,000 4-5 WEEKS 10,000-100,000 5-6 WEEKS 15,000-200,000 6-8 WEEKS 10,000-100,000 2-3 MONTHS 01/30/2025 6:13 AM EDT 01/30/2025 6:14 AM EDT Narrative CLINISYNC - 01/30/2025 6:41 AM EDT us Justice Rod DO CLINISYNC Final Result [facility] * XR CHEST 2V (01/16/2025 2:39 PM EDT) Anatomical Region Laterality Modality Other 01/16/2025 2:39 PM EDT Narrative 01/16/2025 2:41 [place] [address] XRay Report Signed Patient: AZALIA CASTRO MR#: [id number] : 1975 Acct:[id number] Age/Sex: 49 / F ADM Date: 01/16/25 Loc: [facility] Attending Dr: Justice Rod D.O. Ordering Physician: Justice Rod D.O. Date of Service: 01/16/25 Procedure(s): XR chest 2V Accession Number(s): [id number] cc: Justice Rod D.O.; Annelise Mcgovern NP [address] [address] Patient Name: AZALIA CASTRO MRN: [id number] date: 1975 Sex: F Assigned Patient Location: [facility] Current Patient Location: [facility] Accession/Order Number: [id number] Exam Date: 01/16/2025 14:35 Report Date: 01/16/2025 14:39 At the request of: JUSTICE ROD DO Procedure: XR chest 2V Chest 2 views CLINICAL HISTORY: Preop exam COMPARISON: None FINDINGS: Heart normal in size. Lungs are clear. No free air. XR/XR chest 2V IMPRESSION: NO ACUTE CARDIOPULMONARY ABNORMALITY. Impression dictated by: Johan Stevens Jr., D.O. 01/16/2025 2:39 PM Dictation Location: [place] [address] Electronically authenticated by: [id number] Y Date: 01/16/2025 14:39 Dictated By: Johan Stevens M.D. Signed By: 01/16/25 144 DD/ 38 TD/TT: Termite Control Servicer: Procedure Note Radiology, Radiologist, - 01/16/2025 [place] [address] XRay Report Signed Patient: AZALIA CASTRO MMR#: [id number] : 1975Acct:[id number] Age/Sex: 49 / FADM Date: 01/16/25 Loc: [facility] Attending Dr: Justice Rod D.O. Ordering Physician: Justice Rod D.O. Date of Service: 01/16/25 Procedure(s): XR chest 2V Accession Number(s): [id number] cc: Justice Rod D.O.; Annelise Mcgovern NP The [place] [id number] Patient Name: AZALIA CASTRO MRN: [id number] date: 1975 Sex: F Assigned Patient Location: [facility] Current Patient Location: [facility] Accession/Order Number: [id number] Exam Date: 01/16/2025 14:35 Report Date: 01/16/2025 14:39 At the request of: JUSTICE ROD DO Procedure: XR chest 2V Chest 2 views CLINICAL HISTORY: Preop exam COMPARISON: None FINDINGS: Heart normal in size. Lungs are clear. No free air. XR/XR chest 2V IMPRESSION: NO ACUTE CARDIOPULMONARY ABNORMALITY. Impression dictated by: Johan Stevens Jr., D.O. 01/16/2025 2:39 PM Dictation Location: [place] [address] Electronically authenticated by: [id number] Y Date: 4:39 Dictated By: Johan Stevens M.D. Signed By:01/16/25 144 DD/ 38 TD/TT: Termite Control Servicer: us Justice Rod DO CLINIS[facility]NC IMAGING Final Result * ECG 12-LEAD (01/16/2025 12:16 PM EDT) Anatomical Region Laterality Modality Other 01/16/2025 12:1 6 PM EDT Narrative 01/16/2025 7:50 [place] [address] Electrocardiograph Report Signed Patient: AZALIA CASTRO MR#: [id number] : 1975 Acct:[id number] Age/Sex: 49 / F ADM Date: 01/16/25 Loc: PST Attending Dr: Justice Rod D.O. Ordering Physician: Justice Rod D.O. Date of Service: 01/16/25 Procedure(s): ECG 12 lead Accession Number(s): [id number] cc: [facility] Test Date: 2025-01-16 Pat Name: AZALIA CASTRO Department: Room: - Gender: Female Jewel Bearing Broacher: : 1975 Requested By: JUSTICE ROD Order Number: [id number] Reading MD: STEPHANIE BERNABE M.D. Measurements Intervals Arrey Rate: 65 P: 11 AR: 140 QRS: 65 QRSD: 85 T: 51 QT: 371 QTc: 388 Interpretive Statements SINUS RHYTHM Normal ECG No previous ECG available for comparison Electronically Signed On 01-16-2025 19:49:55 EDT by STEPHANIE BERNABE M.D. Dictated By: STEPHANIE BERNABE Signed By: 01/16/25 1950 DD/ 1216 TD/TT: Termite Control Servicer: Procedure Note Radiology, Radiologist, MD - 01/16/2025 [place] [address] Electrocardiograph Report Signed Patient: AZALIA CASTRO MMR#: [id number] : 1975Acct:[id number] Age/Sex: 49 / FADM Date: 01/16/25 Loc: PST Attending Dr: Justice Rod D.O. Ordering Physician: Justice Rdo D.O. Date of Service: 01/16/25 Procedure(s): ECG 12 lead Accession Number(s): [id number] cc: [facility] Test Date: 2025-01-16 Pat Name: AZALIA CASTRO Department: Room: - Gender: Female Jewel Bearing Broacher: : 1975 Requested By: JUSTICE ROD Order Number: [id number] Reading MD: STEPHANIE BERNABE M.D. Measurements Intervals Arrey Rate: 65 P: 11 AR: 140 QRS: 65 QRSD: 85 T: 51 QT: 371 QTc: 388 Interpretive Statements SINUS RHYTHM Normal ECG No previous ECG available for comparison Electronically Signed On 01-16-2025 19:49:55 EDT by STEPHANIE BERNABE M.D. Dictated By: STEPHANIE BERNABE Signed By:01/16/251949 DD/ 1216 TD/TT: Termite Control Servicer: us Justice Rod DO CLINIS[facility]NC IMAGING Final Result * US Pelvis w/ TV (12/13/2024 8:50 [...] II, MD, PHD at 16-Dec-2024 10:02:58 PM [facility] Procedure Note Fausto Avina MD - [...] signed by FAUSTO AVINA II, MD, PHD [id number] 10:02:58 PM [facility] Justice Rod DO [facility] PROCEDURES Final Result from Last 3 Months Insurance [employer] Care Teams Soft Crab Shedder Relationship Specialty Start Date End Date Gavino Shoemaker MD PCP - General Family Medicine 05/03/23 Annelise Mcgovern NP [address] [place], [place] [phone] Referring Physician Family Medicine 12/03/24
--- OUTSIDE RECORDS SUMMARY | 2025-03-07 11:04 | XMS_ITS | Encounter Summary ---
Author Organization [facility] Address [address] [facility] [place] [address] Care Team Providers Care Histology Tech Name Role Phone Gavino Shoemaker MD Primary Care Provider [phone] Annelise Mcgovern RIM FIRE PRIMING TOOL SETTER Unavailable [phone] Encounter Details Date Type Department Care Team ([facility] Contact Info) Description 02/26/2025 Telephone [facility] Carol [facility] [address] [place] [address] [place] [phone] June Herman LPN Social History Tobacco Use Types Packs/Day Years [...] encounter Miscellaneous Notes * Telephone Encounter - June Herman LPN - 02/26/2025 1:52 PM EDT Sujata from [facility] called and voiced that patients random glucose today was 264. After discussingwith Sujata it was decided that A1c would be ordered as well as a fasting glucose for patient. Yoselinteriid not need orders sent as she was able to get them and reach out to patient. Sujata will keep office posted on results. 1:50pm Spoke with Dr. Rod and made him aware and he voiced that A1c will need to be below 7, but prefers 6.5 2pm Called Sujata at [facility] and informed her of parameters and results are still pending A1c. Sujata called back from [facility] and voiced that A1c was 6.5, provider approved continuing to OR for management of symptoms. No need for fast glucose to be obtained at this time. Sujata VU--June Martinez LPN documented in this encounter Plan of Treatment Upcoming Encounters Date Type Department Care Team (Late st Contact Info) Description 03/19/2025 11:30 AM EDT Office Visit MARTIN CARPIO [address] [place] [address] [place] [phone] Beryl Matson NP [address] [address] 04/18/2025 10:30 AM EDT Office Visit MARTIN CARPIO [address] [place] [address] [place] [address] Loli Henriquez PA [address] [place] [address] 05/29/2025 3:00 PM EST Office Visit MARTIN CARPIO [address] [place] [address] [place] [phone] Brannon Rod DO [address] [address] documented as of this encounter Visit Diagnoses Not on filedocumented in this encounter Care Teams Histology Tech Relationship Specialty Start Date End Date Gavino Shoemaker MD PCP - General Family Medicine 05/03/23 Annelise Mcgovern NP [address] [place] [address] Referring Physician Family Medicine 12/03/24 documented as of this encounter
--- OUTSIDE RECORDS SUMMARY | 2025-03-07 11:04 | XMS_ITS | Clinical Summary ---
Author Organization [facility] Address [id number] [address] [place] [address] Care Team Providers Care Medical Record Coder Name Role Phone Annelise Mcgovern Primary Care Provide r Allergies No known active allergies Medications FLUoxetine (PROzac) 20 mg capsule Take 1 capsule (20 mg total) by mouth in the morning. 90 capsule 1 12/24/2024 Active omeprazole (PriLOSEC) 20 mg capsule Take 1 capsule (20 mg total) by mouth in the morning. 30 capsule 1 01/22/2025 Active Active Problems No known active problems Encounters Date Type Department Care Team Description 03/01/2025 Orders Only [facility] [address] [place], [place] [address] [phone] External, Scanning Provider 01/22/2025 3:00 PM EDT Office Visit [facility] [place] [address] Annelise Mcgovern APRN-CNP Pre-operative clearance (Primary Dx); Anxiety; Gastroesophageal reflux disease, unspecified whether esophagitis present 01/22/2025 Travel 01/18/2025 [facility] [place] [address] Chhaya Calero CMA Chest pain, unspecified type 12/24/2024 3:30 PM EDT [facility] [place] [address] Annelise Mcgovern APRN-CNP Anxiety (Primary Dx) 12/24/2024 Travel from Last 3 Months Immunizations No [...] Sign Reading Time Taken Comments Blood Pressure 124/72 01/22/2025 2:56 PM EDT Pulse 79 01/22/2025 2:56 PM EDT Temperature 36.3 C (97.4 F) 10/17/2024 10:39 AM EDT Respiratory Rate 16 01/22/2025 2:56 PM EDT Oxygen Saturation 98% 01/22/2025 2:56 PM EDT Inhaled Oxygen Concentration - - Weight 83.5 kg (184 lb) 01/22/2025 2:56 PM EDT Height 167.6 cm (5' 6 ) 07/27/2022 2:54 PM EST Body Mass Index 29.7 07/27/2022 2:54 PM EST Plan of Treatment Upcoming Encounters Date Type Department Care Team (Late st Contact Info) Description 06/24/2025 3:45 PM EST Office Visit [facility] [address] [place] [address] Annelise Mcgovern, TABLE HAND-TAX DIRECTOR [address] [place] [address] Health Maintenance Due Date Last Done Comments DTaP,Tdap and Td Vaccines (1 - Tdap) 1996 Pap Smear 1998 COVID-19 Vaccine (3 - season) 2025, 09/18/2020 Influenza Vaccine 02/18/2025 Adult BMI Screening 01/22/2026 01/22/2025 Depression Screening 01/22/2026 01/22/2025 Tobacco Screening 01/22/2026 01/22/2025 Medical Devices Not on file Procedures Procedure Name Priority Date/Time Associated Diagnosis Comments MULTIPLE LABS Routine 02/26/2025 9:20 AM EDT POCT URINALYSIS DIPSTICK ONLY Routine 01/22/2025 3:20 PM EDT Pre-operative clearance XR CHEST 2 VWS Routine 01/18/2025 11:09 AM EDT ECHO COMPLETE WO CONTRAST Routine 01/18/2025 11:07 AM EDT Chest pain, unspecified type from Last 3 Months Results * Multiple labs (02/26/2025 9:20 AM EDT) us Scanning Provider External TX IMAGING Final Result MANUALLY TRANSCRIBED RESULTS * POCT urinalysis dipstick only (01/22/2025 3:20 PM EDT) External Poct Urine Glucose Negative MANUALLY TRANSCRIBED RESULTS External Poct Urine Bilirubin Negative MANUALLY TRANSCRIBED RESULTS External Poct Urine Ketones Negative MANUALLY TRANSCRIBED RESULTS External Poct Urine Specific [place] 1.010 MANUALLY TRANSCRIBED RESULTS External Poct Urine Blood Negative MANUALLY TRANSCRIBED RESULTS External Poct Urine Ph 7.5 MANUALLY TRANSCRIBED RESULTS External Poct Urine Protein Trace MANUALLY TRANSCRIBED RESULTS External Poct Urine Urobilinogen 0.2 MANUALLY TRANSCRIBED RESULTS External Poct Urine Nitrite Negative MANUALLY TRANSCRIBED RESULTS External Poct Urine Leukocyte Esterase Negative MANUALLY TRANSCRIBED RESULTS Urine 01/22/2025 3:20 PM EDT us Annelise Mcgovern APRN-TAX DIRECTOR POINT OF CARE TEST OR DERABLES Final Result Performing Organization Address City/[facility] Co de Phone Number MANUALLY TRANSCRIBED RESULTS * X-ray chest 2 views (01/18/2025 11:09 AM EDT) Anatomical Region Laterality Modality Body, Chest N/A Computed Radiogr aphy us Scanning Provider External IMG DIAGNOSTIC IMAGIN G ORDERABLES Final Result * Echo complete W/O contrast (01/18/2025 11:07 AM EDT) Anatomical Region Laterality Modality Chest N/A Ultrasound us Annelise Mcgovern APRN-TAX DIRECTOR CV ECHO ORDERABLES Fi nal Result from Last 3 Months Insurance [facility] Care Teams Medical Record Coder Relationship Specialty Start Date End Date Annelise Mcgovern APRN-POPPY [address] [place] [address] PCP - General Family Medicine 12/24/24
--- OUTSIDE RECORDS SUMMARY | 2025-03-07 11:04 | XMS_ITS | Encounter Summary ---
Author Organization [facility] Address [address] [facility] [place] [address] Care Team Providers Care Polisher Brass Name Role Phone Gavino Shoemaker MD Primary Care Provider + [phone] Annelise Mcgovern SERVICE ASSOCIATE Unavailable [phone] Encounter Details Date Type Department Care Team ([facility] Contact Info) Description 02/21/2025 Abstract MARTIN CARPIO [address] [facility] [place] [address] Brannon Rod DO [address] [facility] [address] [place], [facility] Social History Tobacco Use Types Packs/Day [...] AM EDT Office Visit MARTIN CARPIO [address] [place] [address] Beryl Matson NP [address] [facility] [place] [address] 04/18/2025 10:30 AM EDT Office Visit [facility]IN CARPIO [address] [place] [address] Loli Henriquez PA [address] [facility] [place] [address] 05/29/2025 3:00 PM EST Office Visit [facility] [address] [facility] [place] [address] Brannon Rod DO [address] [facility] [place] [address] documented as of this encounter Visit Diagnoses Not on filedocumented in this encounter Care Teams Polisher Brass Relationship Specialty Start Date End Date Gavino Shoemaker MD PCP - General Family Medicine 05/03/23 Annelise Mcgovern NP [address] [place] [address] Referring Physician Family Medicine 12/03/24 documented as of this encounter
--- OUTSIDE RECORDS SUMMARY | 2025-03-07 11:04 | XMS_ITS | Encounter Summary ---
Author Organization [employer] Address [id number] [address] [place] [address] Care Team Providers Care Manager Gallery Name Role Phone Annelise Mcgovern APRN-COPYWRITER Primary Care Provide r Encounter Details Date Type Department Care Team (Late st Contact Info) Description 11/30/2024 Orders Only [facility] [address] [place] [address] Juliana Randhawa LPN Hypothyroidism, unspecified type Social History Tobacco Use [...] Office Visit [facility] [address] [place] [phone] Annelise Mcgovern APRN-CNP [address] [place] [address] documented as of this encounter Procedures Procedure Name Priority Date/Time Associated Diagnosis Comments THYROID PROFILE INCLUDES TSH FT4 Routine 11/29/2024 Hypothyroidism, unspecified type documented in this encounter Results * Thyroid profile includes TSH FT4 (11/29/2024) Blood Venous blood / Unknown 11/29/2024 us Annelise ALDANA LAB BLOOD ORDERABLES Final Result MANUALLY TRANSCRIBED RESULTS documented in this encounter Visit Diagnoses Diagnosis Hypothyroidism, unspecified type documented in this encounter Additional Health Concerns Assessment Noted Time PHQ-9 Depression Total Score: 0 07/27/19 23 7:00 AM EST documented as of this encounter Care Teams Manager Gallery Relationship Specialty Start Date End Date Annelise Mcgovern APRN-CNP [address] [place] [address] PCP - General Family Medicine 12/24/24 documented as of this encounter
--- OUTSIDE RECORDS SUMMARY | 2025-03-07 11:05 | XMS_ITS | Encounter Summary ---
Author Organization [facility] Address [address] [facility] [place] [address] Care Team Providers Care Facialist Name Role Phone Gavino Shoemaker MD Primary Care Provider [phone] Annelise Mcgovern NP Unavailable [phone] Encounter Details Date Type Department Care Team (Late Contact Info) Description 12/03/2024 Results Follow-Up MARTIN CAR[facility] [place] [address] Arelis Angeles LPN [address] [place] [address] ALL CBC WITH AUTO DIFF, SRMCOH PROTHROMBIN TIME INR W/O COUM, [facility] APTT, Additional followed-up results: 5 Social History Tobacco Use Types Packs/Day Years [...] Upcoming Encounters Date Type Department Care Team ([facility] Contact Info) Description 03/19/2025 11:30 AM EDT Office Visit NOM[facility]ol CARP[facility] [employer] [place] [address] Beryl Matson, LISA [address] [facility] [place] [address] 04/18/2025 10:30 AM EDT Office Visit NOM[facility] CARPIO [address] [facility] [place] [place] [address] Loli Henriquez PA [address] [facility] [place] [address] 05/29/2025 3:00 PM EST Office Visit NOM[facility] CARPIO [address] [place] [address] [place] [address] Brannon Rod DO [address] [facility] [address] [place], [place] [phone] documented as of this encounter Visit Diagnoses Not on filedocumented in this encounter Care Teams Facialist Relationship Specialty Start Date End Date Gavino Shoemaker MD PCP - General Family Medicine 05/03/23 Annelise Mcgovern NP [address] [place] [address] Referring Physician Family Medicine 12/03/24 documented as of this encounter
--- OUTSIDE RECORDS SUMMARY | 2025-03-07 11:05 | XMS_ITS | Encounter Summary ---
Author Organization [employer] Address [id number] [address] [place] [address] Care Team Providers Care Delivery Technician Name Role Phone Annelise Mcgovern WIND TURBINE ELECTRICAL ENGINEER-ICT ANALYST Primary Care Provide r Encounter Details Date Type Department Care Team (Late st Contact Info) Description 10/20/2022 Orders Only [facility] [address] [place] [address] Chhaya Calero, COORDINATE MEASURING EQUIPMENT OPERATOR Left lateral epicondylitis Social History Tobacco Use [...] Visit [facility] [address] [place] [phone] Annelise Mcgovern APRN-CNP [address] [place] [address] documented as of this encounter Procedures Procedure [...] documented as of this encounter Care Teams Delivery Technician Relationship Specialty Start Date End Date Annelise Mcgovern, KATYA [address] [place] [address] PCP - General Family Medicine 12/24/24 documented as of this encounter
--- OUTSIDE RECORDS SUMMARY | 2025-03-07 11:05 | XMS_ITS | Encounter Summary ---
Author Organization [facility] Address [address] [place] [address] Care Team Providers Care Paste Up Artist Apprentice Name Role Phone Gavino Shoemaker MD Primary Care Provider [phone] Annelise Mcgovern ADMEASURER Unavailable [phone] Encounter Details Date Type Department Care Team (Late Contact Info) Description 03/05/2025 Telephone [facility] Carol CARPIO [address] [place] [address] [facility] [employer] [address] [address] [place], [facility]11 Social History Tobacco Use Types Packs/Day [...] encounter Miscellaneous Notes * Telephone Encounter - Rosmery Blackwood - 03/05/2025 9:11 AM EDT Patient informed that her hysterectomy needs to be performed open as opposed to laparoscopic due topast surgical history of a . Patient voiced understanding and would like to continue with total abdominal hysterectomy. documented in this encounter Plan of Treatment Upcoming Encounters Date Type Department Care Team (Late Contact Info) Description 03/19/2025 11:30 AM EDT Office Visit [facility] CARPIO [address] [place] [phone] Beryl Matson, LISA [address] [facility] [place] [phone] 04/18/2025 10:30 AM EDT Office Visit NOM[facility]ol CARPIO [address] [facility] [place] [place] [phone] Loli Henriquez PA [address] [facility] [address] [place], [place] [phone] 05/29/2025 3:00 PM EST Office Visit [facility] [address] [facility] [place] [place] [address] Brannon Rod DO [address] [facility] [place] [address] documented as of this encounter Visit Diagnoses Not on filedocumented in this encounter Care Teams Paste Up Artist Apprentice Relationship Specialty Start Date End Date Gavino Shoemaker MD PCP - General Family Medicine 05/03/23 Annelise Mcgovern NP [address] [place] [address] Referring Physician Family Medicine 12/03/24 documented as of this encounter
--- OUTSIDE RECORDS SUMMARY | 2025-03-07 11:05 | XMS_ITS | Encounter Summary ---
Author Organization [facility] Address [address] [facility] [place] [address] Care Team Providers Care Canvas Goods Supervisor Name Role Phone Gavino Shoemaker MD Primary Care Provider [phone] Annelise Mcgovern NP Unavailable [phone] Encounter Details Date Type Department Care Team (Late Contact Info) Description 06/05/2024 Orders Only MARTIN CARPIO [address] [facility] [place] [address] Arcelia Rey MA [address] [facility] [place] [address] Social History Tobacco Use Types Packs/Day Years [...] 11:30 AM EDT Office Visit MARTIN CARPIO [address] [place] [address] [place] [address] Beryl Matson NP [address] [facility] [place] [address] 04/18/2025 10:30 AM EDT Office Visit MARTIN CARPIO [address] [facility] [place] [address] Loli Henriquez PA [address] [facility] [place] [address] 05/29/2025 3:00 PM EST Office Visit [facility]IO [address] [facility] [place] [address] Brannon Rod DO [address] [place] [address] [place] [address] documented as of this encounter Procedures Procedure Name Priority Date/Time Associated Diagnosis Comments PAP SMEAR Routine 05/16/2024 12:00 AM EST documented in this encounter Results * Pap Smear (05/16/2024 12:00 AM EST) Swab Cervical swab / Unknown us Brannon Rod DO LAB CYTOLOGY ORDERABLES Final Re sult EXTERNAL LAB documented in this encounter Visit Diagnoses Not on filedocumented in this encounter Care Teams Canvas Goods Supervisor Relationship Specialty Start Date End Date Gavino Shoemaker MD PCP - General Family Medicine 05/03/23 Annelise Mcgovern NP [address] [place] [address] Referring Physician Family Medicine 12/03/24 documented as of this encounter
[2025-03-07 11:15] LABS: Hematocrit 39.7 % (36.0-48.0); Hemoglobin 13.0 g/dL (12.0-16.0); Immature Granulocytes Abs Auto 0.02 10^3/uL (0.00-0.03); Immature Granulocytes Pct Auto 0.2 % (0.0-0.5); Lymphocytes Absolute Auto 2.1 10^3/uL (1.2-3.8); Mean Corpuscular HGB Conc 32.7 g/dL (29.9-35.2); Mean Corpuscular Hemoglobin 27.0 pg (26.7-34.0); Mean Corpuscular Volume 82.5 fL (81.0-99.0); Platelet Count 324 10^3/uL (150-450); Red Blood Count 4.81 10^6/uL (4.20-5.40); White Blood Count 10.3 10^3/uL (4.0-11.0)
--- OUTSIDE RECORDS SUMMARY | 2025-03-07 11:17 | XMS_ITS | CCD ---
Author Organization [facility] Care Team Providers Care Content Designer Name Role Phone VIOLA, DR RENDON Admitting Unavailable VIOLA, DR RENDON Attending Unavailable DEFRANCE, DR LARSEN Primary Care Unavailable FRANKLIN, DR SUZIE Peña Consulting Unavailable VIOLA, DR [...] Primary Care Unavailable JUNE NAIR Attending Unavailable TREMRUBY CORRALES Referring Unavailable CHRISTIAN, JAN Primary Care Unavailable TREMRUBY CORRALES Referring Unavailable JAN GONZALES Primary Care Unavailable Froilan KELLYN-Paul MCWILLIAMS Primary Care Provide r PAUL MCGOVERN Attending Unavailable JAN GONZALES Referring Unavailable JAN GONZALES Primary Care Unavailable PAUL MCGOVERN Attending Unavailable JAN GONZALES Referring Unavailable PAUL MCGOVERN Primary Care Unavailable Froilan GONZALEZZahidara Unavailable VIOLA, JUSTICE Attending Unavailable VIOLA, JUSTICE Referring Unavailable VIOLA, JUSTICE Attending Unavailable VIOLA, JUSTICE Attending Unavailable VIOLA, JUSTICE Attending Unavailable VIOLA, JUSTICE Attending Unavailable Medications Current Medications Medication Drug Class(es) Dates Sig (Normalized) Sig (Original) FLUoxetine 20 mg oral capsule (17 sources) Serotonin Reuptake Inhibitor Start: 11-28-2024 End: [...] transmission] Onset: 2 Episodic Malaise and fatigue (15 sources) Fatigue; Translations: [Other fatigue] Onset: 5 [...] mental disorders or infectious disease) (10 sources) Endometrium thickened; Translations: [Abnormal findings on diagnostic imaging of other specified body structures] Onset: 5 01-01-2025 Chronic Other screening for suspected conditions (not mental disorders or infectious disease) (10 sources) Encounter for screening for malignant neoplasm of cervix; Translations: [Encounter for screening mammogram for malignant neoplasm of breast] Onset: 1 Episodic Residual codes; unclassified (15 sources) History of endometrial ablation; Translations: [Other [...] CBC WITH AUTO DIFFon BASOPHILS ABSOLUTE AUTO 0.1 [facility] Basophils/100 WBC (Bld) 0.7 % 0.2 - 2.0 % [facility] Eosinophils/100 WBC (Bld) 2.8 % 0.9 - 7.0 % [facility] Erythrocyte distribution width (RBC) [Ratio] 12.6 % 11.0 - 15.0 % [facility] Hematocrit (Bld) [Volume fraction] 36.9 % 36.0 - 48.0 % [facility] Hemoglobin (Bld) [Mass/Vol] 12 g/dL 12.0 - 16.0 g/dL [facility] IMMATURE GRANULOCYTES ABS AUTO 0.02 [facility] Immature granulocytes/100 WBC (Bld) 0.3 % 0.0 - 0.5 % [facility] LYMPHOCYTES ABSOLUTE AUTO 2.2 [facility] Lymphocytes/100 WBC (Bld) 29.3 % 20.5 - 60.0 % [facility] MCH (RBC) [Entitic mass] 27.3 pg 26.7 - 34.0 pg [facility] MCHC (RBC) [Mass/Vol] 32.5 g/dL 29.9 - 35.2 g/dL [facility] MCV (RBC) [Entitic vol] 83.9 fL 81.0 - 99.0 fL [facility] MONOCYTES ABSOLUTE AUTO 0.6 [facility] Monocytes/100 WBC (Bld) 8 % 1.7 - 12.0 % [facility] NEUTROPHILS ABSOLUTE AUTO 4.5 [facility] Neutrophils/100 WBC (Bld) 58.9 % 43.0 - 75.0 % [facility] Platelet mean volume (Bld) [Entitic vol] 10.2 fL 9.5 - 13.5 fL [facility] EO # 0.2 [facility] PLT 321 [facility] RBC 4.4 [facility] WBC 7.6 [facility] ALL CBC WITH AUTO DIFFon BASOPHILS ABSOLUTE AUTO 0 [facility] Basophils/100 WBC (Bld) 0.5 % 0.2 - 2.0 % [facility] Eosinophils/100 WBC (Bld) 3 % 0.9 - 7.0 % [facility] Erythrocyte distribution width (RBC) [Ratio] 13 % 11.0 - 15.0 % [facility] Hematocrit (Bld) [Volume fraction] 39 % 36.0 - 48.0 % [facility] Hemoglobin (Bld) [Mass/Vol] 13.3 g/dL 12.0 - 16.0 g/dL [facility] IMMATURE GRANULOCYTES ABS AUTO 0.02 [facility] Immature granulocytes/100 WBC (Bld) 0.2 % 0.0 - 0.5 % [facility] LYMPHOCYTES ABSOLUTE AUTO 2.4 [facility] Lymphocytes/100 WBC (Bld) 30.3 % 20.5 - 60.0 % [facility] MCH (RBC) [Entitic mass] 29 pg 26.7 - 34.0 pg [facility] MCHC (RBC) [Mass/Vol] 34.1 g/dL 29.9 - 35.2 g/dL [facility] MCV (RBC) [Entitic vol] 85.2 fL 81.0 - 99.0 fL [facility] MONOCYTES ABSOLUTE AUTO 0.6 [facility] Monocytes/100 WBC (Bld) 7.5 % 1.7 - 12.0 % [facility] NEUTROPHILS ABSOLUTE AUTO 4.7 [facility] Neutrophils/100 WBC (Bld) 58.5 % 43.0 - 75.0 % [facility] Platelet mean volume (Bld) [Entitic vol] 10.7 fL 9.5 - 13.5 fL [facility] EO # 0.2 [facility] PLT 289 [facility] RBC 4.58 [facility] WBC 8 [facility] POCT urinalysis dipstick onl yon 01-22-2025 External Poct Urine Bilirubin Negative [facility] External Poct Urine Blood Negative [facility] External Poct Urine Glucose Negative [facility] External Poct Urine Ketones Negative [facility] External Poct Urine Leukocyte Esterase Negative [facility] External Poct Urine Nitrite Negative [facility] External Poct Urine Ph 7.5 [facility] External Poct Urine Protein Trace [facility] External Poct Urine Specific [place] 1.01 [facility] External Poct Urine Urobilinogen 0.2 [facility] Interpretation and review of laboratory results Normal [facility] ECG 12-LEADon 01-16-2025 [place] [address] Electrocardiograph Report Signed Patient: AZALIA CASTRO MR#: [id number] : 1975 Acct:[id number] Age/Sex: 49 / F ADM Date: 01/16/25 Loc: [facility] Attending Dr: Justice Rod D.O. Ordering Physician: Justice Rod D.O. 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 Measurements Intervals [place] Rate: 65 P: 11 NE: 140 QRS: 65 QRSD: 85 T: 51 QT: 371 QTc: 388 Interpretive Statements SINUS RHYTHM Normal ECG No previous ECG available for comparison Electronically Signed On 01-16-2025 19:49:55 EDT by STEPHANIE BERNABE M.D. Dictated By: STEPHANIE BERNABE Signed By: 01/16/25 1950 DD/ 1216 TD/TT: Anode Builder: [facility] Radiology, Radiologist, MD - 01/16/2025 The [place] [id number] Electrocardiograph Report Signed Patient: AZALIA CASTRO MR#: [id number] : 1975 Acct:[id number] Age/Sex: 49 / F ADM Date: 01/16/25 Loc: PST Attending Dr: Justice Rod D.O. Ordering Physician: Justice Rod D.O. 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 Measurements Intervals [place] Rate: 65 P: 11 NE: 140 QRS: 65 QRSD: 85 T: 51 QT: 371 QTc: 388 Interpretive Statements SINUS RHYTHM Normal ECG No previous ECG available for comparison Electronically Signed On 01-16-2025 19:49:55 EDT by STEPHANIE BERNABE M.D. Dictated By: STEPHANIE BERNABE Signed By: 01/16/251949 DD/ 1216 TD/TT: Anode Builder: [facility] Radiology Study observation (narrative) [facility] ECG 12-LEADOrdered By: Radio logist Radiology on 01-16-2025 [facility] [employer] Work Phone: XR CHEST 2Von 01-16-[address] [address] XRay Report Signed Patient: AZALIA CASTRO MR#: [id number] : 1975 Acct:[id number] Age/Sex: 49 / F ADM Date: 01/16/25 Loc: PST Attending Dr: Justice Rod D.O. Ordering Physician: Justice Rod D.O. Date of Service: 01/16/25 Procedure(s): XR chest 2V Accession Number(s): [id number] cc: Justice Rod D.O.; Paul Mcgovern HEEL BRUSHER The [address] [address] Patient Name: AZALIA CASTRO MRN: [facility]:[id number] date: 1975 Sex: F Assigned Patient Location: [facility] Current Patient Location: [facility] Accession/Order Number: [id number] Exam Date: 01/16/2025 14:35 Report Date: 01/16/2025 14:39 At the request of: JUSTICE ROD DO Procedure: XR chest 2V Chest 2 views CLINICAL HISTORY: Preop exam COMPARISON: None FINDINGS: Heart normal in size. Lungs are clear. No free air. XR/XR chest 2V IMPRESSION: NO ACUTE CARDIOPULMONARY ABNORMALITY. Impression dictated by: Johan Stevens Jr., D.O. 01/16/2025 2:39 PM Dictation Location: [place] [address] Electronically authenticated by: [id number] Y Date: 01/16/2025 14:39 Dictated By: Johan Stevens M.D. Signed By: 01/16/25 1441 DD/ 1439 TD/TT: Anode Builder: [facility] Radiology, Radiologist, MD - 01/16/2025 [place] [address] XRay Report Signed Patient: AZALIA CASTRO MR#: [id number] : 1975 Acct:[id number] Age/Sex: 49 / F ADM Date: 01/16/25 Loc: [facility] Attending Dr: Justice Rod D.O. Ordering Physician: Justice Rod D.O. Date of Service: 01/16/25 Procedure(s): XR chest 2V Accession Number(s): [id number] cc: Justice Rod D.O.; Paul Mcgovern HEEL BRUSHER The [address] [address] Patient Name: AZALIA CASTRO MRN: [facility]:[id number] date: 1975 Sex: F Assigned Patient Location: [facility] Current Patient Location: [facility] Accession/Order Number: [id number] Exam Date: 01/16/2025 14:35 Report Date: 01/16/2025 14:39 At the request of: JUSTICE ROD DO Procedure: XR chest 2V Chest 2 views CLINICAL HISTORY: Preop exam COMPARISON: None FINDINGS: Heart normal in size. Lungs are clear. No free air. XR/XR chest 2V IMPRESSION: NO ACUTE CARDIOPULMONARY ABNORMALITY. Impression dictated by: Johan Stevens Jr., D.O. 01/16/2025 2:39 PM Dictation Location: [place] [address] Electronically authenticated by: [id number] Y Date: 01/16/2025 14:39 Dictated By: Johan Stevens M.D. Signed By: 01/16/25 1441 DD/ 1439 TD/TT: Anode Builder: [employer] Radiology Study observation (narrative) [facility] CHEST 2VOrdered By: [employer] Radiology on 01-16-2025 [employer] Work Phone: US PELVIC COMPLETE W/ [...] II, MD, PHD at 16-Dec-2024 10:02:58 PM [facility] Normal Not Available Comment on above: Order Comment: US PE LVIS-TRANSVAG IF INDICATED Patient's last menstrual period was 11/11/2024. ALL CBC WITH AUTO DIFFon BASOPHILS ABSOLUTE AUTO 0 [facility] Basophils/100 WBC (Bld) 0.5 % 0.2 - 2.0 % [facility] Eosinophils/100 WBC (Bld) 1.9 % 0.9 - 7.0 % [facility] Erythrocyte distribution width (RBC) [Ratio] 12.8 % 11.0 - 15.0 % [facility] Hematocrit (Bld) [Volume fraction] 38.4 % 36.0 - 48.0 % [facility] Hemoglobin (Bld) [Mass/Vol] 13.1 g/dL 12.0 - 16.0 g/dL [facility] IMMATURE GRANULOCYTES ABS AUTO 0.02 [facility] Immature granulocytes/100 WBC (Bld) 0.3 % 0.0 - 0.5 % [facility] LYMPHOCYTES ABSOLUTE AUTO 2.3 [facility] Lymphocytes/100 WBC (Bld) 30.5 % 20.5 - 60.0 % [facility] MCH (RBC) [Entitic mass] 30.6 pg 26.7 - 34.0 pg [facility] MCHC (RBC) [Mass/Vol] 34.1 g/dL 29.9 - 35.2 g/dL [facility] MCV (RBC) [Entitic vol] 89.7 fL 81.0 - 99.0 fL [facility] MONOCYTES ABSOLUTE AUTO 0.5 [facility] Monocytes/100 WBC (Bld) 6.5 % 1.7 - 12.0 % [facility] NEUTROPHILS ABSOLUTE AUTO 4.5 [facility] Neutrophils/100 WBC (Bld) 60.3 % 43.0 - 75.0 % [facility] Platelet mean volume (Bld) [Entitic vol] 10.1 fL 9.5 - 13.5 fL [facility] EO # 0.1 [facility] PLT 354 [facility] RBC 4.28 [facility] WBC 7.4 [facility] CBC WITH AUTO DIFFERENTIALon 10-17-2024 BASOPHILS ABSOLUTE COUNT (10*3/UL) BY AUTOMATED COUNT 0.0 10*3/uL Normal [facility] Comment on above: Performed By: #### C BCA #### [facility] ([facility] [address] [place] [address] [place] [address] VIR BASOPHILS RELATIVE PERCENT BY AUTOMATED COUNT 0.5 % Normal [facility] Comment on above: Performed By: #### C BCA #### [facility] ([address] [place] [address] VIR CELLAVISION DIFFERENTIAL TYPE AUTOMATED DIFFERENTIAL Normal [facility] Comment on above: Performed By: #### C BCA #### [facility] ([facility]) [address] [place] [address] [place] [address] VIR Eosinophils (Bld) [#/Vol] 0.2 10*3/uL Normal [facility] Comment on above: Performed By: #### C BCA #### [facility] ([facility]) [address] [place] [address] [place] [address] VIR EOSINOPHILS RELATIVE PERCENT BY AUTOMATED COUNT 1.9 % Normal [facility] Comment on above: Performed By: #### C BCA #### [facility]) [address] [place] [address] [place] [address] VIR Erythrocyte distribution width (RBC) [Ratio] 13.2 % Normal 11.5-15 [facility] Comment on above: Performed By: #### C BCA #### [facility]) [address] [place] [address] [place] [address] VIR Hematocrit (Bld) [Volume fraction] 36.0 % Normal 35-47 [facility] Comment on above: Performed By: #### C BCA #### [facility] ([address] [address] VIR Hemoglobin (Bld) [Mass/Vol] 12.7 g/dL Normal 11.7-15.5 [facility] Comment on above: Performed By: #### C BCA #### [facility] ([address] [address] VIR LYMPHOCYTES ABSOLUTE COUNT (10*3/UL) BY AUTOMATED COUNT 3.4 10*3/uL Normal [facility] Comment on above: Performed By: #### C BCA #### [facility] ([address] [address] VIR LYMPHOCYTES RELATIVE PERCENT BY AUTOMATED COUNT 38.1 % Normal [facility] Comment on above: Performed By: #### C BCA #### [facility] ([address] [address] VIR MCH (RBC) [Entitic mass] 31.3 pg Normal 27-34 [facility] Comment on above: Performed By: #### C BCA #### [facility] ([address] [address] VIR MCHC (RBC) [Mass/Vol] 35.3 g/dL Normal 32-36 [facility] Comment on above: Performed By: #### C BCA #### [facility] ([address] [address] VIR MCV (RBC) [Entitic vol] 89 fL Normal 80-100 [facility] Comment on above: Performed By: #### C BCA #### [facility] ([address] [address] VIR MONOCYTES ABSOLUTE COUNT (10*3/UL) BY AUTOMATED COUNT 0.5 10*3/uL Normal [facility] Comment on above: Performed By: #### C BCA #### [facility] ([address] [place] [address] VIR MONOCYTES RELATIVE PERCENT BY AUTOMATED COUNT 6.0 % Normal [facility] Comment on above: Performed By: #### C BCA #### [facility] ([address] [place] [address] VIR NEUTROPHILS ABSOLUTE COUNT BY AUTOMATED COUNT 4.9 10*3/uL Normal [facility] Comment on above: Performed By: #### C BCA #### [facility] ([address] [place] [address] VIR NEUTROPHILS RELATIVE PERCENT BY AUTOMATED COUNT 53.5 % Normal [facility] Comment on above: Performed By: #### C BCA #### [facility] ([address] [place] [address] VIR Platelet mean volume (Bld) [Entitic vol] 8.7 fL Normal 7-12 [facility] Comment on above: Performed By: #### C BCA #### [facility] ([address] [place] [address] VIR Platelets (Bld) [#/Vol] 286 10*3/uL Normal 150-450 [facility] Comment on above: Performed By: #### C BCA #### [facility] ([address] [place] [address] VIR RBC COUNT 4.05 X10E12/L Normal 3.8-5.2 [facility] Comment on above: Performed By: #### C BCA #### [facility] ([address] [place] [address] VIR WBC (Bld) [#/Vol] 9.1 10*3/uL Normal 4-11 [facility] Comment on above: Performed By: #### C BCA #### [facility] ([address] [place] [address] VIR COMPREHENSIVE METABOLIC PANE Edu 10-17-2024 Albumin [Mass/Vol] 3.4 g/dL Normal 3.2-5.3 [facility] Comment on above: Performed By: #### C MP #### [facility] ([place] [address] [place] [address] VIR ALP [Catalytic activity/Vol] 52 U/L Normal 39-130 [facility] Comment on above: Performed By: #### C MP #### [facility] ([place] [address] [place] [address] VIR ALT [Catalytic activity/Vol] 37 U/L High <=31 [facility] Comment on above: Performed By: #### C MP #### [facility] ([place] [address] [place] [address] VIR Anion gap [Moles/Vol] 8 mmol/L Normal 5-15 [facility] Comment on above: Performed By: #### C MP #### [facility] ([place] [address] [place] [address] VIR AST [Catalytic activity/Vol] 24 U/L Normal <=41 [facility] Comment on above: Performed By: #### C MP #### [facility] ([place] [address] [place] [address] VIR Bilirubin [Mass/Vol] 0.2 mg/dL Low 0.3-1.2 [facility] Comment on above: Performed By: #### C MP #### [facility] ([place] [address] [place] [address] VIR Calcium [Mass/Vol] 7.9 mg/dL Low 8.5-10.5 [facility] Comment on above: Performed By: #### C MP #### [facility] ([place] [address] [place] [address] VIR Chloride [Moles/Vol] 107 mmol/L Normal 98-109 [facility] Comment on above: Performed By: #### C MP #### [facility] ([address] [place] [address] VIR CO2 [Moles/Vol] 22 mmol/L Normal 22-32 [facility] Comment on above: Performed By: #### C MP #### [facility] ([address] [place] [address] VIR Creatinine [Mass/Vol] 0.59 mg/dL Normal 0.40-1.00 [facility] Comment on above: Result Comment: METH OD TRACEABLE TO IDMS STANDARD Performed By: #### C MP #### [facility] ([address] [address] VIR EGFR (CKD-EPI) NON-RACE DEPENDENT >^90 Normal >=60 [facility] Comment on above: Result Comment: eGFR not reported due to non-numeric value for Creatinine. Reported eGFR is based on the CKD-EPI 2020 equation that does not use a race coefficient. Performed By: #### C MP #### [facility] ([address] [place] [address] VIR Glucose [Mass/Vol] 132 mg/dL High 65-99 [facility] Comment on above: Performed By: #### C MP #### [facility] ([address] [place] [address] VIR Potassium [Moles/Vol] 3.3 mmol/L Low 3.5-5.0 [facility] Comment on above: Performed By: #### C MP #### [facility] ([address] [place] [address] VIR Protein [Mass/Vol] 6.0 g/dL Normal 6.0-8.0 [facility] Comment on above: Performed By: #### C MP #### [facility] ([address] [place] [address] VIR Sodium [Moles/Vol] 137 mmol/L Normal 134-146 [facility] Comment on above: Performed By: #### C MP #### [facility] ([address] [place] [address] VIR Urea nitrogen [Mass/Vol] 11 mg/dL Normal 5-23 [facility] Comment on above: Performed By: #### C MP #### [facility] ([address] [place] [address] VIR ETHANOLon 10-17-2024 Ethanol [Mass/Vol] mg/dL Normal <=0.080 [facility] Comment on above: Result Comment: This report is intended for use in clinical monitoring or management of patients. Performed By: #### A LCO #### [facility] ([address] [place] [address] VIR MAGNESIUMon 10-17-2024 Magnesium [Mass/Vol] 1.9 mg/dL Normal 1.8-2.6 [facility] Comment on above: Performed By: #### M G #### [facility] ([address] [place] [address] VIR THYROID PROFILE INCLUDES TSH FT4on 10-17-2024 Free T4 [Mass/Vol] 1.02 ng/dL Normal 0.61-1.60 [facility] Comment on above: Performed By: #### T HYR #### [facility] ([address] [place] [address] VIR TSH 5.77 uIU/mL High 0.49-4.67 [facility] Comment on above: Performed By: #### T HYR #### [facility] ([address] [place] [address] VIR TROP I, HIGH SENSITIVITY 1 H OURon 10-17-2024 TROPONIN I, HIGH SENSITIVITY 3 ng/L Normal <16 [facility] Comment on above: Performed By: #### T NIHS1 #### [facility] ([facility]) [address] [place] [address] VIR TROPONIN I, HIGH SENSITIVITY 0 HOURon 10-17-2024 TROPONIN I, HIGH SENSITIVITY <^2 Normal <16 [facility] Comment on above: Performed By: #### T NIHS0 #### [facility]) [address] [place] [address] [place] [address] VIR BASIC METABOLIC PANLon 09-21 Anion gap [Moles/Vol] 9 mmol/L Normal 5-15 [facility] Comment on above: Performed By: #### C BCA, BMP #### [facility] ([id number]) [address], [address] [place] [address] Calcium [Mass/Vol] 9.8 mg/dL Normal 8.5-10.5 [facility] Comment on above: Performed By: #### C BCA, BMP #### [facility] ([id number]) [address], [address] [place] [address] Chloride [Moles/Vol] 101 mmol/L Normal 98-109 [facility] Comment on above: Performed By: #### C BCA, BMP #### [facility] ([id number]) [address], [address] [place] [address] CO2 [Moles/Vol] 27 mmol/L Normal 22-32 [facility] Comment on above: Performed By: #### C BCA, BMP #### [facility] ([id number]) [address], [address] [place] [address] Creatinine [Mass/Vol] 0.79 mg/dL Normal 0.40-1.00 [facility] Comment on above: Result Comment: METH OD TRACEABLE TO IDMS STANDARD Performed By: #### C BCA, BMP #### [facility] ([id number]) [address], [address] [place] [address] eGFR (CKD-EPI) NON-RACE DEPENDENT >90 Normal >59 [facility] Comment on above: Result Comment: Reported eGFR is based on the CKD-EPI 2020 equation that does not use a race coefficient. Performed By: #### C BCA, BMP #### [facility] ([id number]) [address], [address] [place] [address] Glucose [Mass/Vol] 133 mg/dL High 65-99 [facility] Comment on above: Performed By: #### C BCA, BMP #### [facility] ([id number]) [address] [address] [place] [address] Potassium [Moles/Vol] 4.1 mmol/L Normal 3.5-5.0 [facility] Comment on above: Performed By: #### C BCA, BMP #### [facility] ([id number]) [address] [address] [place] [address] Sodium [Moles/Vol] 137 mmol/L Normal 134-146 [facility] Comment on above: Performed By: #### C BCA, BMP #### [facility] ([id number]) [address] [address] [place] [address] Urea nitrogen [Mass/Vol] 11 mg/dL Normal 5-23 [facility] [facility] Comment on above: Performed By: #### C BCA, BMP #### [facility] ([id number]) [address] [place] [address] CBC AND AUTO DIFFon 04-20 25 ABSOLUTE BASOPHIL 0.0 X10E9/L Normal 0.0-0.2 [facility] Comment on above: Performed By: #### C BCA, BMP #### [facility] ([id number]) [address] [place] [address] ABSOLUTE NEUTROPHIL 5.5 X10E9/L Normal 1.5-6.6 [facility] Comment on above: Performed By: #### C JUJU, BMP #### [facility] ([id number]) [address] [place] [address] Basophils/100 WBC (Bld) 0.4 % Normal [facility] Comment on above: Performed By: #### C JUJU, BMP #### [facility] ([id number]) [address] [place] [address] Eosinophils (Bld) [#/Vol] 0.2 10*3/uL Normal 0.0-0.4 [facility] Comment on above: Performed By: #### C JUJU, BMP #### [facility] ([id number]) [address], [address] [place] [address] Eosinophils/100 WBC (Bld) 2.2 % Normal [facility] Comment on above: Performed By: #### C JUJU, BMP #### [facility] ([id number]) [address] [place] [address] Erythrocyte distribution width (RBC) [Ratio] 13.2 % Normal 11.5-15.0 [facility] Comment on above: Performed By: #### C JUJU, BMP #### [facility] ([id number]) [address] [place] [address] Hematocrit (Bld) [Volume fraction] 40.8 % Normal 35-47 [facility] Comment on above: Performed By: #### C JUJU, BMP #### [facility] ([id number]) [address] [place] [address] Hemoglobin (Bld) [Mass/Vol] 13.8 g/dL Normal 11.7-15.5 [facility] Comment on above: Performed By: #### C JUJU, BMP #### [facility] ([id number]) [address] [place] [address] Lymphocytes (Bld) [#/Vol] 1.7 10*3/uL Normal 1.0-3.5 [facility] Comment on above: Performed By: #### C BCA, BMP #### [facility] ([id number]) [address] [place] [address] Lymphocytes/100 WBC (Bld) 21.6 % Normal [facility] Comment on above: Performed By: #### C JUJU, BMP #### [facility] ([id number]) [address] [place] [address] MCH (RBC) [Entitic mass] 30.3 pg Normal 27-34 [facility] Comment on above: Performed By: #### C JUJU, BMP #### [facility] ([id number]) [address] [place] [address] MCHC (RBC) [Mass/Vol] 33.8 g/dL Normal 32-36 [facility] Comment on above: Performed By: #### C JUJU, BMP #### [facility] ([id number]) [address] [place] [address] MCV (RBC) [Entitic vol] 90 fL Normal 80-100 [facility] Comment on above: Performed By: #### C JUJU, BMP #### [facility] ([id number]) [address] [place] [address] Monocytes (Bld) [#/Vol] 0.5 10*3/uL Normal 0-0.9 [facility] Comment on above: Performed By: #### C BCA, BMP #### [facility] ([id number]) [address] [place] [address] Monocytes/100 WBC (Bld) 6.6 % Normal [facility] Comment on above: Performed By: #### C BCA, BMP #### [facility] ([id number]) [address] [place] [address] Neutrophils/100 WBC (Bld) 69.2 % Normal [facility] Comment on above: Performed By: #### C BCA, BMP #### [facility] ([id number]) [address] [place] [address] Platelet mean volume (Bld) [Entitic vol] 9.5 fL Normal 7-12 [facility] Comment on above: Performed By: #### C JUJU, BMP #### [facility] ([id number]) [address] [place] [address] Platelets (Bld) [#/Vol] 248 10*3/uL Normal 150-450 [facility] Comment on above: Performed By: #### Doron MATUTE, BMP #### [facility] ([id number]) [address] [place] [address] RBC COUNT 4.54 X10E12/L Normal 3.80-5.20 [facility] Comment on above: Performed By: #### Doron MATUTE, BMP #### [facility] ([id number]) [address] [place] [address] WBC (Bld) [#/Vol] 7.9 10*3/uL Normal 4.0-11.0 [facility] Comment on above: Performed By: #### Doron MATUTE, BMP #### [facility] ([id number]) [address] [place] [address] MM TOMOSYNTHESIS SCREENING B Ion 08-30-[address] [address] Mammography Report Signed Patient: AZALIA CASTRO MR#: [id number] : 1975 Acct:[id number] Age/Sex: 48 / F ADM Date: 08/28/24 Loc: MAMMO Attending Dr: Justice Rod D.O. Ordering Physician: Justice Rod D.O. Results: Date of Service: 08/28/24 Follow Up: Procedure(s): MM tomosynthesis screening BI Accession Number(s): [id number] cc: Justice Rod D.O.; Physician,Non-Staff Briana Patient Name: AZALIA CASTRO MR#: [id number] : 1975 Exam Date: 08/28/2024 Ordering Doctor: [...] Treatments None Family Cancers None LOCATION: [facility] BREAST COMPOSITION: The breasts are extremely [...] Stevens M.D. Signed By: 08/30/24 0947 DD/ 0946 TD/TT: Anode Builder: [facility] Radiology, Radiologist, MD - 08/30/2024 [place] [address] Mammography Report Signed Patient: AZALIA CASTRO MR#: [id number] : 1975 Acct:[id number] Age/Sex: 48 / F ADM Date: 08/28/24 Loc: MAMMO Attending Dr: Justice Rod D.O. Ordering Physician: Justice Rod D.O. Results: Date of Service: 08/28/24 Follow Up: Procedure(s): MM tomosynthesis screening BI Accession Number(s): [id number] cc: Justice Rod D.O.; Physician,Non-Staff Briana Patient Name: AZALIA CASTRO MR#: [id number] : 1975 Exam Date: 08/28/2024 Ordering Doctor: [...] Treatments None Family Cancers None LOCATION: [facility] BREAST COMPOSITION: The breasts are extremely [...] Stevens M.D. Signed By: 08/30/24 0947 DD/ 0946 TD/TT: Anode Builder: [facility] [place] Radiology Study observation (narrative) [facility] MM TOMOSYNTHESIS SCREENING B IOrdered By: Radiologist Radiology on 08-30-2024 [facility] [employer] Work Phone: IGP,APTIMA HPV,AGE GDLNon AGE GDLN ACOG TESTING Note . [facility] Comment on above: TESTS RESULT FLAG U NITS REF RANGE LAB Clinician Provided Cytology Information Source.............Cervix;Endocervix No. of containers..01 ThinPrep Vial Age Geraldoo ANKUSHOG Keli... FLAG LEGEND: L-Low Normal,H-High Normal,LL-Alert Low,HH-Alert High <-Panic Low,>-Panic High,A-Abnormal,AA-Critical Abnormal Performed at: 01 =G [address] [place] [address] Hattie Mccabe MD, HPV APTIMA Negative Negative [facility] Comment on above: This nucleic acid am plification test detects fourteen high- risk HPV types (16,18,31,33,35,39,45,51,52,56,58,59,66,68) without differentiation. Performed at: =G - Lab[address] [id number] [employer]: Hattie Mccabe MD, Phone: [phone] Performed at: - [address] [id number] [employer]: Hattie Mccabe MD, Phone: [phone] IGP, APTIMA HPV, RFX 16/18,45 Note . [facility] Comment on above: TESTS RESULT FLAG UN ITS REF RANGE LAB DIAGNOSIS: 02 NEGATIVE FOR INTRAEPITHELIAL LESION OR MALIGNANCY. CELLULAR CHANGES ASSOCIATED WITH INFLAMMATION ARE PRESENT. Specimen adequacy: 02 Satisfactory for evaluation. Endocervical and/or squamous metaplastic cells (endocervical component) are present. Performed by: 02 Fausto Montenegro, Head Waiter/Waitress Banquet ([facility]) . 02 Note: Note 02 The [...] Low,>-Panic High,A-Abnormal,AA-Critical Abnormal Performed at: [address] [address] Hattie Mccabe MD, BRUSH-SPATULA CERVIX ENDOCERVIX [facility] PAP ACOG PANEL 2: 30 to 65on 05-01-2022 . . Normal [facility] Comment on above: Result Comment: Perf ormed at: BA Performed By: #### 4 [id number] #### [facility] [address] [place] [address] Dr. Mane Mueller Age Gdln ACOG Testing 30-65 Normal [facility] Comment on above: Performed By: #### 4 [id number] #### [facility] [address] [place] [address] Dr. Mane Mueller DIAGNOSIS: Comment Normal [facility] Comment on above: Result Comment: NEGA TIVE FOR INTRAEPITHELIAL LESION OR MALIGNANCY. Performed at: BA Performed By: #### 4 [id number] #### [facility] [address] [address] [address] Mane Mueller HPV Aptima Negative Normal Negative [facility] Comment on above: Result Comment: This nucleic acid amplification test detects fourteen high-risk HPV types (16,18,31,33,35,39,45,51,52,56,58,59,66,68) without differentiation. Performed at: =G Performed By: #### 4 [id number] #### [facility] [address] [place] [address] Dr. Mane Mueller HPV Genotype Reflex Comment Normal [facility] Comment on above: Result Comment: Crit eria not met, HPV Genotype not performed. Performed at: BA Performed By: #### 4 [id number] #### [facility] [address] [place] [address] Dr. Mane Mueller Methodology: Comment Normal [facility] Comment on above: Result Comment: This liquid based ThinPrep(R) pap test was screened with the use of an image guided system. Performed at: WB Performed By: #### 4 [id number] #### [facility] [address] [place] [address] Dr. Mane Mueller Note: Comment Normal [facility] Comment on above: Result Comment: The Pap smear is a screening test designed to aid in the detection of premalignant and malignant conditions of the uterine cervix. It is not a diagnostic procedure and should not be used as the sole means of detecting cervical cancer. Both false-positive and false-negative reports do occur. . Performed at: WB Performed By: #### 4 [id number] #### [facility] [address] [place] [address] Dr. Mane Mueller Performed by: Comment Normal [facility] Comment on above: Result Comment: Beau Jeffries, Head Waiter/Waitress Banquet ([employer]) Performed at: BA Performed By: #### 4 [id number] #### [facility] [address] [place] [address] Dr. Mane Mueller Specimen adequacy: Comment Normal [facility] Comment on above: Result Comment: Sati sfactory for evaluation. Endocervical and/or squamous metaplastic cells (endocervical component) are present. Performed at: BA Performed By: #### 4 [id number] #### [facility] [address] [place] [address] Dr. Mane Mueller CHLAMYDIA/GONOCOCCUS MARYELLEN ( AB/URINE/PAPon 02-19-2022 Chlamydia trachomatis, MARYELLEN Negative Normal Negative [facility] Comment on above: Performed By: #### C T/NGNA #### [facility] [address] [place] [address] Dr. Mane Mueller Neisseria gonorrhoeae, MARYELLEN Negative Normal Negative [facility] Comment on above: Performed By: #### C T/NGNA #### [facility] [address] [place] [address] Dr. Mane Mueller VAGINITIS/VAGINOSIS DNA PROB Rigo 02-19-2022 Sandra species Negative Normal Negative [facility] Comment on above: Performed By: #### V AGINT #### [facility] [address] [place] [address] Dr. Mane Mueller Gardnerella vaginalis Negative Normal Negative [facility] Comment on above: Performed By: #### V AGINT #### [facility] [address] [place] [address] Dr. Mane Mueller Trichomonas vaginalis Positive Abnormal Negative [facility] Comment on above: Performed By: #### V AGINT #### [facility] [address] [place] [address] Dr. Mane Mueller CBC AUTO DIFFon 07-17-2021 BASO # 0.0 103/ul Normal 0.0-0.1 [facility] Comment on above: Performed By: #### C BC #### [facility] [address] [place] [address] Dr. Mane Mueller Basophils/100 WBC (Bld) 0.3 % Normal 0.2-2.0 [facility] Comment on above: Performed By: #### C BC #### [facility] [address] [place] [address] Dr. Mane Mueller EO # 0.3 103/ul Normal 0.0-0.7 [facility] Comment on above: Performed By: #### C BC #### [facility] [address] [place] [address] Dr. Mane Mueller Eosinophils/100 WBC (Bld) 2.9 % Normal 0.9-7.0 [facility] Comment on above: Performed By: #### C BC #### [facility] [address] [place] [address] Dr. Mane Mueller Erythrocyte distribution width (RBC) [Ratio] 14.2 % Normal 11.0-15.0 [facility] Comment on above: Performed By: #### C BC #### [facility] [address] [place] [address] Dr. Mane Mueller Hematocrit (Bld) [Volume fraction] 40.3 % Normal 36.0-48.0 [facility] Comment on above: Performed By: #### C BC #### [facility] [address] [place] [address] Dr. Mane Mueller Hemoglobin (Bld) [Mass/Vol] 13.1 g/dL Normal 12.0-16.0 [facility] Comment on above: Performed By: #### C BC #### [facility] [address] [place] [address] Dr. Mane Mueller IG # 0.02 10e3/ul Normal 0.00-0.03 [facility] Comment on above: Performed By: #### C BC #### [facility] [address] [place] [address] Dr. Mane Mueller IG % 0.2 % Normal 0.0-0.5 [facility] Comment on above: Performed By: #### C BC #### [facility] [address] [place] [address] Dr. Mane Mueller LYMPH # 2.9 103/ul Normal 1.2-3.8 [facility] Comment on above: Performed By: #### C BC #### [facility] [address] [place] [address] Dr. Mane Mueller Lymphocytes/100 WBC (Bld) 30.7 % Normal 20.5-60.0 [facility] Comment on above: Performed By: #### C BC #### [facility] [address] [place] [address] Dr. Mane Mueller MANUAL DIFF REQ NO Normal [facility] Comment on above: Performed By: #### C BC #### [facility] [address] [place] [address] Dr. Mane Mueller MCH (RBC) [Entitic mass] 27.9 pg Normal 26.7-34.0 [facility] Comment on above: Performed By: #### C BC #### [facility] [address] [place] [address] Dr. Mane Mueller MCHC (RBC) [Mass/Vol] 32.5 g/dL Normal 29.9-35.2 [facility] Comment on above: Performed By: #### C BC #### [facility] [address] [place] [address] Dr. Mane Mueller MCV (RBC) [Entitic vol] 85.7 fL Normal 81.0-99.0 [facility] Comment on above: Performed By: #### C BC #### [facility] [address] [place] [address] Dr. Mane Mueller MONO # 0.7 103/ul Normal 0.3-0.8 [facility] Comment on above: Performed By: #### C BC #### [facility] [address] [place] [address] Dr. Mane Mueller Monocytes/100 WBC (Bld) 7.7 % Normal 1.7-12.0 [facility] Comment on above: Performed By: #### C BC #### [facility] [address] [place] [address] Dr. Mane Mueller NEUT # 5.5 103/ul Normal 1.4-6.5 [facility] Comment on above: Performed By: #### C BC #### [facility] [address] [place] [address] Dr. Mane Mueller Neutrophils/100 WBC (Bld) 58.2 % Normal 43.0-75.0 [facility] Comment on above: Performed By: #### C BC #### [facility] [address] [place] [address] Dr. Mane Mueller Platelet mean volume (Bld) [Entitic vol] 9.6 fL Normal 9.5-13.5 [facility] Comment on above: Performed By: #### C BC #### [facility] [address] [place] [address] Dr. Mane Mueller PLT 349 103/ul Normal 150-450 [facility] Comment on above: Performed By: #### C BC #### [facility] [address] [place] [address] Dr. Mane Mueller RBC 4.70 106/ul Normal 4.20-5.40 [facility] Comment on above: Performed By: #### C BC #### [facility] [address] [place] [address] Dr. Mane Mueller WBC 9.4 103/ul Normal 4.0-11.0 [facility] Comment on above: Performed By: #### C BC #### [facility] [address] [place] [address] Dr. Mane Mueller PREG QUANT HCGon 07-17-2021 HCG QUANT 1 mIU/mL Normal [facility] Comment on above: Performed By: #### P REGQNT #### [facility] [address] [place] [address] Dr. Mane Mueller HCG RANGE SEE BELOW Normal [facility] Comment on above: Result Comment: 5-50 0-1 WEEK 40-300 1-2 WEEKS 100-1,000 2-3 WEEKS 500-6,000 3-4 WEEKS 5,000-200,000 1-2 MONTHS 10,000-100,000 2-3 MONTHS 3,000-50,000 2ND TRIMESTER 1,000-50,000 3RD TRIMESTER Performed By: #### P REGQNT #### [facility] [address] [place] [address] Dr. Mane Mueller Covid-19 PCR (CVDTB)on 06-21 SARS-CoV-2 (COVID-19) RNA MARYELLEN+probe Ql (Unsp spec) Not detected Normal NOT DETECTED [facility] Comment on above: Result Comment: This test is not yet approved or cleared by the [place] FDA. When there are no FDA-approved or cleared tests available, and other criteria are met, FDA can make tests available under an emergency access mechanism called an Emergency Use Authorization (EUA). The EUA for this test is supported by the Independent Contractor of Health and Human Service's (HHS's) declaration [...] SARS-CoV-2. Performed By: #### C VDTB #### [facility] [address] [place], [place] [id number] Dr. Mane Mueller MAMM SCREEN 3D YUDI CADon 05-08-2021 MG MAMM SCREEN 3D YUDI CAD Patient: AZALIA CASTRO Exam Date: 05/08/2021 : 1975 Gender:F Ordering : DR JUSTICE ROD . Admission #: [id number] Family : Order #: [id number] CLICK HERE TO VIEW EXAM RADIOLOGY REPORT [...] Treatments None Family Cancers None LOCATION: [facility] BREAST COMPOSITION: Extremely dense, which lowers [...] Marcano MD on 05/08/2021 at 11:56 Normal [facility] Vital Signs Date Time Vital Sign Value Performing Clinician Facility 02-11-2025 08:47-0400 Body mass index (BMI) [Ratio] 29.62 kg/m2 Justice Viola DO Work Phone: [facility] 02-11-2025 08:47-0400 Body weight 85.78 kg [employer] Work Phone: [facility] 02-11-2025 08:47-0400 Diastolic blood pressure 76 mm[Hg] [employer] DO Work Phone: [facility] 02-11-2025 08:47-0400 Systolic blood pressure 120 mm[Hg] Justice Viola DO Work Phone: [facility] 01-22-2025 14:56-0400 Body mass index (BMI) [Ratio] 29.7 kg/m2 Paul [employer] CRAB [employer]ER[employer] Work Phone: [facility] 01-22-2025 14:56-0400 Body weight 83.46 kg Paul Mcgovern [employer] Work Phone: [facility] 01-22-2025 14:56-0400 Diastolic blood pressure 72 mm[Hg] Paul Schlachter [employer] Work Phone: [facility] 01-22-2025 14:56-0400 Heart rate 79 /min Paul Mcgovern [employer] Work Phone: [facility] 01-22-2025 14:56-0400 Respiratory rate 16 /min Paul Mcgovern APRN-DRUM HANDLER Work Phone: [facility] 01-22-2025 14:56-0400 SaO2% (BldA) [Mass fraction] 98 % Paul Mcgovern [employer] Work Phone: [facility] 01-22-2025 14:56-0400 Systolic blood pressure 124 mm[Hg] Paul Mcgovern APRN-[employer]UM HANDLER Work Phone: [facility] 01-07-2025 10:34-0400 Body mass index (BMI) [Ratio] 29.05 kg/m2 Justice Viola DO Work Phone: [facility] 01-07-2025 10:34-0400 Body weight 84.14 kg Justice Viola DO Work Phone: [facility] 01-07-2025 10:34-0400 Diastolic blood pressure 84 mm[Hg] Justice Viola DO Work Phone: [facility] 01-07-2025 10:34-0400 Systolic blood pressure 122 mm[Hg] Justice Viola DO Work Phone: [facility] 01-01-2025 14:53-0400 Body mass index (BMI) [Ratio] 28.51 kg/m2 Justice Viola DO Work Phone: [facility] 01-01-2025 14:53-0400 Body weight 82.56 kg Justice Viola DO Work Phone: [facility] 01-01-2025 14:53-0400 Diastolic blood pressure 76 mm[Hg] Justice Viola DO Work Phone: [facility] 01-01-2025 14:53-0400 Systolic blood pressure 124 mm[Hg] Justice Viola DO Work Phone: [facility] 12-24-2024 15:31-0400 Body mass index (BMI) [Ratio] 30.51 kg/m2 Paul Mcgovern APRN-DRUM HANDLER Work Phone: [facility] 12-24-2024 15:31-0400 Body weight 85.73 kg Paul Mcgovern [employer] Work Phone: [facility] 12-24-2024 15:31-0400 Diastolic blood pressure 76 mm[Hg] Paul Mcgovern [employer] Work Phone: [facility] [employer] [facility] 12-24-2024 15:31-0400 Heart rate 76 /min Paul Mcgovern [employer] Work Phone: [facility] 12-24-2024 15:31-0400 Respiratory rate 16 /min Paul Mcgovern [employer] Work Phone: [facility] 12-24-2024 15:31-0400 SaO2% (BldA) [Mass fraction] 99 % Paul Mcgovern [employer] Work Phone: [facility] 12-24-2024 15:31-0400 Systolic blood pressure 128 mm[Hg] Paul Mcgovern APRN-DRUM HANDLER Work Phone: [facility] 11-29-2024 09:15-0400 Body height 170.2 cm Justice Viola DO Work Phone: [facility] 11-29-2024 09:15-0400 Body mass index (BMI) [Ratio] 29.13 kg/m2 Justice Viola DO Work Phone: [facility] 11-29-2024 09:15-0400 Body weight 84.37 kg Justice Viola DO Work Phone: [facility] 11-29-2024 09:15-0400 Diastolic blood pressure 76 mm[Hg] Justice Viola DO Work Phone: [facility] 11-29-2024 09:15-0400 Systolic blood pressure 110 mm[Hg] Justice Viola DO Work Phone: [facility] 11-28-2024 12:58-0400 Body mass index (BMI) [Ratio] 30.51 kg/m2 Paul Mcgovern [employer] Work Phone: [facility] [facility] 11-28-2024 12:58-0400 Body weight 85.73 kg Paul Mcgovenr [employer] Work Phone: [facility] 11-28-2024 12:58-0400 Diastolic blood pressure 76 mm[Hg] Paul Mcgovern [employer] Work Phone: [facility] 11-28-2024 12:58-0400 Heart rate 88 /min Paul Mcgovern [employer] Work Phone: [facility] 11-28-2024 12:58-0400 Respiratory rate 18 /min Paul Mcgovern [employer] Work Phone: [facility] 11-28-2024 12:58-0400 SaO2% (BldA) [Mass fraction] 96 % Paul Mcgovern [employer] Work Phone: [facility] [facility] 11-28-2024 12:58-0400 Systolic blood pressure 128 mm[Hg] Paul Mcgovern [employer] Work Phone: [facility] 05-16-2024 16:14-0500 Body mass index (BMI) [Ratio] 28.43 kg/m2 Justice Viola DO Work Phone: [facility] 05-16-2024 16:14-0500 Body weight 79.89 kg Justice Viola DO Work Phone: [facility] 05-16-2024 16:14-0500 Diastolic blood pressure 64 mm[Hg] Justice Viola DO Work Phone: [facility] 05-16-2024 16:14-0500 Systolic blood pressure 118 mm[Hg] Justice Viola DO Work Phone: [facility] [facility] Encounters Encounter Date Encounter Type Care Provider Facility Start: 02-26-2025 End: 02-26-2025 Clinisync Result Encounter Justice Viola DO Work Phone: [facility] External Department Unsolicited Start: 02-26-2025 End: 02-26-2025 Clinisync Result Encounter Justice Viola DO Work Phone: [facility] External Department Unsolicited Start: 02-11-2025 End: 02-11-2025 Office outpatient visit 15 minutes Justice Viola DO Work Phone: [facility] Comment on above: Pre-op examination; Menorrhagia with regular cycle; Dyspareunia in female; Pelvic pain; Dysmenorrhea Start: 02-11-2025 End: 02-11-2025 Preprocedural examination done Justice Viola DO Work Phone: [facility] Start: 02-11-2025 End: 02-11-2025 ambulatory JUSTICE VIOLA Not Available Start: 01-30-2025 End: 01-30-2025 Clinisync Result Encounter Justice Viola DO Work Phone: [facility] External Department Unsolicited Start: 01-30-2025 End: 01-30-2025 Clinisync Result Encounter Justice Viola DO Work Phone: [facility] External Department Unsolicited Start: 01-22-2025 End: 01-22-2025 Office outpatient visit 25 minutes Paul Mcgovern APRN-POPPY Work Phone: [facility] Comment on above: Pre-operative cleara nce (Primary Dx); Anxiety; Gastroesophageal reflux disease, unspecified whether esophagitis present Start: 01-22-2025 End: 01-22-2025 Preoperative state Paul Mcgovern APRN-DRUM HANDLER Work Phone: [facility] [employer] Work Phone: Start: 01-16-2025 End: 01-16-2025 Clinisync Result Encounter Justice Viola DO Work Phone: [facility] External Department Unsolicited Start: 01-16-2025 End: 01-16-2025 Clinisync Result Encounter Justice Viola DO Work Phone: [facility] External Department Unsolicited Start: 01-07-2025 End: 01-07-2025 Office outpatient visit 15 minutes Justice Viola DO Work Phone: [facility] Comment on above: Pre-op examination; Menorrhagia with irregular cycle; Thickened endometrium Start: 01-07-2025 End: 01-07-2025 Preprocedural examination done Justice Viola DO Work Phone: [facility] Start: 01-07-2025 End: 01-07-2025 ambulatory JUSTICE VIOLA Not Available Start: 01-01-2025 End: 01-01-2025 Office outpatient visit 15 minutes Justice Viola DO Work Phone: [facility] Comment on above: Encounter to discuss test results; Menorrhagia with irregular cycle; Thickened endometrium Start: 01-01-2025 End: 01-01-2025 ambulatory JUSTICE VIOLA Not Available Start: 01-01-2025 End: 01-01-2025 Bamboo flowsheet Justice Viola DO Work Phone: [facility] Start: 01-01-2025 End: 01-01-2025 Bamboo flowsheet Justice Viola DO Work Phone: [facility] Start: 12-24-2024 End: 12-24-2024 Office outpatient visit 15 minutes [facility] CRAB FISHERMAN-DRUM HANDLER Work Phone: [facility] Comment on above: Anxiety (Primary Dx) Start: 12-24-2024 End: 12-24-2024 ambulatory [facility] Start: 12-13-2024 End: 12-13-2024 ambulatory JUSTICE VIOLA Not Available Start: 11-29-2024 End: 11-29-2024 Bamboo flowsheet Justice Viola DO Work Phone: [facility] Start: 11-29-2024 End: 11-29-2024 Bamboo flowsheet [...] End: 11-28-2024 Office outpatient visit 25 minutes [facility] Work Phone: [facility] Comment on above: Anxiety (Primary Dx) ; Chest pain, unspecified type; Hypothyroidism, unspecified type Start: 11-28-2024 End: 11-28-2024 ambulatory [facility] Start: 11-20-2024 ambulatory [facility] Start: 11-19-2024 ambulatory [facility] Start: 10-17-2024 End: 10-17-2024 Emergency department patient visit [facility] Start: 09-21-2024 End: 09-21-2024 ambulatory [facility] Start: 09-12-2024 ambulatory BYRON R [facility] Start: 08-30-2024 End: 08-30-2024 Clinisync Result [...] 05-16-2024 End: 05-25-2024 Clinisync Result Encounter Justice Rod DO Work Phone: [facility] External Department Unsolicited Start: 04-26-2022 End: 04-26-[address] JUSTICE ROD Facility:[facility] Start: 02-16-2022 End: 02-16-[address] JUSTICE ORD Facility:[facility] Start: 07-17-2021 End: 07-17-[address] JUSTICE ROD Facility:[facility] Start: 07-16-2021 Encounter for preprocedural laboratory examination DR JUSTICE ROD [facility] Start: 07-15-2021 Encounter for other preprocedural examination DR JUSTICE ROD [facility] Start: 07-14-2021 End: 07-15-[address] JUSTICE ROD Facility:[facility] Start: 07-14-2021 End: 07-15-2021 Encounter for preprocedural laboratory examination DR JUSTICE ROD Facility:[facility] Start: 07-10-2021 End: 07-11-[address] JUSTICE ROD Facility:[facility] Start: 07-10-2021 End: 07-11-2021 Encounter for other preprocedural examination DR JUSTICE ROD Facility:[facility] Start: 05-08-2021 End: 05-09-[address] JUSTICE ROD Facility: Procedures Date Procedure Procedure Detail Performing Clinician Start: 02-26-2025 ALL CBC WITH AUTO DIFF Justice Viola DO Work Phone: Start: 01-30-2025 ALL CBC WITH AUTO DIFF Justice Viola DO Work Phone: Start: 01-22-2025 Urnls dip stick/tabl et rgnt non-auto w/o micrscp Paul Mcgovern CRAB FISHERMAN-DRUM HANDLER Work Phone: Start: 01-22-2025 Adult depression scr eening assessment Paul Mcgovern CRAB FISHERMAN-DRUM HANDLER Work Phone: Start: 01-16-2025 XR CHEST 2V [...] Adult depression scr eening assessment Paul Mcgovern CRAB FISHERMAN-DRUM HANDLER Work Phone: Plan of Treatment Date Care Activity Detail Author Start: 01-22-2026 Adult BMI Screening Adult BMI Screening [facility] Start: 01-22-2026 Depression Screening Depression Screening [facility] Start: 01-22-2026 Tobacco Screening Tobacco Screening [facility] Start: 12-24-2025 Adult BMI Screening Adult BMI Screening [facility] Start: 12-24-2025 Tobacco Screening Tobacco Screening [facility] Start: 11-28-2025 Adult BMI Screening Adult BMI Screening [facility] Start: 11-28-2025 Tobacco Screening Tobacco Screening [facility] Start: 06-24-2025 End: 06-24-2025 Patient encounter procedure 06/24/2025 3:45 PM EST Office Visit [facility] [address] [place] [address] Paul Mcgovern, CRAB FISHERMAN-DRUM HANDLER [address] [place] [address] [facility] Start: 05-29-2025 End: 05-29-2025 Patient encounter procedure [facility] Start: 04-18-2025 End: 04-18-2025 Patient encounter procedure 04/18/2025 10:30 AM EDT Office Visit [facility] [address] [place] [phone] Loli Benítez PA [address] [place] [address] [facility] Start: 03-19-2025 End: 03-19-2025 Patient encounter procedure 03/19/2025 11:30 AM EDT Office Visit [facility] [address] [address] Beryl Matson, HEEL BRUSHER [address] [place] [address] [facility] Start: 03-14-2025 End: 03-14-2025 Patient encounter procedure 03/14/2025 10:00 AM EDT Office Visit [facility] [address] [address] Beryl Matosn, HEEL BRUSHER [address] [place] [phone] [facility] Start: 02-18-2025 Influenza vaccination Influenza Vaccine [facility] Start: 02-11-2025 End: 02-11-2025 Patient encounter procedure [facility] Start: 01-01-2025 End: 01-01-2025 Patient encounter procedure [facility] Comment on above: Arrived Start: 12-24-2024 End: 12-24-2024 Patient encounter procedure 12/24/2024 3:30 PM EDT Office Visit [facility] [address] [place] [phone] [facility] [address] [place], [place] [phone] [facility] Start: 12-13-2024 End: 12-13-2024 Professional / ancillary services management 12/13/2024 8:00 AM EDT Ancillary Procedure [facility] [address] [phone] [facility] Start: 12-10-2024 End: 12-10-2024 Patient encounter procedure 12/10/2024 8:30 AM EDT Appointment [facility] [address] [place] [phone] [facility] Start: 11-29-2024 End: 11-29-2025 aPTT [...] EDT Office Visit [facility] [address] [place] [phone] Justice Rod, DO [address] [place] [address] Arrived [facility] Comment on above: Arrived Start: 11-28-2024 End: 11-28-2025 Echo complete W/O contrast Echo complete W/O contrast Echocardiography Routine Chest pain, unspecified type Expected: 11/28/2024, Expires: 11/28/2025 [email or web address] Work Phone: Comment on above: Expected: 11/28/2024, Expires: Start: 11-28-2024 End: 11-28-2025 Thyroid profile includes TSH FT4 Thyroid profile includes TSH FT4 Lab Routine Hypothyroidism, unspecified type Expected: 11/28/2024, Expires: 11/28/20[facility] Comment on above: Expected: 11/28/2024, Expires: Start: 05-16-2024 End: 05-16-2024 Patient encounter procedure 05/16/2024 3:40 PM EST Office Visit [facility] [address] [phone] Justice Rod, DO [address] [place] [address] Arrived [facility] Comment on above: Arrived Start: 05-16-2024 End: 07-16-2025 MG Breast - bilateral Screening Bilateral screening mammogram Imaging Routine Breast cancer screening by mammogram Expected: 05/16/2024 (Approximate), Expires: 07/16/2025 [facility] Work Phone: Comment on above: Expected: 05/16/2024 (Approximate), Expi res: 07/16/2025 Start: 02-19-2024 COVID-19 Vaccine () COVID-19 Vaccine () [facility] Start: 07-27-2023 Depression Screening Depression Screening [facility] Start: 1998 Screening for malignant neoplasm of cervix Pap Smear [facility] Start: 1996 DTaP,Tdap and Td Vaccines (1 - Tdap) DTaP,Tdap and Td Vaccines (1 - Tdap) [facility] CBC W Auto Differential panel - Blood CBC and differential Lab Routine Menorrhagia with irregular cycle History of endometrial ablation H/O tubal ligation Ordered: 11/29/2024 [facility] Comment on above: Ordered: 11/29/2024 Ferritin [Mass/volume] in Serum or Plasma Ferritin Lab Routine Menorrhagia with irregular cycle History of endometrial ablation H/O tubal ligation Ordered: 11/29/2024 [facility] Work Phone: Comment on above: Ordered: 11/29/2024 hCG, quantitative, hCG, quantitative, Lab Routine Menorrhagia with irregular cycle History of endometrial ablation H/O tubal ligation Ordered: 11/29/2024 [facility] Comment on above: Ordered: 11/29/2024 Hemoglobin A1c/Hemoglobin.total in Blood Hemoglobin A1c Lab Routine Menorrhagia with irregular cycle History of endometrial ablation H/O tubal ligation Ordered: 11/29/2024 [facility] Comment on above: Ordered: 11/29/2024 Prothrombin time (PT ) in Blood by Coagulation assay Protime-INR Lab Routine Menorrhagia with irregular cycle History of endometrial ablation H/O tubal ligation Ordered: 11/29/2024 [facility] Comment on above: Ordered: 11/29/2024 THIN PREP TIS PAP AN D HR HPV DNA THIN PREP TIS PAP AND HR HPV DNA Pathology and Cytology Routine Well woman exam with routine gynecological exam Ordered: 05/16/2024 [facility] Comment on above: Ordered: 05/16/2024 Thyrotropin [Units/volume] in Serum or Plasma TSH Lab Routine Menorrhagia with irregular cycle History of endometrial ablation H/O tubal ligation Ordered: 11/29/2024 [facility] Comment on above: Ordered: 11/29/2024 Thyroxine (T4) free [Mass/volume] in Serum or Plasma T4, free Lab Routine Menorrhagia with irregular cycle History of endometrial ablation H/O tubal ligation Ordered: 11/29/2024 [facility] Comment on above: Ordered: 11/29/2024 Vitamin D 1,25 dihydroxy Vitamin D 1,25 dihydroxy Lab Routine Menorrhagia with irregular cycle History of endometrial ablation H/O tubal ligation Ordered: 11/29/2024 [facility] Comment on above: Ordered: 11/29/2024 Payers Date Payer Category Payer Managed Care Other (unspecified) [facility] [id number] 2022 Private Health Insurance [id number] 2022 Private Health Insurance [id number] 1977 Unknown [id number] 2.16.840.1.439621.3.579. 2.593 1977 Unknown [id number] 2.16.840.1.868346.3.579. 2.593 1977 Unknown [id number] 2.16.840.1.181188.3.579. 2. 1977 Unknown [id number] 2.16.840.1.257750.3.579. 2.593 1977 Unknown [id number] 2.16.840.1.558952.3.579. 2. 1977 Unknown [id number] 2.16.840.1.082424.3.579. 2.593 1977 Unknown [id number] 2.16.840.1.973414.3.579. 2.1285 1977 Unknown [id number] 2.16.840.1.282095.3.579. 2.1285 1977 Unknown [id number] 2.16840.1.300751.3.579. 2.1285 1977 Unknown [id number] 2.16.840.1.617422.3.579. 2.1285 1977 Unknown [id number] 2.16.840.1.524551.3.579. 2.1285 1977 Unknown [id number] 2.16.840.1.254777.3.579. 2.1285 1977 Unknown [id number] 2.16.840.1.273084.3.579. 2.1285 1977 Unknown [id number] 2.16.840.1.094674.3.579. 2.1285 1977 Unknown [id number] 2.16.840.1.969407.3.579. 2.1258 1977 Unknown [id number] 2.16.840.1.590938.3.579. 2.1258 1977 Unknown [id number] 2.16.840.1.242507.3.579. 2.1258 1977 Unknown [id number] 2.16.840.1.629769.3.579. 2.1259 1977 Unknown [id number] 2.16.840.1.895831.3.579. 2.1259 1977 Unknown [id number] 2.16.840.1.864177.3.579. 2.1259 1959 Unknown [id number] Social History Date Type Detail Facility Start: 07-27-2022 End: 04-21-2023 Tobacco smoking status AKIS Never smoked tobacco [facility] Start: 05-03-2023 End: 11-29-2024 Alcoholic beverage intake Lifetime non-drinker (finding) [facility] Start: 05-03-2023 End: 05-16-2024 History of Social function [facility] Start: 05-03-2023 End: 05-16-2024 Tobacco use panel [facility] Start: 04-21-2023 Alcohol Comment caffeine: none [facility] Start: 1975 Sex assigned at Not on file [facility] Start: 07-27-2022 Tobacco use and exposure Smoke less tobacco non-user [facility] Start: 11-28-2024 End: 01-22-2025 Alcoholic beverage intake Ex-drinker (finding) [facility] Frequency of Alcohol Consumption Never [facility] How hard is it for y ou to pay for the very basics like food, housing, medical care, and heating Somewhat hard [facility] Start: 01-23-2015 Sex Female (finding) [facility] Clinical Notes 07-17-2021 to 02-11-2025 Rosmery Blackwood - 02/11/2025 8:50 AM KATYA Hamilton - 01/22/2025 3:00 PM Nitish Blackwood - 01/07/2025 10:20 AM Guera Jain LPN - 01/01/2025 2:40 PM EDT Note Date & Type Note Facility 02-11-2025 History of Presen t illness Narrative Reason for Appointment: Patient ID: Azalia M Hilt is a 49 y.o. female who presents for Pre-op Visit and Post-op Visit Patient presents today for 2 Week Post Op Follow Up appointment. and Pre Op appointment. Patient is scheduled to undergo Da Manju assisted Laparoscopic Hysterectomy, possible exploratory laparotomy, possible BSO, possible cystoscopy on 03-07-[address] Rod at [facility]. MEDICATIONS Current Outpatient Medications Medication Instructions [...] having a D&C Hysteroscopy performed at [facility] with Dr. Rod. Pathology results was [...] reviewed, and patient is to proceed to [facility] OR. Follow Up: Patient is to follow up at 1 & 6 weeks post operative to assess proper healing and recovery from procedure. Documented by June Herman LPN on behalf of: Justice Rod DO documented in this encounter [facility] 01-22-2025 History of Presen t illness Narrative Images from the original note were not included. [address] [facility] [id number] SUBJECTIVE: Patient ID: Karen Castro is a [...] [place] 01/22/25 1522 documented in this encounter [facility] [employer] 01-07-2025 History of Presen t illness Narrative Reason for Appointment: Patient ID: Azalia Castro is a 49 y.o. female who presents for Pre-op Visit Patient presents today for Pre Op appointment. Patient is scheduled to undergo D&C Hysteroscopy, possible Myosure on 01-30-[address] Rod at [facility]. MEDICATIONS Current Outpatient Medications Medication Instructions [...] nursing note reviewed. Exam conducted with a pharmaceutical specialty representative present. Vitals: Estimated body mass index is [...] reviewed, and patient is to proceed to [facility] OR. Follow Up: Patient is to follow up between 1-2 weeks post operative to assess proper healing and recovery from procedure. Documented by June Herman LPN. on behalf of: Justice Rod DO documented in this encounter [facility] 01-01-2025 History of Presen t illness Narrative [...] nursing note reviewed. Exam conducted with a pharmaceutical specialty representative present. Vitals: Estimated body mass index is [...] by Kathy Jain LPN on behalf of: loli benítez, pac documented in this encounter [facility] 12-24-2024 History of Presen t illness Narrative Images from the original note were not included. [address] [place] [address] SUBJECTIVE: Patient ID: Karen Castro is a 49 y.o. female. Patient presents to the office for follow up for anxiety and is doing well on prozac. She does feel it is helping. She is getting ready to go back to work and feels that will help as well to get back into a routine. She does have an appointment with STER[facility] PROCESSING TECHNICIAN to go over her blood work and [...] [place] 12/25/24 0728 documented in this encounter [facility] [employer] 11-29-2024 History of Presen t illness Narrative [...] nursing note reviewed. Exam conducted with a pharmaceutical specialty representative present. Vitals: Estimated body mass index is [...] Rod DO documented in this encounter [facility] 11-28-2024 History of Presen t illness Narrative Images from the original note were not included. [address] [place] [address] SUBJECTIVE: Patient ID: Karen Castro is a [...] up in 28 days KATYA [place] 11/28/24 1331 documented in this encounter [facility] 05-16-2024 History of Presen t illness Narrative Reason for Appointment: Patient ID: Azalia Castro is a 48 y.o. female who presents for [facility] Visit Patient presents today for Annual [...] nursing note reviewed. Exam conducted with a pharmaceutical specialty representative present. Vitals: Estimated body mass index is [...] Rod DO documented in this encounter [facility] 07-17-2021 Note [place], [place] NAME: AZALIA CASTRO DATE OF : MEDICAL REC#: [id number] SERVICES ACCOUNT MANAGER: [id number] [facility], TRANSADMIT DATE: 07/17/2021 07:02:00 CUPOLA TENDER HELPER DATE: 07/17/2021 22:00 DICTATING PHYSICIAN: JSUTICE ROD DICTATION DATE: 07/17/2021 10:00 OPERATIVE NOTE PROCEDURE: Doris endometrial ablation with hysteroscopy, bilateral laparoscopic salpingectomy, removal of right endometrioma. PREOPERATIVE DIAGNOSIS: Abnormal uterine bleeding, uterine fibroids, dysmenorrhea. POSTOPERATIVE DIAGNOSIS: Abnormal uterine bleeding, dysmenorrhea including a right endometrioma, as well as evidence of endometriosis pelvic side wall and multiple large uterine fibroids. SURGEON: Justice Rod D.O. SURGICAL CORSETIER: FRANK Lees URINE OUTPUT: Yellow and clear. [...] Justice Rod DO on 07/24/2021 05:36 PM [facility] Signed and Approved by: DR JUSTICE ROD . 07/24/2021 17:36:00 [facility] Evaluation note Diagnosis Well woman exam with routine gynecological exam Routine gynecological examination Breast cancer screening by mammogram documented in this encounter [facility]* Diagnosis Anxiety- Primary Anxiety state, unspecified Chest pain, unspecified type Hypothyroidism, unspecified type [facility] Diagnosis Menorrhagia with irregular cycle History of endometrial ablation H/O tubal ligation Fatigue, unspecified type documented in this encounter [facility]* Diagnosis Anxiety- Primary Anxiety state, unspecified [facility] Diagnosis Encounter to discuss test results Other specified counseling Menorrhagia with irregular cycle Thickened endometrium Nonspecific (abnormal) findings on radiological and other examination of genitourinary organs documented in this encounter [facility]* Diagnosis Pre-op examination Menorrhagia with irregular cycle Thickened endometrium Nonspecific (abnormal) findings on radiological and other examination of genitourinary organs documented in this encounter [facility]* Diagnosis Pre-operative clearance- Primary Unspecified pre-operative examination Anxiety Anxiety state, unspecified Gastroesophageal reflux disease, unspecified whether esophagitis present [facility] Diagnosis Pre-op examination Menorrhagia with regular cycle Dyspareunia in female Pelvic pain Dysmenorrhea documented in this encounter [facility]* Attachments The following attachments cannot be sent through Care Everywhere. * Anxiety in adults ED discharge instructions ([place]) [facility] Attachments The following attachments cannot be sent through Care Everywhere. * Anxiety? Adult ED ([place]) [facility] Attachments The following attachments cannot be sent through Care Everywhere. * Acid reflux and GERD in adults ([place]) [facility] Purpose Family History No Family History Records FoundNo Family History Records FoundNo Family History Records FoundNo Family History Records Found Advance Directives No Advanced Directives Records FoundNo Advanced Directives Records FoundNo Advanced Directives Records FoundNo Advanced Directives Records Found Additional Source Comments INFORMATION SOURCE (unrecogn ized section and content) DATE CREATED AUTHOR 05/01/2022 [facility] DATE CREATED AUTHOR AUTHOR'S ORGANIZ ATION 12/06/2024 [facility] DATE CREATED AUTHOR AUTHOR'S ORGANIZ ATION 12/28/2024 [facility] DATE CREATED AUTHOR AUTHOR'S ORGANIZ ATION 02/12/2025 [facility] Care Teams (unrecognized sec tion and content) Content Designer Relationship Specialty Start Date End Date Suzie Shoemaker MD [address] [place] [address] PCP - General Family Medicine 05/03/23 Content Designer Relationship Specialty Start Date End Date Suzie Shoemaker MD [address] [place] [address] PCP - General Family Medicine 05/03/23 Content Designer Relationship Specialty Start Date End Date Suzie Shoemaker MD PCP - General Family Medicine 05/03/23 Content Designer Relationship Specialty Start Date End Date Jan Gonzales MD [address] [place] [address] PCP - General Internal Medicine 10/17/24 Content Designer Relationship Specialty Start Date End Date Suzie Shoemaker MD PCP - General Family Medicine 05/03/23 Content Designer Relationship Specialty Start Date End Date Suzie Shoemaker MD PCP - General Family Medicine 05/03/23 Content Designer Relationship Specialty Start Date End Date Suzie Shomeaker MD PCP - General Family Medicine 05/03/23 Content Designer Relationship Specialty Start Date End Date Paul Mcgovern, CRAB FISHERMAN-DRUM HANDLER [address] [place] [address] PCP - General Family Medicine 12/24/24 Content Designer Relationship Specialty Start Date End Date Suzie Shoemaker MD PCP - General Family Medicine 05/03/23 Paul Mcgovern HEEL BRUSHER [address] [place] [address] Referring Physician Family Medicine 12/03/24 Content Designer Relationship Specialty Start Date End Date Suzie Shoemaker MD PCP - General Family Medicine 05/03/23 Paul Mcgovern, HEEL BRUSHER [address] [place] [address] Referring Physician Family Medicine 12/03/24 Content Designer Relationship Specialty Start Date End Date Suzie Shoemaker MD PCP - General Family Medicine 05/03/23 Paul Mcgovern NP [address] [place] [address] Referring Physician Family Medicine 12/03/24 Content Designer Relationship Specialty Start Date End Date Suzie Shoemaker MD PCP - General Family Medicine 05/03/23 Paul Mcgovern NP [address] [place] [address] Referring Physician Family Medicine 12/03/24 Content Designer Relationship Specialty Start Date End Date Paul Mcgovern, CRAB FISHERMAN-DRUM HANDLER [address] [place] [address] PCP - General [facility] 12/24/24 Content Designer Relationship Specialty Start Date End Date Suzie Shoemaker MD PCP - General [facility] 05/03/23 Paul Mcgovern NP [address] [place] [address] Referring Physician Family Medicine 12/03/24 Reason for Visit (unrecogniz ed section and [...] BE BASED ON THE PRIMARY CLINICAL RECORDS. [employer] provides no warranty or guarantee of the accuracy or completeness of information in this document.
[2025-03-07] MEDS: CEFAZOLIN SODIUM 1 GM/50 ML D5W PREMIX IV (12:14)
--- NOTE | 2025-03-07 14:46 | P.ON_ITS ---
Brief Operative Note Date of procedure: 03/07/25 Pre-op diagnosis general: menorrhagia, pelvic pain, dysmenorrhea, dyspareunia, uterine fibroid large and extensive, extensive bladder adhesions invading the anterior uterine wall Post-op diagnosis: same as pre-op Procedure: NAME OF PROCEDURE: [ ]Total abdominal hysterectomy, bilateral salpingectomy with cystoscopy. findings: please note pt surgical history including extensive bladder adhesions with significant invasion of the bladder into the anterior abdominal wall, along with two large fibroids near the uterine artery would make it difficult for me to perform hysterectomy robotically increasing need for open procedure and possible bladder injury it was decided to perform total abdominal hysterectomy PROCEDURE: Patient was taken back to the Operating Room where she was given general anesthesia without difficulty. She was then prepped and draped in the normal sterile fashion. A Pfannenstiel skin incision was then made 2 cm above the symphysis and pubis and carried down to underlying rectus fascia using a Bovie. The fascia was incised in the midline and extended bilaterally using Hilario scissors. Two Carolyn clamps were placed on the superior aspect of the fascia and dissected off the underlying rectus muscle. The same was performed on the inferior aspect as well. The muscle was then in the midline. The peritoneum was identified and entered bluntly. Peritoneum was then extended superiorly and inferiorly with good visualization of the bladder. An O'Mjyfgpih-P-Sndnnq retractor was placed into the patient's abdomen. The bowel was packed away with moist laparotomy sponges and the bladder blade was inserted. A Leahey tenaculum was placed on the patient's uterus and used for retraction. LigaSure apparatus was then used to come across the uteroovarian ligament on the patient's right side which was then cauterized and transected. This was carried down serially through the broad ligament and across the round ligament. please note they were to large uterine fibroids rt and left lateral near the uterine artery. The bladder flap was then created using the Metzenbaum scissors, and the bladder was dissected off sharply due to the significant amount of adhesions and adherence to the patient's lower uterine segment. A curved Nixon was placed across the uterine artery on the right side which was clamped, transected, and suture ligated using #0 Monocryl. This was performed on the contralateral side as well. The bladder was further dissected and a [employer]pp[employer] clamp was then placed across the uterosacral and cardinal ligaments. This was transected and suture ligated using #0 Monocryl. This was performed on the contralateral side as well. The uterus was then amputated using Joleen scissors. The patient's cuff was closed using #0 PDS in a running locked fashion and this was transfixed to the ipsilateral uterosacral and cardinal ligaments. Excellent hemostasis was assured. The patient's abdomen wascopiously irrigated using warm saline. Cystoscopy was performed. Bladder was intact. Efflux was noted from both ostia. Cystoscope was removed.After excellent hemostasis was assured, all instruments were removed from the patient's abdomen. The patient's peritoneum was closed using 3-0 Vicryl in a running fashion. The patient's fascia was closed using #0 Vicryl in a running fashion. The patient's skin was closed using 4-0 vicryl on a cathryn needle. The patient tolerated the procedure well. Sponge, lap, and needle counts were correct times two. Patient taken to the Recovery Room in stable condition Anesthesia: LAUREN Surgeon: Brannon Rod Pen Or Pencil Assembly Machine Operator: Leann Tinajero Estimated blood loss (mL): 150 Pathology: other (uterus and cervix) Condition: stable Disposition: PACU Urinary Catheter Management Urinary Catheter Management Urethral: Cath placed during this visit: no
--- NOTE | 2025-03-07 15:51 | PC.NURSE ---
1530: pt asked to rate pain on scale of 0-10,pt will not give financial writer an answer. pt resting comfortably.
[2025-03-07] MEDS: HYDROMORPHONE HCL 0.5 MG/0.5 ML SYRINGE IV ×2 (17:31→20:31)
[2025-03-07] MEDS: CEFAZOLIN SODIUM/DEXTROSE,ISO 2 GM/50 ML PIGGYBACK IV (17:33)
[2025-03-08 00:10] VITALS: TEMP 37.3
[2025-03-08] MEDS: KETOROLAC TROMETHAMINE 30 MG/ML VIAL IVP ×3 (00:19→11:45)
[2025-03-08] MEDS: CEFAZOLIN SODIUM/DEXTROSE,ISO 2 GM/50 ML PIGGYBACK IV (00:19)
[2025-03-08 00:22] VITALS: BP 141/75; PULSE 67
[2025-03-08] MEDS: OXYCODONE HCL/ACETAMINOPHEN 5MG/325MG 2 TAB PO ×3 (00:33→11:50)
[2025-03-08 06:12] VITALS: BP 138/77; PULSE 63; TEMP 36.9
[2025-03-08 06:17] LABS: Hematocrit 34.0 % (36.0-48.0); Hemoglobin 11.3 g/dL (12.0-16.0); Immature Granulocytes Abs Auto 0.05 10^3/uL (0.00-0.03); Immature Granulocytes Pct Auto 0.4 % (0.0-0.5); Lymphocytes Absolute Auto 1.4 10^3/uL (1.2-3.8); Mean Corpuscular HGB Conc 33.2 g/dL (29.9-35.2); Mean Corpuscular Hemoglobin 27.0 pg (26.7-34.0); Mean Corpuscular Volume 81.1 fL (81.0-99.0); Platelet Count 312 10^3/uL (150-450); Red Blood Count 4.19 10^6/uL (4.20-5.40); White Blood Count 13.6 10^3/uL (4.0-11.0)
[2025-03-08] MEDS: ENOXAPARIN SODIUM 40 MG/0.4 ML SYRINGE SUBQ (06:20)
--- NOTE | 2025-03-08 09:46 | P.GYNPN_ITS ---
RESTAURANT HOURLY MANAGER - PN: Subj Post-Op Subjective: patient reports feeling better, patient has no complaints, patient desires discharge, pain is well controlled and patient is tolerating oral intake Exam Constitutional Vital Signs, click to edit/add: Last Vital Signs Temp 98.4 F 03/08/25 06:12 Pulse 63 03/08/25 06:12 Resp 18 03/07/25 16:45 BP 138/77 03/08/25 06:12 Pulse Ox 98 03/07/25 19:24 O2 Del Method Room Air 03/07/25 18:00 Documenting provider has reviewed patient's vital signs: yes Common normals: no apparent distress Respiratory Common normals: normal respiratory effort and clear to auscultation bilaterally Cardio Common normals: regular rate and regular rhythm GI Common normals: Normal to inspection, nondistended, normoactive bowel sounds present Extremity Common normals: no clubbing, cyanosis or edema and no calf tenderness Results Labs Labs: Short CBC 03/07/25 03/08/25 Range/Units 11:09 06:08 WBC 10.3 13.6 H (4.0-11.0) 10^3/uL Hgb 13.0 11.3 L (12.0-16.0) g/dL Hct 39.7 34.0 L (36.0-48.0) % Plt Count 324 312 (150-450) 10^3/uL RESTAURANT HOURLY MANAGER - A/P Postoperative Procedures: Procedures Operation Date: 03/07/25 12:30 Actual Procedure Side Surgeon p Total Abdominal Hysterectomy, Cysto Not Applicable Brannon Rod DO Postoperative day: 1 Postoperative status RESTAURANT HOURLY MANAGER: doing well Post-operative plan RESTAURANT HOURLY MANAGER: routine post-op care, ambulate, advance diet and discharge Fall Risk Details Saeed fall scale risk level: Low Fall Risk Current medications: Current Medications Docusate Sodium (Docusate Sodium 100 Mg Capsule) 100 mg PO BID PRN PRN Reason: Constipation Enoxaparin Sodium (Enoxaparin Sodium 40 Mg/0.4 Ml Syringe) 40 mg SUBQ Q24H LETTY Last Admin: 03/08/25 06:20 Dose: 40 mg Hydromorphone HCl (Hydromorphone Hcl 0.5 Mg/0.5 Ml Syringe) 0.5 mg IV Q3H PRN PRN Reason: Pain Scale 7-10 Last Admin: 03/07/25 20:31 Dose: 0.5 mg Lactated Ringer's (Lactated Ringers) 1,000 mls @ 125 mls/hr IV .Q8H LETTY Last Admin: 03/08/25 08:55 Dose: 125 mls/hr Promethazine HCl 25 mg/ Sodium (Chloride) 51 mls @ 204 mls/hr IV Q6H PRN PRN Reason: Nausea And Vomiting Ibuprofen (Ibuprofen 400 Mg Tablet) 800 mg PO Q6H PRN PRN Reason: Pain Ketorolac Tromethamine (Ketorolac Tromethamine 30 Mg/Ml Vial) 30 mg IVP Q6H PRN PRN Reason: Pain Last Admin: 03/08/25 06:19 Dose: 30 mg Ondansetron HCl (Ondansetron Pf 4 Mg/2 Ml Vial) 4 mg IV Q6H PRN PRN Reason: Nausea Oxycodone/Acetaminophen (Oxycodone Hcl/Acetaminophen 5mg/325mg) 2 tab PO Q6H PRN PRN Reason: Pain Last Admin: 03/08/25 06:20 Dose: 2 tab Simethicone (Simethicone 80 Mg Tab.Chew) 80 mg PO PCHS PRN PRN Reason: Abdominal Distention Temazepam (Temazepam 15 Mg Capsule) 30 mg PO QHS PRN PRN Reason: Sleep Time Spent With Patient Time: Total time spent is greater than 50% in coordination of care (as documented) at patient's floor/unit and/or counseling patient: Time with patient: less than 15 minutes Urinary Catheter Management Urinary Catheter Management Urethral: Cath placed during this visit: no 2-way Urethral: Cath placed during this visit: yes Urethral indwelling: No Insertion date: 03/07/25
[2025-03-08] MEDS: MAGNESIUM HYDROXIDE 2,400 MG/10 ML ORAL.SUSP 2400 MG PO (09:59)
[2025-03-08 10:00] VITALS: BP 105/58; PULSE 72; TEMP 36.8
[2025-03-08 10:03] VITALS: BP 105/58; PULSE 72
== END 2025-03-08 12:10 | disposition home or self-care (01) ==
LOC: SURGOUT 11:02 → FBC 17:05
PROVIDERS: PCP Nurse Practitioner Family; Visit Provider Obstetrics & Gynecology
PROC: (CPT 840; principal; 2025-03-07 12:30)
DX: N92.0 Excessive and frequent menstruation with regular cycle (principal); N94.10 Unspecified dyspareunia; N94.6 Dysmenorrhea, unspecified; R10.2 Pelvic and perineal pain; N32.89 Other specified disorders of bladder; N80.03 Adenomyosis of the uterus; D25.1 Intramural leiomyoma of uterus; Z87.891 Personal history of nicotine dependence; K21.9 Gastro-esophageal reflux disease without esophagitis; R73.03 Prediabetes
CPT/HCPCS: 58150; 36415; 64488; 84702; 85025; 94667; 96365; 96372; 96375; 96376; J0131; J0690; J1100; J1171; J1650; J1885; J2250; J2405; J2704; J3010

== ENCOUNTER 2025-05-29 20:13 | Outpatient (REF) | payer OTHER, SELFPAY ==
--- OUTSIDE RECORDS SUMMARY | 2025-05-29 15:00 | XMS_ITS | Encounter Summary ---
Author Organization [facility] Address [address] [place] [address] Care Team Providers Care Head Char Filter Tank Tender Name Role Phone Gavino Shoemaker MD Primary Care Provider [phone] Annelise Mcgovern NP Unavailable [phone] Reason for Visit * ReasonCommentsGynecologic Exam Encounter Details DateTypeDepartmentCare Team (Latest Contact Info)Zlsubbrhomr60/10/2025 3:00 PM ESTOffice Visit [facility] [address] [place] [address] Brannon Rod DO [address] [place] [address] Well woman exam with routine gynecological exam; Insulin resistance Social History Tobacco UseTypesPacks/DayYears UsedDateSmoking Tobacco: NeverAlcohol UseStandard Drinks/WeekCommentsNever0 (1 standard drink = 0.6 oz pure alcohol)caffeine: none CommentsNoSex and Gender InformationValueDate RecordedSex Assigned at BirthNot on fileLegal IyjDckvrt05/15/2023 7:01 PM EDTGender IdentityNot on file Sexual OrientationNot on filedocumented as of this encounter Last Filed Vital Signs Vital SignReadingTime TakenCommentsBlood Dmxoodlp066/7005/29/2025 3:18 PM EST Pulse--Temperature--Respiratory Rate--Oxygen Saturation--Inhaled Oxygen Concentration--Aqshij45 kg (194 lb)05/29/2025 3:18 PM ESTHeight--Body Mass Index 30.3806 9:15 AM EDTdocumented in this encounter Progress Notes * Kathy Jain LPN - 05/29/2025 3:00 PM EST Reason for Appointment: Patient ID: Azalia Morton is a 49 y.o. female who presents for Gynecologic Exam Patient presents today for Annual Exam. MEDICATIONS Current Outpatient Medications Medication Instructions FLUoxetine [...] OTHER SURGICAL HISTORY ablation SALPINGECTOMY Bilateral 07/17/2021 TOTAL ABDOMINAL HYSTERECTOMY 03/07/2025 REVIEW OF SYSTEMS Review of Systems: Review of Systems Constitutional: Negative. HENT: Negative. Eyes: Negative. Respiratory: Negative. Cardiovascular: Negative. Gastrointestinal: Negative. Genitourinary: Negative. Musculoskeletal: Negative. Skin: Negative. Neurological: Negative. All other systems reviewed and are negative. Hematological: Negative. Endocrine: Negative. Allergic/Immunologic: Negative. OBJECTIVE Objective: Physical Exam Constitutional: Appearance: Normal appearance. She is well-developed. Genitourinary: Vulva normal. Vaginal cuff intact. Cervix is absent. Uterus is absent. Breasts: Breasts are soft. Right: Normal. Left: Normal. Cardiovascular: Rate and Rhythm: Normal rate and regular rhythm. Abdominal: General: Bowel sounds are normal. There [...] nursing note reviewed. Exam conducted with a bolt threader present. Vitals: Estimated body mass index is 30.38 kg/m?? as calculated from the following: Height as of 11/29/24: 5' 7 . Weight as of this encounter: 194 lb. BP: 116/70 Patient's last menstrual period was 12/18/2024 (approximate). ASSESSMENT & PLAN ICD-10-CM 1. Well woman exam with routine gynecological exam Z01.419 THIN PREP TIS PAP AND HR HPV DNA No orders of the defined types were placed in this encounter. Annual Wellness Exam (Post Hysterectomy): Patient presents today for routine annual exam. Patient states she has no current complaints. Patients vitals were reviewed and within normal limits. Growth and development is noted to be appropriate for age. Menstrual history is noted to be obsolete due to patients history of hysterectomy. No mental health concerns was expressed. Pap Smear: Speculum was inserted into the vagina and pap was obtained without difficulty. HPV testing was performed per guidelines. Patient was advised that pap results could take anywhere from 7 to 10 days to receive and our office will reach out to the patient with those once we have them. Patient can also view results via [employer]. I reinforced importance of condom use for STI prevention. Patient declined cultures to be performed with today's visit. Breast Exam: Upon examination, clinical breast exam was noted to be normal. Patient was counseled on breast self-awareness, including the importance of knowing what is normal for her own breasts and promptly reporting any changes such as new lumps, skin dimpling, nipple discharge, or pain. Screening mammogram recommended annually beginning at age 40 or earlier if risk factors are present. Discussed signs and symptoms of breast cancer and when to seek medical attention. Answered all patient questions. Follow Up: Patient is to return to our office in one year for annual exam unless needed otherwise. Documented by Kathy Jain LPN on behalf of: Brannon Rod DO documented in this encounter Plan of Treatment DateTypeDepartmentCare Team (Latest Contact Info)Jihkqnqeeon28/08/2026 8:30 AM ESTOffice Visit [facility] [place] [facility] [address] [place] [address] [place] [address] Brannon Rod, DO [address] [place] [address] NameTypePriorityAssociated DiagnosesOrder ScheduleTHIN PREP TIS PAP AND HR HPV DNAPathology and CytologyRoutine Well woman exam with routine gynecological exam Ordered: 05/29/2025documented as of this encounter Visit Diagnoses Diagnosis Well woman exam with routine gynecological exam Routine gynecological examination Insulin resistance Other abnormal glucose documented in this encounter Care Teams Team MemberRelationshipSpecialtyStart DateEnd Date Gavino Shoemaker MD [address] [place], [place] [id number] PCP - GeneralFamily Rsxytmpx24/14/23 Annelise Mcgovern NP [address] [place] [address] Referring PhysicianFamily Medicine12/03/24documented as of this encounter
--- OUTSIDE RECORDS SUMMARY | 2025-05-29 20:19 | XMS_ITS | Clinical Summary ---
Author Organization [employer] [facility] tem Address [id number] [address] [place] [address] Care Team Providers Care Corporate Learning Consultant Name Role Phone Annelise Mcgovern APRNPOPPY Primary Care Provide r Allergies No known active allergies Medications MedicationSigDispense QuantityRefillsLast FilledStart DateEnd DateStatus FLUoxetine (PROzac) 20 mg capsule TAKE 1 CAPSULE(20 MG) BY MOUTH IN THE MORNING 90 capsule 1105Active omeprazole (PriLOSEC) 20 mg capsule TAKE 1 CAPSULE(20 MG) BY MOUTH IN THE MORNING 30 capsule 5Active Active Problems No known active problems Encounters DateTypeDepartmentCare YjpiRtmzkcjeooo22/02/2025Refill [facility] [address] [place] [address] Annelise Mcgovern APRN-CNP 03/28/2025Refill [facility] [address] [place], [place] [address] [address] Annelise Mcgovern APRN-CNP 03/16/2025Refill [facility] [address] [place], [place] [address] [address] Annelise Mcgovern APRN-CNP 03/01/2025Orders Only [facility] [address] [place] [phone] External, Scanning Provider from Last 3 Months Immunizations No known immunizations Family History Medical HistoryRelationNameCommentsNo Known ProblemsFatherNo Known Problems MotherRelationNameStatusCommentsFatherAliveMotherAlive Social History Tobacco UseTypesPacks/DayYears UsedDateSmoking Tobacco: NeverSmokeless Tobacco: Never Tobacco Cessation:Counseling Given: Not Answered Alcohol UseStandard Drinks/WeekCommentsNot Currently0 (1 standard drink = 0.6 oz pure alcohol)AUDIT-CAnswerDate RecordedFrequency of Alcohol ConsumptionNever 07/04/2018Average Number of DrinksNot on file07/04/2018Frequency of Binge DrinkingNot on file07/04/2018Overall Financial Resource Strain (CARDIA)Answer Date RecordedHow hard is it for you to pay for the very basics like food, housing, medical care, and heating?Somewhat hard11/26/2024PHQ-2AnswerDate RecordedTotal Csous443PRAPARE - TransportationAnswerDate RecordedIn the past 12 months, has lack of transportation kept you from medical appointments or from getting medications?No11/26/2024In the past 12 months, has lack of transportation kept you from meetings, work, or from getting things needed for daily living?No11/26/2024Housing InstabilityAnswerDate RecordedAre you worried or concerned that in the next two months you may not have stable housing that you own, rent or stay in as a part of a household?No11/26/2024hildcareAnswer Date LgatjqcjEdimgdfvbRkjlpkj43/12/2019EmploymentAnswerDate RecordedEmployment Eawldcs0511/29/2018Hunger ScreeningAnswerDate RecordedWithin the past 12 months we worried whether our food would run out before we got money to buy more.Never True01/22/2025Within the past 12 months the food we bought just didn't last and we didn't have money to get more.Never True01/22/2025Purpose - LifeAnswerDate RecordedPurpose and direction in vvnxOyhnsok00/11/2021CommentsNoSex and Gender InformationValueDate RecordedSex Assigned at BirthNot on fileLegal Sex Aqcgbd3301/23/2015 12:01 PM EDTGender IdentityNot on fileSexual OrientationNot on file Last Filed Vital Signs Vital SignReadingTime TakenCommentsBlood Ndhwepdy983/7208/10/2024 2:56 PM EDT Wlfyn7628 2:56 PM CFEWogikxlxddw69.3 ??C (97.4 ??F)10/17/2024 10:39 AM EDTRespiratory Rdmw752801/22/2025 2:56 PM EDTOxygen Wbqtpkbhey57%01/22/2025 2:56 PM EDTInhaled Oxygen Concentration--Cgjvnv61.5 kg (184 lb)01/22/2025 2:56 PM EDT Lxrofi992.6 cm (5' 6 )07/27/2022 2:54 PM ESTBody Mass Index29.7007/27/2022 2:54 PM EST Plan of Treatment DateTypeDepartmentCare Team (Latest Contact Info)Kshnmltlfys79/06/2026 3:30 PM ESTOffice Visit [facility] [address] [place] [phone] Annelise Mcgovern, SHOP TAILOR APPRENTICE-INSULATOR APPRENTICE [address] [place], [place] [id number] Health MaintenanceDue DateLast DoneCommentsDTaP,Tdap and Td Vaccines (1 - Tdap) 1996Pap Smear1998COVID-19 Vaccine (3 - 2024- season)2025 10/09/2020, 09/18/2020Influenza Kmtoinb1502/18/2025dult BMI Bpmmysdcq72/05/2026 01/22/2025Depression Sxwhriyxe71/05/634436Tobacco Qxilkndhh03/05/2026 01/22/2025 Medical Devices Not on file Insurance Care Teams Team MemberRelationshipSpecialtyStart DateEnd Date Annelise Mcgovern APRN-INSULATOR APPRENTICE [address] [place] [address] PCP - GeneralFamily Medicine12/24/24
--- OUTSIDE RECORDS SUMMARY | 2025-05-29 20:19 | XMS_ITS | Clinical Summary ---
Author Organization [facility] Healthcare Address [address] [place] [address] Care Team Providers Care Office Automation Technician Name Role Phone Gavino Shoemaker MD Primary Care Provider [phone] Annelise Mcgovern NP Unavailable [phone] Allergies No known active allergies Medications MedicationSigDispense QuantityRefillsLast FilledStart DateEnd DateStatus FLUoxetine (PROzac) 20 MG capsule Take 20 mg by mouth in the morning.5Active metFORMIN XR (Glucophage-XR) 500 MG 24 hr tablet Indications:Insulin resistanceTake 1 tablet (500 mg) by mouth in the evening. Take with meals Do not crush, chew, or split. 30 tablet 111501/6Active magnesium oxide (Mag-Ox) 400 MG tablet Indications:Muscle spasm of both lower legsTake 1 tablet (400 mg) by mouth Daily 30 tablet Expired Active Problems ProblemNoted DateDiagnosed DateThickened flebaaddiao06/21/2025Pre-op examination 01/07/20251726Fbxbvhe25/12/2025History of endometrial vxtjfwhe66/12/2025H/O tubal /12/2025Menorrhagia with irregular cycle11/29/2024 Encounters DateTypeDepartmentCare XwbzGrvgkjrmpyq23/10/2025 3:00 PM ESTOffice Visit [facility] [address] [facility] [place] [address] Brannon Rod DO Well woman exam with routine gynecological exam; Insulin ommwtpixbb57/10/2025amboo flowsheet [facility] [address] [place] [address] Brannon Rod, DO 04/16/2025 9:20 AM EDTOffice Visit [facility] [place] [facility] [address] [place] [address] Loli Henriquez PA Muscle spasm of both lower legs (Primary Dx); Postoperative follow-up04/16/2025amboo flowsheet [facility] [address] [place] [address] Loli Henriquez PA 04/01/2025Telephone [facility] [place] [facility] [address] [place] [address] Beryl Matson, LISA 03/14/2025 10:00 AM EDTOffice Visit [facility] [place] [facility] [facility] [address] [place] [address] Beryl Matson, LISA Viral upper respiratory tract infection (Primary Dx); Postoperative follow-up03/14/2025bstract [facility] [address] [place] [address] Brannon Rod, DO 5Clinisync Result Encounter [facility] External Department Unsolicited Brannon Rod, DO 03/07/2025bstract [facility] [place] [facility] [address] [place] [address] Brannon Rod, DO 03/07/2025bstract [facility] [place] [facility] [address] [place] [address] Brannon Rod, DO 03/07/2025External Result Encounter [facility] External Department Unsolicited Brannno Rod, DO 03/07/2025linisync Result Encounter [facility] External Department Unsolicited Brannon Rod, DO 03/05/2025Telephone [facility] [place] [facility] [address] [place] [address] Brannon Rod DO 02/28/2025Results Follow-Up [facility] [address] [place] [address] Arelis Angeles, INFORMATION SYSTEMS DIRECTOR ALL CBC WITH AUTO DIFF, SRMCOH PROTHROMBIN TIME INR W/O COUM, [facility] APTT, Additional followed-up results: bstract [facility] [address] [facility] [place] [address] Brannon Rod DO from Last 3 Months Family History Medical HistoryRelationNameCommentsBreast cancerMotherHypertensionMotherRelation NameStatusCommentsMotherAlive Social History Tobacco UseTypesPacks/DayYears UsedDateSmoking Tobacco: Never Tobacco Cessation:Counseling Given: Not Answered Alcohol UseStandard Drinks/WeekCommentsNever0 (1 standard drink = 0.6 oz pure alcohol)caffeine: noneCommentsNoSex and Gender InformationValueDate RecordedSex Assigned at BirthNot on fileLegal NalOrzhdg24/15/2023 7:01 PM EDT Gender IdentityNot on fileSexual OrientationNot on file Last Filed Vital Signs Vital SignReadingTime TakenCommentsBlood Bqathacm095/7005/29/2025 3:18 PM EST Pulse--Temperature--Respiratory Rate--Oxygen Saturation--Inhaled Oxygen Concentration--Whtbil13 kg (194 lb)05/29/2025 3:18 PM YKOBokdew161.2 cm (5' 7 ) 11/29/2024 9:15 AM EDTBody Mass Index30.38011/29/2024 9:15 AM EDT Plan of Treatment DateTypeDepartmentCare Team (Latest Contact Info)Bxxvsqkbvtx03/08/2026 8:30 AM ESTOffice Visit [facility] [address] [facility] [place] [address] Brannon Rod, [address] [place] [address] Procedures Procedure NamePriorityDate/TimeAssociated DiagnosisCommentsALL CBC WITH AUTO OSDYDqhfryg20/19/2025 6:08 AM EDT PATHOLOGY REQUEST FOR LAB YLHLQouazfq14/18/2025 2:58 PM EDT [facility] PREG QUANT JPVTuwkqct26/18/2025 11:09 AM EDT ALL CBC WITH AUTO ZQUJZdpdlrq85/18/2025 11:09 AM EDT from Last 3 Months Results * (ABNORMAL) ALL CBC WITH AUTO DIFF (03/08/2025 6:08 AM EDT) Only the most recent of2 resultswithin the time period is included. ComponentValueRef RangeTest MethodAnalysis TimePerformed AtPathologist Signature [facility] WBC13.6(H)4.0 - 11.0 10 3/uLTBHTBH RBC4.19(L)4.20 - 5.40 10 6/uLTBHTBH HGB 11.3(L)12.0 - 16.0 g/dLTBHTBH HCT34.0(L)36.0 - 48.0 %TBHTBH MCV81.181.0 - 99.0 fLTBHTBH MCH27.026.7 - 34.0 pgTBHTBH MCHC33.229.9 - 35.2 g/dLTBHTBH RDW13.011.0 - 15.0 %TBHTBH CBY784450 - 450 10 3/uLTBHTBH MPV10.59.5 - 13.5 fLTBHNEUTROPHILS PERCENT AUTO80.7(H)43.0 - 75.0 %TBHLYMPHOCYTES PERCENT AUTO10.0(L)20.5 - 60.0 % TBHMONOCYTES PERCENT AUTO8.51.7 - 12.0 %TBHTBH EO %0.1(L)0.9 - 7.0 %TBHBASOPHILS PERCENT AUTO0.30.2 - 2.0 %TBHIMMATURE GRANULOCYTES PCT AUTO0.40.0 - 0.5 %[facility] NEUTROPHILS ABSOLUTE AUTO11.0(H)1.4 - 6.5 10 3/uLTBHLYMPHOCYTES ABSOLUTE AUTO1.4 1.2 - 3.8 10 3/uLTBHMONOCYTES ABSOLUTE AUTO1.2(H)0.3 - 0.8 10 3/uLTBHTBH EO #0.0 0.0 - 0.7 10 3/uLTBHBASOPHILS ABSOLUTE AUTO0.00.0 - 0.1 10 3/uLTBHIMMATURE GRANULOCYTES ABS AUTO0.05(H)0.00 - 0.03 10 3/uLTBHSpecimen (Source)Anatomical Location / LateralityCollection Method / VolumeCollection TimeReceived Time 03/08/2025 6:08 AM EDT03/08/2025 6:10 AM EDT Narrative [facility] - 03/08/2025 6:37 AM EDT Authorizing ProviderResult TypeResult StatusCorey Viola DOCLINISYNCFinal Result Performing OrganizationAddressCity/State/ZIP CodePhone Number [facility]IN[facility] TB * PATHOLOGY REQUEST FOR LAB [place] (03/07/2025 2:58 PM EDT)ComponentValueRef Range Test MethodAnalysis TimePerformed AtPathologist SignaturePATHOLOGY REQUEST FOR LAB CORP03/15/2025 2:20 PM EDCincinnati Shriners Hospital CtrComment:See report. Scanned copy available in EMR.Specimen (Source)Anatomical Location / LateralityCollection Method / VolumeCollection TimeReceived TimeOther Topography unknown / Kkedwxy3803/07/2025 2:58 PM EDT03/08/2025 1:45 PM EDT Narrative Authorizing ProviderResult TypeResult StatusCorey Viola DOLAB BLOOD ORDERABLES Final ResultPerforming OrganizationAddressCity/[facility] CenterPhone Number [facility] [address] [place] [address], [facility] [address] [place] [address] * [facility] PREG QUANT HCG (03/07/2025 11:09 AM EDT)ComponentValueRef RangeTest Method Analysis TimePerformed AtPathologist SignatureHCG QUANTITATIVE<1mIU/mLTBH Comment: 5-50 ? 0.2-1 WEEK 50-500 ? 1-2 WEEKS 100-5,000 ?2-3 WEEKS 500-10,000 ? 3-4 WEEKS 1,000-50,000 ?? 4-5 WEEKS 10,000-100,000 5-6 WEEKS 15,000-200,000 6-8 WEEKS 10,000-100,000 2-3 MONTHS Specimen (Source)Anatomical Location / LateralityCollection Method / Volume Collection TimeReceived Time03/07/2025 11:09 AM EDT03/07/2025 11:10 AM EDT Narrative [facility] - 03/07/2025 11:48 AM EDT Authorizing ProviderResult TypeResult StatusCorey Viola DOCLINISYNCFinal Result Performing OrganizationAddressCity/State/ZIP CodePhone Number [facility] from Last 3 Months Insurance Care Teams Team MemberRelationshipSpecialtyStart DateEnd Gavino Shoemaker MD [address] [place] [address] PCP - GeneralFamily Fyrxgrep29/14/23 Annelise Mcgovern NP [address] [place], [place] [phone] Referring PhysicianFamily Medicine12/03/24
--- OUTSIDE RECORDS SUMMARY | 2025-05-29 20:19 | XMS_ITS | Encounter Summary ---
Author Organization [facility] Address [address] [facility] [place] [address] Care Team Providers Care Cellular Plastics Cutter Name Role Phone Gavino Shoemaker MD Primary Care Provider [phone] Annelise Mcgovern HYDROELECTRIC MECHANIC Unavailable [phone] Encounter Details DateTypeDepartmentCare Team (Latest Contact Info)Idcmxmjjlai67/10/2025amboo flowsheet [facility] [address] [place] [address] Brannon Rod DO [address] [place] [address] [address] [place], [facility] Social History Tobacco UseTypesPacks/DayYears UsedDateSmoking Tobacco: NeverAlcohol UseStandard Drinks/WeekCommentsNever0 (1 standard drink = 0.6 oz pure alcohol)caffeine: none CommentsNoSex and Gender InformationValueDate RecordedSex Assigned at BirthNot on fileLegal SsiLsqczs51/15/2023 7:01 PM EDTGender IdentityNot on file Sexual OrientationNot on filedocumented as of this encounter Plan of Treatment DateTypeDeparttrinity health livingston hospitalCare Team (Latest Contact Info)Joyriyowuhe35/08/2026 8:30 AM ESTOffice Visit [facility] [address] [facility] [place] [address] Brannon Rod DO [address] [place], [facility]11 documented as of this encounter Visit Diagnoses Not on filedocumented in this encounter Care Teams Team MemberRelationshipSpecialtyStart DateEnd Date Gavino Shoemaker MD [address] [place], [place] [phone] PCP - GeneralFamily Esjzypbn19/14/23 Annelise Mcgovern NP [address] [place], [place] [phone] Referring PhysicianFamily Medicine12/03/24documented as of this encounter
== END 2025-05-29 20:14 | disposition home or self-care (01) ==
LOC: LAB 20:13
PROVIDERS: PCP Nurse Practitioner Family; Visit Provider Obstetrics & Gynecology
DX: Z01.419 Encounter for gynecological examination (general) (routine) without abnormal findings (principal)
CPT/HCPCS: 88175